=== PATIENT | female | born 1955 | race Caucasian/White ===

== ENCOUNTER 2016-09-24 23:32 | Emergency (ER) | payer OTHER ==
[~2016-09-24 23:32] MED LIST: /ALEN70TA; /ALEN70TA OR; /ALEN7SOL PO; /HCTZ25TA PO; /HYDR1TAB PO; /LAMO10TA; /LAMO20TA OR; /ONDA4TA PO; /THIA10TA OR; ABIL10TA PO; ABIL15TA PO; ACET65TA OR; ASCO25TA PO; ASPI325T PO; ASPI325T5 PO; ATARAX; ATARAX PO; BISAC5TA PO; CALCTAB68 PO; CALCWAF4 PO; CARA1TAB2 PO; CILO0.3S OU; CLAR5CHW; COLA50CA3 PO; COLACE PO; DARVOCET-N PO; DULC5TAB PO; EFFEXOR; FERR325T PO; FERR325T3 PO; FLEX5TAB3 PO; FOLI1TAB OR; FOLI1TAB2 PO; FOSAMAX70 PO; HYDR1TAB97 PO; HYDR25TA6 OR; HYDR50CA2 PO; IBUP800T23 PO; KLON2TAB; KLON2TAB OR; KLON2TAB PO; KLOR1TAB77 PO; LAMICTAL; LEVO25TABR OR; LIDO1DIS2 TD; LIDO5DIS36 TD; LIDO5TD TD; LIDODERM; LIDODERM PATCH; LIDODERM TOPICAL; LOPR50TA PO; MAG400TA PO; MAGN250T9 PO; MAGN400T5 PO; MAGN64TASA PO; METO25TAB PO; MICR10CA PO; MILKSUS PO; MOBIC15 PO; MULTCAP PO; MULTIVIT OR; MULTTAB4 PO; MYLASS PO; NAPROS500 PO; NEXIUM PO; NICO21DI4 TD; OMEP40CA2 PO; OSCAL PO; OSCAL600 PO; OXYCO5TA PO; OYSTER SHELL CALCIUM; PERC5TAB6 PO; PERCOCET OR; PERCOCET PO; PHENERGA25 PO; POTA1TAB14 PO; POTA75TA2 PO; PRIL20CA; PRIL40CA PO; PRILOSEC; PRIN10TA OR; PRIN10TA PO; REGL10TA6 PO; SENO8.6T10 PO; SENO8.6T9 PO; SIMV10TA2 PO; TOPR25TA PO; TYLE325T5 PO; VENL75TA2; VICODIN PO; VIST50CA; VITA100L PO; VITMTA PO; ZITHTAB; ZOCO5TAB OR; ZYPR20TA OR; [UNRECOGNIZED DRUG - CODE] PO; [UNRECOGNIZED DRUG - OTHER] PO; potassium
[2016-09-24] MEDS ORDERED: MORPHINE 4 MG/ML 1ML SYRINGE As Ordered ONE (23:54)
--- NOTE | 2016-09-25 01:14 | REP ---
Clinical: Trauma. Technique: AP and lateral views of the left forearm. Findings: Lateral view demonstrates irregularities involving the proximal ulna and specifically the coronoid process. These findings may reflect arthritic degenerative changes and however acute injury cannot be excluded. Remainder of the forearm appears intact and normal without acute fracture or dislocation. No subcutaneous emphysema or radiodense foreign body. Impression: 1. Degenerative changes versus injury involving the elbow/proximal ulna. 2. Remainder examination appears normal and without further acute fracture dislocation. Signed by Stephan Kline MD 09/25/2016 01:05 A
--- NOTE | 2016-09-25 01:17 | REP ---
Clinical: Trauma. Technique: AP and lateral views of the left humerus. Comparison: 09/07/2016. Findings: Orthopedic hardware is again identified spanning the proximal humeral shaft fracture. A comminuted oblique fracture of the mid humeral shaft is unchanged in position but demonstrates surrounding callus formation and periosteal reaction. No obvious further acute fracture or dislocation noted. Impression: 1. Callus formation and periosteal reaction at the site of previous mid humeral shaft fracture. 2. No new acute fracture. Signed by Stephan Kline MD 09/25/2016 01:08 A
--- NOTE | 2016-09-25 10:41 | EDDOCDS ---
Nurse's Notes [facility] Name: Corinne Garg Age: 60 yrs Sex: Female : 1955 Arrival Date: 09/24/2016 Time: 23:32 Bed 18 Private MD: Sania Bales Diagnosis: Alcohol abuse with intoxication, uncomplicated;Fall on same level from slipping, tripping and stumbling;Contusion of left upper arm Presentation: 09/24 23:36 Presenting complaint: EMS states: pt has been drinking and fell on left arm that she ko2 currently had surgery on a month ago. Pt was here two weeks ago for the same reason. Per EMS roommate no longer wanted to care for pt. She was given an ultimatum by the police that she either come to the hospital and be evaluated for psych. Mental Health Triage Level: Not applicable. Adult Sepsis Screening: The patient does not have new or worsening altered mentation. Patient's respiratory rate is less than 22. Systolic blood pressure is greater than 100. Patient has a qSOFA score of 0- Negative Sepsis Screen. Mental Health Triage Level: Not applicable. Suicide/Homicide risk assessment- the patient denies having any suicidal and/or homicidal ideations and does not present with any other emotional, behavioral or mental health complaints. 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 Transition of care: patient was not received from another setting of care. Care prior to arrival: See EMS report. 23:36 Acuity: LEXI Level 4 ko2 23:36 Method Of Arrival: Ambulance ko2 Triage Assessment: 23:45 General: Appears uncomfortable, Behavior is cooperative. Pain: Location: left shoulder. ko2 HIV screening NA for this visit Offered previously. The patient is triaged at the bedside. See Assessment in Nurses Notes section of ED record. Neurological: Level of Consciousness is awake. Respiratory: Airway is patent Respiratory effort is even, unlabored. Derm: Skin is pink, warm & dry. Historical: - Allergies: No known drug Allergies; - Home Meds: 1. Percocet 5-325 mg Oral tab 1 tab every 4 hours (Last dose: 09/24/2016 08:00) - PMHx: Alcoholism; Anxiety; Depression; Hypercholesterolemia; Hypertension; - PSHx: ; Laparoscopy; Left arm surgery; - The history from nurses notes was reviewed: and I agree with what is documented. - Social history: Smoking status: Patient uses tobacco products, heavy tobacco smoker. No barriers to communication noted, The patient speaks fluent Syriac, Speaks appropriately for age, The patient lives. - : The pt / caregiver states he / she is not on anticoagulants. Home medication list is obtained from the patient. - Hospitalizations: : No recent hospitalization is reported. - Exposure Risk Screening:: None identified. - Immunization history:: unknown. - Family history: Not pertinent. - Social history:: the patient smokes cigarettes the patient drinks alcohol, including recently, regularly to excess. Screenin:46 Screening information is obtained from the patient. Fall risk: No risks identified. ko2 Fall risk: At risk due to prior history of falls. Assistance ADL's: requires no assistance with activities of daily living. Abuse/DV Screen: The patient / caregiver reports he/she is: not in a situation that causes fear, pain or injury. Nutritional screening: No deficits noted. Advance Directives: Currently, there is no health care proxy. There is no active DNR order. There is no living will. 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 home support is adequate. Assessment: 23:46 General: See triage assessment. ko2 09/25 01:23 Reassessment: Patient appears in no apparent distress at this time. General: sleeping gabino at present.. Cardiovascular: No deficits noted. Respiratory: No deficits noted. Derm: Skin is pink, warm & dry. 02:06 Reassessment: Patient appears in no apparent distress at this time. remains sleeping at gabino this time.. 02:37 General: Pt does not want to be discharged. Wishes to stay until AM does not have keys gabino to get into house. Charge Nurse Corinne Funk to notify Dr. Thomas.. 03:04 General: Pt will not ambulate. Stands only. Roommate unable to be contacted to let her gabino in house. No incoming calls per phone. Dr. Thomas aware. [place] Police to be contacted to see if they can get her in her house by waking roommate.. 04:00 General: Appears in no apparent distress, pt resting comfortably on stretcher at this ko2 time. Trying to contact Bora Corral to come and get pt. customer order clerk will continue to try and reach number. 05:00 General: Appears in no apparent distress, comfortable, pt resting comfortably on ko2 stretcher at this time. Trying to contact Eusebio corral to come and get pt with no success at this time. Will continue to try and reach him.. 06:10 General: Appears in no apparent distress, comfortable, Attempts to contact Eusebio Corral ko2 still unsuccessful. Will continue to try and reach via phone. Pt resting comfortably, respirations unlabored. No concerns at this time. . 07:08 General: Appears resting resting with eyes closed resp easy and regular. awaiting jmk intervention from PSA. 07:48 General: Appears conversing with PSA. jmk 08:38 General: Appears alert and aware of surroundings. speech is intelligible. moving about jmk on stretcher. Indicates left arm pain with movement. ( arm is in sling from prior injury). orange juice provided. awaiting dispo. 10:38 General: Appears ambulatory about department with supervision. pt receptive to jmk discharge. Social Work Consult: 08:13 Social Work Note: Msg left for roommate, Eusebio Corral. No reply yet to multiple phone ca calls. Police reportedly went to pt's home during the night but no answer. Pt says she is locked out and that the roommate is home. Will not give permission to call her other contacts who are family members. 08:24 Social Work Note: Another call made to Mr Corral, again no answer. ca Vital Signs: 09/24 23:39 BP 128 / 73; Pulse 95; Resp 18 S; Temp 97.6(O); Pulse Ox 99% on R/A; Weight 53.52 kg jp4 (R); Height 5 ft. 2 in. (157.48 cm) (R); Pain 10; 09/25 02:36 BP 103 / 55; Pulse 85; Resp 20 S; Temp 96.2(O); Pulse Ox 95% on R/A; gabino 10:39 BP 134 / 75; Pulse 96; Resp 16; Temp 97.3(T); jmk 09/24 23:39 Body Mass Index 21.58 (53.52 kg, 157.48 cm) jp4 ED Course: 09/24 23:33 Patient visited by Cruz Dobson, Speedboat Driver. 3 23:33 Patient moved to Waiting ml3 23:34 Anita Sin,RN is Primary Nurse. ml3 23:34 Patient moved to 18 ml3 23:36 Sania Bales is Private Physician. ml3 23:40 Patient visited by Jorge Albetro Vanegas. jp4 23:40 Patient has correct armband on for positive identification. Bed in low position. Call jp4 light in reach. Side rails up X2. 23:42 Triage Initiated ko2 23:45 Kartik Thomas MD is Attending Physician. pc 23:49 Patient visited by Kartik Thomas MD. pc 04 00:02 Patient visited by Anita Sin RN. ko2 00:02 Alcohol Sent. gabino 01:18 Patient visited by Radha Fontanez RN. gabino 01:24 Forearm (radius/ulna) Returned. EDMS 01:24 Humerus Returned. EDMS 02:06 Patient visited by Radha Fontanez RN. gabino [facility] pc 06:11 Patient visited by Anita Sin RN. ko2 06:25 [facility] Payment Agreement was scanned into [employer] and attached to record. jp5 07:15 Primary Nurse role handed off by Anita Sin RN jlf Administered Medications: 00:02 Drug: morphine 4 mg [morphine 4 mg/mL intravenous cartridge (1 mL)] Route: Sub-Q; Site: ko2 abdomen; 00:10 Follow up: Response: Pain is decreased gabino Order Results: Lab Order: Alcohol; SPEC'M 09/25/16 00:04 Test: ETHYL ALCOHOL (ETHANOL); Value: 0.303; Range: 0.000-0.010; Abnormal: Above high normal; Units: %; Status: F Radiology Order: Forearm (radius/ulna) Test: Forearm (radius/ulna) REASON FOR EXAMINATION: Trauma; Clinical: Trauma.; ; Technique: AP and lateral views of the left forearm.; ; Findings:; Lateral view demonstrates irregularities involving the proximal ulna and; specifically the coronoid process. These findings may reflect arthritic; degenerative changes and however acute injury cannot be excluded. Remainder of; the forearm appears intact and normal without acute fracture or dislocation. No; subcutaneous emphysema or radiodense foreign body.; ; Impression:; 1. Degenerative changes versus injury involving the elbow/proximal ulna.; 2. Remainder examination appears normal and without further acute fracture; dislocation.; ; ; Signed by; Stephan Kline MD 09/25/2016 01:05 A; Radiology Order: Humerus Test: Humerus REASON FOR EXAMINATION: Trauma; Clinical: Trauma.; ; Technique: AP and lateral views of the left humerus.; ; Comparison: 09/07/2016.; ; Findings:; Orthopedic hardware is again identified spanning the proximal humeral shaft; fracture. A comminuted oblique fracture of the mid humeral shaft is unchanged in; position but demonstrates surrounding callus formation and periosteal reaction.; No obvious further acute fracture or dislocation noted.; ; Impression:; 1. Callus formation and periosteal reaction at the site of previous mid humeral; shaft fracture.; 2. No new acute fracture.; ; ; Signed by; Stephan Kline MD 09/25/2016 01:08 A; Outcome: 02:21 Discharge ordered by Provider. pc 10:40 Patient left the ED. desirae Signatures: Dispatcher [employer] EDMS Kartik Thomas MD MD pc Knapp, Jean,RN RN Radha AcostaRN RN Lanny Good, PSA PSA ca Bronson, Cruz, Speedboat Driver Unit ml3 Alma Aleman, CARL E[employer]ER[employer] MANAGER Jorge Alberto Liu jp4 Anita Sin,RN RN Juan Diego Wolfe jp5 Corrections: (The following items were deleted from the chart) 02:41 02:37 General: Pt does not want to be discharged. Wishes to stay until AM. . gabino lloyd GAGANDEEP
--- NOTE | 2016-09-25 10:41 | EDDOCDS ---
Physician Documentation [facility] [place] Name: Corinne Garg Age: 60 yrs Sex: Female : 1955 Arrival Date: 09/24/2016 Time: 23:32 Bed 18 Private MD: Sania Bales Disposition: 09/25 02:20 Critical Care: Critical care not applicable. pc Disposition: 09/25/16 02:21 Discharged to Home/Self Care. Impression: Alcohol abuse with intoxication, uncomplicated, Fall on same level from slipping, tripping and stumbling, Contusion of left upper arm. - Condition is Stable. - Discharge Instructions: Alcohol Intoxication. - Medication Reconciliation, Local Pharmacy Hours form. - Follow up: Orthopaedics, [facility]; When: As previously arranged; Reason: Continuance of care. - Problem is an acute exacerbation. - Symptoms have improved. HPI: 09/24 23:50 This 60 yrs old Female presents to ER via Ambulance with complaints of ETOH pc Abuse, Fall Injury. 23:50 The history is obtained from the patient, EMS providers. A reliable history and/or pc examination was not able to be obtained, due to the patient's level of intoxication. She is an alcoholic with a history of multiple falls. She broke her left upper humerus requiring ORIF, followed by another fall that fractured the mid shaft humerus just below the hardware. She is now in a full arm splint. She is highly intoxicated, and fell walking ot the bathroom. She has left arm pain and refused EMS. Her roommate refused to help her and police were called and "convinced" her to come to the ED. At their worst, the symptoms were moderate. In the emergency department, the symptoms are moderate. The patient has experienced similar episodes in the past, multiple times. The patient has been recently seen by an orthopedic surgeon. Historical: - Allergies: No known drug Allergies; - Home Meds: 1. Percocet 5-325 mg Oral tab 1 tab every 4 hours (Last dose: 09/24/2016 08:00) - PMHx: Alcoholism; Anxiety; Depression; Hypercholesterolemia; Hypertension; - PSHx: ; Laparoscopy; Left arm surgery; - The history from nurses notes was reviewed: and I agree with what is documented. - Social history: Smoking status: Patient uses tobacco products, heavy tobacco smoker. No barriers to communication noted, The patient speaks fluent Salvadorean, Speaks appropriately for age, The patient lives. - : The pt / caregiver states he / she is not on anticoagulants. Home medication list is obtained from the patient. - Hospitalizations: : No recent hospitalization is reported. - Exposure Risk Screening:: None identified. - Immunization history:: unknown. - Family history: Not pertinent. - Social history:: the patient smokes cigarettes the patient drinks alcohol, including recently, regularly to excess. ROS: 23:50 All systems are negative except as listed. pc Exam: 23:50 General Appearance: alert, the patient is in moderate distress, strong odor of alcohol. pc 23:50 EENT: no apparent trauma. 23:50 Extremities: grossly normal except: noted in the left arm: in an orthopedic splint, with normal sensation in her hand and with movement of all fingers. 23:50 Neuro: no motor deficits, no sensory deficits. Vital Signs: 23:39 BP 128 / 73; Pulse 95; Resp 18 S; Temp 97.6(O); Pulse Ox 99% on R/A; Weight 53.52 kg / jp4 117.99 lbs (R); Height 5 ft. 2 in. (157.48 cm) (R); Pain 10/10; 09/25 02:36 BP 103 / 55; Pulse 85; Resp 20 S; Temp 96.2(O); Pulse Ox 95% on R/A; gabino 10:39 BP 134 / 75; Pulse 96; Resp 16; Temp 97.3(T); jmk 09/24 23:39 Body Mass Index 21.58 (53.52 kg, 157.48 cm) jp4 MDM: 09/24 23:50 morphine 4 mg Sub-Q once ordered. pc 23:51 Forearm (radius/ulna) Ordered. EDMS 23:51 Humerus Ordered. EDMS 23:52 Alcohol Ordered. EDMS 23:56 Differential Diagnosis: alcohol abuse with intoxication; left arm pain with multiple pc recent fractures. Plan: labs, meds, imaging. 09/25 02:20 Alcohol Reviewed. pc 02:20 Forearm (radius/ulna) Reviewed. pc 02:20 Humerus Reviewed. pc 02:20 Data reviewed: old medical records, vital signs, nurses notes, lab test results, all pc radiology studies and available results. Test interpretation: LAB - all labs as ordered have been reviewed, interpreted and considered in the overall management of the clinical presentation; X-RAY - interpreted by Radiologist and personally reviewed, Forearm Left No acute disease Humerus Left prior fracture with callous formation and no new fractures. The patient has been re-examined and re-evaluated. The patient's symptoms have mildly improved after treatment. Disposition: The historical points, examination findings, and any diagnostic results supporting the provided diagnosis, were discussed with the patient or legal guardian. The need for outpatient follow up with the provider listed on their discharge instructions was discussed. They were encouraged to return to [facility], or the nearest ED, if symptoms worsen/persist, or for any other questions/concerns. 06:25 [facility] Payment Agreement was scanned into [employer] and attached to record. jp5 06:25 Financial registration complete. jp5 Administered Medications: 00:02 Drug: morphine 4 mg [morphine 4 mg/mL intravenous cartridge (1 mL)] Route: Sub-Q; Site: ko2 abdomen; 00:10 Follow up: Response: Pain is decreased gabino Signatures: Dispatcher [employer] EDMS Kartik Thomas MD MD pc Knapp, Jean,RN RN Anita Berry RN RN gerry2 Juan Diego Xiao jp5 Radha Fontanez RN, cas The chart was reviewed and I authenticate all verbal orders and agree with the evaluation and treatment provided.Attachments: 06:25 [facility] Payment Agreement jp5 MTDD
--- NOTE | 2016-09-27 11:40 | EDDOCDS ---
Physician Documentation [facility] Name: Corinne Garg Age: 60 yrs Sex: Female : 1955 Arrival Date: 09/24/2016 Time: 23:32 Bed 18 Private MD: Sania Bales Disposition: 09/25 02:20 Critical Care: Critical care not applicable. pc Disposition: 09/25/16 02:21 Discharged to Home/Self Care. Impression: Alcohol abuse with intoxication, uncomplicated, Fall on same level from slipping, tripping and stumbling, Contusion of left upper arm. - Condition is Stable. - Discharge Instructions: Alcohol Intoxication. - Medication Reconciliation, Local Pharmacy Hours form. - Follow up: Orthopaedics, [facility]; When: As previously arranged; Reason: Continuance of care. - Problem is an acute exacerbation. - Symptoms have improved. HPI: 09/24 23:50 This 60 yrs old Female presents to ER via Ambulance with complaints of ETOH pc Abuse, Fall Injury. 23:50 The history is obtained from the patient, EMS providers. A reliable history and/or pc examination was not able to be obtained, due to the patient's level of intoxication. She is an alcoholic with a history of multiple falls. She broke her left upper humerus requiring ORIF, followed by another fall that fractured the mid shaft humerus just below the hardware. She is now in a full arm splint. She is highly intoxicated, and fell walking ot the bathroom. She has left arm pain and refused EMS. Her roommate refused to help her and police were called and "convinced" her to come to the ED. At their worst, the symptoms were moderate. In the emergency department, the symptoms are moderate. The patient has experienced similar episodes in the past, multiple times. The patient has been recently seen by an orthopedic surgeon. Historical: - Allergies: No known drug Allergies; - Home Meds: 1. Percocet 5-325 mg Oral tab 1 tab every 4 hours (Last dose: 09/24/2016 08:00) - PMHx: Alcoholism; Anxiety; Depression; Hypercholesterolemia; Hypertension; - PSHx: ; Laparoscopy; Left arm surgery; - The history from nurses notes was reviewed: and I agree with what is documented. - Social history: Smoking status: Patient uses tobacco products, heavy tobacco smoker. No barriers to communication noted, The patient speaks fluent [place]er, Speaks appropriately for age, The patient lives. - : The pt / caregiver states he / she is not on anticoagulants. Home medication list is obtained from the patient. - Hospitalizations: : No recent hospitalization is reported. - Exposure Risk Screening:: None identified. - Immunization history:: unknown. - Family history: Not pertinent. - Social history:: the patient smokes cigarettes the patient drinks alcohol, including recently, regularly to excess. ROS: 23:50 All systems are negative except as listed. pc Exam: 23:50 General Appearance: alert, the patient is in moderate distress, strong odor of alcohol. pc 23:50 EENT: no apparent trauma. 23:50 Extremities: grossly normal except: noted in the left arm: in an orthopedic splint, with normal sensation in her hand and with movement of all fingers. 23:50 Neuro: no motor deficits, no sensory deficits. Vital Signs: 23:39 BP 128 / 73; Pulse 95; Resp 18 S; Temp 97.6(O); Pulse Ox 99% on R/A; Weight 53.52 kg / jp4 117.99 lbs (R); Height 5 ft. 2 in. (157.48 cm) (R); Pain 10/10; 09/25 02:36 BP 103 / 55; Pulse 85; Resp 20 S; Temp 96.2(O); Pulse Ox 95% on R/A; gabino 10:39 BP 134 / 75; Pulse 96; Resp 16; Temp 97.3(T); jmk 09/24 23:39 Body Mass Index 21.58 (53.52 kg, 157.48 cm) jp4 MDM: 09/24 23:50 morphine 4 mg Sub-Q once ordered. pc 23:51 Forearm (radius/ulna) Ordered. EDMS 23:51 Humerus Ordered. EDMS 23:52 Alcohol Ordered. EDMS 23:56 Differential Diagnosis: alcohol abuse with intoxication; left arm pain with multiple pc recent fractures. Plan: labs, meds, imaging. 09/25 02:20 Alcohol Reviewed. pc 02:20 Forearm (radius/ulna) Reviewed. pc 02:20 Humerus Reviewed. pc 02:20 Data reviewed: old medical records, vital signs, nurses notes, lab test results, all pc radiology studies and available results. Test interpretation: LAB - all labs as ordered have been reviewed, interpreted and considered in the overall management of the clinical presentation; X-RAY - interpreted by Radiologist and personally reviewed, Forearm Left No acute disease Humerus Left prior fracture with callous formation and no new fractures. The patient has been re-examined and re-evaluated. The patient's symptoms have mildly improved after treatment. Disposition: The historical points, examination findings, and any diagnostic results supporting the provided diagnosis, were discussed with the patient or legal guardian. The need for outpatient follow up with the provider listed on their discharge instructions was discussed. They were encouraged to return to [facility], or the nearest ED, if symptoms worsen/persist, or for any other questions/concerns. 06:25 [facility] Payment Agreement was scanned into [employer] and attached to record. jp5 06:25 Financial registration complete. jp5 Administered Medications: 00:02 Drug: morphine 4 mg [morphine 4 mg/mL intravenous cartridge (1 mL)] Route: Sub-Q; Site: ko2 abdomen; 00:10 Follow up: Response: Pain is decreased gabino Signatures: Dispatcher [employer] EDMS Kartik Thomas MD MD pc Knapp, Jean,RN RN Anita Berry RN RN gerry2 Juan Diego Xiao jp5 Radha Fontanez RN, cas The chart was reviewed and I authenticate all verbal orders and agree with the evaluation and treatment provided.Attachments: 06:25 [facility] Payment Agreement jp5 Chart Complete MTDD
--- NOTE | 2016-09-27 11:40 | EDDOCDS ---
Nurse's Notes [facility] Name: Corinne Garg Age: 60 yrs Sex: Female : 1955 Arrival Date: 09/24/2016 Time: 23:32 Bed 18 Private MD: Sania Bales Diagnosis: Alcohol abuse with intoxication, uncomplicated;Fall on same level from slipping, tripping and stumbling;Contusion of left upper arm Presentation: 09/24 23:36 Presenting complaint: EMS states: pt has been drinking and fell on left arm that she ko2 currently had surgery on a month ago. Pt was here two weeks ago for the same reason. Per EMS roommate no longer wanted to care for pt. She was given an ultimatum by the police that she either come to the hospital and be evaluated for psych. Mental Health Triage Level: Not applicable. Adult Sepsis Screening: The patient does not have new or worsening altered mentation. Patient's respiratory rate is less than 22. Systolic blood pressure is greater than 100. Patient has a qSOFA score of 0- Negative Sepsis Screen. Mental Health Triage Level: Not applicable. Suicide/Homicide risk assessment- the patient denies having any suicidal and/or homicidal ideations and does not present with any other emotional, behavioral or mental health complaints. Status: Patient is not a electromedical service engineer or dependent. Transition of care: patient was not received from another setting of care. Care prior to arrival: See EMS report. 23:36 Acuity: LEXI Level 4 ko2 23:36 Method Of Arrival: Ambulance ko2 Triage Assessment: 23:45 General: Appears uncomfortable, Behavior is cooperative. Pain: Location: left shoulder. ko2 HIV screening NA for this visit Offered previously. The patient is triaged at the bedside. See Assessment in Nurses Notes section of ED record. Neurological: Level of Consciousness is awake. Respiratory: Airway is patent Respiratory effort is even, unlabored. Derm: Skin is pink, warm & dry. Historical: - Allergies: No known drug Allergies; - Home Meds: 1. Percocet 5-325 mg Oral tab 1 tab every 4 hours (Last dose: 09/24/2016 08:00) - PMHx: Alcoholism; Anxiety; Depression; Hypercholesterolemia; Hypertension; - PSHx: ; Laparoscopy; Left arm surgery; - The history from nurses notes was reviewed: and I agree with what is documented. - Social history: Smoking status: Patient uses tobacco products, heavy tobacco smoker. No barriers to communication noted, The patient speaks fluent Luxembourgish, Speaks appropriately for age, The patient lives. - : The pt / caregiver states he / she is not on anticoagulants. Home medication list is obtained from the patient. - Hospitalizations: : No recent hospitalization is reported. - Exposure Risk Screening:: None identified. - Immunization history:: unknown. - Family history: Not pertinent. - Social history:: the patient smokes cigarettes the patient drinks alcohol, including recently, regularly to excess. Screenin:46 Screening information is obtained from the patient. Fall risk: No risks identified. ko2 Fall risk: At risk due to prior history of falls. Assistance ADL's: requires no assistance with activities of daily living. Abuse/DV Screen: The patient / caregiver reports he/she is: not in a situation that causes fear, pain or injury. Nutritional screening: No deficits noted. Advance Directives: Currently, there is no health care proxy. There is no active DNR order. There is no living will. There is no Power of Commissions Analyst. home support is adequate. Assessment: 23:46 General: See triage assessment. ko2 09/25 01:23 Reassessment: Patient appears in no apparent distress at this time. General: sleeping gabino at present.. Cardiovascular: No deficits noted. Respiratory: No deficits noted. Derm: Skin is pink, warm & dry. 02:06 Reassessment: Patient appears in no apparent distress at this time. remains sleeping at gabino this time.. 02:37 General: Pt does not want to be discharged. Wishes to stay until AM does not have keys gabino to get into house. Charge Nurse Corinne Funk to notify Dr. Thomas.. 03:04 General: Pt will not ambulate. Stands only. Roommate unable to be contacted to let her gabino in house. No incoming calls per phone. Dr. Thomas aware. [place] Police to be contacted to see if they can get her in her house by waking roommate.. 04:00 General: Appears in no apparent distress, pt resting comfortably on stretcher at this ko2 time. Trying to contact Bora Corral to come and get pt. insurance clerk will continue to try and reach number. 05:00 General: Appears in no apparent distress, comfortable, pt resting comfortably on ko2 stretcher at this time. Trying to contact Eusebio corral to come and get pt with no success at this time. Will continue to try and reach him.. 06:10 General: Appears in no apparent distress, comfortable, Attempts to contact Eusbeio Corral ko2 still unsuccessful. Will continue to try and reach via phone. Pt resting comfortably, respirations unlabored. No concerns at this time. . 07:08 General: Appears resting resting with eyes closed resp easy and regular. awaiting jmk intervention from PSA. 07:48 General: Appears conversing with PSA. jmk 08:38 General: Appears alert and aware of surroundings. speech is intelligible. moving about jmk on stretcher. Indicates left arm pain with movement. ( arm is in sling from prior injury). orange juice provided. awaiting dispo. 10:38 General: Appears ambulatory about department with supervision. pt receptive to jmk discharge. Social Work Consult: 08:13 Social Work Note: Msg left for roommate, Eusebio Corral. No reply yet to multiple phone ca calls. Police reportedly went to pt's home during the night but no answer. Pt says she is locked out and that the roommate is home. Will not give permission to call her other contacts who are family members. 08:24 Social Work Note: Another call made to Mr Corral, again no answer. ca 11:04 Social Work Note: Spoke to pt's friend, and pt's home is now accessible. Pt discharged ca via taxi. Vital Signs: 09/24 23:39 BP 128 / 73; Pulse 95; Resp 18 S; Temp 97.6(O); Pulse Ox 99% on R/A; Weight 53.52 kg jp4 (R); Height 5 ft. 2 in. (157.48 cm) (R); Pain 07/01; 09/25 02:36 BP 103 / 55; Pulse 85; Resp 20 S; Temp 96.2(O); Pulse Ox 95% on R/A; gabino 10:39 BP 134 / 75; Pulse 96; Resp 16; Temp 97.3(T); jmk 09/24 23:39 Body Mass Index 21.58 (53.52 kg, 157.48 cm) 4 ED Course: 09/24 23:33 Patient visited by Cruz Dobson, 5Th Grade Teacher. ml3 23:33 Patient moved to Waiting ml3 23:34 Anita Sin RN is Primary Nurse. ml3 23:34 Patient moved to 18 ml3 23:36 Sania Bales is Private Physician. ml3 23:40 Patient visited by Jorge Alberto Vanegas. jp4 23:40 Patient has correct armband on for positive identification. Bed in low position. Call jp4 light in reach. Side rails up X2. 23:42 Triage Initiated ko2 23:45 Kartik Thomas MD is Attending Physician. pc 23:49 Patient visited by Kartik Thomas MD. pc 09/25 00:02 Patient visited by Anita Sin RN. ko2 00:02 Alcohol Sent. gabino 01:18 Patient visited by Radha Fontanez RN. gabino 01:24 Forearm (radius/ulna) Returned. EDMS 01:24 Humerus Returned. EDMS 02:06 Patient visited by Radha Fontanez RN. gabino 02:[facility] pc 06:11 Patient visited by Anita Sin RN. ko2 06:25 [facility] Payment Agreement was scanned into [employer] and attached to record. jp5 07:15 Primary Nurse role handed off by Anita Sin RN [facility] Administered Medications: 00:02 Drug: morphine 4 mg [morphine 4 mg/mL intravenous cartridge (1 mL)] Route: Sub-Q; Site: ko2 abdomen; 00:10 Follow up: Response: Pain is decreased gabino Order Results: Lab Order: Alcohol; SPEC'M 09/25/16 00:04 Test: ETHYL ALCOHOL (ETHANOL); Value: 0.303; Range: 0.000-0.010; Abnormal: Above high normal; Units: %; Status: F Radiology Order: Forearm (radius/ulna) Test: Forearm (radius/ulna) REASON FOR EXAMINATION: Trauma; Clinical: Trauma.; ; Technique: AP and lateral views of the left forearm.; ; Findings:; Lateral view demonstrates irregularities involving the proximal ulna and; specifically the coronoid process. These findings may reflect arthritic; degenerative changes and however acute injury cannot be excluded. Remainder of; the forearm appears intact and normal without acute fracture or dislocation. No; subcutaneous emphysema or radiodense foreign body.; ; Impression:; 1. Degenerative changes versus injury involving the elbow/proximal ulna.; 2. Remainder examination appears normal and without further acute fracture; dislocation.; ; ; Signed by; Stephan Kline MD 09/25/2016 01:05 A; Radiology Order: Humerus Test: Humerus REASON FOR EXAMINATION: Trauma; Clinical: Trauma.; ; Technique: AP and lateral views of the left humerus.; ; Comparison: 09/07/2016.; ; Findings:; Orthopedic hardware is again identified spanning the proximal humeral shaft; fracture. A comminuted oblique fracture of the mid humeral shaft is unchanged in; position but demonstrates surrounding callus formation and periosteal reaction.; No obvious further acute fracture or dislocation noted.; ; Impression:; 1. Callus formation and periosteal reaction at the site of previous mid humeral; shaft fracture.; 2. No new acute fracture.; ; ; Signed by; Stephan Kline MD 09/25/2016 01:08 A; Outcome: 02:21 Discharge ordered by Provider. pc 10:40 Patient left the ED. desirae Signatures: Dispatcher [employer] EDMS Kartik Thomas MD MD pc Knapp, Jean,RN RN Radha Acosta,RN RN gabino Lanny Medina, RENETTA PSA ca Cruz Dobson, 5Th Grade Teacher Unit ml3 Alma Aleman, MEDICATION COORDINATOR MEDICATION COORDINATOR Jorge Alberto Liu jp4 Anita Sin RN RN Juan Diego Wolfe jp5 Corrections: (The following items were deleted from the chart) 02:41 02:37 General: Pt does not want to be discharged. Wishes to stay until AM. . gabino gabino Chart Complete MTDD
--- NOTE | 2016-09-27 11:40 | EDDOCDS ---
Physician Documentation [facility] Name: Corinne Garg Age: 60 yrs Sex: Female : 1955 Arrival Date: 09/24/2016 Time: 23:32 Bed 18 Private MD: Sania Bales Disposition: 09/25 02:20 Critical Care: Critical care not applicable. pc Disposition: 09/25/16 02:21 Discharged to Home/Self Care. Impression: Alcohol abuse with intoxication, uncomplicated, Fall on same level from slipping, tripping and stumbling, Contusion of left upper arm. - Condition is Stable. - Discharge Instructions: Alcohol Intoxication. - Medication Reconciliation, Local Pharmacy Hours form. - Follow up: Orthopaedics, [facility]; When: As previously arranged; Reason: Continuance of care. - Problem is an acute exacerbation. - Symptoms have improved. HPI: 09/24 23:50 This 60 yrs old Female presents to ER via Ambulance with complaints of ETOH pc Abuse, Fall Injury. 23:50 The history is obtained from the patient, EMS providers. A reliable history and/or pc examination was not able to be obtained, due to the patient's level of intoxication. She is an alcoholic with a history of multiple falls. She broke her left upper humerus requiring ORIF, followed by another fall that fractured the mid shaft humerus just below the hardware. She is now in a full arm splint. She is highly intoxicated, and fell walking ot the bathroom. She has left arm pain and refused EMS. Her roommate refused to help her and police were called and "convinced" her to come to the ED. At their worst, the symptoms were moderate. In the emergency department, the symptoms are moderate. The patient has experienced similar episodes in the past, multiple times. The patient has been recently seen by an orthopedic surgeon. Historical: - Allergies: No known drug Allergies; - Home Meds: 1. Percocet 5-325 mg Oral tab 1 tab every 4 hours (Last dose: 09/24/2016 08:00) - PMHx: Alcoholism; Anxiety; Depression; Hypercholesterolemia; Hypertension; - PSHx: ; Laparoscopy; Left arm surgery; - The history from nurses notes was reviewed: and I agree with what is documented. - Social history: Smoking status: Patient uses tobacco products, heavy tobacco smoker. No barriers to communication noted, The patient speaks fluent Hong Konger, Speaks appropriately for age, The patient lives. - : The pt / caregiver states he / she is not on anticoagulants. Home medication list is obtained from the patient. - Hospitalizations: : No recent hospitalization is reported. - Exposure Risk Screening:: None identified. - Immunization history:: unknown. - Family history: Not pertinent. - Social history:: the patient smokes cigarettes the patient drinks alcohol, including recently, regularly to excess. ROS: 23:50 All systems are negative except as listed. pc Exam: 23:50 General Appearance: alert, the patient is in moderate distress, strong odor of alcohol. pc 23:50 EENT: no apparent trauma. 23:50 Extremities: grossly normal except: noted in the left arm: in an orthopedic splint, with normal sensation in her hand and with movement of all fingers. 23:50 Neuro: no motor deficits, no sensory deficits. Vital Signs: 23:39 BP 128 / 73; Pulse 95; Resp 18 S; Temp 97.6(O); Pulse Ox 99% on R/A; Weight 53.52 kg / jp4 117.99 lbs (R); Height 5 ft. 2 in. (157.48 cm) (R); Pain 10/10; 09/25 02:36 BP 103 / 55; Pulse 85; Resp 20 S; Temp 96.2(O); Pulse Ox 95% on R/A; gabino 10:39 BP 134 / 75; Pulse 96; Resp 16; Temp 97.3(T); jmk 09/24 23:39 Body Mass Index 21.58 (53.52 kg, 157.48 cm) jp4 MDM: 09/24 23:50 morphine 4 mg Sub-Q once ordered. pc 23:51 Forearm (radius/ulna) Ordered. EDMS 23:51 Humerus Ordered. EDMS 23:52 Alcohol Ordered. EDMS 23:56 Differential Diagnosis: alcohol abuse with intoxication; left arm pain with multiple pc recent fractures. Plan: labs, meds, imaging. 09/25 02:20 Alcohol Reviewed. pc 02:20 Forearm (radius/ulna) Reviewed. pc 02:20 Humerus Reviewed. pc 02:20 Data reviewed: old medical records, vital signs, nurses notes, lab test results, all pc radiology studies and available results. Test interpretation: LAB - all labs as ordered have been reviewed, interpreted and considered in the overall management of the clinical presentation; X-RAY - interpreted by Radiologist and personally reviewed, Forearm Left No acute disease Humerus Left prior fracture with callous formation and no new fractures. The patient has been re-examined and re-evaluated. The patient's symptoms have mildly improved after treatment. Disposition: The historical points, examination findings, and any diagnostic results supporting the provided diagnosis, were discussed with the patient or legal guardian. The need for outpatient follow up with the provider listed on their discharge instructions was discussed. They were encouraged to return to [facility], or the nearest ED, if symptoms worsen/persist, or for any other questions/concerns. 06:25 [facility] Payment Agreement was scanned into [employer] and attached to record. jp5 06:25 Financial registration complete. jp5 Administered Medications: 00:02 Drug: morphine 4 mg [morphine 4 mg/mL intravenous cartridge (1 mL)] Route: Sub-Q; Site: ko2 abdomen; 00:10 Follow up: Response: Pain is decreased gabino Signatures: Dispatcher [employer] EDMS Kartik Thomas MD MD pc Knapp, Jean,RN RN Anita Berry RN RN gerry2 Juan Diego Xiao jp5 Radha Fontanez RN, cas The chart was reviewed and I authenticate all verbal orders and agree with the evaluation and treatment provided.Attachments: 06:25 [facility] Payment Agreement jp5 Chart Complete MTDD
== END 2016-09-25 10:40 | disposition home or self-care (01) ==
LOC: M ED 23:32
DX: F10.229 Alcohol dependence with intoxication, unspecified (principal); S40.022A Contusion of left upper arm, initial encounter; W01.0XXA Fall on same level from slipping, tripping and stumbling without subsequent striking against object, initial encounter; Y92.89 Other specified places as the place of occurrence of the external cause; Y93.89 Activity, other specified; Y99.8 Other external cause status; I10 Essential (primary) hypertension; E78.00 Pure hypercholesterolemia, unspecified; F41.9 Anxiety disorder, unspecified; F33.9 Major depressive disorder, recurrent, unspecified; F17.200 Nicotine dependence, unspecified, uncomplicated; Z79.891 Long term (current) use of opiate analgesic
CPT/HCPCS: 73060; 73090; 96372; 99283; G0480

== ENCOUNTER 2018-03-05 22:24 | Emergency (ER) | payer OTHER ==
[2018-03-05] MEDS: KETOROLAC 30 MG/ML VIAL (J1885) IV (23:14)
== END 2018-03-06 00:20 | disposition home or self-care (01) ==
LOC: M ED 03-06 00:20
DX: S80.01XA Contusion of right knee, initial encounter (principal); W19.XXXA Unspecified fall, initial encounter; Y92.009 Unspecified place in unspecified non-institutional (private) residence as the place of occurrence of the external cause; R94.31 Abnormal electrocardiogram [ECG] [EKG]; I10 Essential (primary) hypertension; K21.9 Gastro-esophageal reflux disease without esophagitis; M81.0 Age-related osteoporosis without current pathological fracture; M19.90 Unspecified osteoarthritis, unspecified site; F17.200 Nicotine dependence, unspecified, uncomplicated; Z86.2 Personal history of diseases of the blood and blood-forming organs and certain disorders involving the immune mechanism
CPT/HCPCS: J1885

== ENCOUNTER 2018-03-06 08:00 | Emergency (ER) | payer OTHER ==
[2018-03-06 09:42] LABS: HEMATOCRIT 38.4 % (36.0-47.0); HEMOGLOBIN 13.3 g/dl (12.0-15.5); MEAN CORPUSCULAR HEMOGLOBIN 34.8 pg (27.0-33.0); MEAN CORPUSCULAR HGB CONC 34.6 g/dl (32.0-36.5); MEAN CORPUSCULAR VOLUME 100.5 fl (80.0-96.0); RED BLOOD COUNT 3.82 10^6/uL (4.00-5.40); RED CELL DISTRIBUTION WIDTH 15.2 % (11.5-14.5); WHITE BLOOD COUNT 5.2 10^3/uL (4.0-10.0)
[2018-03-06 10:01] LABS: PLATELET COUNT, AUTOMATED 84 10^3/uL (150-450)
[2018-03-06 10:02] LABS: PLATELET F 14.6
[2018-03-06 10:06] LABS: ALBUMIN 3.9 GM/DL (3.2-5.2); ALBUMIN/GLOBULIN RATIO 1.15 (1.00-1.93); ALKALINE PHOSPHATASE 58 U/L (45-117); ALT/SGPT 26 U/L (12-78); ANION GAP 6 MEQ/L (8-16); AST/SGOT 49 U/L (7-37); BILIRUBIN,DIRECT 0.1 MG/DL (0.0-0.2); BILIRUBIN,TOTAL 0.5 MG/DL (0.2-1.0); BLOOD UREA NITROGEN 22 MG/DL (7-18); CALCIUM LEVEL 8.9 MG/DL (8.8-10.2); CARBON DIOXIDE LEVEL 29 MEQ/L (21-32); CHLORIDE LEVEL 104 MEQ/L (98-107); CREATININE FOR GFR 1.32 MG/DL (0.55-1.30); ETHYL ALCOHOL (ETHANOL) 0.003 % (0.000-0.010); GLOMERULAR FILTRATION RATE 43.1 (>45); GLUCOSE, FASTING 99 MG/DL (70-100); POTASSIUM SERUM 3.7 MEQ/L (3.5-5.1); SODIUM LEVEL 139 MEQ/L (136-145); TOTAL PROTEIN 7.3 GM/DL (6.4-8.2)
[2018-03-06] MEDS: ACETAMINOPHEN TAB 650MG DOSE (2X325MG) PO (14:48)
== END 2018-03-06 16:32 | disposition home or self-care (01) ==
LOC: M ED 08:00
DX: R26.9 Unspecified abnormalities of gait and mobility (principal); F10.20 Alcohol dependence, uncomplicated; N18.2 Chronic kidney disease, stage 2 (mild); M51.9 Unspecified thoracic, thoracolumbar and lumbosacral intervertebral disc disorder; D50.9 Iron deficiency anemia, unspecified; M62.50 Muscle wasting and atrophy, not elsewhere classified, unspecified site; Z79.899 Other long term (current) drug therapy
CPT/HCPCS: 72148

== ENCOUNTER 2018-03-06 18:24 | Inpatient (IN) | payer OTHER ==
[2018-03-06] MEDS: ACETAMINOPHEN 325 MG TAB PO (20:24)
[2018-03-07] MEDS: NS 1,000 ML IV (01:37)
[2018-03-07] MEDS: ACETAMINOPHEN TAB 650MG DOSE (2X325MG) PO ×3 (01:55→21:19)
[2018-03-07 06:17] LABS: BASO % 0.7 % (0.0-1.0); EOS # 0.1 10^3/uL (0.0-0.50); EOS % 1.4 % (0.0-3.0); HEMATOCRIT 37.7 % (36.0-47.0); HEMOGLOBIN 12.7 g/dl (12.0-15.5); IMMATURE GRANULOCYTE % 0.5 % (0-3.0); LYMPH # 2.3 10^3/uL (1.5-4.5); LYMPH % 40.3 % (24.0-44.0); MEAN CORPUSCULAR HEMOGLOBIN 34.4 pg (27.0-33.0); MEAN CORPUSCULAR HGB CONC 33.7 g/dl (32.0-36.5); MEAN CORPUSCULAR VOLUME 102.2 fl (80.0-96.0); MONO # 1.1 10^3/uL (0.0-0.8); MONO % 18.1 % (0.0-5.0); NEUTROPHILS # 2.3 10^3/uL (1.8-7.7); RED BLOOD COUNT 3.69 10^6/uL (4.00-5.40); RED CELL DISTRIBUTION WIDTH 15.2 % (11.5-14.5); WHITE BLOOD COUNT 5.8 10^3/uL (4.0-10.0)
[2018-03-07 06:29] LABS: PLATELET COUNT, AUTOMATED 84 10^3/uL (150-450)
[2018-03-07 06:32] LABS: ANION GAP 6 MEQ/L (8-16); BLOOD UREA NITROGEN 18 MG/DL (7-18); CALCIUM LEVEL 8.2 MG/DL (8.8-10.2); CARBON DIOXIDE LEVEL 31 MEQ/L (21-32); CHLORIDE LEVEL 105 MEQ/L (98-107); CPK CREATINE PHOSPHOKINASE 116 U/L (26-192); CREATININE FOR GFR 1.11 MG/DL (0.55-1.30); GLOMERULAR FILTRATION RATE 52.7 (>45); GLUCOSE, FASTING 107 MG/DL (70-100); POTASSIUM SERUM 3.9 MEQ/L (3.5-5.1); SODIUM LEVEL 142 MEQ/L (136-145)
[2018-03-07 07:29] LABS: ALBUMIN 3.6 GM/DL (3.2-5.2); ALBUMIN/GLOBULIN RATIO 1.13 (1.00-1.93); ALKALINE PHOSPHATASE 52 U/L (45-117); ALT/SGPT 26 U/L (12-78); AST/SGOT 56 U/L (7-37); BILIRUBIN,TOTAL 0.4 MG/DL (0.2-1.0); MAGNESIUM LEVEL 1.2 MG/DL (1.8-2.4); TOTAL PROTEIN 6.8 GM/DL (6.4-8.2)
[2018-03-07 08:01] LABS: INR 0.82; PROTHROMBIN TIME 11.3 SECONDS (12.4-14.5)
[2018-03-07 08:02] LABS: PARTIAL THROMBOPLASTIN TIME 23.4 SECONDS (26.8-37.9)
[2018-03-07] MEDS: MAG SULF 1GM/100ML (MAG RUN) 1 GM in APPROPRIATE DILUENT 1 EA IV ×2 (10:49→12:00)
[2018-03-07] MEDS: IBUPROFEN 600 MG TAB PO (23:18)
[2018-03-08 05:54] LABS: HEMATOCRIT 36.7 % (36.0-47.0); HEMOGLOBIN 12.6 g/dl (12.0-15.5); MEAN CORPUSCULAR HEMOGLOBIN 34.4 pg (27.0-33.0); MEAN CORPUSCULAR HGB CONC 34.3 g/dl (32.0-36.5); MEAN CORPUSCULAR VOLUME 100.3 fl (80.0-96.0); RED BLOOD COUNT 3.66 10^6/uL (4.00-5.40); RED CELL DISTRIBUTION WIDTH 15.1 % (11.5-14.5); WHITE BLOOD COUNT 5.7 10^3/uL (4.0-10.0)
[2018-03-08 05:57] LABS: PLATELET COUNT, AUTOMATED 91 10^3/uL (150-450)
[2018-03-08 06:04] LABS: ANION GAP 9 MEQ/L (8-16); BLOOD UREA NITROGEN 15 MG/DL (7-18); CALCIUM LEVEL 8.6 MG/DL (8.8-10.2); CARBON DIOXIDE LEVEL 27 MEQ/L (21-32); CHLORIDE LEVEL 107 MEQ/L (98-107); CREATININE FOR GFR 0.81 MG/DL (0.55-1.30); GLOMERULAR FILTRATION RATE > 60.0 (>45); GLUCOSE, FASTING 103 MG/DL (70-100); POTASSIUM SERUM 3.5 MEQ/L (3.5-5.1); SODIUM LEVEL 143 MEQ/L (136-145)
[2018-03-08 06:23] LABS: MAGNESIUM LEVEL 1.7 MG/DL (1.8-2.4)
[2018-03-08] MEDS: hydroCHLOROthiazide 25 MG TAB PO (07:16)
[2018-03-08] MEDS: LISINOPRIL *2.5 MG* TAB PO (07:16)
[2018-03-08] MEDS: LISINOPRIL 5 MG TAB PO (09:45)
[2018-03-08] MEDS: ACETAMINOPHEN TAB 650MG DOSE (2X325MG) PO (11:19)
[2018-03-08] MEDS: LISINOPRIL 10 MG TAB PO (20:51)
[2018-03-08] MEDS ORDERED: LISINOPRIL *2.5 MG* TAB PO (21:00)
[2018-03-08] MEDS: IBUPROFEN 600 MG TAB PO (23:50)
[2018-03-08] MEDS: traZODone 25MG PER 1/2 TABLET PO (23:50)
[2018-03-09 06:30] LABS: HEMATOCRIT 38.4 % (36.0-47.0); HEMOGLOBIN 12.9 g/dl (12.0-15.5); MEAN CORPUSCULAR HEMOGLOBIN 34.1 pg (27.0-33.0); MEAN CORPUSCULAR HGB CONC 33.6 g/dl (32.0-36.5); MEAN CORPUSCULAR VOLUME 101.6 fl (80.0-96.0); PLATELET COUNT, AUTOMATED 102 10^3/uL (150-450); RED BLOOD COUNT 3.78 10^6/uL (4.00-5.40); RED CELL DISTRIBUTION WIDTH 15.1 % (11.5-14.5); WHITE BLOOD COUNT 6.8 10^3/uL (4.0-10.0)
[2018-03-09 06:47] LABS: ANION GAP 7 MEQ/L (8-16); BLOOD UREA NITROGEN 13 MG/DL (7-18); CALCIUM LEVEL 9.3 MG/DL (8.8-10.2); CARBON DIOXIDE LEVEL 26 MEQ/L (21-32); CHLORIDE LEVEL 107 MEQ/L (98-107); CREATININE FOR GFR 0.86 MG/DL (0.55-1.30); GLOMERULAR FILTRATION RATE > 60.0 (>45); GLUCOSE, FASTING 104 MG/DL (70-100); POTASSIUM SERUM 3.7 MEQ/L (3.5-5.1); SODIUM LEVEL 140 MEQ/L (136-145)
[2018-03-09] MEDS: hydroCHLOROthiazide 25 MG TAB PO (08:43)
[2018-03-09] MEDS: LISINOPRIL 10 MG TAB PO ×2 (08:43→21:12)
[2018-03-09] MEDS: IBUPROFEN 600 MG TAB PO (08:44)
[2018-03-09 09:58] LABS: TOTAL 25(OH) VITAMIN D 13.5 NG/ML (30.0-100.0); VITAMIN B12 LEVEL 571 PG/ML
[2018-03-09 09:59] LABS: FOLATE 20.4 NG/ML
[2018-03-09 10:47] LABS: MAGNESIUM LEVEL 1.4 MG/DL (1.8-2.4)
[2018-03-09] MEDS: CETIRIZINE (ZyrTEC) 10 MG TAB PO (11:18)
[2018-03-09] MEDS: ACETAMINOPHEN TAB 650MG DOSE (2X325MG) PO (11:19)
[2018-03-09] MEDS: guaiFENesin DM LIQ 10ML UD PO ×2 (12:49→21:14)
[2018-03-09] MEDS ORDERED: PROHANCE 279.3MG/ML 15ML VIAL (A9576) As Ordered (14:06)
[2018-03-09] MEDS: MAGNESIUM OXIDE 400 MG TAB (MAG-OX) PO (16:03)
[2018-03-09] MEDS: MAG SULF 1GM/100ML (MAG RUN) 1 GM in APPROPRIATE DILUENT 1 EA IV (16:04)
[2018-03-09] MEDS: traZODone 50 MG TAB PO (21:14)
[2018-03-09 23:12] LABS: MAGNESIUM LEVEL 1.8 MG/DL (1.8-2.4)
[2018-03-10] MEDS: IBUPROFEN 600 MG TAB PO ×3 (01:04→18:00)
[2018-03-10 06:31] LABS: HEMATOCRIT 37.8 % (36.0-47.0); HEMOGLOBIN 12.7 g/dl (12.0-15.5); MEAN CORPUSCULAR HEMOGLOBIN 34.1 pg (27.0-33.0); MEAN CORPUSCULAR HGB CONC 33.6 g/dl (32.0-36.5); MEAN CORPUSCULAR VOLUME 101.6 fl (80.0-96.0); PLATELET COUNT, AUTOMATED 129 10^3/uL (150-450); RED BLOOD COUNT 3.72 10^6/uL (4.00-5.40); RED CELL DISTRIBUTION WIDTH 15.3 % (11.5-14.5); WHITE BLOOD COUNT 7.1 10^3/uL (4.0-10.0)
[2018-03-10 06:49] LABS: ANION GAP 11 MEQ/L (8-16); BLOOD UREA NITROGEN 17 MG/DL (7-18); CALCIUM LEVEL 8.9 MG/DL (8.8-10.2); CARBON DIOXIDE LEVEL 27 MEQ/L (21-32); CHLORIDE LEVEL 103 MEQ/L (98-107); CREATININE FOR GFR 0.86 MG/DL (0.55-1.30); GLOMERULAR FILTRATION RATE > 60.0 (>45); GLUCOSE, FASTING 106 MG/DL (70-100); POTASSIUM SERUM 3.8 MEQ/L (3.5-5.1); SODIUM LEVEL 141 MEQ/L (136-145)
[2018-03-10 07:43] LABS: ALPHA FETOPROTEIN TUMOR QUANT 3.5 NG/ML (<8.1)
[2018-03-10 08:13] LABS: CA19-9 TUMOR MARKER,CARBOHYDRA 18.1 U/ML (<35.0)
[2018-03-10] MEDS: LISINOPRIL 10 MG TAB PO ×2 (09:00→20:26)
[2018-03-10] MEDS: hydroCHLOROthiazide 25 MG TAB PO (09:45)
[2018-03-10] MEDS: MAGNESIUM OXIDE 400 MG TAB (MAG-OX) PO (09:46)
[2018-03-10] MEDS: CETIRIZINE (ZyrTEC) 10 MG TAB PO (09:46)
[2018-03-10] MEDS: guaiFENesin DM LIQ 10ML UD PO ×2 (09:47→18:00)
[2018-03-10] MEDS: CALCIUM CARBONATE 500 MG CHEW U/D PO (15:21)
[2018-03-10] MEDS: traZODone 50 MG TAB PO (22:06)
[2018-03-11 06:59] LABS: HEMOGLOBIN 13.5 g/dl (12.0-15.5); MEAN CORPUSCULAR HGB CONC 33.8 g/dl (32.0-36.5); MEAN CORPUSCULAR VOLUME 103.6 fl (80.0-96.0); PLATELET COUNT, AUTOMATED 167 10^3/uL (150-450); RED BLOOD COUNT 3.86 10^6/uL (4.00-5.40); RED CELL DISTRIBUTION WIDTH 15.3 % (11.5-14.5); WHITE BLOOD COUNT 6.1 10^3/uL (4.0-10.0)
[2018-03-11 07:15] LABS: ANION GAP 3 MEQ/L (8-16); BLOOD UREA NITROGEN 17 MG/DL (7-18); CALCIUM LEVEL 8.9 MG/DL (8.8-10.2); CARBON DIOXIDE LEVEL 31 MEQ/L (21-32); CHLORIDE LEVEL 106 MEQ/L (98-107); GLOMERULAR FILTRATION RATE > 60.0 (>45); GLUCOSE, FASTING 100 MG/DL (70-100); MAGNESIUM LEVEL 1.8 MG/DL (1.8-2.4); SODIUM LEVEL 140 MEQ/L (136-145)
[2018-03-11 07:18] LABS: POTASSIUM SERUM 5.5 MEQ/L (3.5-5.1)
[2018-03-11] MEDS: LISINOPRIL 10 MG TAB PO ×2 (08:15→20:16)
[2018-03-11] MEDS: CETIRIZINE (ZyrTEC) 10 MG TAB PO (08:15)
[2018-03-11] MEDS: hydroCHLOROthiazide 25 MG TAB PO (08:16)
[2018-03-11] MEDS: IBUPROFEN 600 MG TAB PO ×2 (08:16→20:31)
[2018-03-11] MEDS: MAGNESIUM OXIDE 400 MG TAB (MAG-OX) PO (08:16)
[2018-03-11] MEDS: ACETAMINOPHEN TAB 650MG DOSE (2X325MG) PO (14:39)
[2018-03-11] MEDS: CALCIUM CARBONATE 500 MG CHEW U/D PO (14:39)
[2018-03-11] MEDS: guaiFENesin DM LIQ 10ML UD PO ×2 (14:39→20:33)
[2018-03-11] MEDS: NS 0.45% 1,000 ML IV (18:52)
[2018-03-11] MEDS: traZODone 50 MG TAB PO (20:33)
[2018-03-12 06:10] LABS: HEMATOCRIT 39.7 % (36.0-47.0); HEMOGLOBIN 13.2 g/dl (12.0-15.5); MEAN CORPUSCULAR HGB CONC 33.2 g/dl (32.0-36.5); MEAN CORPUSCULAR VOLUME 102.3 fl (80.0-96.0); PLATELET COUNT, AUTOMATED 205 10^3/uL (150-450); RED BLOOD COUNT 3.88 10^6/uL (4.00-5.40); RED CELL DISTRIBUTION WIDTH 14.7 % (11.5-14.5); WHITE BLOOD COUNT 6.3 10^3/uL (4.0-10.0)
[2018-03-12 06:26] LABS: MAGNESIUM LEVEL 1.6 MG/DL (1.8-2.4)
[2018-03-12 06:27] LABS: ANION GAP 6 MEQ/L (8-16); BLOOD UREA NITROGEN 21 MG/DL (7-18); CALCIUM LEVEL 8.5 MG/DL (8.8-10.2); CARBON DIOXIDE LEVEL 29 MEQ/L (21-32); CHLORIDE LEVEL 106 MEQ/L (98-107); CREATININE FOR GFR 1.03 MG/DL (0.55-1.30); GLOMERULAR FILTRATION RATE 57.4 (>45); GLUCOSE, FASTING 100 MG/DL (70-100); POTASSIUM SERUM 4.7 MEQ/L (3.5-5.1); SODIUM LEVEL 141 MEQ/L (136-145)
[2018-03-12] MEDS: MAGNESIUM OXIDE 400 MG TAB (MAG-OX) PO ×2 (09:27→20:27)
[2018-03-12] MEDS: LISINOPRIL 10 MG TAB PO ×2 (09:28→20:28)
[2018-03-12] MEDS: CETIRIZINE (ZyrTEC) 10 MG TAB PO (09:28)
[2018-03-12] MEDS: IBUPROFEN 600 MG TAB PO ×2 (09:28→20:28)
[2018-03-12] MEDS: guaiFENesin DM LIQ 10ML UD PO ×2 (09:28→20:28)
[2018-03-12] MEDS: ACETAMINOPHEN TAB 650MG DOSE (2X325MG) PO (13:24)
[2018-03-12] MEDS: NS 1,000 ML IV (18:05)
[2018-03-12] MEDS: CALCIUM CARBONATE 500 MG CHEW U/D PO (18:11)
[2018-03-12] MEDS: traZODone 50 MG TAB PO (22:19)
[2018-03-13 06:18] LABS: HEMATOCRIT 36.4 % (36.0-47.0); HEMOGLOBIN 12.3 g/dl (12.0-15.5); MEAN CORPUSCULAR HEMOGLOBIN 34.3 pg (27.0-33.0); MEAN CORPUSCULAR HGB CONC 33.8 g/dl (32.0-36.5); MEAN CORPUSCULAR VOLUME 101.4 fl (80.0-96.0); PLATELET COUNT, AUTOMATED 224 10^3/uL (150-450); RED BLOOD COUNT 3.59 10^6/uL (4.00-5.40); RED CELL DISTRIBUTION WIDTH 14.6 % (11.5-14.5); WHITE BLOOD COUNT 5.5 10^3/uL (4.0-10.0)
[2018-03-13 06:31] LABS: ANION GAP 8 MEQ/L (8-16); BLOOD UREA NITROGEN 20 MG/DL (7-18); CALCIUM LEVEL 8.2 MG/DL (8.8-10.2); CARBON DIOXIDE LEVEL 26 MEQ/L (21-32); CHLORIDE LEVEL 111 MEQ/L (98-107); CREATININE FOR GFR 0.87 MG/DL (0.55-1.30); GLOMERULAR FILTRATION RATE > 60.0 (>45); GLUCOSE, FASTING 99 MG/DL (70-100); MAGNESIUM LEVEL 1.8 MG/DL (1.8-2.4); POTASSIUM SERUM 4.6 MEQ/L (3.5-5.1); SODIUM LEVEL 145 MEQ/L (136-145)
[2018-03-13] MEDS: guaiFENesin DM LIQ 10ML UD PO (08:37)
[2018-03-13] MEDS: CETIRIZINE (ZyrTEC) 10 MG TAB PO (08:37)
[2018-03-13] MEDS: MAGNESIUM OXIDE 400 MG TAB (MAG-OX) PO ×2 (08:37→21:30)
[2018-03-13] MEDS: ACETAMINOPHEN TAB 650MG DOSE (2X325MG) PO (08:39)
[2018-03-13] MEDS: LISINOPRIL 10 MG TAB PO ×2 (08:39→21:30)
[2018-03-13] MEDS: CALCIUM CARBONATE 500 MG CHEW U/D PO (15:10)
[2018-03-13] MEDS: IBUPROFEN 600 MG TAB PO (15:11)
[2018-03-13] MEDS: traZODone 50 MG TAB PO (21:30)
[2018-03-13] MEDS: METOPROLOL TART 25 MG TABLET PO (21:31)
[2018-03-14] MEDS: CALCIUM CARBONATE 500 MG CHEW U/D PO ×2 (00:11→19:08)
[2018-03-14] MEDS: guaiFENesin DM LIQ 10ML UD PO (05:36)
[2018-03-14 06:24] LABS: HEMATOCRIT 37.7 % (36.0-47.0); HEMOGLOBIN 12.6 g/dl (12.0-15.5); MEAN CORPUSCULAR HEMOGLOBIN 33.7 pg (27.0-33.0); MEAN CORPUSCULAR HGB CONC 33.4 g/dl (32.0-36.5); MEAN CORPUSCULAR VOLUME 100.8 fl (80.0-96.0); PLATELET COUNT, AUTOMATED 263 10^3/uL (150-450); RED BLOOD COUNT 3.74 10^6/uL (4.00-5.40); RED CELL DISTRIBUTION WIDTH 14.5 % (11.5-14.5); WHITE BLOOD COUNT 5.4 10^3/uL (4.0-10.0)
[2018-03-14 06:42] LABS: ANION GAP 6 MEQ/L (8-16); BLOOD UREA NITROGEN 16 MG/DL (7-18); CALCIUM LEVEL 8.9 MG/DL (8.8-10.2); CARBON DIOXIDE LEVEL 27 MEQ/L (21-32); CHLORIDE LEVEL 109 MEQ/L (98-107); CREATININE FOR GFR 0.89 MG/DL (0.55-1.30); GLOMERULAR FILTRATION RATE > 60.0 (>45); GLUCOSE, FASTING 103 MG/DL (70-100); MAGNESIUM LEVEL 1.6 MG/DL (1.8-2.4); POTASSIUM SERUM 4.6 MEQ/L (3.5-5.1); SODIUM LEVEL 142 MEQ/L (136-145)
[2018-03-14] MEDS: MAGNESIUM OXIDE 400 MG TAB (MAG-OX) PO ×3 (09:42→21:12)
[2018-03-14] MEDS: BENZONATATE 100 MG CAP PO (09:42)
[2018-03-14] MEDS: METOPROLOL TART 25 MG TABLET PO ×2 (09:43→21:12)
[2018-03-14] MEDS: CETIRIZINE (ZyrTEC) 10 MG TAB PO (09:43)
[2018-03-14] MEDS: LISINOPRIL 10 MG TAB PO ×2 (09:43→21:13)
[2018-03-14] MEDS: IBUPROFEN 600 MG TAB PO ×2 (13:18→21:13)
[2018-03-15] MEDS: traZODone 50 MG TAB PO ×2 (01:06→21:22)
[2018-03-15 06:11] LABS: HEMATOCRIT 38.3 % (36.0-47.0); HEMOGLOBIN 12.8 g/dl (12.0-15.5); MEAN CORPUSCULAR HEMOGLOBIN 33.7 pg (27.0-33.0); MEAN CORPUSCULAR HGB CONC 33.4 g/dl (32.0-36.5); MEAN CORPUSCULAR VOLUME 100.8 fl (80.0-96.0); PLATELET COUNT, AUTOMATED 307 10^3/uL (150-450); RED CELL DISTRIBUTION WIDTH 14.6 % (11.5-14.5); WHITE BLOOD COUNT 6.9 10^3/uL (4.0-10.0)
[2018-03-15 06:27] LABS: ANION GAP 8 MEQ/L (8-16); BLOOD UREA NITROGEN 17 MG/DL (7-18); CALCIUM LEVEL 8.3 MG/DL (8.8-10.2); CARBON DIOXIDE LEVEL 26 MEQ/L (21-32); CHLORIDE LEVEL 109 MEQ/L (98-107); CREATININE FOR GFR 0.88 MG/DL (0.55-1.30); GLOMERULAR FILTRATION RATE > 60.0 (>45); GLUCOSE, FASTING 105 MG/DL (70-100); MAGNESIUM LEVEL 2.1 MG/DL (1.8-2.4); POTASSIUM SERUM 4.2 MEQ/L (3.5-5.1); SODIUM LEVEL 143 MEQ/L (136-145)
[2018-03-15] MEDS: BENZONATATE 100 MG CAP PO (07:49)
[2018-03-15] MEDS: MAGNESIUM OXIDE 400 MG TAB (MAG-OX) PO ×3 (07:50→21:22)
[2018-03-15] MEDS: CETIRIZINE (ZyrTEC) 10 MG TAB PO (07:50)
[2018-03-15] MEDS: IBUPROFEN 600 MG TAB PO ×2 (09:27→21:21)
[2018-03-15] MEDS: LISINOPRIL 10 MG TAB PO ×2 (09:27→21:20)
[2018-03-15] MEDS: METOPROLOL TART 25 MG TABLET PO ×2 (09:28→21:22)
[2018-03-15] MEDS: CALCIUM CARBONATE 500 MG CHEW U/D PO ×2 (17:49→21:20)
[2018-03-16 06:36] LABS: HEMATOCRIT 37.8 % (36.0-47.0); HEMOGLOBIN 12.9 g/dl (12.0-15.5); MEAN CORPUSCULAR HEMOGLOBIN 34.2 pg (27.0-33.0); MEAN CORPUSCULAR HGB CONC 34.1 g/dl (32.0-36.5); MEAN CORPUSCULAR VOLUME 100.3 fl (80.0-96.0); PLATELET COUNT, AUTOMATED 320 10^3/uL (150-450); RED BLOOD COUNT 3.77 10^6/uL (4.00-5.40); RED CELL DISTRIBUTION WIDTH 14.3 % (11.5-14.5); WHITE BLOOD COUNT 7.1 10^3/uL (4.0-10.0)
[2018-03-16 06:50] LABS: ALBUMIN 3.1 GM/DL (3.2-5.2); ALBUMIN/GLOBULIN RATIO 0.89 (1.00-1.93); ALKALINE PHOSPHATASE 46 U/L (45-117); ALT/SGPT 38 U/L (12-78); ANION GAP 9 MEQ/L (8-16); AST/SGOT 25 U/L (7-37); BILIRUBIN,DIRECT < 0.1 MG/DL (0.0-0.2); BILIRUBIN,TOTAL 0.2 MG/DL (0.2-1.0); BLOOD UREA NITROGEN 17 MG/DL (7-18); CALCIUM LEVEL 8.4 MG/DL (8.8-10.2); CARBON DIOXIDE LEVEL 25 MEQ/L (21-32); CHLORIDE LEVEL 109 MEQ/L (98-107); CREATININE FOR GFR 0.89 MG/DL (0.55-1.30); GLOMERULAR FILTRATION RATE > 60.0 (>45); GLUCOSE, FASTING 96 MG/DL (70-100); POTASSIUM SERUM 4.2 MEQ/L (3.5-5.1); SODIUM LEVEL 143 MEQ/L (136-145); TOTAL PROTEIN 6.6 GM/DL (6.4-8.2)
[2018-03-16 08:23] LABS: FREE T4 0.85 NG/DL (0.76-1.46)
[2018-03-16] MEDS: METOPROLOL TART 25 MG TABLET PO ×2 (09:06→20:20)
[2018-03-16] MEDS: LISINOPRIL 10 MG TAB PO ×2 (09:07→20:21)
[2018-03-16] MEDS: MAGNESIUM OXIDE 400 MG TAB (MAG-OX) PO ×3 (09:07→20:20)
[2018-03-16] MEDS: IBUPROFEN 600 MG TAB PO (10:26)
[2018-03-16] MEDS: BENZONATATE 100 MG CAP PO ×2 (10:26→21:34)
[2018-03-16] MEDS: CALCIUM CARBONATE 500 MG CHEW U/D PO ×2 (14:47→20:19)
[2018-03-16] MEDS: ACETAMINOPHEN TAB 650MG DOSE (2X325MG) PO (17:21)
[2018-03-16] MEDS: traZODone 50 MG TAB PO (21:34)
[2018-03-17] MEDS: guaiFENesin DM LIQ 10ML UD PO (10:05)
[2018-03-17] MEDS: METOPROLOL TART 25 MG TABLET PO ×2 (10:06→20:41)
[2018-03-17] MEDS: MAGNESIUM OXIDE 400 MG TAB (MAG-OX) PO ×3 (10:06→20:40)
[2018-03-17] MEDS: LISINOPRIL 10 MG TAB PO ×2 (10:07→20:40)
[2018-03-17] MEDS: IBUPROFEN 600 MG TAB PO ×2 (10:08→15:30)
[2018-03-17] MEDS: CALCIUM CARBONATE 500 MG CHEW U/D PO ×2 (15:30→20:39)
[2018-03-17] MEDS: BENZONATATE 100 MG CAP PO (20:40)
[2018-03-17] MEDS: traZODone 50 MG TAB PO (20:41)
[2018-03-18 06:14] LABS: HEMATOCRIT 38.1 % (36.0-47.0); HEMOGLOBIN 12.8 g/dl (12.0-15.5); MEAN CORPUSCULAR HEMOGLOBIN 34.1 pg (27.0-33.0); MEAN CORPUSCULAR HGB CONC 33.6 g/dl (32.0-36.5); MEAN CORPUSCULAR VOLUME 101.6 fl (80.0-96.0); PLATELET COUNT, AUTOMATED 332 10^3/uL (150-450); RED BLOOD COUNT 3.75 10^6/uL (4.00-5.40); RED CELL DISTRIBUTION WIDTH 14.4 % (11.5-14.5); WHITE BLOOD COUNT 8.5 10^3/uL (4.0-10.0)
[2018-03-18 06:30] LABS: ANION GAP 6 MEQ/L (8-16); BLOOD UREA NITROGEN 17 MG/DL (7-18); CALCIUM LEVEL 8.3 MG/DL (8.8-10.2); CARBON DIOXIDE LEVEL 28 MEQ/L (21-32); CHLORIDE LEVEL 109 MEQ/L (98-107); CREATININE FOR GFR 0.88 MG/DL (0.55-1.30); GLOMERULAR FILTRATION RATE > 60.0 (>45); GLUCOSE, FASTING 97 MG/DL (70-100); MAGNESIUM LEVEL 2.2 MG/DL (1.8-2.4); POTASSIUM SERUM 4.5 MEQ/L (3.5-5.1); SODIUM LEVEL 143 MEQ/L (136-145)
[2018-03-18] MEDS: METOPROLOL TART 25 MG TABLET PO ×2 (08:29→21:17)
[2018-03-18] MEDS: MAGNESIUM OXIDE 400 MG TAB (MAG-OX) PO (08:29)
[2018-03-18] MEDS: LISINOPRIL 10 MG TAB PO ×2 (08:30→21:16)
[2018-03-18] MEDS: guaiFENesin DM LIQ 10ML UD PO ×2 (08:31→22:54)
[2018-03-18] MEDS: BENZONATATE 100 MG CAP PO (12:32)
[2018-03-18] MEDS: CALCIUM CARBONATE 500 MG CHEW U/D PO ×2 (12:53→21:26)
[2018-03-18] MEDS: IBUPROFEN 600 MG TAB PO (12:54)
[2018-03-18] MEDS: ACETAMINOPHEN TAB 650MG DOSE (2X325MG) PO (18:51)
[2018-03-18] MEDS: traZODone 50 MG TAB PO (21:16)
[2018-03-19 06:03] LABS: HEMATOCRIT 38.2 % (36.0-47.0); HEMOGLOBIN 12.9 g/dl (12.0-15.5); MEAN CORPUSCULAR HEMOGLOBIN 34.1 pg (27.0-33.0); MEAN CORPUSCULAR HGB CONC 33.8 g/dl (32.0-36.5); MEAN CORPUSCULAR VOLUME 101.1 fl (80.0-96.0); PLATELET COUNT, AUTOMATED 313 10^3/uL (150-450); RED BLOOD COUNT 3.78 10^6/uL (4.00-5.40); RED CELL DISTRIBUTION WIDTH 14.3 % (11.5-14.5); WHITE BLOOD COUNT 8.2 10^3/uL (4.0-10.0)
[2018-03-19 06:27] LABS: ANION GAP 9 MEQ/L (8-16); BLOOD UREA NITROGEN 17 MG/DL (7-18); CALCIUM LEVEL 8.4 MG/DL (8.8-10.2); CARBON DIOXIDE LEVEL 25 MEQ/L (21-32); CHLORIDE LEVEL 110 MEQ/L (98-107); CREATININE FOR GFR 0.84 MG/DL (0.55-1.30); GLOMERULAR FILTRATION RATE > 60.0 (>45); GLUCOSE, FASTING 97 MG/DL (70-100); MAGNESIUM LEVEL 1.9 MG/DL (1.8-2.4); POTASSIUM SERUM 4.4 MEQ/L (3.5-5.1); SODIUM LEVEL 144 MEQ/L (136-145)
[2018-03-19] MEDS: METOPROLOL TART 25 MG TABLET PO ×2 (09:00→20:40)
[2018-03-19] MEDS: LISINOPRIL 10 MG TAB PO ×2 (09:45→20:40)
[2018-03-19] MEDS: IBUPROFEN 600 MG TAB PO ×2 (09:46→20:40)
[2018-03-19] MEDS: LOPERAMIDE 2 MG CAP PO (10:42)
[2018-03-19] MEDS: guaiFENesin DM LIQ 10ML UD PO ×2 (11:29→20:39)
[2018-03-19] MEDS: CALCIUM CARBONATE 500 MG CHEW U/D PO (14:25)
[2018-03-19] MEDS: ACETAMINOPHEN TAB 650MG DOSE (2X325MG) PO (17:44)
[2018-03-19] MEDS: traZODone 50 MG TAB PO (20:40)
[2018-03-20 06:45] LABS: HEMATOCRIT 36.7 % (36.0-47.0); HEMOGLOBIN 12.4 g/dl (12.0-15.5); MEAN CORPUSCULAR HEMOGLOBIN 33.7 pg (27.0-33.0); MEAN CORPUSCULAR HGB CONC 33.8 g/dl (32.0-36.5); MEAN CORPUSCULAR VOLUME 99.7 fl (80.0-96.0); PLATELET COUNT, AUTOMATED 308 10^3/uL (150-450); RED BLOOD COUNT 3.68 10^6/uL (4.00-5.40); RED CELL DISTRIBUTION WIDTH 14.2 % (11.5-14.5); WHITE BLOOD COUNT 7.4 10^3/uL (4.0-10.0)
[2018-03-20 07:02] LABS: ANION GAP 6 MEQ/L (8-16); BLOOD UREA NITROGEN 14 MG/DL (7-18); CALCIUM LEVEL 8.6 MG/DL (8.8-10.2); CARBON DIOXIDE LEVEL 26 MEQ/L (21-32); CHLORIDE LEVEL 110 MEQ/L (98-107); CREATININE FOR GFR 0.88 MG/DL (0.55-1.30); GLOMERULAR FILTRATION RATE > 60.0 (>45); GLUCOSE, FASTING 97 MG/DL (70-100); MAGNESIUM LEVEL 1.7 MG/DL (1.8-2.4); POTASSIUM SERUM 4.2 MEQ/L (3.5-5.1); SODIUM LEVEL 142 MEQ/L (136-145)
[2018-03-20] MEDS: METOPROLOL TART 25 MG TABLET PO (09:47)
[2018-03-20] MEDS: BENZONATATE 100 MG CAP PO (09:47)
[2018-03-20] MEDS: IBUPROFEN 600 MG TAB PO (09:47)
[2018-03-20] MEDS: LISINOPRIL 10 MG TAB PO (09:48)
[2018-03-20] MEDS: guaiFENesin DM LIQ 10ML UD PO (11:33)
== END 2018-03-20 12:11 | disposition home or self-care (01) | DRG 422 ==
LOC: M MSPAV 03-07 15:34 → M ED 18:24 → M ED INP 23:08
DX: E86.0 Dehydration (principal); D69.6 Thrombocytopenia, unspecified; K76.0 Fatty (change of) liver, not elsewhere classified; I95.1 Orthostatic hypotension; B97.89 Other viral agents as the cause of diseases classified elsewhere; F41.9 Anxiety disorder, unspecified; F32.9 Major depressive disorder, single episode, unspecified; F10.10 Alcohol abuse, uncomplicated; F17.200 Nicotine dependence, unspecified, uncomplicated; M81.0 Age-related osteoporosis without current pathological fracture; R19.7 Diarrhea, unspecified; R26.89 Other abnormalities of gait and mobility; Z79.899 Other long term (current) drug therapy; I10 Essential (primary) hypertension; R29.6 Repeated falls; G47.00 Insomnia, unspecified; D18.09 Hemangioma of other sites; E83.42 Hypomagnesemia; E87.6 Hypokalemia

== ENCOUNTER 2018-03-29 15:44 | Inpatient (IN) | payer OTHER ==
[2018-03-29 18:13] LABS: BASO % 0.4 % (0.0-1.0); EOS % 0.3 % (0.0-3.0); HEMATOCRIT 41.4 % (36.0-47.0); HEMOGLOBIN 14.5 g/dl (12.0-15.5); IMMATURE GRANULOCYTE % 0.4 % (0-3.0); LYMPH # 3.3 10^3/uL (1.5-4.5); LYMPH % 31.7 % (24.0-44.0); MEAN CORPUSCULAR HEMOGLOBIN 34.1 pg (27.0-33.0); MEAN CORPUSCULAR VOLUME 97.4 fl (80.0-96.0); MONO # 0.9 10^3/uL (0.0-0.8); MONO % 8.9 % (0.0-5.0); NEUTROPHILS # 6.1 10^3/uL (1.8-7.7); NEUTROPHILS % 58.3 % (36.0-66.0); PLATELET COUNT, AUTOMATED 215 10^3/uL (150-450); RED BLOOD COUNT 4.25 10^6/uL (4.00-5.40); RED CELL DISTRIBUTION WIDTH 14.5 % (11.5-14.5); WHITE BLOOD COUNT 10.5 10^3/uL (4.0-10.0)
[2018-03-29 18:32] LABS: ANION GAP 14 MEQ/L (8-16); BLOOD UREA NITROGEN 22 MG/DL (7-18); CARBON DIOXIDE LEVEL 26 MEQ/L (21-32); CHLORIDE LEVEL 98 MEQ/L (98-107); CREATININE FOR GFR 3.53 MG/DL (0.55-1.30); GLOMERULAR FILTRATION RATE 13.9 (>45); GLUCOSE, FASTING 91 MG/DL (70-100); POTASSIUM SERUM 3.6 MEQ/L (3.5-5.1); SODIUM LEVEL 138 MEQ/L (136-145)
[2018-03-29] MEDS: NS 1,000 ML IV (18:45)
[2018-03-29 19:13] LABS: ALBUMIN 4.3 GM/DL (3.2-5.2); ALBUMIN/GLOBULIN RATIO 1.05 (1.00-1.93); ALKALINE PHOSPHATASE 60 U/L (45-117); ALT/SGPT 22 U/L (12-78); AST/SGOT 27 U/L (7-37); BILIRUBIN,DIRECT 0.2 MG/DL (0.0-0.2); BILIRUBIN,TOTAL 0.9 MG/DL (0.2-1.0); CK-MB VALUE MASS 1.6 NG/ML (<3.6); CPK CREATINE PHOSPHOKINASE 166 U/L (26-192); MB/CK RELATIVE INDEX 0.96 (< OR =4); TOTAL PROTEIN 8.4 GM/DL (6.4-8.2); TROPONIN I < 0.02 NG/ML (< 0.10)
[2018-03-29] MEDS: METOPROLOL TART 25 MG TABLET PO (21:00)
[2018-03-29] MEDS ORDERED: BISACODYL 5 MG TAB PO (22:30)
[2018-03-29] MEDS ORDERED: ACETAMINOPHEN 325 MG TAB PO (22:30)
[2018-03-29] MEDS: traZODone 50 MG TAB PO (23:15)
[2018-03-29] MEDS: FERROUS SULFATE 325MG TAB PO (23:15)
[2018-03-29] MEDS: CALCIUM CARBONATE 500 MG CHEW U/D PO (23:16)
[2018-03-29] MEDS: ACETAMINOPHEN TAB 650MG DOSE (2X325MG) PO (23:17)
[2018-03-30] MEDS: NS 1,000 ML IV ×4 (00:13→23:12)
[2018-03-30] MEDS: ACETAMINOPHEN TAB 650MG DOSE (2X325MG) PO (03:24)
[2018-03-30] MEDS: HEPARIN SOD (PORCINE) 5000 UNITS/ML VIAL SC ×3 (05:56→21:49)
[2018-03-30 07:14] LABS: HEMATOCRIT 35.4 % (36.0-47.0); MEAN CORPUSCULAR HEMOGLOBIN 33.5 pg (27.0-33.0); MEAN CORPUSCULAR HGB CONC 34.2 g/dl (32.0-36.5); MEAN CORPUSCULAR VOLUME 98.1 fl (80.0-96.0); PLATELET COUNT, AUTOMATED 154 10^3/uL (150-450); RED BLOOD COUNT 3.61 10^6/uL (4.00-5.40); RED CELL DISTRIBUTION WIDTH 14.5 % (11.5-14.5); WHITE BLOOD COUNT 8.3 10^3/uL (4.0-10.0)
[2018-03-30 07:16] LABS: HEMOGLOBIN 12.1 g/dl (12.0-15.5)
[2018-03-30 07:43] LABS: ANION GAP 9 MEQ/L (8-16); BLOOD UREA NITROGEN 22 MG/DL (7-18); CALCIUM LEVEL 7.9 MG/DL (8.8-10.2); CARBON DIOXIDE LEVEL 27 MEQ/L (21-32); CHLORIDE LEVEL 101 MEQ/L (98-107); CREATININE FOR GFR 2.84 MG/DL (0.55-1.30); GLOMERULAR FILTRATION RATE 17.8 (>45); GLUCOSE, FASTING 80 MG/DL (70-100); SODIUM LEVEL 137 MEQ/L (136-145)
[2018-03-30 07:48] LABS: ESTIMATED AVERAGE GLUCOSE 97 MG/DL (60-110)
[2018-03-30] MEDS: LISINOPRIL 10 MG TAB PO (08:41)
[2018-03-30] MEDS: METOPROLOL TART 25 MG TABLET PO ×2 (08:41→21:48)
[2018-03-30] MEDS: OXAZEPAM 10 MG CAP PO ×3 (11:25→23:23)
[2018-03-30] MEDS: POTASSIUM CHLORIDE 10 MEQ SR TABLET PO (11:25)
[2018-03-30] MEDS: TUBERCULIN PPD 5 UNITS/0.1 ML ID (12:14)
[2018-03-30] MEDS: FOLIC ACID 1 MG TAB PO (17:27)
[2018-03-30] MEDS: THIAMINE 100 MG TAB PO (17:27)
[2018-03-30] MEDS: MULTIVITAMINS/MINERALS THERAP 1 TAB PO (17:27)
[2018-03-30] MEDS: FERROUS SULFATE 325MG TAB PO (17:27)
[2018-03-30] MEDS: traZODone 50 MG TAB PO (21:49)
[2018-03-31] MEDS: OXAZEPAM 10 MG CAP PO ×4 (00:54→12:27)
[2018-03-31] MEDS: diphenhydrAMINE 25 MG CAP PO (02:37)
[2018-03-31 05:20] LABS: KETONE, URINE AUTO RFX TRACE mg/dL (NEGATIVE); NITRITE, URINE AUTO RFX NEGATIVE (NEGATIVE); RBC, URINE AUTO RFX 1 /HPF (0-3); SPECIFIC GRAVITY UR AUTO RFX 1.005 (1.002-1.035); SQUAM EPITHELIAL CELL UR AURFX 0 /HPF (0-6); WBC, URINE AUTO RFX 1 /HPF (0-3)
[2018-03-31 05:33] LABS: LEUKOCYTE ESTERASE UR AUTO RFX TRACE (NEGATIVE)
[2018-03-31] MEDS: HEPARIN SOD (PORCINE) 5000 UNITS/ML VIAL SC ×3 (05:34→21:18)
[2018-03-31 06:19] LABS: HEMATOCRIT 37.6 % (36.0-47.0); HEMOGLOBIN 12.8 g/dl (12.0-15.5); MEAN CORPUSCULAR HEMOGLOBIN 34.1 pg (27.0-33.0); MEAN CORPUSCULAR VOLUME 100.3 fl (80.0-96.0); PLATELET COUNT, AUTOMATED 122 10^3/uL (150-450); RED BLOOD COUNT 3.75 10^6/uL (4.00-5.40); RED CELL DISTRIBUTION WIDTH 14.6 % (11.5-14.5); WHITE BLOOD COUNT 11.9 10^3/uL (4.0-10.0)
[2018-03-31 06:42] LABS: ANION GAP 12 MEQ/L (8-16); BLOOD UREA NITROGEN 15 MG/DL (7-18); CALCIUM LEVEL 7.8 MG/DL (8.8-10.2); CARBON DIOXIDE LEVEL 23 MEQ/L (21-32); CHLORIDE LEVEL 107 MEQ/L (98-107); GLOMERULAR FILTRATION RATE 48.1 (>45); GLUCOSE, FASTING 76 MG/DL (70-100); POTASSIUM SERUM 3.8 MEQ/L (3.5-5.1); SODIUM LEVEL 142 MEQ/L (136-145)
[2018-03-31] MEDS: NS 1,000 ML IV (07:00)
[2018-03-31] MEDS: METOPROLOL TART 25 MG TABLET PO ×2 (09:42→21:17)
[2018-03-31] MEDS: THIAMINE 100 MG TAB PO (09:42)
[2018-03-31] MEDS: MULTIVITAMINS/MINERALS THERAP 1 TAB PO (09:42)
[2018-03-31] MEDS: FOLIC ACID 1 MG TAB PO (09:42)
[2018-03-31] MEDS: ONDANSETRON 4 MG TAB (S0181) PO (14:26)
[2018-03-31 17:49] LABS: AMMONIA < 10 uMOL/L (<32)
[2018-03-31 17:57] LABS: VITAMIN B12 LEVEL 758 PG/ML (247-911)
[2018-03-31] MEDS: FERROUS SULFATE 325MG TAB PO (18:00)
[2018-03-31] MEDS: traZODone 50 MG TAB PO (21:17)
[2018-04-01] MEDS: HEPARIN SOD (PORCINE) 5000 UNITS/ML VIAL SC ×3 (05:19→21:35)
[2018-04-01 06:50] LABS: HEMATOCRIT 37.2 % (36.0-47.0); HEMOGLOBIN 12.6 g/dl (12.0-15.5); MEAN CORPUSCULAR HEMOGLOBIN 33.9 pg (27.0-33.0); MEAN CORPUSCULAR HGB CONC 33.9 g/dl (32.0-36.5); PLATELET COUNT, AUTOMATED 129 10^3/uL (150-450); RED BLOOD COUNT 3.72 10^6/uL (4.00-5.40); RED CELL DISTRIBUTION WIDTH 14.9 % (11.5-14.5); WHITE BLOOD COUNT 10.1 10^3/uL (4.0-10.0)
[2018-04-01 07:05] LABS: ANION GAP 8 MEQ/L (8-16); BLOOD UREA NITROGEN 13 MG/DL (7-18); CARBON DIOXIDE LEVEL 28 MEQ/L (21-32); CHLORIDE LEVEL 103 MEQ/L (98-107); CREATININE FOR GFR 1.25 MG/DL (0.55-1.30); GLOMERULAR FILTRATION RATE 45.9 (>45); GLUCOSE, FASTING 81 MG/DL (70-100); POTASSIUM SERUM 3.6 MEQ/L (3.5-5.1); SODIUM LEVEL 139 MEQ/L (136-145)
[2018-04-01] MEDS: FOLIC ACID 1 MG TAB PO (10:49)
[2018-04-01] MEDS: THIAMINE 100 MG TAB PO (10:49)
[2018-04-01] MEDS: MULTIVITAMINS/MINERALS THERAP 1 TAB PO (10:49)
[2018-04-01] MEDS: METOPROLOL TART 25 MG TABLET PO ×2 (10:50→21:36)
[2018-04-01] MEDS: PPD DOCUMENTATION ENTRY MISC XX (12:50)
[2018-04-01] MEDS: FERROUS SULFATE 325MG TAB PO (16:45)
[2018-04-01] MEDS: traZODone 50 MG TAB PO (21:35)
[2018-04-02] MEDS: HEPARIN SOD (PORCINE) 5000 UNITS/ML VIAL SC ×3 (05:32→20:48)
[2018-04-02 06:32] LABS: HEMATOCRIT 34.4 % (36.0-47.0); MEAN CORPUSCULAR HEMOGLOBIN 34.1 pg (27.0-33.0); MEAN CORPUSCULAR HGB CONC 34.9 g/dl (32.0-36.5); MEAN CORPUSCULAR VOLUME 97.7 fl (80.0-96.0); PLATELET COUNT, AUTOMATED 111 10^3/uL (150-450); RED BLOOD COUNT 3.52 10^6/uL (4.00-5.40); RED CELL DISTRIBUTION WIDTH 14.6 % (11.5-14.5); WHITE BLOOD COUNT 6.1 10^3/uL (4.0-10.0)
[2018-04-02 06:48] LABS: ANION GAP 11 MEQ/L (8-16); BLOOD UREA NITROGEN 14 MG/DL (7-18); CALCIUM LEVEL 8.4 MG/DL (8.8-10.2); CARBON DIOXIDE LEVEL 27 MEQ/L (21-32); CHLORIDE LEVEL 105 MEQ/L (98-107); GLOMERULAR FILTRATION RATE > 60.0 (>45); GLUCOSE, FASTING 98 MG/DL (70-100); POTASSIUM SERUM 3.4 MEQ/L (3.5-5.1); SODIUM LEVEL 143 MEQ/L (136-145)
[2018-04-02] MEDS: FOLIC ACID 1 MG TAB PO (08:49)
[2018-04-02] MEDS: MULTIVITAMINS/MINERALS THERAP 1 TAB PO (08:49)
[2018-04-02] MEDS: THIAMINE 100 MG TAB PO (08:49)
[2018-04-02] MEDS: POTASSIUM CHLORIDE 10 MEQ SR TABLET PO (08:49)
[2018-04-02] MEDS: METOPROLOL TART 25 MG TABLET PO ×2 (08:50→20:46)
[2018-04-02] MEDS: ACETAMINOPHEN TAB 650MG DOSE (2X325MG) PO ×2 (14:49→20:47)
[2018-04-02] MEDS: FERROUS SULFATE 325MG TAB PO (17:14)
[2018-04-02] MEDS: traZODone 50 MG TAB PO (20:48)
[2018-04-03] MEDS: ANALGESIC BALM CRM 120 GM TOP (01:25)
[2018-04-03] MEDS: CALCIUM CARBONATE 500 MG CHEW U/D PO ×2 (01:26→21:00)
[2018-04-03] MEDS: HEPARIN SOD (PORCINE) 5000 UNITS/ML VIAL SC ×3 (05:30→21:01)
[2018-04-03 07:11] LABS: HEMATOCRIT 35.4 % (36.0-47.0); HEMOGLOBIN 11.9 g/dl (12.0-15.5); MEAN CORPUSCULAR HEMOGLOBIN 33.8 pg (27.0-33.0); MEAN CORPUSCULAR HGB CONC 33.6 g/dl (32.0-36.5); MEAN CORPUSCULAR VOLUME 100.6 fl (80.0-96.0); PLATELET COUNT, AUTOMATED 120 10^3/uL (150-450); RED BLOOD COUNT 3.52 10^6/uL (4.00-5.40); RED CELL DISTRIBUTION WIDTH 14.8 % (11.5-14.5); WHITE BLOOD COUNT 5.3 10^3/uL (4.0-10.0)
[2018-04-03 07:28] LABS: ANION GAP 8 MEQ/L (8-16); BLOOD UREA NITROGEN 12 MG/DL (7-18); CALCIUM LEVEL 8.7 MG/DL (8.8-10.2); CARBON DIOXIDE LEVEL 29 MEQ/L (21-32); CHLORIDE LEVEL 107 MEQ/L (98-107); CREATININE FOR GFR 0.96 MG/DL (0.55-1.30); GLOMERULAR FILTRATION RATE > 60.0 (>45); GLUCOSE, FASTING 113 MG/DL (70-100); POTASSIUM SERUM 4.3 MEQ/L (3.5-5.1); SODIUM LEVEL 144 MEQ/L (136-145)
[2018-04-03] MEDS: MULTIVITAMINS/MINERALS THERAP 1 TAB PO (08:59)
[2018-04-03] MEDS: THIAMINE 100 MG TAB PO (08:59)
[2018-04-03] MEDS: FOLIC ACID 1 MG TAB PO (08:59)
[2018-04-03] MEDS: METOPROLOL TART 25 MG TABLET PO ×2 (09:01→21:01)
[2018-04-03] MEDS: ACETAMINOPHEN TAB 650MG DOSE (2X325MG) PO (13:39)
[2018-04-03] MEDS: LISINOPRIL 10 MG TAB PO (15:53)
[2018-04-03] MEDS ORDERED: PILL CRUSHER/CUTTER 1 EACH XX (16:15)
[2018-04-03] MEDS: tiZANidine 4 MG TAB PO (16:18)
[2018-04-03] MEDS: FERROUS SULFATE 325MG TAB PO (18:24)
[2018-04-03] MEDS: traZODone 50 MG TAB PO (21:01)
[2018-04-04] MEDS: HEPARIN SOD (PORCINE) 5000 UNITS/ML VIAL SC ×3 (05:37→21:28)
[2018-04-04 06:31] LABS: HEMOGLOBIN 11.6 g/dl (12.0-15.5); MEAN CORPUSCULAR HEMOGLOBIN 33.9 pg (27.0-33.0); MEAN CORPUSCULAR HGB CONC 33.1 g/dl (32.0-36.5); MEAN CORPUSCULAR VOLUME 102.3 fl (80.0-96.0); PLATELET COUNT, AUTOMATED 130 10^3/uL (150-450); RED BLOOD COUNT 3.42 10^6/uL (4.00-5.40); RED CELL DISTRIBUTION WIDTH 14.9 % (11.5-14.5); WHITE BLOOD COUNT 5.1 10^3/uL (4.0-10.0)
[2018-04-04 06:49] LABS: ANION GAP 7 MEQ/L (8-16); BLOOD UREA NITROGEN 11 MG/DL (7-18); CARBON DIOXIDE LEVEL 31 MEQ/L (21-32); CHLORIDE LEVEL 105 MEQ/L (98-107); CREATININE FOR GFR 0.86 MG/DL (0.55-1.30); GLOMERULAR FILTRATION RATE > 60.0 (>45); GLUCOSE, FASTING 102 MG/DL (70-100); POTASSIUM SERUM 4.5 MEQ/L (3.5-5.1); SODIUM LEVEL 143 MEQ/L (136-145)
[2018-04-04] MEDS: LISINOPRIL 10 MG TAB PO (09:29)
[2018-04-04] MEDS: METOPROLOL TART 25 MG TABLET PO ×2 (09:30→21:29)
[2018-04-04] MEDS: THIAMINE 100 MG TAB PO (09:30)
[2018-04-04] MEDS: FOLIC ACID 1 MG TAB PO (09:30)
[2018-04-04] MEDS: OXAZEPAM 10 MG CAP PO (09:30)
[2018-04-04] MEDS: tiZANidine 4 MG TAB PO ×2 (09:30→19:34)
[2018-04-04] MEDS: MULTIVITAMINS/MINERALS THERAP 1 TAB PO (09:30)
[2018-04-04] MEDS: CALCIUM CARBONATE 500 MG CHEW U/D PO (13:44)
[2018-04-04] MEDS: LIDOCAINE 5% (LIDODERM) PATCH TD (14:08)
[2018-04-04] MEDS: FERROUS SULFATE 325MG TAB PO (17:07)
[2018-04-04] MEDS: traZODone 50 MG TAB PO (21:28)
[2018-04-04] MEDS: BENZONATATE 100 MG CAP PO (21:28)
[2018-04-04] MEDS: **NOTE PATIENT COMMENT** MISC XX (21:29)
[2018-04-05] MEDS: HEPARIN SOD (PORCINE) 5000 UNITS/ML VIAL SC ×3 (06:18→20:58)
[2018-04-05 06:38] LABS: HEMATOCRIT 35.6 % (36.0-47.0); HEMOGLOBIN 11.7 g/dl (12.0-15.5); MEAN CORPUSCULAR HEMOGLOBIN 33.6 pg (27.0-33.0); MEAN CORPUSCULAR HGB CONC 32.9 g/dl (32.0-36.5); MEAN CORPUSCULAR VOLUME 102.3 fl (80.0-96.0); PLATELET COUNT, AUTOMATED 153 10^3/uL (150-450); RED BLOOD COUNT 3.48 10^6/uL (4.00-5.40); WHITE BLOOD COUNT 5.8 10^3/uL (4.0-10.0)
[2018-04-05 06:53] LABS: ANION GAP 6 MEQ/L (8-16); BLOOD UREA NITROGEN 11 MG/DL (7-18); CALCIUM LEVEL 8.8 MG/DL (8.8-10.2); CARBON DIOXIDE LEVEL 32 MEQ/L (21-32); CHLORIDE LEVEL 106 MEQ/L (98-107); CREATININE FOR GFR 0.95 MG/DL (0.55-1.30); GLOMERULAR FILTRATION RATE > 60.0 (>45); GLUCOSE, FASTING 97 MG/DL (70-100); POTASSIUM SERUM 4.5 MEQ/L (3.5-5.1); SODIUM LEVEL 144 MEQ/L (136-145)
[2018-04-05] MEDS: THIAMINE 100 MG TAB PO (08:29)
[2018-04-05] MEDS: MULTIVITAMINS/MINERALS THERAP 1 TAB PO (08:29)
[2018-04-05] MEDS: FOLIC ACID 1 MG TAB PO (08:30)
[2018-04-05] MEDS: METOPROLOL TART 25 MG TABLET PO ×3 (08:30→20:57)
[2018-04-05] MEDS: LISINOPRIL 10 MG TAB PO (08:30)
[2018-04-05] MEDS: tiZANidine 4 MG TAB PO ×2 (08:38→17:14)
[2018-04-05] MEDS: OXAZEPAM 10 MG CAP PO (08:38)
[2018-04-05] MEDS: LIDOCAINE 5% (LIDODERM) PATCH TD (13:36)
[2018-04-05] MEDS: SODIUM CHLORIDE NASAL 0.65% SPRAY BTL (OCEAN) ×3 (13:36→20:58)
[2018-04-05] MEDS: ACETAMINOPHEN TAB 650MG DOSE (2X325MG) PO ×2 (14:17→20:55)
[2018-04-05] MEDS: guaiFENesin DM LIQ 10ML UD PO ×2 (15:15→20:54)
[2018-04-05] MEDS: FERROUS SULFATE 325MG TAB PO (17:14)
[2018-04-05] MEDS: CALCIUM CARBONATE 500 MG CHEW U/D PO (20:54)
[2018-04-05] MEDS: traZODone 50 MG TAB PO (20:54)
[2018-04-05] MEDS: **NOTE PATIENT COMMENT** MISC XX (20:58)
[2018-04-06] MEDS: HEPARIN SOD (PORCINE) 5000 UNITS/ML VIAL SC ×3 (05:32→21:23)
[2018-04-06 07:04] LABS: HEMATOCRIT 35.7 % (36.0-47.0); HEMOGLOBIN 11.7 g/dl (12.0-15.5); MEAN CORPUSCULAR HEMOGLOBIN 33.7 pg (27.0-33.0); MEAN CORPUSCULAR HGB CONC 32.8 g/dl (32.0-36.5); MEAN CORPUSCULAR VOLUME 102.9 fl (80.0-96.0); PLATELET COUNT, AUTOMATED 172 10^3/uL (150-450); RED BLOOD COUNT 3.47 10^6/uL (4.00-5.40); RED CELL DISTRIBUTION WIDTH 15.2 % (11.5-14.5); WHITE BLOOD COUNT 5.2 10^3/uL (4.0-10.0)
[2018-04-06 07:20] LABS: ANION GAP 6 MEQ/L (8-16); BLOOD UREA NITROGEN 14 MG/DL (7-18); CALCIUM LEVEL 8.9 MG/DL (8.8-10.2); CARBON DIOXIDE LEVEL 31 MEQ/L (21-32); CHLORIDE LEVEL 107 MEQ/L (98-107); GLOMERULAR FILTRATION RATE > 60.0 (>45); GLUCOSE, FASTING 96 MG/DL (70-100); POTASSIUM SERUM 4.5 MEQ/L (3.5-5.1); SODIUM LEVEL 144 MEQ/L (136-145)
[2018-04-06] MEDS: SODIUM CHLORIDE NASAL 0.65% SPRAY BTL (OCEAN) ×4 (09:59→21:22)
[2018-04-06] MEDS: FOLIC ACID 1 MG TAB PO (09:59)
[2018-04-06] MEDS: METOPROLOL TART 25 MG TABLET PO ×2 (10:00→21:22)
[2018-04-06] MEDS: LISINOPRIL 10 MG TAB PO (10:01)
[2018-04-06] MEDS: THIAMINE 100 MG TAB PO (10:01)
[2018-04-06] MEDS: LIDOCAINE 5% (LIDODERM) PATCH TD (10:01)
[2018-04-06] MEDS: MULTIVITAMINS/MINERALS THERAP 1 TAB PO (10:01)
[2018-04-06] MEDS: ONDANSETRON 4 MG TAB (S0181) PO (10:52)
[2018-04-06] MEDS: FERROUS SULFATE 325MG TAB PO (18:14)
[2018-04-06] MEDS: traZODone 50 MG TAB PO (21:21)
[2018-04-06] MEDS: **NOTE PATIENT COMMENT** MISC XX (21:23)
[2018-04-06] MEDS: tiZANidine 4 MG TAB PO (21:27)
[2018-04-07] MEDS: HEPARIN SOD (PORCINE) 5000 UNITS/ML VIAL SC ×3 (05:18→21:09)
[2018-04-07] MEDS: MULTIVITAMINS/MINERALS THERAP 1 TAB PO (08:57)
[2018-04-07] MEDS: METOPROLOL TART 25 MG TABLET PO ×2 (08:58→21:09)
[2018-04-07] MEDS: THIAMINE 100 MG TAB PO (08:58)
[2018-04-07] MEDS: FOLIC ACID 1 MG TAB PO (08:58)
[2018-04-07] MEDS: LISINOPRIL 10 MG TAB PO (08:58)
[2018-04-07] MEDS: LIDOCAINE 5% (LIDODERM) PATCH TD (08:59)
[2018-04-07] MEDS: SODIUM CHLORIDE NASAL 0.65% SPRAY BTL (OCEAN) ×4 (08:59→21:10)
[2018-04-07 09:07] LABS: HEMATOCRIT 38.8 % (36.0-47.0); HEMOGLOBIN 12.7 g/dl (12.0-15.5); MEAN CORPUSCULAR HEMOGLOBIN 33.8 pg (27.0-33.0); MEAN CORPUSCULAR HGB CONC 32.7 g/dl (32.0-36.5); MEAN CORPUSCULAR VOLUME 103.2 fl (80.0-96.0); PLATELET COUNT, AUTOMATED 227 10^3/uL (150-450); RED BLOOD COUNT 3.76 10^6/uL (4.00-5.40); RED CELL DISTRIBUTION WIDTH 15.4 % (11.5-14.5); WHITE BLOOD COUNT 6.9 10^3/uL (4.0-10.0)
[2018-04-07 09:28] LABS: ANION GAP 6 MEQ/L (8-16); BLOOD UREA NITROGEN 10 MG/DL (7-18); CALCIUM LEVEL 9.1 MG/DL (8.8-10.2); CARBON DIOXIDE LEVEL 32 MEQ/L (21-32); CHLORIDE LEVEL 106 MEQ/L (98-107); CREATININE FOR GFR 1.03 MG/DL (0.55-1.30); GLOMERULAR FILTRATION RATE 57.4 (>45); GLUCOSE, FASTING 104 MG/DL (70-100); POTASSIUM SERUM 4.4 MEQ/L (3.5-5.1); SODIUM LEVEL 144 MEQ/L (136-145)
[2018-04-07] MEDS: ACETAMINOPHEN TAB 650MG DOSE (2X325MG) PO (10:52)
[2018-04-07] MEDS: tiZANidine 4 MG TAB PO ×2 (12:42→21:08)
[2018-04-07] MEDS: CALCIUM CARBONATE 500 MG CHEW U/D PO (14:23)
[2018-04-07] MEDS: FERROUS SULFATE 325MG TAB PO (18:02)
[2018-04-07] MEDS: traZODone 50 MG TAB PO (21:08)
[2018-04-07] MEDS: **NOTE PATIENT COMMENT** MISC XX (21:10)
[2018-04-08] MEDS: HEPARIN SOD (PORCINE) 5000 UNITS/ML VIAL SC ×3 (05:07→21:10)
[2018-04-08] MEDS: THIAMINE 100 MG TAB PO (08:55)
[2018-04-08] MEDS: LIDOCAINE 5% (LIDODERM) PATCH TD (08:55)
[2018-04-08] MEDS: MULTIVITAMINS/MINERALS THERAP 1 TAB PO (08:55)
[2018-04-08] MEDS: FOLIC ACID 1 MG TAB PO (08:55)
[2018-04-08] MEDS: METOPROLOL TART 25 MG TABLET PO ×2 (08:56→21:11)
[2018-04-08] MEDS: LISINOPRIL 10 MG TAB PO (08:56)
[2018-04-08] MEDS: SODIUM CHLORIDE NASAL 0.65% SPRAY BTL (OCEAN) ×4 (08:56→21:12)
[2018-04-08] MEDS: tiZANidine 4 MG TAB PO ×2 (09:07→16:22)
[2018-04-08] MEDS: ACETAMINOPHEN TAB 650MG DOSE (2X325MG) PO ×3 (09:08→21:10)
[2018-04-08] MEDS: FERROUS SULFATE 325MG TAB PO (17:33)
[2018-04-08] MEDS: traZODone 50 MG TAB PO (21:09)
[2018-04-08] MEDS: CALCIUM CARBONATE 500 MG CHEW U/D PO (21:09)
[2018-04-08] MEDS: **NOTE PATIENT COMMENT** MISC XX (21:12)
[2018-04-09] MEDS: HEPARIN SOD (PORCINE) 5000 UNITS/ML VIAL SC ×3 (05:40→21:22)
[2018-04-09] MEDS: LIDOCAINE 5% (LIDODERM) PATCH TD (09:05)
[2018-04-09] MEDS: FOLIC ACID 1 MG TAB PO (09:05)
[2018-04-09] MEDS: ACETAMINOPHEN TAB 650MG DOSE (2X325MG) PO ×2 (09:05→15:22)
[2018-04-09] MEDS: MULTIVITAMINS/MINERALS THERAP 1 TAB PO (09:05)
[2018-04-09] MEDS: THIAMINE 100 MG TAB PO (09:05)
[2018-04-09] MEDS: tiZANidine 4 MG TAB PO ×2 (09:06→21:48)
[2018-04-09] MEDS: METOPROLOL TART 25 MG TABLET PO ×2 (09:06→21:21)
[2018-04-09] MEDS: LISINOPRIL 10 MG TAB PO (09:06)
[2018-04-09] MEDS: SODIUM CHLORIDE NASAL 0.65% SPRAY BTL (OCEAN) ×4 (09:07→21:21)
[2018-04-09] MEDS: CALCIUM CARBONATE 500 MG CHEW U/D PO ×2 (15:22→21:21)
[2018-04-09] MEDS: FERROUS SULFATE 325MG TAB PO (17:37)
[2018-04-09] MEDS: traZODone 50 MG TAB PO (21:20)
[2018-04-09] MEDS: **NOTE PATIENT COMMENT** MISC XX (21:21)
[2018-04-10] MEDS: HEPARIN SOD (PORCINE) 5000 UNITS/ML VIAL SC ×3 (06:00→20:21)
[2018-04-10] MEDS: LIDOCAINE 5% (LIDODERM) PATCH TD (09:23)
[2018-04-10] MEDS: THIAMINE 100 MG TAB PO (09:23)
[2018-04-10] MEDS: LISINOPRIL 10 MG TAB PO (09:23)
[2018-04-10] MEDS: METOPROLOL TART 25 MG TABLET PO ×2 (09:23→20:20)
[2018-04-10] MEDS: SODIUM CHLORIDE NASAL 0.65% SPRAY BTL (OCEAN) ×4 (09:23→20:21)
[2018-04-10] MEDS: FOLIC ACID 1 MG TAB PO (09:23)
[2018-04-10] MEDS: MULTIVITAMINS/MINERALS THERAP 1 TAB PO (09:23)
[2018-04-10] MEDS: tiZANidine 4 MG TAB PO ×2 (09:34→20:20)
[2018-04-10] MEDS: CALCIUM CARBONATE 500 MG CHEW U/D PO (17:00)
[2018-04-10] MEDS: ACETAMINOPHEN TAB 650MG DOSE (2X325MG) PO (17:00)
[2018-04-10] MEDS: FERROUS SULFATE 325MG TAB PO (18:00)
[2018-04-10] MEDS: traZODone 50 MG TAB PO (20:19)
[2018-04-10] MEDS: **NOTE PATIENT COMMENT** MISC XX (20:22)
[2018-04-11] MEDS: HEPARIN SOD (PORCINE) 5000 UNITS/ML VIAL SC ×3 (05:52→21:31)
[2018-04-11] MEDS: SODIUM CHLORIDE NASAL 0.65% SPRAY BTL (OCEAN) ×4 (09:00→21:00)
[2018-04-11] MEDS: FOLIC ACID 1 MG TAB PO (09:39)
[2018-04-11] MEDS: LISINOPRIL 10 MG TAB PO (09:39)
[2018-04-11] MEDS: METOPROLOL TART 25 MG TABLET PO ×2 (09:41→21:27)
[2018-04-11] MEDS: THIAMINE 100 MG TAB PO (09:41)
[2018-04-11] MEDS: MULTIVITAMINS/MINERALS THERAP 1 TAB PO (09:42)
[2018-04-11] MEDS: LIDOCAINE 5% (LIDODERM) PATCH TD (09:43)
[2018-04-11] MEDS: tiZANidine 4 MG TAB PO ×2 (10:10→21:29)
[2018-04-11] MEDS: CALCIUM CARBONATE 500 MG CHEW U/D PO (17:14)
[2018-04-11] MEDS: FERROUS SULFATE 325MG TAB PO (17:15)
[2018-04-11] MEDS: ACETAMINOPHEN TAB 650MG DOSE (2X325MG) PO (17:20)
[2018-04-11] MEDS: **NOTE PATIENT COMMENT** MISC XX (21:00)
[2018-04-11] MEDS: traZODone 50 MG TAB PO (21:23)
[2018-04-12] MEDS: HEPARIN SOD (PORCINE) 5000 UNITS/ML VIAL SC ×3 (06:00→22:00)
[2018-04-12] MEDS: FOLIC ACID 1 MG TAB PO (09:39)
[2018-04-12] MEDS: tiZANidine 4 MG TAB PO ×2 (09:40→17:54)
[2018-04-12] MEDS: METOPROLOL TART 25 MG TABLET PO ×2 (09:40→20:28)
[2018-04-12] MEDS: MULTIVITAMINS/MINERALS THERAP 1 TAB PO (09:41)
[2018-04-12] MEDS: LIDOCAINE 5% (LIDODERM) PATCH TD (09:41)
[2018-04-12] MEDS: SODIUM CHLORIDE NASAL 0.65% SPRAY BTL (OCEAN) ×4 (09:41→20:29)
[2018-04-12] MEDS: THIAMINE 100 MG TAB PO (09:41)
[2018-04-12] MEDS: LISINOPRIL 10 MG TAB PO (09:41)
[2018-04-12] MEDS: CALCIUM CARBONATE 500 MG CHEW U/D PO (14:45)
[2018-04-12] MEDS: ACETAMINOPHEN TAB 650MG DOSE (2X325MG) PO ×2 (14:46→20:29)
[2018-04-12] MEDS: FERROUS SULFATE 325MG TAB PO (17:54)
[2018-04-12] MEDS: traZODone 50 MG TAB PO (20:28)
[2018-04-12] MEDS: ANALGESIC BALM CRM 120 GM TOP (20:29)
[2018-04-12] MEDS: **NOTE PATIENT COMMENT** MISC XX (20:30)
[2018-04-13] MEDS: HEPARIN SOD (PORCINE) 5000 UNITS/ML VIAL SC ×3 (06:00→21:24)
[2018-04-13] MEDS: SODIUM CHLORIDE NASAL 0.65% SPRAY BTL (OCEAN) ×4 (09:00→21:24)
[2018-04-13] MEDS: FOLIC ACID 1 MG TAB PO (09:07)
[2018-04-13] MEDS: THIAMINE 100 MG TAB PO (09:07)
[2018-04-13] MEDS: MULTIVITAMINS/MINERALS THERAP 1 TAB PO (09:07)
[2018-04-13] MEDS: LIDOCAINE 5% (LIDODERM) PATCH TD (09:07)
[2018-04-13] MEDS: LISINOPRIL 10 MG TAB PO (09:08)
[2018-04-13] MEDS: METOPROLOL TART 25 MG TABLET PO ×2 (09:08→21:23)
[2018-04-13] MEDS: ACETAMINOPHEN TAB 650MG DOSE (2X325MG) PO ×3 (09:15→21:24)
[2018-04-13] MEDS: tiZANidine 4 MG TAB PO ×2 (09:15→21:23)
[2018-04-13] MEDS: CALCIUM CARBONATE 500 MG CHEW U/D PO ×2 (13:14→21:22)
[2018-04-13] MEDS: FERROUS SULFATE 325MG TAB PO (17:22)
[2018-04-13] MEDS: traZODone 50 MG TAB PO (21:23)
[2018-04-13] MEDS: **NOTE PATIENT COMMENT** MISC XX (21:24)
[2018-04-14] MEDS: HEPARIN SOD (PORCINE) 5000 UNITS/ML VIAL SC ×3 (05:23→22:00)
[2018-04-14] MEDS: FOLIC ACID 1 MG TAB PO (08:59)
[2018-04-14] MEDS: METOPROLOL TART 25 MG TABLET PO ×2 (08:59→20:51)
[2018-04-14] MEDS: LISINOPRIL 10 MG TAB PO (09:00)
[2018-04-14] MEDS: THIAMINE 100 MG TAB PO (09:00)
[2018-04-14] MEDS: SODIUM CHLORIDE NASAL 0.65% SPRAY BTL (OCEAN) ×4 (09:00→22:06)
[2018-04-14] MEDS: MULTIVITAMINS/MINERALS THERAP 1 TAB PO (09:00)
[2018-04-14] MEDS: LIDOCAINE 5% (LIDODERM) PATCH TD (09:00)
[2018-04-14] MEDS: tiZANidine 4 MG TAB PO ×2 (09:16→17:47)
[2018-04-14 11:42] LABS: HEMATOCRIT 38.7 % (36.0-47.0); HEMOGLOBIN 12.9 g/dl (12.0-15.5); MEAN CORPUSCULAR HEMOGLOBIN 33.9 pg (27.0-33.0); MEAN CORPUSCULAR HGB CONC 33.3 g/dl (32.0-36.5); MEAN CORPUSCULAR VOLUME 101.6 fl (80.0-96.0); PLATELET COUNT, AUTOMATED 314 10^3/uL (150-450); RED BLOOD COUNT 3.81 10^6/uL (4.00-5.40); RED CELL DISTRIBUTION WIDTH 15.3 % (11.5-14.5); WHITE BLOOD COUNT 8.7 10^3/uL (4.0-10.0)
[2018-04-14 12:26] LABS: ANION GAP 7 MEQ/L (8-16); BLOOD UREA NITROGEN 18 MG/DL (7-18); CALCIUM LEVEL 9.5 MG/DL (8.8-10.2); CARBON DIOXIDE LEVEL 30 MEQ/L (21-32); CHLORIDE LEVEL 104 MEQ/L (98-107); CREATININE FOR GFR 0.98 MG/DL (0.55-1.30); GLOMERULAR FILTRATION RATE > 60.0 (>45); GLUCOSE, FASTING 101 MG/DL (70-100); SODIUM LEVEL 141 MEQ/L (136-145)
[2018-04-14] MEDS: CALCIUM CARBONATE 500 MG CHEW U/D PO (12:37)
[2018-04-14] MEDS: ACETAMINOPHEN TAB 650MG DOSE (2X325MG) PO ×2 (12:38→17:47)
[2018-04-14] MEDS: FERROUS SULFATE 325MG TAB PO (17:45)
[2018-04-14] MEDS: FAMOTIDINE 20 MG TAB PO (17:45)
[2018-04-14] MEDS: **NOTE PATIENT COMMENT** MISC XX (21:00)
[2018-04-14] MEDS: traZODone 50 MG TAB PO (22:06)
[2018-04-15] MEDS: HEPARIN SOD (PORCINE) 5000 UNITS/ML VIAL SC ×3 (05:33→21:17)
[2018-04-15] MEDS: FAMOTIDINE 20 MG TAB PO ×2 (07:58→16:43)
[2018-04-15] MEDS: FOLIC ACID 1 MG TAB PO (07:59)
[2018-04-15] MEDS: THIAMINE 100 MG TAB PO (07:59)
[2018-04-15] MEDS: MULTIVITAMINS/MINERALS THERAP 1 TAB PO (07:59)
[2018-04-15] MEDS: LIDOCAINE 5% (LIDODERM) PATCH TD (08:00)
[2018-04-15] MEDS: SODIUM CHLORIDE NASAL 0.65% SPRAY BTL (OCEAN) ×4 (08:00→20:36)
[2018-04-15] MEDS: METOPROLOL TART 25 MG TABLET PO ×2 (08:01→20:35)
[2018-04-15] MEDS: LISINOPRIL 10 MG TAB PO (08:01)
[2018-04-15] MEDS: tiZANidine 4 MG TAB PO ×2 (11:46→20:35)
[2018-04-15] MEDS: ACETAMINOPHEN TAB 650MG DOSE (2X325MG) PO ×3 (11:46→20:36)
[2018-04-15] MEDS: CALCIUM CARBONATE 500 MG CHEW U/D PO (16:43)
[2018-04-15] MEDS: FERROUS SULFATE 325MG TAB PO (17:57)
[2018-04-15] MEDS: traZODone 50 MG TAB PO (20:34)
[2018-04-15] MEDS: **NOTE PATIENT COMMENT** MISC XX (20:36)
[2018-04-16] MEDS: HEPARIN SOD (PORCINE) 5000 UNITS/ML VIAL SC ×3 (05:15→21:31)
[2018-04-16] MEDS: LISINOPRIL 10 MG TAB PO (08:18)
[2018-04-16] MEDS: THIAMINE 100 MG TAB PO (08:19)
[2018-04-16] MEDS: LIDOCAINE 5% (LIDODERM) PATCH TD (08:19)
[2018-04-16] MEDS: MULTIVITAMINS/MINERALS THERAP 1 TAB PO (08:19)
[2018-04-16] MEDS: METOPROLOL TART 25 MG TABLET PO ×2 (08:19→21:27)
[2018-04-16] MEDS: FAMOTIDINE 20 MG TAB PO ×2 (08:19→17:04)
[2018-04-16] MEDS: FOLIC ACID 1 MG TAB PO (08:19)
[2018-04-16] MEDS: SODIUM CHLORIDE NASAL 0.65% SPRAY BTL (OCEAN) ×4 (08:20→21:00)
[2018-04-16] MEDS: tiZANidine 4 MG TAB PO ×2 (13:17→21:27)
[2018-04-16] MEDS: CALCIUM CARBONATE 500 MG CHEW U/D PO (14:44)
[2018-04-16] MEDS: ACETAMINOPHEN TAB 650MG DOSE (2X325MG) PO (14:47)
[2018-04-16] MEDS: FERROUS SULFATE 325MG TAB PO (17:04)
[2018-04-16] MEDS: **NOTE PATIENT COMMENT** MISC XX (21:00)
[2018-04-16] MEDS: traZODone 50 MG TAB PO (21:31)
[2018-04-17] MEDS: HEPARIN SOD (PORCINE) 5000 UNITS/ML VIAL SC (05:02)
[2018-04-17] MEDS: MULTIVITAMINS/MINERALS THERAP 1 TAB PO (08:49)
[2018-04-17] MEDS: FAMOTIDINE 20 MG TAB PO (08:49)
[2018-04-17] MEDS: FOLIC ACID 1 MG TAB PO (08:49)
[2018-04-17] MEDS: THIAMINE 100 MG TAB PO (08:49)
[2018-04-17] MEDS: METOPROLOL TART 25 MG TABLET PO (08:49)
[2018-04-17] MEDS: LIDOCAINE 5% (LIDODERM) PATCH TD (08:50)
[2018-04-17] MEDS: LISINOPRIL 10 MG TAB PO (08:50)
[2018-04-17] MEDS: SODIUM CHLORIDE NASAL 0.65% SPRAY BTL (OCEAN) (08:51)
[2018-04-17] MEDS: tiZANidine 4 MG TAB PO (08:54)
[2018-04-18 00:09] LABS: 7-Aminoclonazepam Negative (.); Alprazolam Negative (.); Chlordiazepoxide Negative (.); Clonazepam Negative (.); Desalkylflurazepam Negative (.); Diazepam Negative (.); Flurazepam Negative (.); Lorazepam Negative (.); Midazolam Negative (.); OXYCODONE SCREEN Negative ng/mL (Cutoff:5); Temazepam Negative (.); Triazolam Negative (.)
== END 2018-04-17 11:17 | disposition home or self-care (01) | DRG 460 ==
LOC: M MSPAV 03-30 03:17 → M ED 15:44 → M ED INP 22:19
DX: N17.9 Acute kidney failure, unspecified (principal); G93.41 Metabolic encephalopathy; I11.0 Hypertensive heart disease with heart failure; F10.10 Alcohol abuse, uncomplicated; F32.9 Major depressive disorder, single episode, unspecified; D50.9 Iron deficiency anemia, unspecified; I50.32 Chronic diastolic (congestive) heart failure; F17.200 Nicotine dependence, unspecified, uncomplicated; F41.9 Anxiety disorder, unspecified; M81.0 Age-related osteoporosis without current pathological fracture; M19.90 Unspecified osteoarthritis, unspecified site; R19.7 Diarrhea, unspecified; Z79.899 Other long term (current) drug therapy; M51.36 Other intervertebral disc degeneration, lumbar region; E87.6 Hypokalemia; K21.9 Gastro-esophageal reflux disease without esophagitis

== ENCOUNTER 2018-07-01 12:28 | Inpatient (IN) | payer OTHER ==
[2018-07-01] MEDS: GI COCKTAIL 50ML BTL(HYOSCYAMINE/MAALOX/LIDOCAINE VISCOUS)(1:3:1) PO (13:31)
[2018-07-01] MEDS: NS 1,000 ML IV ×3 (13:32→22:56)
[2018-07-01] MEDS: ONDANSETRON 4MG/2ML VIAL (J2405) IV ×2 (13:32→15:32)
[2018-07-01 13:37] LABS: BASO % 0.1 % (0.0-1.0); HEMATOCRIT 43.4 % (36.0-47.0); HEMOGLOBIN 15.2 g/dl (12.0-15.5); IMMATURE GRANULOCYTE % 0.8 % (0-3.0); LYMPH # 1.9 10^3/uL (1.5-4.5); LYMPH % 8.8 % (24.0-44.0); MEAN CORPUSCULAR HEMOGLOBIN 33.9 pg (27.0-33.0); MEAN CORPUSCULAR VOLUME 96.9 fl (80.0-96.0); MONO # 1.9 10^3/uL (0.0-0.8); MONO % 8.9 % (0.0-5.0); NEUTROPHILS # 17.8 10^3/uL (1.8-7.7); NEUTROPHILS % 81.4 % (36.0-66.0); PLATELET COUNT, AUTOMATED 252 10^3/uL (150-450); RED BLOOD COUNT 4.48 10^6/uL (4.00-5.40); RED CELL DISTRIBUTION WIDTH 13.5 % (11.5-14.5); WHITE BLOOD COUNT 21.8 10^3/uL (4.0-10.0)
[2018-07-01 14:01] LABS: ALBUMIN 4.1 GM/DL (3.2-5.2); ALBUMIN/GLOBULIN RATIO 1.11 (1.00-1.93); ALKALINE PHOSPHATASE 62 U/L (45-117); ALT/SGPT 17 U/L (12-78); ANION GAP 21 MEQ/L (8-16); AST/SGOT 22 U/L (7-37); BILIRUBIN,DIRECT 0.2 MG/DL (0.0-0.2); BLOOD UREA NITROGEN 54 MG/DL (7-18); CALCIUM LEVEL 9.3 MG/DL (8.8-10.2); CARBON DIOXIDE LEVEL 19 MEQ/L (21-32); CHLORIDE LEVEL 96 MEQ/L (98-107); CPK CREATINE PHOSPHOKINASE 91 U/L (26-192); CREATININE FOR GFR 2.34 MG/DL (0.55-1.30); GLOMERULAR FILTRATION RATE 22.3 (>45); GLUCOSE, FASTING 123 MG/DL (70-100); LIPASE 88 U/L (73-393); MB/CK RELATIVE INDEX 3.41 (< OR =4); POTASSIUM SERUM 3.8 MEQ/L (3.5-5.1); SODIUM LEVEL 136 MEQ/L (136-145); THYROID STIMULATING HORMONE 0.891 uIU/ML (0.358-3.740); TOTAL PROTEIN 7.8 GM/DL (6.4-8.2); TROPONIN I 0.02 NG/ML (< 0.10)
[2018-07-01 14:11] LABS: INR 0.91; PROTHROMBIN TIME 12.3 SECONDS (12.1-14.4)
[2018-07-01 14:12] LABS: PARTIAL THROMBOPLASTIN TIME 25.2 SECONDS (25.4-37.6)
[2018-07-01] MEDS: NS 500 ML IV (15:32)
[2018-07-01] MEDS: MORPHINE 2 MG/ML 1ML SYRINGE (J2270) IV (15:32)
[2018-07-01 17:53] LABS: KETONE, URINE AUTO RFX 2+ mg/dL (NEGATIVE); NITRITE, URINE AUTO RFX NEGATIVE (NEGATIVE); RBC, URINE AUTO RFX 3 /HPF (0-3); SPECIFIC GRAVITY UR AUTO RFX 1.018 (1.002-1.035); SQUAM EPITHELIAL CELL UR AURFX 1 /HPF (0-6)
[2018-07-01 18:10] LABS: LEUKOCYTE ESTERASE UR AUTO RFX 2+ (NEGATIVE); WBC, URINE AUTO RFX 12 /HPF (0-3)
[2018-07-01] MEDS: FOLIC ACID 1 MG TAB PO (18:37)
[2018-07-01] MEDS: THIAMINE 100 MG TAB PO (18:37)
[2018-07-01] MEDS: PANTOPRAZOLE 40MG INJ (PROTONIX) (C9113) IV (22:56)
[2018-07-01] MEDS: SUCRALFATE SUSP 1GM/10ML UD PO (22:56)
[2018-07-01] MEDS: METOPROLOL TART 25 MG TABLET PO (22:56)
[2018-07-01] MEDS: NICOTINE 7 MG/24 HR TRANSDERMAL TD (23:01)
[2018-07-01 23:22] LABS: HEMATOCRIT 41.9 % (36.0-47.0); HEMOGLOBIN 14.4 g/dl (12.0-15.5); MEAN CORPUSCULAR HGB CONC 34.4 g/dl (32.0-36.5); MEAN CORPUSCULAR VOLUME 99.1 fl (80.0-96.0); PLATELET COUNT, AUTOMATED 177 10^3/uL (150-450); RED BLOOD COUNT 4.23 10^6/uL (4.00-5.40); RED CELL DISTRIBUTION WIDTH 13.8 % (11.5-14.5); WHITE BLOOD COUNT 18.3 10^3/uL (4.0-10.0)
[2018-07-02] MEDS: tiZANidine 4 MG TAB PO ×2 (01:07→22:06)
[2018-07-02 07:05] LABS: HEMATOCRIT 34.6 % (36.0-47.0); MEAN CORPUSCULAR HEMOGLOBIN 33.1 pg (27.0-33.0); MEAN CORPUSCULAR HGB CONC 34.1 g/dl (32.0-36.5); MEAN CORPUSCULAR VOLUME 96.9 fl (80.0-96.0); PLATELET COUNT, AUTOMATED 169 10^3/uL (150-450); RED BLOOD COUNT 3.57 10^6/uL (4.00-5.40); RED CELL DISTRIBUTION WIDTH 13.6 % (11.5-14.5); WHITE BLOOD COUNT 14.6 10^3/uL (4.0-10.0)
[2018-07-02 07:17] LABS: HEMOGLOBIN 11.8 g/dl (12.0-15.5)
[2018-07-02] MEDS: SUCRALFATE SUSP 1GM/10ML UD PO ×4 (07:30→21:56)
[2018-07-02 07:33] LABS: ANION GAP 11 MEQ/L (8-16); BLOOD UREA NITROGEN 27 MG/DL (7-18); CALCIUM LEVEL 7.2 MG/DL (8.8-10.2); CARBON DIOXIDE LEVEL 22 MEQ/L (21-32); CHLORIDE LEVEL 108 MEQ/L (98-107); CREATININE FOR GFR 1.18 MG/DL (0.55-1.30); GLOMERULAR FILTRATION RATE 49.1 (>45); GLUCOSE, FASTING 87 MG/DL (70-100); POTASSIUM SERUM 3.2 MEQ/L (3.5-5.1); SODIUM LEVEL 141 MEQ/L (136-145)
[2018-07-02] MEDS: MULTIVITAMINS/MINERALS THERAP 1 TAB PO (10:00)
[2018-07-02] MEDS: PANTOPRAZOLE 40MG INJ (PROTONIX) (C9113) IV ×2 (10:00→21:57)
[2018-07-02] MEDS: METOPROLOL TART 25 MG TABLET PO ×2 (10:02→21:57)
[2018-07-02] MEDS: NS 1,000 ML IV ×2 (10:03→22:55)
[2018-07-02] MEDS: FOLIC ACID 1 MG TAB PO (10:03)
[2018-07-02] MEDS: THIAMINE 100 MG TAB PO (10:03)
[2018-07-02] MEDS: POTASSIUM CHLORIDE 10 MEQ SR TABLET PO (12:00)
[2018-07-02 14:46] LABS: HEMATOCRIT 35.7 % (36.0-47.0); HEMOGLOBIN 12.1 g/dl (12.0-15.5); MEAN CORPUSCULAR HEMOGLOBIN 34.4 pg (27.0-33.0); MEAN CORPUSCULAR HGB CONC 33.9 g/dl (32.0-36.5); MEAN CORPUSCULAR VOLUME 101.4 fl (80.0-96.0); RED BLOOD COUNT 3.52 10^6/uL (4.00-5.40); RED CELL DISTRIBUTION WIDTH 14.1 % (11.5-14.5); WHITE BLOOD COUNT 12.8 10^3/uL (4.0-10.0)
[2018-07-02] MEDS: GI COCKTAIL 50ML BTL(HYOSCYAMINE/MAALOX/LIDOCAINE VISCOUS)(1:3:1) PO (15:39)
[2018-07-02 21:10] LABS: HEMATOCRIT 36.9 % (36.0-47.0); HEMOGLOBIN 12.3 g/dl (12.0-15.5); MEAN CORPUSCULAR HEMOGLOBIN 33.4 pg (27.0-33.0); MEAN CORPUSCULAR HGB CONC 33.3 g/dl (32.0-36.5); MEAN CORPUSCULAR VOLUME 100.3 fl (80.0-96.0); PLATELET COUNT, AUTOMATED 131 10^3/uL (150-450); RED BLOOD COUNT 3.68 10^6/uL (4.00-5.40); RED CELL DISTRIBUTION WIDTH 13.6 % (11.5-14.5); WHITE BLOOD COUNT 9.2 10^3/uL (4.0-10.0)
[2018-07-02] MEDS: NICOTINE 7 MG/24 HR TRANSDERMAL TD (22:06)
[2018-07-03 06:45] LABS: HEMATOCRIT 38.9 % (36.0-47.0); MEAN CORPUSCULAR HEMOGLOBIN 33.6 pg (27.0-33.0); MEAN CORPUSCULAR HGB CONC 33.4 g/dl (32.0-36.5); MEAN CORPUSCULAR VOLUME 100.5 fl (80.0-96.0); PLATELET COUNT, AUTOMATED 131 10^3/uL (150-450); RED BLOOD COUNT 3.87 10^6/uL (4.00-5.40); RED CELL DISTRIBUTION WIDTH 13.8 % (11.5-14.5); WHITE BLOOD COUNT 7.9 10^3/uL (4.0-10.0)
[2018-07-03 07:13] LABS: ANION GAP 9 MEQ/L (8-16); BLOOD UREA NITROGEN 9 MG/DL (7-18); CALCIUM LEVEL 8.3 MG/DL (8.8-10.2); CARBON DIOXIDE LEVEL 23 MEQ/L (21-32); CHLORIDE LEVEL 110 MEQ/L (98-107); CREATININE FOR GFR 0.74 MG/DL (0.55-1.30); GLOMERULAR FILTRATION RATE > 60.0 (>45); GLUCOSE, FASTING 94 MG/DL (70-100); SODIUM LEVEL 142 MEQ/L (136-145)
[2018-07-03] MEDS: POTASSIUM CHLORIDE 10 MEQ SR TABLET PO ×2 (08:36→14:00)
[2018-07-03] MEDS: KCL 10MEQ/100ML SWI (KRUN) 10 MEQ in APPROPRIATE DILUENT 1 EA IV (08:36)
[2018-07-03] MEDS: FOLIC ACID 1 MG TAB PO (08:37)
[2018-07-03] MEDS: PANTOPRAZOLE 40MG INJ (PROTONIX) (C9113) IV (08:37)
[2018-07-03] MEDS: MULTIVITAMINS/MINERALS THERAP 1 TAB PO (08:37)
[2018-07-03] MEDS: SUCRALFATE SUSP 1GM/10ML UD PO ×4 (08:37→20:01)
[2018-07-03] MEDS: THIAMINE 100 MG TAB PO (08:37)
[2018-07-03] MEDS: METOPROLOL TART 25 MG TABLET PO ×2 (08:38→20:01)
[2018-07-03] MEDS: tiZANidine 4 MG TAB PO ×2 (10:19→17:33)
[2018-07-03] MEDS: ACETAMINOPHEN TAB 650MG DOSE (2X325MG) PO ×2 (10:19→17:33)
[2018-07-03] MEDS: GI COCKTAIL 50ML BTL(HYOSCYAMINE/MAALOX/LIDOCAINE VISCOUS)(1:3:1) PO (10:19)
[2018-07-03 11:52] LABS: POTASSIUM SERUM 3.2 MEQ/L (3.5-5.1)
[2018-07-03] MEDS: NS 1,000 ML IV (12:15)
[2018-07-03] MEDS: PANTOPRAZOLE 40MG TAB (PROTONIX) PO (19:59)
[2018-07-03] MEDS: NICOTINE 7 MG/24 HR TRANSDERMAL TD (19:59)
[2018-07-04 07:29] LABS: HEMATOCRIT 36.4 % (36.0-47.0); HEMOGLOBIN 12.6 g/dl (12.0-15.5); MEAN CORPUSCULAR HEMOGLOBIN 34.1 pg (27.0-33.0); MEAN CORPUSCULAR HGB CONC 34.6 g/dl (32.0-36.5); MEAN CORPUSCULAR VOLUME 98.6 fl (80.0-96.0); PLATELET COUNT, AUTOMATED 125 10^3/uL (150-450); RED BLOOD COUNT 3.69 10^6/uL (4.00-5.40); RED CELL DISTRIBUTION WIDTH 13.6 % (11.5-14.5); WHITE BLOOD COUNT 7.1 10^3/uL (4.0-10.0)
[2018-07-04] MEDS: SUCRALFATE SUSP 1GM/10ML UD PO ×4 (07:30→20:03)
[2018-07-04 07:54] LABS: ANION GAP 9 MEQ/L (8-16); BLOOD UREA NITROGEN 7 MG/DL (7-18); CALCIUM LEVEL 8.4 MG/DL (8.8-10.2); CARBON DIOXIDE LEVEL 23 MEQ/L (21-32); CHLORIDE LEVEL 112 MEQ/L (98-107); CREATININE FOR GFR 0.71 MG/DL (0.55-1.30); GLOMERULAR FILTRATION RATE > 60.0 (>45); GLUCOSE, FASTING 101 MG/DL (70-100); POTASSIUM SERUM 3.3 MEQ/L (3.5-5.1); SODIUM LEVEL 144 MEQ/L (136-145)
[2018-07-04] MEDS: MULTIVITAMINS/MINERALS THERAP 1 TAB PO (09:19)
[2018-07-04] MEDS: THIAMINE 100 MG TAB PO (09:19)
[2018-07-04] MEDS: POTASSIUM CHLORIDE 10 MEQ SR TABLET PO (09:19)
[2018-07-04] MEDS: FOLIC ACID 1 MG TAB PO (09:19)
[2018-07-04] MEDS: PANTOPRAZOLE 40MG TAB (PROTONIX) PO ×2 (09:19→20:03)
[2018-07-04] MEDS: METOPROLOL TART 25 MG TABLET PO ×2 (09:21→20:05)
[2018-07-04] MEDS: tiZANidine 4 MG TAB PO (13:45)
[2018-07-04] MEDS: ACETAMINOPHEN TAB 650MG DOSE (2X325MG) PO (13:45)
[2018-07-04] MEDS: NICOTINE 7 MG/24 HR TRANSDERMAL TD (20:03)
[2018-07-04] MEDS: LISINOPRIL 10 MG TAB PO (20:05)
[2018-07-05 07:05] LABS: HEMOGLOBIN 12.3 g/dl (12.0-15.5); MEAN CORPUSCULAR HEMOGLOBIN 33.2 pg (27.0-33.0); MEAN CORPUSCULAR HGB CONC 33.2 g/dl (32.0-36.5); MEAN CORPUSCULAR VOLUME 99.7 fl (80.0-96.0); PLATELET COUNT, AUTOMATED 150 10^3/uL (150-450); RED BLOOD COUNT 3.71 10^6/uL (4.00-5.40); RED CELL DISTRIBUTION WIDTH 13.5 % (11.5-14.5); WHITE BLOOD COUNT 8.4 10^3/uL (4.0-10.0)
[2018-07-05 07:33] LABS: ANION GAP 8 MEQ/L (8-16); BLOOD UREA NITROGEN 7 MG/DL (7-18); CALCIUM LEVEL 8.2 MG/DL (8.8-10.2); CARBON DIOXIDE LEVEL 28 MEQ/L (21-32); CHLORIDE LEVEL 106 MEQ/L (98-107); CREATININE FOR GFR 0.75 MG/DL (0.55-1.30); GLOMERULAR FILTRATION RATE > 60.0 (>45); GLUCOSE, FASTING 109 MG/DL (70-100); MAGNESIUM LEVEL 1.3 MG/DL (1.8-2.4); POTASSIUM SERUM 3.5 MEQ/L (3.5-5.1); SODIUM LEVEL 142 MEQ/L (136-145)
[2018-07-05] MEDS: METOPROLOL TART 25 MG TABLET PO ×2 (08:52→20:31)
[2018-07-05] MEDS: ACETAMINOPHEN TAB 650MG DOSE (2X325MG) PO ×3 (08:52→20:33)
[2018-07-05] MEDS: SUCRALFATE SUSP 1GM/10ML UD PO ×4 (08:52→20:30)
[2018-07-05] MEDS: tiZANidine 4 MG TAB PO (08:52)
[2018-07-05] MEDS: MULTIVITAMINS/MINERALS THERAP 1 TAB PO (08:52)
[2018-07-05] MEDS: LISINOPRIL 10 MG TAB PO ×2 (08:53→20:31)
[2018-07-05] MEDS: PANTOPRAZOLE 40MG TAB (PROTONIX) PO ×2 (08:53→20:32)
[2018-07-05] MEDS: FOLIC ACID 1 MG TAB PO (08:53)
[2018-07-05] MEDS: THIAMINE 100 MG TAB PO (08:53)
[2018-07-05] MEDS: MAGNESIUM OXIDE 400 MG TAB (MAG-OX) PO ×2 (13:08→20:32)
[2018-07-05] MEDS: NICOTINE 7 MG/24 HR TRANSDERMAL TD (20:32)
[2018-07-06 06:15] LABS: HEMATOCRIT 36.6 % (36.0-47.0); HEMOGLOBIN 12.2 g/dl (12.0-15.5); MEAN CORPUSCULAR HEMOGLOBIN 33.2 pg (27.0-33.0); MEAN CORPUSCULAR HGB CONC 33.3 g/dl (32.0-36.5); MEAN CORPUSCULAR VOLUME 99.7 fl (80.0-96.0); PLATELET COUNT, AUTOMATED 175 10^3/uL (150-450); RED BLOOD COUNT 3.67 10^6/uL (4.00-5.40); RED CELL DISTRIBUTION WIDTH 13.7 % (11.5-14.5); WHITE BLOOD COUNT 7.2 10^3/uL (4.0-10.0)
[2018-07-06 06:37] LABS: ANION GAP 5 MEQ/L (8-16); BLOOD UREA NITROGEN 6 MG/DL (7-18); CALCIUM LEVEL 8.9 MG/DL (8.8-10.2); CARBON DIOXIDE LEVEL 33 MEQ/L (21-32); CHLORIDE LEVEL 106 MEQ/L (98-107); CREATININE FOR GFR 0.88 MG/DL (0.55-1.30); GLOMERULAR FILTRATION RATE > 60.0 (>45); GLUCOSE, FASTING 103 MG/DL (70-100); POTASSIUM SERUM 3.6 MEQ/L (3.5-5.1); SODIUM LEVEL 144 MEQ/L (136-145)
[2018-07-06] MEDS: MULTIVITAMINS/MINERALS THERAP 1 TAB PO (09:27)
[2018-07-06] MEDS: PANTOPRAZOLE 40MG TAB (PROTONIX) PO (09:27)
[2018-07-06] MEDS: THIAMINE 100 MG TAB PO (09:27)
[2018-07-06] MEDS: FOLIC ACID 1 MG TAB PO (09:27)
[2018-07-06] MEDS: MAGNESIUM OXIDE 400 MG TAB (MAG-OX) PO (09:31)
[2018-07-06] MEDS: METOPROLOL TART 25 MG TABLET PO (09:31)
[2018-07-06] MEDS: LISINOPRIL 10 MG TAB PO (09:31)
[2018-07-06] MEDS: SUCRALFATE SUSP 1GM/10ML UD PO ×2 (09:32→12:08)
[2018-07-06] MEDS: ACETAMINOPHEN TAB 650MG DOSE (2X325MG) PO (09:41)
[2018-07-06] MEDS: tiZANidine 4 MG TAB PO (13:26)
[2018-07-06] MEDS: ONDANSETRON 4MG/2ML VIAL (J2405) IV (13:26)
== END 2018-07-06 15:20 | disposition home or self-care (01) | DRG 241 ==
LOC: M ED 12:28 → M ED INP 16:10 → M MS5PR 22:23
DX: K29.70 Gastritis, unspecified, without bleeding (principal); N17.9 Acute kidney failure, unspecified; K92.0 Hematemesis; R11.2 Nausea with vomiting, unspecified; F10.10 Alcohol abuse, uncomplicated; F17.200 Nicotine dependence, unspecified, uncomplicated; F32.9 Major depressive disorder, single episode, unspecified; Z91.19 Patient's noncompliance with other medical treatment and regimen; I10 Essential (primary) hypertension; F41.9 Anxiety disorder, unspecified; R26.89 Other abnormalities of gait and mobility; Z79.899 Other long term (current) drug therapy; M19.90 Unspecified osteoarthritis, unspecified site

== ENCOUNTER → 2018-07-13 | Outpatient (REF) | payer OTHER ==
[2018-07-13 18:09] LABS: CHOLESTEROL LEVEL 168 MG/DL (<200); CHOLESTEROL RISK RATIO 2.896 (<5); HDL CHOLESTEROL 58 MG/DL (>40); LDL CHOLESTEROL 87 MG/DL (<100); NON-HDL-C 110 MG/DL; TRIGLYCERIDES LEVEL 115 MG/DL (<150)
[2018-07-13 19:42] LABS: ESTIMATED AVERAGE GLUCOSE 105 MG/DL (60-110); HEMOGLOBIN A1c 5.3 %
== END ==
LOC: M SFHCPLAZ 15:45
DX: Z13.1 Encounter for screening for diabetes mellitus (principal); Z13.220 Encounter for screening for lipoid disorders
CPT/HCPCS: 83036

== ENCOUNTER 2018-11-10 16:11 | Emergency (ER) | payer MEDICARE, MEDICAID ==
[~2018-11-10] VITALS: Ht 157.5 cm; Wt 56.9 kg
[~2018-11-10 16:11] MED LIST changes: +BENZ-18 PO; +CALC500C16 PO; +DIPH50CA29 PO; +FERR1TAB8 PO; -FERR325T PO; +FOLI1TAB11 PO; -FOLI1TAB2 PO; +HYDR-3713 PO; -HYDR1TAB97 PO; +IBUP1TAB7 PO; -IBUP800T23 PO; -LIDO5DIS36 TD; +LIDO5DIS41 TD; +LISI10TA4 PO; +MAGN400C3 PO; +METO1TAB87 PO; +METO25TA4 PO; +MILK120011 PO; -MILKSUS PO; +OXYC-517 PO; -OXYCO5TA PO; +PERC5TAB12 PO; -PERC5TAB6 PO; +PROT1TAB2 PO; +SALI0.6528; +SUCR10SS PO; +TESS100C PO; +THIA100T7 PO; +THIA100TA PO; +TIZA2CAP PO; +TIZA2TA PO; -TOPR25TA PO; +TOPR25TA13 PO; +TRAZ-160 PO; +TRAZO50TA PO; +[UNRECOGNIZED DRUG - OTHER] OU
[2018-11-10] MEDS ORDERED: CITA20TA4 PO (16:44)
[2018-11-10 20:19] VITALS: BP 125/65
== END 2018-11-10 20:21 | disposition home or self-care (01) ==
LOC: M ED 16:11 → EDSEX 16:11 → EDBD 16:11 → M ED 20:21
DX: F41.1 Generalized anxiety disorder (principal); I10 Essential (primary) hypertension; F17.200 Nicotine dependence, unspecified, uncomplicated; Z79.899 Other long term (current) drug therapy

== ENCOUNTER 2018-11-30 12:01 | Inpatient (IN) | payer MEDICARE, MEDICAID ==
[~2018-11-30] VITALS: Ht 157.5 cm; Wt 55.5 kg
[~2018-11-30 12:01] MED LIST changes: +CITA20TA4 PO
[2018-11-30 13:22] LABS: BASO % 0.1 % (0.0-1.0); HEMATOCRIT 41.6 % (36.0-47.0); HEMOGLOBIN 14.6 g/dl (12.0-15.5); LYMPH # 1.7 10^3/uL (1.5-4.5); LYMPH % 10.9 % (24.0-44.0); MEAN CORPUSCULAR HEMOGLOBIN 33.4 pg (27.0-33.0); MEAN CORPUSCULAR HGB CONC 35.1 g/dl (32.0-36.5); MEAN CORPUSCULAR VOLUME 95.2 fl (80.0-96.0); MONO # 1.3 10^3/uL (0.0-0.8); NEUTROPHILS # 12.7 10^3/uL (1.8-7.7); NEUTROPHILS % 80.4 % (36.0-66.0); PLATELET COUNT, AUTOMATED 215 10^3/uL (150-450); RED BLOOD COUNT 4.37 10^6/uL (4.00-5.40); WHITE BLOOD COUNT 15.8 10^3/uL (4.0-10.0)
[2018-11-30] MEDS ORDERED: PANTOPRAZOLE 40MG INJ (PROTONIX) (C9113) IV ONE (13:30)
[2018-11-30] MEDS ORDERED: NS 1,000 ML IV ONE ×2 (13:30→15:45)
[2018-11-30] MEDS ORDERED: ONDANSETRON 4MG/2ML VIAL (J2405) IV ONE (13:30)
[2018-11-30 13:40] LABS: ALBUMIN 4.5 GM/DL (3.2-5.2); ALT/SGPT 34 U/L (12-78); BILIRUBIN,DIRECT 0.4 MG/DL (0.0-0.2); BILIRUBIN,TOTAL 1.6 MG/DL (0.2-1.0); BLOOD UREA NITROGEN 48 MG/DL (7-18); CALCIUM LEVEL 8.9 MG/DL (8.8-10.2); CARBON DIOXIDE LEVEL 23 MEQ/L (21-32); CHLORIDE LEVEL 88 MEQ/L (98-107); CPK CREATINE PHOSPHOKINASE 174 U/L (26-192); GLOMERULAR FILTRATION RATE 25.2 (>45); GLUCOSE, FASTING 128 MG/DL (70-100); LIPASE 127 U/L (73-393); MB/CK RELATIVE INDEX 1.72 (< OR =4); POTASSIUM SERUM 3.2 MEQ/L (3.5-5.1); SODIUM LEVEL 130 MEQ/L (136-145); TOTAL PROTEIN 8.5 GM/DL (6.4-8.2); TROPONIN I < 0.02 NG/ML (< 0.10)
[2018-11-30] MEDS ORDERED: POTASSIUM CHLORIDE 10 MEQ SR TABLET PO ONE (14:30)
[2018-11-30] MEDS ORDERED: ACETAMINOPHEN TAB 650MG DOSE (2X325MG) PO ONE (14:30)
[2018-11-30] MEDS ORDERED: ALEV220T26 PO (17:02)
[2018-11-30] MEDS ORDERED: LISI-538 PO (17:02)
[2018-11-30] MEDS ORDERED: ONDANSETRON 4 MG TAB (S0181) PO PRN (20:45)
[2018-11-30] MEDS: SUCRALFATE SUSP 1GM/10ML UD PO SCH (21:11)
[2018-11-30] MEDS: NS 1,000 ML IV SCH (21:15)
[2018-11-30] MEDS: PANTOPRAZOLE 40MG INJ (PROTONIX) (C9113) IV SCH (21:15)
--- NOTE | 2018-11-30 23:28 | HPEPDOC ---
[facility] Medical History & Physical Date of Admission Nov 30, 2018 Primary Care Physician: LUANNE KING DO Attending Physician: STEFANI MCKEON MD History and Physical CHIEF COMPLAINT: Nausea, Vomiting, diarrhea, weakness HISTORY OF PRESENT ILLNESS: Patient is a 62 year old female with a past medical history significant for anxiety, depression, history of alcohol abuse, tobacco abuse, hypertension, osteoporosis, degenerative disc disease, osteoarthritis, and right shoulder bursitis who presented to the [facility] Emergency Department with complaint of nausea and vomiting since last Friday11/27/2018. Patient states that she started to feel ill on Friday and developed nausea with vomiting. She states that since that time she has had difficulty keeping anything down including small sips of water. In addition, the patient states that she had fallen on Friday as well. She stated that she got up and felt dizzy and lost her balance. She had denied any loss of consciousness. She did not seek medical attention after her fall. She states that she has fallen in the past and ambulates with a walker. She feels that since Friday she has developed significant weakness. She denies any fevers or chills although admits to hot flashes. In addition, the patient admits to occasional coffee ground emesis. She states that sometimes when she has vomiting she notices this. However, she admits that this is more of a chronic issue and has been going on for several months. She stated that she was previously hospitalized for a similar issue. She had denied upper and lower EGD and continues to deny them at this time. She denies any dark or tarry stools. She has never had a colonoscopy and is noncompliant with medications. The patient states that she came to the ER because she has continued to get weak and has not been able to eat or drink. In the ER the patient was found to be tacycardic and orthostatic positive. She was afebrile. She presented with DANUTA and elevated lactic acid. Her lactic acid normalized with fluids. She received IV protonix for suspected upper GI bleed. Hospitalist service was consulted and the patient was admitted for further evaluation and management. PAST MEDICAL HISTORY: 1. Hypertension 2. Osteoporosis 3. Degenerative Disc Disease 4. History of Alcoholism 5. Anxiety/Depression 6. Osteoarthritis 7. Right shoulder Bursitis PAST SURGICAL HISTORY: 1. Emergency Section with Vertical Incision SOCIAL HISTORY: Patient currently lives at home alone. She ambulates with a walker. She admits to smoking 5-10 cigarettes a day. She denies alcohol use but admits to heavy drinking history in past. She states she quit in February/March of 2018. She denies any illicit drug use. ALLERGIES: Please see below. REVIEW OF SYSTEMS: CONSTITUTIONAL: Denies fevers, chills, or nightsweats. Admits to unintentional weightloss over the past several months. HEENT: Complains of cough. Denies sore throat or dysphagia. Complains of headache CARDIOVASCULAR: Denies chest pain. Denies palpitations or feelings of the heart racing RESPIRATORY: Denies shortness of breath. Admits to cough. Denies hemoptysis. GASTROINTESTINAL: Complains of abdominal pain, nausea, and vomiting. Admits to chronic coffee ground emesis. Denies dark or tarry stools. Denies diarrhea or constipation. GENITOURINARY: Denies dysuria or increased frequency SKIN: Denies easy bruising or bleeding MUSCULOSKELETAL: Admits to whole body weakness. NEUROLOGICAL: Admits to resting tremors. Denies changes in gait from baseline PSYCHIATRIC: Admits to depression and anxiety ENDOCRINE: Denies heat or cold intolerance HEMATOLOGIC/LYMPHATIC: Denies easy bruising or bleeding HOME MEDICATIONS: Please see below. PHYSICAL EXAMINATION: VITAL SIGNS: Temperature 97.6, pulse 132, respiratory rate 20, blood pressure 116/70, pulse oximetry 98% on room air. GENERAL APPEARANCE: Patient is awake, alert, and oriented. She does not appear in acute distress. She does appear weak. She is lying in exam bed comfortably HEENT: Bruising discoloration of left eye frontal bone and zyogomatic bone without crepitus. Eyes are non-icteric. No conjuntival injection or hemorrhage. Trachea is midline. Nares are patent. Mucous membranes are dry. Patient has no teeth. Does not currently have dentures CARDIOVASCULAR: Normal S1, S2. Tachycardiac on exam. Regular rhythm. No clicks, rubs, or murmurs LUNGS: Clear vesicular lung sounds bilaterally with good respiratory effort. No wheezes, rhonci, or rales ABDOMEN: Soft, nondistended, nontender to palpation of all 4 quadrants. C- section scar present. No hernias MUSCULOSKELETAL: 5/5 muscle strength testing bilaterally. EXTREMITIES: No edema. Upper and lower extremity pulses are full and equal bilaterally NEUROLOGICAL: Resting tremor. No focal neurological deficit noted PSYCHIATRIC: Mood and affect appear appropriate LABORATORY DATA: See below. IMAGING: Head CT demonstrating age related atrophy and chronic changes. No acute intercranial pathology MICROBIOLOGY: Please see below. ASSESSMENT and PLAN 1. DANUTA 2/2 Nausea and vomiting, poor PO intake -Patient complains of nausea and vomiting since last Friday. She has been unable to keep anything down. In the ER she received IV fluids. -Patient will be placed on IV fluids for hydration. -Will trend Creatinine. -Patient did have an elevated lactic acid at presentation. On repeat her lactic acid normalized -Will hold all nephrotoxic medications 2. Acute on chronic GI bleed -Patient does admit to a history of GERD. She Currently complains of coffee ground emesis which she states has been going on for sometime. She has denied Upper and lower endoscopy in the past and currently states that she would not like to have those done. -Patients hemoglobin is currently stable. She may be hemoconcentrated due to dehydration. She was orthostatic in the ED. We will trend H&H. -Consider GI consultation for AM team in regards to further medical management of her symptoms. She has refused EGDs in the past and is currently stating that she would not get one. -Patient started on IV protonix and Carafate suspension 3. Recent Fall -Patient recently fell. She does have a history of falls and ambulates with a walker. She is orthostatic. She has denied loss of conciousness. -Head CT w/o contrast. No acute intercranial pathology. -Supportive care for headache. -Patient would benefit from a home safety eval. She has multiple documented falls in the past. 4. Hypokalemia -Likely secondary to GI loss. Patient received 40meq in ER. Will monitor and replace PRN 5. Hypertension -Holding home lisinopril due to DANUTA. BP is currently stable. 6. Depression/Anxiety -Continue home medications 7. History of alcoholism -Patient has a history of alcoholism. She denies any recent drinks and states she quit drinking in February/March of 2018. -[facility] protocol. Vital Signs Vital Signs Date Time Temp Pulse Resp B/P (MAP) Pulse Ox O2 Delivery O2 Flow Rate FiO2 11/30/18 18:31 93 96 11/30/18 18:08 18 94/62 (73) 11/30/18 12:12 97.6 Laboratory Data Labs 24H Laboratory Tests 2 11/30/18 12:36: Immature Granulocyte % (Auto) 0.6, White Blood Count 15.8H, Red Blood Count 4.37, Hemoglobin 14.6, Hematocrit 41.6, Mean Corpuscular Volume 95.2, Mean Corpuscular Hemoglobin 33.4H, Mean Corpuscular Hemoglobin Concent 35.1, Red Cell Distribution Width 14.9H, Platelet Count 215, Neutrophils (%) (Auto) 80.4H, Lymphocytes (%) (Auto) 10.9L, Monocytes (%) (Auto) 8.0H, Eosinophils (%) (Auto) 0.0, Basophils (%) (Auto) 0.1, Neutrophils # (Auto) 12.7H, Lymphocytes # (Auto) 1.7, Monocytes # (Auto) 1.3H, Eosinophils # (Auto) 0.0, Basophils # (Auto) 0.0, Nucleated Red Blood Cells % (auto) 0.0, Anion Gap 19H, Glomerular Filtration Rate 25.2L, Calcium Level 8.9, Aspartate Amino Transf (AST/SGOT) 49H, Alanine Aminotransferase (ALT/SGPT) 34, Alkaline Phosphatase 59, Total Bilirubin 1.6H, Direct Bilirubin 0.4H, Total Creatine Kinase 174, Creatine Kinase MB 3.0, Crea rachel Kinase MB Relative Index 1.72, Troponin I < 0.02, Total Protein 8.5H, Albumin 4.5, Albumin/Globulin Ratio 1.13, Lipase 127 11/30/18 15:03: Lactic Acid Level 2.1*H, Ammonia 36H 11/30/18 19:23: Lactic Acid Followup at 4 Hours 1.1 CBC/BMP Laboratory Tests 11/30/18 12:36 Red Blood Count 4.37, Mean Corpuscular Volume 95.2, Mean Corpuscular Hemoglobin 33.4 H, Mean Corpuscular Hemoglobin Concent 35.1, Red Cell Distribution Width 14.9 H, Neutrophils (%) (Auto) 80.4 H, Lymphocytes (%) (Auto) 10.9 L, Monocytes (%) (Auto) 8.0 H, Eosinophils (%) (Auto) 0.0, Basophils (%) (Auto) 0.1, Neutrophils # (Auto) 12.7 H, Lymphocytes # (Auto) 1.7, Monocytes # (Auto) 1.3 H, Eosinophils # (Auto) 0.0, Basophils # (Auto) 0.0 Home Medications Scheduled Citalopram Hydrobromide (Citalopram Hydrobromide) 20 Mg Tab, 20 MG PO DAILY Pantoprazole Sodium Sesquihydr (Protonix) 40 Mg Tab, 40 MG PO BID Potassium Chloride (K-Tab) 10 Meq Tab, 4 TAB PO DAILY Trazodone HCl (Trazodone HCl) 50 Mg Tab, 75 MG PO QHS Vancomycin HCl (Vancocin HCl) 125 Mg Cap, 125 MG PO QID Scheduled PRN Acetaminophen (Acetaminophen ER) 650 Mg Tab, 650 MG PO TID PRN for HEADACHE Allergies Coded Allergies: No Known Allergies (Verified , 08/25/08) Attending Note I have both independently examined this patient as well as reviewed the H&P. I have discussed in detail with the resident the findings and plan of treatment as documented in the resident's note GME ATTESTATION GME ATTESTATION My faculty preceptor for this patient encounter was physically present during the encounter and was fully available. All aspects of the patient interview, examination, medical decision making process, and medical care plan development were reviewed and approved by the faculty preceptor. The faculty preceptor is aware and concurs with the plan as stated in the body of this note and will attest to such by his/her cosignature. LYN MCINTYRE DO Nov 30, 2018 23:26 LUCHO ODOM MD Dec 08, 2018 16:15
[2018-11-30] MEDS: ACETAMINOPHEN TAB 650MG DOSE (2X325MG) PO PRN (23:31)
[2018-12-01] VITALS: BP 134/68
[2018-12-01] MEDS: ACETAMINOPHEN TAB 650MG DOSE (2X325MG) PO PRN ×3 (04:03→16:01)
[2018-12-01 05:29] LABS: BASO % 0.2 % (0.0-1.0); EOS % 0.4 % (0.0-3.0); HEMATOCRIT 29.5 % (36.0-47.0); HEMOGLOBIN 9.9 g/dl (12.0-15.5); LYMPH # 2.7 10^3/uL (1.5-4.5); LYMPH % 31.5 % (24.0-44.0); MEAN CORPUSCULAR HEMOGLOBIN 32.6 pg (27.0-33.0); MEAN CORPUSCULAR HGB CONC 33.6 g/dl (32.0-36.5); MONO # 0.7 10^3/uL (0.0-0.8); MONO % 8.2 % (0.0-5.0); NEUTROPHILS # 5.1 10^3/uL (1.8-7.7); NEUTROPHILS % 59.1 % (36.0-66.0); RED BLOOD COUNT 3.04 10^6/uL (4.00-5.40); WHITE BLOOD COUNT 8.6 10^3/uL (4.0-10.0)
[2018-12-01 05:33] LABS: PLATELET COUNT, AUTOMATED 112 10^3/uL (150-450)
[2018-12-01 06:00] VITALS: BP 129/60
[2018-12-01 06:05] VITALS: BP 129/60
[2018-12-01 06:13] LABS: CALCIUM LEVEL 7.4 MG/DL (8.8-10.2); CREATININE FOR GFR 1.01 MG/DL (0.55-1.30); GLOMERULAR FILTRATION RATE 58.6 (>45); POTASSIUM SERUM 2.8 MEQ/L (3.5-5.1)
[2018-12-01] MEDS ORDERED: POTASSIUM CHLORIDE 10 MEQ SR TABLET PO ONE ×2 (06:30→22:00)
[2018-12-01 08:48] LABS: HEMATOCRIT 30.4 % (36.0-47.0); HEMOGLOBIN 10.3 g/dl (12.0-15.5)
[2018-12-01] MEDS: SUCRALFATE SUSP 1GM/10ML UD PO SCH ×4 (09:00→20:34)
[2018-12-01] MEDS: CitaloPRAM (CeleXA) 20 MG TAB PO SCH (09:22)
[2018-12-01] MEDS: NS 1,000 ML IV SCH ×2 (09:22→19:03)
[2018-12-01] MEDS: KCL 10MEQ/100ML SWI (KRUN) 10 MEQ in APPROPRIATE DILUENT 1 EA IV SCH ×3 (09:22→11:43)
[2018-12-01] MEDS: PANTOPRAZOLE 40MG INJ (PROTONIX) (C9113) IV SCH ×2 (09:23→20:34)
[2018-12-01 14:00] VITALS: BP 127/63
[2018-12-01 14:20] LABS: HEMATOCRIT 31.3 % (36.0-47.0); HEMOGLOBIN 10.6 g/dl (12.0-15.5)
[2018-12-01 18:00] VITALS: BP 128/73
[2018-12-01] MEDS ORDERED: traZODone 25MG PER 1/2 TABLET PO ONE (19:00)
[2018-12-01 19:22] LABS: BLOOD UREA NITROGEN 14 MG/DL (7-18); CALCIUM LEVEL 7.8 MG/DL (8.8-10.2); CARBON DIOXIDE LEVEL 22 MEQ/L (21-32); CHLORIDE LEVEL 108 MEQ/L (98-107); CREATININE FOR GFR 0.98 MG/DL (0.55-1.30); GLOMERULAR FILTRATION RATE > 60.0 (>45); GLUCOSE, FASTING 152 MG/DL (70-100); POTASSIUM SERUM 3.3 MEQ/L (3.5-5.1); SODIUM LEVEL 138 MEQ/L (136-145)
--- NOTE | 2018-12-01 19:29 | IPN ---
DATE: 12/01/2018 SUBJECTIVE: Patient is seen and examined in the room today. Patient stated her most recent bowel movements were green in color. Nausea and vomiting is improving. Patient continues to have loose stool. Denies any fever or chills. I have discussed possible diagnostic workup including upper endoscopy and colonoscopy, however, patient continue to refuse the recommendations. Patient never had a colonoscopy in the past. OBJECTIVE: VITAL SIGNS: Temperature is 97.9, pulse is 77, respirations 18, blood pressure is 129/60, pulse ox 98% on room air. GENERAL: Patient is alert and awake. HEENT: Normocephalic, atraumatic. Extraocular movements grossly intact. CARDIOVASCULAR: Positive S1, S2, regular rate. LUNGS: Clear to auscultation bilaterally. ABDOMEN: Soft, nontender, nondistended. Bowel sounds present. EXTREMITIES: No edema. LABORATORY DATA: WBC 8.6, hemoglobin 9.9, hematocrit 29.5. Platelet count is 112, sodium is 137, potassium 2.8, chloride is 102, carbon dioxide 123, BUN 28, creatinine 1.01. GFR is 58.6. Fasting glucose 82, calcium 7.4. ASSESSMENT AND PLAN: 1. Nausea, vomiting and diarrhea. Followup with GI panel. Continue supportive care with IV fluid. 2. Acute kidney injury on admission. The patient had a BUN and creatinine of 2.1 with a GFR 25.2. Patient has been on fluid resuscitation. The patient has a GFR of 58.6. Continue to monitor the patient. Continue on supportive care. 3. Severe hypokalemia. Patient on oral supplement of potassium accordingly. 4. Possible GI cut off . Patient presented with coffee ground emesis. On prior admission record review, the patient had a similar episode previously. However, patient has been refusing EGD and colonoscopy. Patient does have a history of gastroesophageal reflux disease. Patient has Protonix and Carafate. Patient is on liquid diet. 5. Hypertension. Blood pressure in satisfactory range. Previously due to DANUTA, the patient's lisinopril is on hold. Continue to monitor blood pressure. 6. Anxiety/depression. On Celexa. 7. History of alcohol abuse. 8. History of tobacco abuse. 9. Deep venous thrombosis (DVT) prophylaxis. Patient is on sequentials and compressions.
[2018-12-01 20:00] VITALS: BP 112/58
[2018-12-01 20:41] LABS: HEMATOCRIT 28.4 % (36.0-47.0); HEMOGLOBIN 9.6 g/dl (12.0-15.5)
[2018-12-01] MEDS: RAMELTEON 8 MG TAB (ROZEREM) PO PRN (23:31)
[2018-12-02 04:00] VITALS: BP 125/63
[2018-12-02] MEDS: NS 1,000 ML IV SCH ×3 (06:25→21:26)
[2018-12-02 07:28] LABS: BASO % 0.7 % (0.0-1.0); EOS # 0.1 10^3/uL (0.0-0.50); EOS % 2.4 % (0.0-3.0); HEMATOCRIT 30.3 % (36.0-47.0); HEMOGLOBIN 10.4 g/dl (12.0-15.5); LYMPH # 2.2 10^3/uL (1.5-4.5); LYMPH % 39.5 % (24.0-44.0); MEAN CORPUSCULAR HGB CONC 34.3 g/dl (32.0-36.5); MEAN CORPUSCULAR VOLUME 96.2 fl (80.0-96.0); MONO # 0.5 10^3/uL (0.0-0.8); MONO % 9.2 % (0.0-5.0); NEUTROPHILS # 2.6 10^3/uL (1.8-7.7); NEUTROPHILS % 47.8 % (36.0-66.0); PLATELET COUNT, AUTOMATED 114 10^3/uL (150-450); RED BLOOD COUNT 3.15 10^6/uL (4.00-5.40); WHITE BLOOD COUNT 5.4 10^3/uL (4.0-10.0)
[2018-12-02 07:54] LABS: BLOOD UREA NITROGEN 6 MG/DL (7-18); CALCIUM LEVEL 7.9 MG/DL (8.8-10.2); CARBON DIOXIDE LEVEL 26 MEQ/L (21-32); CHLORIDE LEVEL 109 MEQ/L (98-107); CREATININE FOR GFR 0.64 MG/DL (0.55-1.30); GLOMERULAR FILTRATION RATE > 60.0 (>45); GLUCOSE, FASTING 105 MG/DL (70-100); POTASSIUM SERUM 3.2 MEQ/L (3.5-5.1); SODIUM LEVEL 142 MEQ/L (136-145)
[2018-12-02] MEDS: ACETAMINOPHEN TAB 650MG DOSE (2X325MG) PO PRN ×3 (08:02→20:56)
[2018-12-02] MEDS: CitaloPRAM (CeleXA) 20 MG TAB PO SCH (08:03)
[2018-12-02] MEDS: PANTOPRAZOLE 40MG INJ (PROTONIX) (C9113) IV SCH ×2 (08:03→20:55)
[2018-12-02] MEDS: SUCRALFATE SUSP 1GM/10ML UD PO SCH ×4 (08:03→20:55)
[2018-12-02] MEDS ORDERED: KCL 10MEQ/100ML SWI (KRUN) 10 MEQ in APPROPRIATE DILUENT 1 EA IV SCH (09:00)
[2018-12-02] MEDS ORDERED: KCL 10MEQ/100ML SWI (KRUN) 10 MEQ in APPROPRIATE DILUENT 1 EA IV ONE (10:30)
[2018-12-02 14:00] VITALS: BP 126/64
--- NOTE | 2018-12-02 17:14 | IPNPDOC ---
Text Note Date of Service The patient was seen on 12/02/18. NOTE SUBJECTIVE: Patient is seen and examined in the room today. Patient continues having loose stool. Patient finally agrees for EGD and colonoscopy. OBJECTIVE: VITAL SIGNS: Listed below. GENERAL: Patient is alert and awake. HEENT: Normocephalic, atraumatic. Extraocular movements grossly intact. CARDIOVASCULAR: Positive S1, S2, regular rate. LUNGS: Clear to auscultation bilaterally. ABDOMEN: Soft, nontender, nondistended. Bowel sounds present. EXTREMITIES: No edema. LABORATORY DATA: Listed below. ASSESSMENT AND PLAN: #. C Difficile infection. On PO Vancomycin. #. Possible GI bleed. - Patient presented with coffee ground emesis. Similar episode occurred in the past. Patient finally agrees for EGD and/or colonoscopy. On liquid diet. - Surgery consulted. #. Acute kidney injury. - Resolved. Patient has been on fluid resuscitation. Continue to monitor the patient. #. Severe hypokalemia. - Supplement potassium accordingly. #. Hypertension. - Blood pressure in satisfactory range. Previously due to DANUAT, the patient's lisinopril is on hold. Continue to monitor blood pressure. #. Anxiety/depression. On Celexa. #. History of alcohol abuse. #. History of tobacco abuse. #. Deep venous thrombosis (DVT) prophylaxis. - Patient is on sequentials and compressions. VS,Fishbone, I+O VS, Fishbone, I+O Laboratory Tests 12/01/18 18:34 Calcium Level 7.8 L 12/01/18 20:32 12/02/18 06:50 Calcium Level 7.9 L, Red Blood Count 3.15 L, Mean Corpuscular Volume 96.2 H, Mean Corpuscular Hemoglobin 33.0, Mean Corpuscular Hemoglobin Concent 34.3, Red Cell Distribution Width 15.2 H, Neutrophils (%) (Auto) 47.8, Lymphocytes (%) (Auto) 39.5, Monocytes (%) (Auto) 9.2 H, Eosinophils (%) (Auto) 2.4, Basophils (%) (Auto) 0.7, Neutrophils # (Auto) 2.6, Lymphocytes # (Auto) 2.2, Monocytes # (Auto) 0.5, Eosinophils # (Auto) 0.1, Basophils # (Auto) 0.0 Vital Signs Date Time Temp Pulse Resp B/P (MAP) Pulse Ox O2 Delivery O2 Flow Rate FiO2 12/02/18 04:00 97.5 79 18 125/63 (83) 99 11/30/18 23:00 Room Air I&O- Last 24 Hours up to 6 AM 12/02/18 05:59 Intake Total 3040 ml Output Total 2925 ml Balance 115 ml DAVID HANEY DO Dec 02, 2018 17:14
[2018-12-02] MEDS: VANCOMYCIN ORAL SOL 250MG/5ML ORAL SYRINGE PO SCH ×2 (18:14→23:48)
[2018-12-02 20:05] VITALS: BP 139/66
[2018-12-02] MEDS: RAMELTEON 8 MG TAB (ROZEREM) PO PRN (20:59)
[2018-12-03 04:23] VITALS: BP 148/70
[2018-12-03] MEDS: VANCOMYCIN ORAL SOL 250MG/5ML ORAL SYRINGE PO SCH ×4 (06:09→23:17)
[2018-12-03] MEDS: NS 1,000 ML IV SCH (06:10)
[2018-12-03 07:11] LABS: BASO % 0.5 % (0.0-1.0); EOS # 0.1 10^3/uL (0.0-0.50); EOS % 2.1 % (0.0-3.0); HEMATOCRIT 29.9 % (36.0-47.0); HEMOGLOBIN 9.9 g/dl (12.0-15.5); LYMPH # 2.1 10^3/uL (1.5-4.5); LYMPH % 48.4 % (24.0-44.0); MEAN CORPUSCULAR HEMOGLOBIN 33.1 pg (27.0-33.0); MEAN CORPUSCULAR HGB CONC 33.1 g/dl (32.0-36.5); MONO # 0.5 10^3/uL (0.0-0.8); MONO % 12.4 % (0.0-5.0); NEUTROPHILS # 1.6 10^3/uL (1.8-7.7); NEUTROPHILS % 36.1 % (36.0-66.0); PLATELET COUNT, AUTOMATED 103 10^3/uL (150-450); RED BLOOD COUNT 2.99 10^6/uL (4.00-5.40); WHITE BLOOD COUNT 4.3 10^3/uL (4.0-10.0)
[2018-12-03 07:29] LABS: BLOOD UREA NITROGEN 3 MG/DL (7-18); CALCIUM LEVEL 7.8 MG/DL (8.8-10.2); CARBON DIOXIDE LEVEL 33 MEQ/L (21-32); CHLORIDE LEVEL 104 MEQ/L (98-107); GLOMERULAR FILTRATION RATE > 60.0 (>45); GLUCOSE, FASTING 106 MG/DL (70-100); SODIUM LEVEL 143 MEQ/L (136-145)
[2018-12-03 08:15] VITALS: BP 141/77
[2018-12-03] MEDS: CitaloPRAM (CeleXA) 20 MG TAB PO SCH (08:50)
[2018-12-03] MEDS: SUCRALFATE SUSP 1GM/10ML UD PO SCH ×4 (08:50→20:05)
[2018-12-03] MEDS: PANTOPRAZOLE 40MG INJ (PROTONIX) (C9113) IV SCH ×2 (08:50→20:05)
[2018-12-03] MEDS: ACETAMINOPHEN TAB 650MG DOSE (2X325MG) PO PRN ×2 (08:51→18:00)
[2018-12-03] MEDS: KCL 10MEQ/100ML SWI (KRUN) 10 MEQ in APPROPRIATE DILUENT 1 EA IV SCH ×3 (14:48→17:56)
[2018-12-03] MEDS ORDERED: POTASSIUM CHLORIDE 10 MEQ SR TABLET PO ONE (15:00)
[2018-12-03 16:30] VITALS: BP 148/70
--- NOTE | 2018-12-03 19:01 | IPNPDOC ---
Text Note Date of Service The patient was seen on 12/03/18. NOTE SUBJECTIVE: Patient is seen and examined in the room today. Bowel movement frequency is improving. Denies acute complaint. OBJECTIVE: VITAL SIGNS: Listed below. GENERAL: Patient is alert and awake. HEENT: Normocephalic, atraumatic. Extraocular movements grossly intact. CARDIOVASCULAR: Positive S1, S2, regular rate. LUNGS: Clear to auscultation bilaterally. ABDOMEN: Soft, nontender, nondistended. Bowel sounds present. EXTREMITIES: No edema. LABORATORY DATA: Listed below. ASSESSMENT AND PLAN: #. C Difficile infection. On PO Vancomycin. #. Possible GI bleed. - Patient presented with coffee ground emesis. Similar episode occurred in the past. Patient finally agrees for EGD and/or colonoscopy. On liquid diet. - Surgery consulted. #. Severe hypokalemia. - Patient has had GI symptoms. - Supplement potassium accordingly. #. Acute kidney injury. - Resolved. Patient has been on fluid resuscitation. Continue to monitor the patient. #. Hypertension. - Blood pressure in satisfactory range. Previously due to DANUTA, the patient's lisinopril is on hold. Continue to monitor blood pressure. #. Anxiety/depression. On Celexa. #. History of alcohol abuse. #. History of tobacco abuse. #. Deep venous thrombosis (DVT) prophylaxis. - Patient is on sequentials and compressions. VS,Fishbone, I+O VS, Fishbone, I+O Laboratory Tests 12/03/18 06:48 Red Blood Count 2.99 L, Mean Corpuscular Volume 100.0 H, Mean Corpuscular Hemoglobin 33.1 H, Mean Corpuscular Hemoglobin Concent 33.1, Red Cell Distribution Width 15.4 H, Neutrophils (%) (Auto) 36.1, Lymphocytes (%) (Auto) 48.4 H, Monocytes (%) (Auto) 12.4 H, Eosinophils (%) (Auto) 2.1, Basophils (%) (Auto) 0.5, Neutrophils # (Auto) 1.6 L, Lymphocytes # (Auto) 2.1, Monocytes # (Auto) 0.5, Eosinophils # (Auto) 0.1, Basophils # (Auto) 0.0, Calcium Level 7.8 L Vital Signs Date Time Temp Pulse Resp B/P (MAP) Pulse Ox O2 Delivery O2 Flow Rate FiO2 3/14/19 16:30 99.0 90 17 148/70 (96) 99 11/30/18 23:00 Room Air I&O- Last 24 Hours up to 6 AM 12/03/18 06:00 Intake Total 2200 ml Output Total 4100 ml Balance -1900 ml DAVID HANEY DO Dec 03, 2018 19:01
[2018-12-03 20:00] VITALS: BP 138/67
[2018-12-03] MEDS: traZODone 50 MG TAB PO PRN (20:06)
[2018-12-04 04:00] VITALS: BP 143/71
[2018-12-04] MEDS: VANCOMYCIN ORAL SOL 250MG/5ML ORAL SYRINGE PO SCH ×4 (05:15→22:47)
[2018-12-04 07:04] LABS: BASO % 0.8 % (0.0-1.0); EOS # 0.1 10^3/uL (0.0-0.50); EOS % 2.6 % (0.0-3.0); HEMATOCRIT 29.4 % (36.0-47.0); HEMOGLOBIN 9.9 g/dl (12.0-15.5); LYMPH # 1.6 10^3/uL (1.5-4.5); LYMPH % 42.9 % (24.0-44.0); MEAN CORPUSCULAR HEMOGLOBIN 33.2 pg (27.0-33.0); MEAN CORPUSCULAR HGB CONC 33.7 g/dl (32.0-36.5); MEAN CORPUSCULAR VOLUME 98.7 fl (80.0-96.0); MONO # 0.6 10^3/uL (0.0-0.8); MONO % 15.3 % (0.0-5.0); NEUTROPHILS # 1.4 10^3/uL (1.8-7.7); NEUTROPHILS % 38.1 % (36.0-66.0); PLATELET COUNT, AUTOMATED 120 10^3/uL (150-450); RED BLOOD COUNT 2.98 10^6/uL (4.00-5.40); WHITE BLOOD COUNT 3.8 10^3/uL (4.0-10.0)
[2018-12-04 07:31] LABS: BLOOD UREA NITROGEN 5 MG/DL (7-18); CALCIUM LEVEL 8.7 MG/DL (8.8-10.2); CARBON DIOXIDE LEVEL 33 MEQ/L (21-32); CHLORIDE LEVEL 108 MEQ/L (98-107); CREATININE FOR GFR 0.73 MG/DL (0.55-1.30); GLOMERULAR FILTRATION RATE > 60.0 (>45); GLUCOSE, FASTING 109 MG/DL (70-100); POTASSIUM SERUM 3.1 MEQ/L (3.5-5.1); SODIUM LEVEL 144 MEQ/L (136-145)
[2018-12-04] MEDS: SUCRALFATE SUSP 1GM/10ML UD PO SCH ×4 (09:49→20:49)
[2018-12-04] MEDS: KCL 10MEQ/100ML SWI (KRUN) 10 MEQ in APPROPRIATE DILUENT 1 EA IV SCH ×3 (09:49→13:03)
[2018-12-04] MEDS: PANTOPRAZOLE 40MG INJ (PROTONIX) (C9113) IV SCH ×2 (09:49→20:49)
[2018-12-04] MEDS: POTASSIUM CHLORIDE 10 MEQ SR TABLET PO SCH ×2 (09:49→20:49)
[2018-12-04] MEDS: CitaloPRAM (CeleXA) 20 MG TAB PO SCH (09:49)
--- NOTE | 2018-12-04 10:03 | IPN ---
DATE: 12/04/2018 The patient's diarrhea has improved substantially, but still having ongoing diarrhea. She has not had any nausea or vomiting since admission. She had some hematocrits taken a few days ago, but really has not had any melanotic stool or problems from an upper GI standpoint. Her abdomen is soft, nontender, nondistended. IMPRESSION AND PLAN 1. Nausea, vomiting, most likely secondary to her infectious process, although I would not be surprised if she has some mild gastritis as a baseline given her previous history of hematemesis. I do feel that she at some point needs either an upper GI, especially if she is going to be here for several more days, it may be reasonable to proceed with an upper GI with small-bowel follow-through 2. If she is discharged to home in the next few days she can follow up with Dr. Brewer who had previously attempted to schedule her for a colonoscopy in the next week or two.
--- NOTE | 2018-12-04 10:07 | CR ---
DATE OF CONSULTATION: 12/02/2018 REASON FOR CONSULTATION: Elevated white count, nausea, vomiting with questionable hematemesis. BRIEF HISTORY OF PRESENT ILLNESS: The patient is a 62-year-old female, who was admitted for multiple medical issues but developed nausea, vomiting and diarrhea, and essentially had occasional coffee-ground emesis over the last several days prior to admission. She did not complain of any specific anemia issues. No melanotic stools. She essentially had planned for an outpatient endoscopy, but never followed up with this. She does not complain of any abdominal pain, mostly nausea and vomiting. During her admission, she underwent an evaluation with laboratories and stool testing etc. and initially had been asked to proceed with upper and lower endoscopy. I put her on the schedule but at that time her Clostridium (C) difficile came back positive, and has been continuing to have some loose stools. Past medical history is significant for hypertension, osteoporosis, degenerative disc disease, history of alcoholism, anxiety, depression, osteoarthritis, bursitis, (C) section, history of smoking, previous admissions with nausea, vomiting and question coffee-ground emesis. Medications include the following: - citalopram - lisinopril Physical exam reveals a 62-year-old female, who looks stated age. HEENT is unremarkable. Neck is supple without adenopathy. Lungs are clear. Heart is regular. Abdomen is soft, nontender, nondistended. No guarding. No rebound. No peritoneal signs are appreciated. IMPRESSION/PLAN: The patient had an elevated white count on admission seemed to have improved. She does have a slightly decreased hematocrit, although it has been stable, and she has not had any nausea, no vomiting and no melanotic stools while she has been here. Her diarrhea continues at this point and she continues with treatment. IMPRESSION AND PLAN: 1. The patient has evidence of Clostridium difficile infection and unfortunately, at this point proceeding with a screening/diagnostic colonoscopy is really not indicated unless treatment for the C diff is warranted with fecal transplant but without adequate treatment with medication at this time I would hold off on that next step. 2. Nausea, vomiting. It sounds as though the coffee-ground that she has had in the past has been very minimal and associated with repeated episodes of vomiting and probably from some ongoing gastritis maybe even related to the C diff infection and the nausea associated with the C diff infection. Since she has been doing well while she has been admitted, I anticipate this is less likely of an issue. She might have some ongoing mild gastritis, especially with her histories and her medicationsm, and it is reasonable to keep her on a proton pump inhibitor. If for some reason she is here for a prolonged period of time or if upper gastrointestinal (GI) evaluation is warranted, an upper GI with small-bowel follow-through is probably a reasonable option for her in this instance. If she continues and her stool/diarrhea resolves and she no longer has an infectious issues, it ]may also be reasonable to proceed with an upper endoscopy but I feel this is less of an acute issue and is reasonable to followup as an outpatient.
[2018-12-04 14:00] VITALS: BP 158/98
[2018-12-04] MEDS: ACETAMINOPHEN TAB 650MG DOSE (2X325MG) PO PRN ×2 (14:08→20:49)
--- NOTE | 2018-12-04 19:00 | IPNPDOC ---
Text Note Date of Service The patient was seen on 12/04/18. NOTE SUBJECTIVE: Patient is seen and examined in the room today. Patient continues having loose brown stool. Denies nausea or vomiting. Denies fever or chill. Denies acute complaint. OBJECTIVE: VITAL SIGNS: Listed below. GENERAL: Patient is alert and awake. HEENT: Normocephalic, atraumatic. Extraocular movements grossly intact. CARDIOVASCULAR: Positive S1, S2, regular rate. LUNGS: Clear to auscultation bilaterally. ABDOMEN: Soft, nontender, nondistended. Bowel sounds present. EXTREMITIES: No edema. LABORATORY DATA: Listed below. ASSESSMENT AND PLAN: #. C Difficile infection. - On PO Vancomycin. - Continue physical therapy #. Possible GI bleed. - Patient presented with coffee ground emesis. Similar episode occurred in the past. Patient finally agrees for EGD and/or colonoscopy. On low residual diet. - Surgery consulted. #. Severe hypokalemia. - Patient has had GI symptoms. - Supplement potassium accordingly. # Insomnia - Trial of trazodone. #. Acute kidney injury. - Resolved. Patient has been on fluid resuscitation. Continue to monitor the patient. #. Hypertension. - Blood pressure in satisfactory range. Previously due to DANUTA, the patient's lisinopril is on hold. Continue to monitor blood pressure. #. Anxiety/depression. On Celexa. #. History of alcohol abuse. #. History of tobacco abuse. #. Deep venous thrombosis (DVT) prophylaxis. - Patient is on sequentials and compressions. VS,Fishbone, I+O VS, Fishbone, I+O Laboratory Tests 12/04/18 06:52 Red Blood Count 2.98 L, Mean Corpuscular Volume 98.7 H, Mean Corpuscular Hemoglobin 33.2 H, Mean Corpuscular Hemoglobin Concent 33.7, Red Cell Dis tribution Width 16.1 H, Neutrophils (%) (Auto) 38.1, Lymphocytes (%) (Auto) 42.9, Monocytes (%) (Auto) 15.3 H, Eosinophils (%) (Auto) 2.6, Basophils (%) (Auto) 0.8, Neutrophils # (Auto) 1.4 L, Lymphocytes # (Auto) 1.6, Monocytes # (Auto) 0.6, Eosinophils # (Auto) 0.1, Basophils # (Auto) 0.0, Calcium Level 8.7 L Vital Signs Date Time Temp Pulse Resp B/P (MAP) Pulse Ox O2 Delivery O2 Flow Rate FiO2 12/04/18 14:00 97.4 97 18 158/98 (118) 100 11/30/18 23:00 Room Air I&O- Last 24 Hours up to 6 AM 12/04/18 06:00 Intake Total 1380 ml Output Total 2750 ml Balance -1370 ml DAVID HANEY DO Dec 04, 2018 19:00
[2018-12-04 20:00] VITALS: BP 146/80
[2018-12-04] MEDS: traZODone 50 MG TAB PO PRN (22:47)
[2018-12-05 06:00] VITALS: BP 142/94
[2018-12-05] MEDS: VANCOMYCIN ORAL SOL 250MG/5ML ORAL SYRINGE PO SCH ×4 (06:09→23:20)
[2018-12-05 07:43] LABS: BASO % 0.8 % (0.0-1.0); EOS # 0.1 10^3/uL (0.0-0.50); EOS % 2.5 % (0.0-3.0); HEMATOCRIT 31.1 % (36.0-47.0); HEMOGLOBIN 10.2 g/dl (12.0-15.5); LYMPH # 2.3 10^3/uL (1.5-4.5); LYMPH % 43.2 % (24.0-44.0); MEAN CORPUSCULAR HEMOGLOBIN 33.6 pg (27.0-33.0); MEAN CORPUSCULAR HGB CONC 32.8 g/dl (32.0-36.5); MEAN CORPUSCULAR VOLUME 102.3 fl (80.0-96.0); MONO % 18.4 % (0.0-5.0); NEUTROPHILS # 1.8 10^3/uL (1.8-7.7); NEUTROPHILS % 34.7 % (36.0-66.0); PLATELET COUNT, AUTOMATED 154 10^3/uL (150-450); RED BLOOD COUNT 3.04 10^6/uL (4.00-5.40); WHITE BLOOD COUNT 5.2 10^3/uL (4.0-10.0)
[2018-12-05 08:08] LABS: BLOOD UREA NITROGEN 8 MG/DL (7-18); CALCIUM LEVEL 8.9 MG/DL (8.8-10.2); CARBON DIOXIDE LEVEL 32 MEQ/L (21-32); CHLORIDE LEVEL 107 MEQ/L (98-107); GLOMERULAR FILTRATION RATE > 60.0 (>45); GLUCOSE, FASTING 104 MG/DL (70-100); SODIUM LEVEL 143 MEQ/L (136-145)
[2018-12-05] MEDS: SUCRALFATE SUSP 1GM/10ML UD PO SCH ×4 (09:29→20:06)
[2018-12-05] MEDS: PANTOPRAZOLE 40MG INJ (PROTONIX) (C9113) IV SCH ×2 (09:29→20:06)
[2018-12-05] MEDS: POTASSIUM CHLORIDE 10 MEQ SR TABLET PO SCH ×2 (09:30→20:06)
[2018-12-05] MEDS: CitaloPRAM (CeleXA) 20 MG TAB PO SCH (09:30)
[2018-12-05 12:00] VITALS: BP 132/78
[2018-12-05 12:41] VITALS: BP 132/78
[2018-12-05 14:00] VITALS: BP 130/80
[2018-12-05] MEDS: ACETAMINOPHEN TAB 650MG DOSE (2X325MG) PO PRN ×2 (14:35→20:08)
--- NOTE | 2018-12-05 16:52 | IPNPDOC ---
Text Note Date of Service The patient was seen on 12/05/18. NOTE SUBJECTIVE: Patient is seen and examined in the room today. Patient states her stool frequency and severity are improving. Patient feels trazodone is helping her sleep. Denies nausea or vomiting. Denies fever or chill. Denies acute complaint. OBJECTIVE: VITAL SIGNS: Listed below. GENERAL: Patient is alert and awake. HEENT: Normocephalic, atraumatic. Extraocular movements grossly intact. CARDIOVASCULAR: Positive S1, S2, regular rate. LUNGS: Clear to auscultation bilaterally. ABDOMEN: Soft, nontender, nondistended. Bowel sounds present. EXTREMITIES: No edema. LABORATORY DATA: Listed below. ASSESSMENT AND PLAN: #. C Difficile infection. - On PO Vancomycin. - Continue physical therapy #. Possible GI bleed. - Patient presented with coffee ground emesis. Similar episode occurred in the past. Patient finally agrees for EGD and/or colonoscopy. On low residual diet. - Surgery consulted. #. Severe hypokalemia. - Patient has had GI symptoms. - Supplement potassium accordingly. # Insomnia - Trial of trazodone. #. Acute kidney injury. - Resolved. Patient has been on fluid resuscitation. Continue to monitor the patient. #. Hypertension. - Blood pressure in satisfactory range. Previously due to DANUTA, the patient's lisinopril is on hold. Continue to monitor blood pressure. #. Anxiety/depression. On Celexa. #. History of alcohol abuse. #. History of tobacco abuse. #. Deep venous thrombosis (DVT) prophylaxis. - Patient is on sequentials and compressions. VS,Fishbone, I+O VS, Fishbone, I+O Laboratory Tests 12/05/18 07:18 Red Blood Count 3.04 L, Mean Corpuscular Volume 102.3 H, Mean Corpuscular Hemoglobin 33.6 H, Mean Corpuscular Hemoglobin Concent 32.8, Red Cell Distribution Width 17.3 H, Neutrophils (%) (Auto) 34.7 L, Lymphocytes (%) (Auto) 43.2, Monocytes (%) (Auto) 18.4 H, Eosinophils (%) (Auto) 2.5, Basophils (%) (Auto) 0.8, Neutrophils # (Auto) 1.8, Lymphocytes # (Auto) 2.3, Monocytes # (Au to) 1.0 H, Eosinophils # (Auto) 0.1, Basophils # (Auto) 0.0, Calcium Level 8.9 Vital Signs Date Time Temp Pulse Resp B/P (MAP) Pulse Ox O2 Delivery O2 Flow Rate FiO2 12/05/18 14:00 98.8 82 18 130/80 (97) 97 11/30/18 23:00 Room Air I&O- Last 24 Hours up to 6 AM 12/05/18 06:00 Intake Total 2700 ml Output Total 3300 ml Balance -600 ml DAVID HANEY DO Dec 05, 2018 16:52
[2018-12-05] MEDS: traZODone 50 MG TAB PO PRN (20:08)
[2018-12-05 21:00] VITALS: BP 137/61
[2018-12-06] MEDS: VANCOMYCIN ORAL SOL 250MG/5ML ORAL SYRINGE PO SCH ×3 (05:51→17:48)
[2018-12-06 06:00] VITALS: BP 131/81
[2018-12-06 06:55] LABS: BASO % 0.7 % (0.0-1.0); EOS # 0.1 10^3/uL (0.0-0.50); EOS % 2.2 % (0.0-3.0); HEMATOCRIT 31.6 % (36.0-47.0); HEMOGLOBIN 10.4 g/dl (12.0-15.5); LYMPH # 2.5 10^3/uL (1.5-4.5); LYMPH % 45.5 % (24.0-44.0); MEAN CORPUSCULAR HEMOGLOBIN 34.1 pg (27.0-33.0); MEAN CORPUSCULAR HGB CONC 32.9 g/dl (32.0-36.5); MEAN CORPUSCULAR VOLUME 103.6 fl (80.0-96.0); MONO % 18.5 % (0.0-5.0); NEUTROPHILS # 1.8 10^3/uL (1.8-7.7); NEUTROPHILS % 32.4 % (36.0-66.0); PLATELET COUNT, AUTOMATED 171 10^3/uL (150-450); RED BLOOD COUNT 3.05 10^6/uL (4.00-5.40); WHITE BLOOD COUNT 5.6 10^3/uL (4.0-10.0)
[2018-12-06 07:16] LABS: BLOOD UREA NITROGEN 10 MG/DL (7-18); CALCIUM LEVEL 8.8 MG/DL (8.8-10.2); CARBON DIOXIDE LEVEL 31 MEQ/L (21-32); CHLORIDE LEVEL 106 MEQ/L (98-107); CREATININE FOR GFR 0.79 MG/DL (0.55-1.30); GLOMERULAR FILTRATION RATE > 60.0 (>45); GLUCOSE, FASTING 102 MG/DL (70-100); SODIUM LEVEL 141 MEQ/L (136-145)
[2018-12-06 09:00] VITALS: BP 131/81
[2018-12-06] MEDS: POTASSIUM CHLORIDE 10 MEQ SR TABLET PO SCH ×2 (09:27→20:19)
[2018-12-06] MEDS: SUCRALFATE SUSP 1GM/10ML UD PO SCH ×4 (09:27→20:19)
[2018-12-06] MEDS: CitaloPRAM (CeleXA) 20 MG TAB PO SCH (09:29)
[2018-12-06] MEDS: PANTOPRAZOLE 40MG INJ (PROTONIX) (C9113) IV SCH ×2 (09:29→20:19)
[2018-12-06] MEDS: ACETAMINOPHEN TAB 650MG DOSE (2X325MG) PO PRN (13:00)
[2018-12-06 14:00] VITALS: BP 159/80
--- NOTE | 2018-12-06 16:39 | IPNPDOC ---
Text Note Date of Service The patient was seen on 12/06/18. NOTE SUBJECTIVE: Patient is seen and examined in the room today. Patient had form stool today. Patient does not feel her sleep medication is strong enough. Denies fever or chill. Denies acute complaint. OBJECTIVE: VITAL SIGNS: Listed below. GENERAL: Patient is alert and awake. HEENT: Normocephalic, atraumatic. Extraocular movements grossly intact. CARDIOVASCULAR: Positive S1, S2, regular rate. LUNGS: Clear to auscultation bilaterally. ABDOMEN: Soft, nontender, nondistended. Bowel sounds present. EXTREMITIES: No edema. LABORATORY DATA: Listed below. ASSESSMENT AND PLAN: #. C Difficile infection. - On PO Vancomycin. - Continue physical therapy #. Possible GI bleed. - Patient presented with coffee ground emesis. Similar episode occurred in the past. Patient finally agrees for EGD and/or colonoscopy. On low residual diet. - Surgery consulted. #. Severe hypokalemia. - Patient has had GI symptoms. - Supplement potassium accordingly. # Insomnia - Trial of trazodone. Adjust dosage if needed. #. Acute kidney injury. - Resolved. Patient has been on fluid resuscitation. Continue to monitor the patient. #. Hypertension. - Blood pressure in satisfactory range. Previously due to DANUTA, the patient's lisinopril is on hold. Continue to monitor blood pressure. #. Anxiety/depression. On Celexa. #. History of alcohol abuse. #. History of tobacco abuse. #. Deep venous thrombosis (DVT) prophylaxis. - Patient is on sequentials and compressions. VS,Fishbone, I+O VS, Fishbone, I+O Laboratory Tests 12/06/18 06:35 Red Blood Count 3.05 L, Mean Corpuscular Volume 103.6 H, Mean Corpuscular Hemoglobin 34.1 H, Mean Corpuscular Hemoglobin Concent 32.9, Red Cell Distribution Width 18.0 H, Neutrophils (%) (Auto) 32.4 L, Lymphocytes (%) (Auto) 45.5 H, Monocytes (%) (Auto) 18.5 H, Eosinophils (%) (Auto) 2.2, Basophils (%) (Auto) 0.7, Neutrophils # (Auto) 1.8, Lymphocytes # (Auto) 2.5, Monocytes # (Auto) 1.0 H, Eosinophils # (Auto) 0.1, Basophils # (Auto) 0.0, Calcium Level 8.8 Vital Signs Date Time Temp Pulse Resp B/P (MAP) Pulse Ox O2 Delivery O2 Flow Rate FiO2 12/06/18 14:00 99.1 90 17 159/80 (106) 99 11/30/18 23:00 Room Air I&O- Last 24 Hours up to 6 AM 12/06/18 06:00 Intake Total 2040 ml Output Total 2675 ml Balance -635 ml DAVID HANEY DO Dec 06, 2018 16:39
[2018-12-06] MEDS: IBUPROFEN 600 MG TAB PO PRN (17:48)
[2018-12-06 20:00] VITALS: BP 126/76
[2018-12-06] MEDS ORDERED: traZODone 50 MG TAB PO SCH (21:00)
[2018-12-06 22:00] VITALS: BP 126/76
[2018-12-07 06:00] VITALS: BP 128/86
[2018-12-07] MEDS: VANCOMYCIN ORAL SOL 250MG/5ML ORAL SYRINGE PO SCH ×3 (06:30→12:00)
[2018-12-07 06:48] LABS: BASO % 0.4 % (0.0-1.0); EOS # 0.2 10^3/uL (0.0-0.50); EOS % 2.5 % (0.0-3.0); HEMATOCRIT 33.4 % (36.0-47.0); HEMOGLOBIN 10.6 g/dl (12.0-15.5); LYMPH # 2.6 10^3/uL (1.5-4.5); MEAN CORPUSCULAR HEMOGLOBIN 32.7 pg (27.0-33.0); MEAN CORPUSCULAR HGB CONC 31.7 g/dl (32.0-36.5); MEAN CORPUSCULAR VOLUME 103.1 fl (80.0-96.0); MONO # 1.6 10^3/uL (0.0-0.8); MONO % 24.3 % (0.0-5.0); NEUTROPHILS # 2.2 10^3/uL (1.8-7.7); NEUTROPHILS % 32.3 % (36.0-66.0); PLATELET COUNT, AUTOMATED 245 10^3/uL (150-450); RED BLOOD COUNT 3.24 10^6/uL (4.00-5.40); WHITE BLOOD COUNT 6.7 10^3/uL (4.0-10.0)
[2018-12-07 07:05] LABS: BLOOD UREA NITROGEN 13 MG/DL (7-18); CARBON DIOXIDE LEVEL 28 MEQ/L (21-32); CHLORIDE LEVEL 109 MEQ/L (98-107); CREATININE FOR GFR 0.83 MG/DL (0.55-1.30); GLOMERULAR FILTRATION RATE > 60.0 (>45); GLUCOSE, FASTING 107 MG/DL (70-100); POTASSIUM SERUM 4.3 MEQ/L (3.5-5.1); SODIUM LEVEL 142 MEQ/L (136-145)
[2018-12-07] MEDS: POTASSIUM CHLORIDE 10 MEQ SR TABLET PO SCH (09:17)
[2018-12-07] MEDS: SUCRALFATE SUSP 1GM/10ML UD PO SCH ×2 (09:17→13:00)
[2018-12-07] MEDS: PANTOPRAZOLE 40MG INJ (PROTONIX) (C9113) IV SCH (09:17)
[2018-12-07] MEDS: CitaloPRAM (CeleXA) 20 MG TAB PO SCH (09:17)
[2018-12-07] MEDS: IBUPROFEN 600 MG TAB PO PRN (09:54)
[2018-12-07] MEDS ORDERED: PROT1TAB2 PO (11:49)
[2018-12-07] MEDS ORDERED: TRAZO50TA PO (11:49)
[2018-12-07] MEDS ORDERED: K-TA10TA2 PO (11:49)
[2018-12-07] MEDS ORDERED: ACE65ERTAB PO (11:49)
[2018-12-07] MEDS ORDERED: VANC1CAP6 PO (11:49)
--- NOTE | 2018-12-08 18:43 | DSES ---
DATE OF ADMISSION: 11/30/2018 DATE OF DISCHARGE: 12/07/2018 PRIMARY CARE PROVIDER: [facility] CONSULTANTS: General Surgery PROCEDURES: None. DISCHARGE DIAGNOSES: 1. Clostridium difficile (C diff) infection. 2. Possible gastrointestinal (GI) bleed. 3. Severe hypokalemia. 4. Insomnia. 5. Acute kidney injury. 6. Hypertension. 7. Anxiety/depression. 8. History of alcohol abuse. 9. History of tobacco abuse. HOSPITALIZATION COURSE: The patient is a 63-year-old female, presented to [facility] on 11/30/2018 with a complaint of nausea and vomiting, diarrhea and coffee-ground emesis. Patient was admitted on the hospitalist service. Patient was found to have acute kidney injury and lactic acidosis; patient started on intravenous (IV) support. The patient had coffee-ground emesis prior to admission. The patient also had a similar episode. Concern for acute on chronic GI bleed. Recommendation for upper endoscopy and colonoscopy offered to the patient; however, patient has refused recommendations. Patient's hemoglobin and hematocrit were monitored closely. Later, the patient tested positive for Clostridium difficile, started on antibiotics. several discussions, patient finally agreed to proceed with upper endoscopy and colonoscopy; general surgery consulted. There was no recurrence of the coffee-ground emesis since admission. Medical management and observation were recommended. Patient continued to follow with physical therapy. Later, the patient's liquid stool showed significant improvement and later the patient was able to have formed stool. Patient passed physical therapy and patient was discharged on 12/07/2018 with the recommendation to finish a course of oral antibiotic for her Clostridium difficile. She was also recommended to followup with general surgery in the outpatient setting to arrange outpatient colonoscopy and upper endoscopy. VITAL SIGNS ON THE DAY OF DISCHARGE: Showed temperature 97.3, pulse of 95, respirations 16, blood pressure 128/86, pulse oximetry 99% in room air. LABORATORY DATA: WBC 6.7, hemoglobin 10.6, hematocrit 33.4, platelet count is 245. Sodium 142, potassium 4.3, chloride 109, carbon dioxide 28, BUN 13, creatinine 0.83, GFR greater than 60, fasting glucose 107, calcium is 9. Microbiology: GI panel on 12/01/2018 was positive for Clostridium difficile. DISCHARGE MEDICATIONS: - Tylenol 600 mg by mouth three times a day as needed for headaches - Protonix 40 mg by mouth twice a day - potassium chloride 40 by mouth daily for 7 days - trazodone 75 mg by mouth nightly - vancomycin 125 mg by mouth four times a day for 5 days - citalopram 20 mg by mouth daily DISCHARGE INSTRUCTIONS: Discontinue line. Discharge home. Activity as tolerated. Diet as tolerated. Patient should followup with primary care provider in 1 week. Patient should also followup with her general surgeon, Dr. Brewer or Dr. Zavala, in the outpatient setting in 1-2 weeks to set up outpatient colonoscopy and EGD. DISCHARGE CONDITION: Fair. DISCHARGE TIME: Greater than 30 minutes.
== END 2018-12-07 13:50 | disposition home or self-care (01) | DRG 372 ==
LOC: M ED 12:01 → M ED INP 20:35 → M MS4PR 23:12
PROVIDERS: ADMIT Internal Medicine; ATTEND Internal Medicine
DX: A04.72 Enterocolitis due to Clostridium difficile, not specified as recurrent (principal); K92.2 Gastrointestinal hemorrhage, unspecified; N17.9 Acute kidney failure, unspecified; E87.2 Acidosis; E87.6 Hypokalemia; G47.00 Insomnia, unspecified; I10 Essential (primary) hypertension; F32.9 Major depressive disorder, single episode, unspecified; F41.9 Anxiety disorder, unspecified; F10.10 Alcohol abuse, uncomplicated; F17.210 Nicotine dependence, cigarettes, uncomplicated; Z79.899 Other long term (current) drug therapy; M81.0 Age-related osteoporosis without current pathological fracture; M19.90 Unspecified osteoarthritis, unspecified site

== ENCOUNTER 2018-12-29 15:29 | Emergency (ER) | payer MEDICARE, MEDICAID ==
[~2018-12-29] VITALS: Ht 157.5 cm; Wt 60.5 kg
[~2018-12-29 15:29] MED LIST changes: -/HCTZ25TA PO; -/LAMO10TA; -/LAMO20TA OR; -/ONDA4TA PO; +ACE65ERTAB PO; +ALEV220T26 PO; -ASCO25TA PO; -CITA20TA4 PO; +CITA20TA6 PO; +HYDR-3644 PO; +K-TA10TA2 PO; +LAMI1TAB7; +LAMI1TAB9 OR; +LIDO1PAD TD; -LIDO5TD TD; +LISI-538 PO; +METO-346 PO; +METO1TAB63 PO; -METO25TAB PO; +ONDA-1 PO; +OXYC1TAB23 OR; +OXYC1TAB23 PO; -PERCOCET OR; -PERCOCET PO; +TOPR25TA PO; -TOPR25TA13 PO; +VANC1CAP6 PO; +VITA1TAB23 PO
--- NOTE | 2018-12-29 16:28 | REP ---
Right ankle four views: There is a nondisplaced spiral fracture of the distal fibula. There is an accessory ossicle at the tip of the medial malleolus. No other fractures are identified. The mortise is symmetric. Mineralization is normal. Impression: Distal fibular fracture. The mortise is symmetric. Accessory ossicle at the tip of the medial malleolus. Electronically Signed by Jonathan Ruiz MD 12/29/2018 04:19 P
[2018-12-29] MEDS ORDERED: NORCO, ANEXSIA 5/325MG TABLET (HYDROcodone/ACETAMINOPHEN) PO ONE (17:00)
[2018-12-29] MEDS ORDERED: NORC1TAB7 PO (17:34)
[2018-12-29 18:11] VITALS: BP 160/69
[2019-01-04] MEDS ORDERED: LISI-538 PO (15:55)
== END 2018-12-29 18:12 | disposition home or self-care (01) ==
LOC: M ED 15:29
DX: S82.831A Other fracture of upper and lower end of right fibula, initial encounter for closed fracture (principal); X50.1XXA Overexertion from prolonged static or awkward postures, initial encounter; Y92.9 Unspecified place or not applicable; Y93.9 Activity, unspecified; Y99.9 Unspecified external cause status; I50.9 Heart failure, unspecified; K21.9 Gastro-esophageal reflux disease without esophagitis; Z72.0 Tobacco use
CPT/HCPCS: 29515; 73610; 99283; G0463

== ENCOUNTER → 2019-01-01 | Outpatient (REF) | payer MEDICARE, MEDICAID ==
[~2019-01-01] MED LIST changes: +ASPI-1 PO; +ASPI81CH33 PO; +EXCETAB22 PO; +NORC1TAB7 PO
[2019-01-01 16:10] LABS: BLOOD UREA NITROGEN 12 MG/DL (7-18); CALCIUM LEVEL 9.3 MG/DL (8.8-10.2); CARBON DIOXIDE LEVEL 29 MEQ/L (21-32); CHLORIDE LEVEL 106 MEQ/L (98-107); CREATININE FOR GFR 0.86 MG/DL (0.55-1.30); GLOMERULAR FILTRATION RATE > 60.0 (>45); GLUCOSE, FASTING 96 MG/DL (70-100); POTASSIUM SERUM 4.9 MEQ/L (3.5-5.1); SODIUM LEVEL 141 MEQ/L (136-145)
== END ==
LOC: M SFHCPLAZ 12:14
PROVIDERS: ATTEND Family Medicine
DX: E87.6 Hypokalemia (principal)
CPT/HCPCS: 80048; 93005; G0404; G0463

== ENCOUNTER 2019-01-07 12:25 | Inpatient (IN) | payer MEDICARE, MEDICAID ==
[~2019-01-07] VITALS: Ht 157.5 cm; Wt 59.6 kg
[~2019-01-07 12:25] MED LIST changes: -ASPI-1 PO; -ASPI81CH33 PO; -EXCETAB22 PO
[2019-01-07] MEDS ORDERED: LIDOCAINE 1% MDV 20ML VIAL ONE (12:26)
[2019-01-07] MEDS ORDERED: BUPIVACAINE HCL 0.25% 10 ML VIAL ONE (12:26)
[2019-01-07 13:04] LABS: HEMATOCRIT 42.3 % (36.0-47.0); HEMOGLOBIN 13.7 g/dl (12.0-15.5); MEAN CORPUSCULAR HEMOGLOBIN 32.6 pg (27.0-33.0); MEAN CORPUSCULAR HGB CONC 32.4 g/dl (32.0-36.5); MEAN CORPUSCULAR VOLUME 100.7 fl (80.0-96.0); PLATELET COUNT, AUTOMATED 288 10^3/uL (150-450); WHITE BLOOD COUNT 5.2 10^3/uL (4.0-10.0)
[2019-01-07 13:25] LABS: POTASSIUM SERUM 3.8 MEQ/L (3.5-5.1)
[2019-01-07] MEDS ORDERED: EXCETAB22 PO (13:43)
[2019-01-07 14:14] LABS: INR 1.02; PROTHROMBIN TIME 13.5 SECONDS (12.1-14.4)
[2019-01-07 14:15] LABS: PARTIAL THROMBOPLASTIN TIME 26.6 SECONDS (25.4-37.6)
[2019-01-07] MEDS ORDERED: ceFAZolin 1GM INJ (J0690 PER 500MG) As Ordered ONE (14:45)
[2019-01-07] MEDS ORDERED: PROPOFOL 200 MG/20 ML VIAL As Ordered ONE (14:59)
[2019-01-07] MEDS ORDERED: ONDANSETRON 4MG/2ML VIAL (J2405) As Ordered ONE (14:59)
[2019-01-07] MEDS ORDERED: dexameTHASONE 4 MG/ML 1ML VIAL (J1100) As Ordered ONE (14:59)
[2019-01-07] MEDS ORDERED: LIDOCAINE 2% INJ 100 MG/5 ML SDV (FOR ANES.) As Ordered ONE (14:59)
[2019-01-07] MEDS ORDERED: ROCURONIUM BROMIDE 50 MG/5 ML VIAL As Ordered ONE (14:59)
[2019-01-07] MEDS ORDERED: fentaNYL 100 MCG/2 ML INJECTION (J3010) As Ordered ONE ×3 (15:06→16:43)
[2019-01-07] MEDS ORDERED: MIDAZOLAM INJ 2 MG/2 ML VIAL (J2250) As Ordered ONE ×2 (15:06→15:46)
[2019-01-07] MEDS ORDERED: BUPIVACAINE HCL 0.25% 30 ML VIAL As Ordered ONE (15:34)
[2019-01-07] MEDS ORDERED: fentaNYL 100 MCG/2 ML INJECTION (J3010) IV ONE (16:15)
[2019-01-07] MEDS ORDERED: MIDAZOLAM INJ 2 MG/2 ML VIAL (J2250) IV ONE (16:15)
[2019-01-07] MEDS ORDERED: HYDROMORPHONE HCL 0.5 MG/ 0.5 ML SYRINGE (J1170 PER 1) As Ordered ONE (17:42)
[2019-01-07] MEDS ORDERED: PERCOCET 5MG/325MG TAB As Ordered ONE (17:50)
[2019-01-07] MEDS: PERCOCET 5MG/325MG TAB PO PRN (17:55)
[2019-01-07] MEDS ORDERED: METOCLOPRAMIDE INJ 10MG/2ML VIAL (J2765) IV PRN (18:00)
[2019-01-07] MEDS ORDERED: LR 1,000 ML IV SCH (18:00)
[2019-01-07] MEDS ORDERED: HYDROMORPHONE HCL 0.5 MG/ 0.5 ML SYRINGE (J1170 PER 1) IV PRN (18:00)
[2019-01-07] MEDS ORDERED: ONDANSETRON 4MG/2ML VIAL (J2405) IV PRN (18:00)
[2019-01-07] MEDS ORDERED: fentaNYL 100 MCG/2 ML INJECTION (J3010) IV PRN (18:00)
[2019-01-07] MEDS ORDERED: MORPHINE 4 MG/ML 1ML VIAL/SYRINGE (J2270) IV PRN (18:00)
[2019-01-07] MEDS ORDERED: diphenhydrAMINE INJ 50MG/ML VIAL (J1200) As Ordered ONE (18:14)
[2019-01-07] MEDS ORDERED: diphenhydrAMINE INJ 50MG/ML VIAL (J1200) IV PRN (18:15)
[2019-01-07] MEDS ORDERED: PERCOCET 5MG/325MG TAB PO PRN (18:15)
--- NOTE | 2019-01-07 19:07 | RO ---
DATE OF PROCEDURE: 01/07/2019 PREOPERATIVE DIAGNOSIS: Right lateral malleolus fracture. POSTOPERATIVE DIAGNOSIS: Right lateral malleolus fracture. PLANNED PROCEDURE: Right ankle open reduction internal fixation. PROCEDURE PERFORMED: Right ankle open reduction internal fixation. SURGEON: Dr. Crowder IMPLANTS USED: Synthes 1/3 tubular plate and 8 hole. TYPE OF ANESTHESIA: General anesthetic plus block. OPERATIVE PREAMBLE: This 63-year-old female sustained a twisting injury to her ankle and had the lateral malleolus fracture. I saw her sister in clinic. We talked about the pros and cons, risks, benefits going ahead with surgery. Again I saw her in holding. We confirmed that she want to go ahead and we marked the site. Operative for the patient is brought to operating theater and placed supine on the operating table. A bump was applied under the right hip. Two grams IV Ancef was administered. The patient was administered general anesthetic. Just prior to that we confirmed the site and the patient to the time out to. General anesthesia was then induced. Leg was prepped and draped in the usual sterile fashion. Tourniquet was applied the right thigh 24 inches tourniquet. Once this was prepped and thoroughly dried for 3 minutes I exsanguinated the limb using a sterile 4 inch Esmarch bandage followed by inflation of the tourniquet to 250 mmHg. Preoperative time out was again performed. I covered the toes with sterile OpSite dressing. I made a 6-inch incision centered over the lateral aspect the distal fibula. I carried this dissection down through skin, subcutaneous tissue to meticulous hemostasis. I identified the superficial peroneal nerve and protected throughout the case. I Identified the oblique fracture site. I achieved reduction with fine reduction forceps. Which I took radiographs to confirm the fractures of the length and I had direct visualization both laterally and posteriorly as there was a spike that I could gomez in. I then used 3.5 mm drill to drill the proximal cortex and then 2.5 mm drill to the distal cortex. I used a fully-threaded cortical 3.5 mm screw that was 24 mm in length to lag the fracture together. I removed the clamp and the fracture was stable. I selected a 8 hole 1/3 tubular plate. I placed this along the lateral aspect of the fibula and took radiographs to ensure it was not too distal on the fibula. I used a 2.5 mm fully-threaded cortical screws in the proximal five holes with plate and then 4.0 mm fully-threaded cancellous screws in the two most distal screw holes in the plate. This to measured 16-18 mm. Proximally there are 12 mm. There were four 12-mm screws and 1 16 mm screw. I then performed the external rotation stress test. There is no evidence of instability of the syndesmosis. No evidence of a medial sided fracture. The fracture appears stable. The mortise is anatomic. I took a final AP, lateral and mortise views. This showed the fracture site to be anatomically reduced on the ankle joint itself to be stable. The wound was thoroughly irrigated with normal saline. Subcutaneous tissues closed with interrupted 2-0 Vicryl suture. Skin was closed sebastián. Skin was cleaned with wet and dry dressing followed by application of Adaptic, sterile 4 x 8 gauze and sterile cast padding. We placed it below on the three sided plaster of Kinjal splint and put it in neutral. I overwrapped this with a 6-inch sterile JUSTIN bandages. Again tourniquet was taken down prior to the case. Once the patient was woken up from general anesthetic. She was transferred off the operating table and taken postanesthetic care sensation. All sponge, needle and instrument counts were correct. There were no complications. ESTIMATED BLOOD LOSS: Very minimal at 20 mL. The plan for the patient is to be nonweightbearing for the next 6 weeks in the splint. We will check the wound in 2 weeks and discontinue the sebastián. The patient unfortunately can not get a ride home so she will have to be admitted overnight and discharged home in the morning when they are comfortable. The patient is also a smoker so I definitely heavily advised them before surgery to stop smoking.
[2019-01-07 20:00] VITALS: BP 175/84
[2019-01-07 20:30] VITALS: BP 126/68
[2019-01-07 21:30] VITALS: BP 144/75
[2019-01-07 22:30] VITALS: BP 134/69
[2019-01-07 23:30] VITALS: BP 128/64
[2019-01-08] MEDS: PERCOCET 5MG/325MG TAB PO PRN ×3 (00:03→20:43)
[2019-01-08 03:30] VITALS: BP 128/70
[2019-01-08 06:00] VITALS: BP 138/83
[2019-01-08] MEDS ORDERED: PERC5TAB12 PO (06:35)
[2019-01-08] MEDS ORDERED: ASPI-1 PO (06:35)
--- NOTE | 2019-01-08 07:21 | REP ---
Ankle series: Three views. History: Displaced fracture. 34 seconds of fluoroscopy time is reported. Findings: Three views of the left ankle demonstrate screw plate fixation device in the distal fibula. Ankle mortise is intact. Electronically Signed by Keith Villanueva MD 01/07/2019 05:32 P
--- NOTE | 2019-01-08 08:07 | IPN ---
DATE: 01/08/2019 CHIEF COMPLAINT: Postop day #1 right ankle open reduction internal fixation. HISTORY OF PRESENT ILLNESS: This is a 63-year-old female seen today in the [facility] at [facility] postoperative one from right ankle fracture. I performed open reduction internal fixation of lateral malleolus yesterday evening. She was having some difficulties getting a ride back home as she does have a care worker and minimal availability for transportation so we did admit her overnight. She has a cab voucher now. We are still waiting on the physiotherapist to see and assess her for safety for discharged home and mobilization. Otherwise, she is not complaining about any other chest pain, shortness of breath or any other symptoms. She has a little bit of pain in the ankle. No voiced concerns from her nurses. PHYSICAL EXAMINATION: Well-appearing 63-year-old female in no acute distress. She is alert, oriented times three. She responds appropriately. Mood and affect pleasant positive. She is sitting up in a chair eating breakfast comfortably. The splint is in situ. She is able to wiggle her toes. The toes are warm and well-perfused. Cap refill under 3 seconds. She has normal sensation throughout the toes. No blood work was were drawn this morning. ASSESSMENT/PLAN: 63-year-old female can be discharged home when she is safe for mobilization. She should remain non-weightbearing on the right side the next 6 weeks. This may be difficult for her given her limited mobility at baseline but she does have a walker and she will get some help from physiotherapy today. I would like to see her back in clinic in 2 weeks time or earlier if there is any concerns. I did give her my card as well with the number of the office in case she has any questions or problems. A prescription has been called in already by the office as well for her to her home pharmacy.
[2019-01-08 14:00] VITALS: BP 133/73
[2019-01-08] MEDS ORDERED: EXCEDRIN MIGRAINE TABLET PO PRN (16:45)
[2019-01-08] MEDS ORDERED: PILL CRUSHER/CUTTER 1 EACH XX PRN (17:00)
[2019-01-08] MEDS: traZODone 50 MG TAB PO SCH (20:42)
[2019-01-08 22:00] VITALS: BP 140/62
[2019-01-09] MEDS: PERCOCET 5MG/325MG TAB PO PRN ×3 (05:34→18:23)
[2019-01-09 06:00] VITALS: BP 126/72
[2019-01-09 09:00] VITALS: BP 144/70
[2019-01-09] MEDS: ASPIRIN 325 MG TAB PO SCH (10:37)
[2019-01-09] MEDS: CitaloPRAM (CeleXA) 20 MG TAB PO SCH (10:38)
[2019-01-09] MEDS: POTASSIUM CHLORIDE 10 MEQ SR TABLET PO SCH (10:39)
[2019-01-09 13:00] VITALS: BP 148/88
[2019-01-09] MEDS: traZODone 50 MG TAB PO SCH (20:27)
[2019-01-09 22:00] VITALS: BP 120/66
[2019-01-10] MEDS: PERCOCET 5MG/325MG TAB PO PRN ×4 (00:30→21:12)
[2019-01-10 06:00] VITALS: BP 132/80
[2019-01-10] MEDS: POTASSIUM CHLORIDE 10 MEQ SR TABLET PO SCH (07:51)
[2019-01-10] MEDS: ASPIRIN 325 MG TAB PO SCH (07:51)
[2019-01-10] MEDS: CitaloPRAM (CeleXA) 20 MG TAB PO SCH (07:51)
[2019-01-10 14:00] VITALS: BP 136/79
[2019-01-10] MEDS: MAALOX 30 ML SUSP *UDC PO PRN (16:35)
[2019-01-10] MEDS: MIRALAX *UNIT DOSE* 17GM PACKET PO SCH (16:36)
[2019-01-10] MEDS: SENNA 8.6 MG TAB (SENOKOT) PO SCH (16:36)
[2019-01-10] MEDS: MOM 30ML SUSPENSION UDC PO SCH (16:36)
[2019-01-10] MEDS: traZODone 50 MG TAB PO SCH (21:12)
[2019-01-10 22:00] VITALS: BP 166/86
[2019-01-11] MEDS: PERCOCET 5MG/325MG TAB PO PRN ×3 (05:22→20:00)
[2019-01-11 06:00] VITALS: BP 142/75
[2019-01-11] MEDS: CitaloPRAM (CeleXA) 20 MG TAB PO SCH (09:12)
[2019-01-11] MEDS: ASPIRIN 325 MG TAB PO SCH (09:12)
[2019-01-11] MEDS: POTASSIUM CHLORIDE 10 MEQ SR TABLET PO SCH (09:12)
[2019-01-11] MEDS: SENNA 8.6 MG TAB (SENOKOT) PO SCH (09:12)
[2019-01-11] MEDS: MOM 30ML SUSPENSION UDC PO SCH (09:13)
[2019-01-11] MEDS: MIRALAX *UNIT DOSE* 17GM PACKET PO SCH (09:13)
[2019-01-11] MEDS: MAALOX 30 ML SUSP *UDC PO PRN ×2 (12:21→22:12)
[2019-01-11 14:00] VITALS: BP 127/68
[2019-01-11] MEDS: traZODone 50 MG TAB PO SCH (20:00)
[2019-01-11 22:00] VITALS: BP 131/77
[2019-01-11] MEDS: ACETAMINOPHEN TAB 650MG DOSE (2X325MG) PO PRN (22:12)
[2019-01-12] MEDS: PERCOCET 5MG/325MG TAB PO PRN ×4 (02:49→21:32)
[2019-01-12 06:00] VITALS: BP 133/70
[2019-01-12] MEDS: SENNA 8.6 MG TAB (SENOKOT) PO SCH (08:49)
[2019-01-12] MEDS: MOM 30ML SUSPENSION UDC PO SCH (08:49)
[2019-01-12] MEDS: MIRALAX *UNIT DOSE* 17GM PACKET PO SCH (08:49)
[2019-01-12] MEDS: POTASSIUM CHLORIDE 10 MEQ SR TABLET PO SCH (08:49)
[2019-01-12] MEDS: ASPIRIN 325 MG TAB PO SCH (08:49)
[2019-01-12] MEDS: CitaloPRAM (CeleXA) 20 MG TAB PO SCH (08:50)
[2019-01-12] MEDS ORDERED: ASPI81CH33 PO (09:01)
[2019-01-12 14:00] VITALS: BP 113/62
[2019-01-12] MEDS: traZODone 50 MG TAB PO SCH (21:32)
[2019-01-12 22:00] VITALS: BP 134/73
[2019-01-13 06:00] VITALS: BP 124/71
--- NOTE | 2019-01-13 07:15 | IPN ---
DATE: 01/13/2019 CHIEF COMPLAINT: Postoperative day #4 right ankle open reduction internal fixation. HISTORY OF PRESENT ILLNESS: 63-year-old female who had open reduction internal fixation of her ankle now approximately 6 days ago. She is seen in the [facility] at [address] [place] [address]. She has been having difficulty mobilizing safely with a walker and protecting that side as ideally she should be non-weightbearing and so she has remained in hospital awaiting placement either at the rehab unit or at the nursing facility. She is doing well otherwise. No concerns from the nurses or from her. PHYSICAL EXAMINATION: Well-appearing 63-year-old female in no acute stress. She is sitting up in a chair eating breakfast. She is comfortable. She is alert and oriented times three. Mood and affect pleasant and positive. Vital Signs not performed this morning or entered into the computer. Splint is in place. There is no splint breakdown or skin irritation. She is able to wiggle her toes. She has normal sensation throughout the toes. Toes are warm and well-perfused. ASSESSMENT/PLAN: 63-year-old female postoperative day #6 from an ankle fracture open reduction internal fixation who is awaiting placement. She should be non-weightbearing on that side. We will discontinue sebastián on postoperative day 14 if she remains either in the hospital or in a longterm. She should see me 14 days after surgery. I would like to remove the splint and check the wound at that point.
[2019-01-13] MEDS: POTASSIUM CHLORIDE 10 MEQ SR TABLET PO SCH (08:46)
[2019-01-13] MEDS: ASPIRIN 325 MG TAB PO SCH (08:46)
[2019-01-13] MEDS: PERCOCET 5MG/325MG TAB PO PRN ×3 (08:47→21:34)
[2019-01-13] MEDS: CitaloPRAM (CeleXA) 20 MG TAB PO SCH (08:47)
[2019-01-13] MEDS: MIRALAX *UNIT DOSE* 17GM PACKET PO SCH (08:48)
[2019-01-13] MEDS: SENNA 8.6 MG TAB (SENOKOT) PO SCH (08:48)
[2019-01-13] MEDS: MOM 30ML SUSPENSION UDC PO SCH (08:48)
[2019-01-13 14:00] VITALS: BP 122/70
[2019-01-13] MEDS: traZODone 50 MG TAB PO SCH (20:02)
[2019-01-13 22:00] VITALS: BP 133/75
[2019-01-14 06:00] VITALS: BP 134/63
[2019-01-14] MEDS: SENNA 8.6 MG TAB (SENOKOT) PO SCH (09:00)
[2019-01-14] MEDS: MOM 30ML SUSPENSION UDC PO SCH (09:00)
[2019-01-14] MEDS: MIRALAX *UNIT DOSE* 17GM PACKET PO SCH (09:00)
[2019-01-14] MEDS: PERCOCET 5MG/325MG TAB PO PRN ×3 (09:41→21:34)
[2019-01-14] MEDS: CitaloPRAM (CeleXA) 20 MG TAB PO SCH (09:42)
[2019-01-14] MEDS: ASPIRIN 325 MG TAB PO SCH (09:43)
[2019-01-14] MEDS: POTASSIUM CHLORIDE 10 MEQ SR TABLET PO SCH (09:43)
[2019-01-14 14:00] VITALS: BP 113/71
[2019-01-14] MEDS: MAALOX 30 ML SUSP *UDC PO PRN (17:02)
[2019-01-14] MEDS: traZODone 50 MG TAB PO SCH (20:21)
[2019-01-14 22:00] VITALS: BP 126/66
[2019-01-15 06:00] VITALS: BP 140/74
[2019-01-15] MEDS: POTASSIUM CHLORIDE 10 MEQ SR TABLET PO SCH (08:08)
[2019-01-15] MEDS: MOM 30ML SUSPENSION UDC PO SCH (08:08)
[2019-01-15] MEDS: MIRALAX *UNIT DOSE* 17GM PACKET PO SCH (08:08)
[2019-01-15] MEDS: ASPIRIN 325 MG TAB PO SCH (08:08)
[2019-01-15] MEDS: CitaloPRAM (CeleXA) 20 MG TAB PO SCH (08:08)
[2019-01-15] MEDS: PERCOCET 5MG/325MG TAB PO PRN ×3 (08:09→20:38)
[2019-01-15] MEDS: SENNA 8.6 MG TAB (SENOKOT) PO SCH (08:09)
[2019-01-15 14:00] VITALS: BP 130/77
[2019-01-15] MEDS: traZODone 50 MG TAB PO SCH (20:38)
[2019-01-15 22:00] VITALS: BP 185/88
[2019-01-16 06:00] VITALS: BP 120/72
[2019-01-16] MEDS: ASPIRIN 325 MG TAB PO SCH (08:11)
[2019-01-16] MEDS: POTASSIUM CHLORIDE 10 MEQ SR TABLET PO SCH (08:11)
[2019-01-16] MEDS: MOM 30ML SUSPENSION UDC PO SCH (08:11)
[2019-01-16] MEDS: CitaloPRAM (CeleXA) 20 MG TAB PO SCH (08:11)
[2019-01-16] MEDS: MIRALAX *UNIT DOSE* 17GM PACKET PO SCH (08:11)
[2019-01-16] MEDS: SENNA 8.6 MG TAB (SENOKOT) PO SCH (08:12)
[2019-01-16] MEDS: PERCOCET 5MG/325MG TAB PO PRN ×3 (08:18→21:25)
[2019-01-16 14:00] VITALS: BP 128/74
[2019-01-16] MEDS: ACETAMINOPHEN TAB 650MG DOSE (2X325MG) PO PRN (18:14)
[2019-01-16] MEDS: traZODone 50 MG TAB PO SCH (21:25)
[2019-01-16 22:00] VITALS: BP 124/62
[2019-01-17 06:00] VITALS: BP 111/64
[2019-01-17] MEDS: POTASSIUM CHLORIDE 10 MEQ SR TABLET PO SCH (08:22)
[2019-01-17] MEDS: ASPIRIN 325 MG TAB PO SCH (08:22)
[2019-01-17] MEDS: PERCOCET 5MG/325MG TAB PO PRN ×3 (08:23→21:08)
[2019-01-17] MEDS: MOM 30ML SUSPENSION UDC PO SCH (08:23)
[2019-01-17] MEDS: SENNA 8.6 MG TAB (SENOKOT) PO SCH (08:23)
[2019-01-17] MEDS: MIRALAX *UNIT DOSE* 17GM PACKET PO SCH (08:23)
[2019-01-17] MEDS: CitaloPRAM (CeleXA) 20 MG TAB PO SCH (08:23)
[2019-01-17 14:00] VITALS: BP 139/67
[2019-01-17] MEDS: traZODone 50 MG TAB PO SCH (21:08)
[2019-01-17 22:00] VITALS: BP 128/75
[2019-01-18] MEDS: MAALOX 30 ML SUSP *UDC PO PRN (05:22)
[2019-01-18 06:00] VITALS: BP 125/68
[2019-01-18] MEDS: MOM 30ML SUSPENSION UDC PO SCH (09:00)
[2019-01-18] MEDS: MIRALAX *UNIT DOSE* 17GM PACKET PO SCH (09:00)
[2019-01-18] MEDS: SENNA 8.6 MG TAB (SENOKOT) PO SCH (09:00)
[2019-01-18] MEDS: CitaloPRAM (CeleXA) 20 MG TAB PO SCH (09:19)
[2019-01-18] MEDS: ASPIRIN 325 MG TAB PO SCH (09:19)
[2019-01-18] MEDS: POTASSIUM CHLORIDE 10 MEQ SR TABLET PO SCH (09:20)
[2019-01-18] MEDS: PERCOCET 5MG/325MG TAB PO PRN (09:21)
== END 2019-01-18 10:50 | DRG 494 ==
LOC: M SDC 12:25 → M MS5PR 18:56 → M SDC 01-09 07:59 → M MS5PR 01-09 08:00
PROVIDERS: ADMIT Orthopaedic Surgery Sports Medicine; ATTEND Orthopaedic Surgery Sports Medicine
PROC: 0SSF04Z Reposition Right Ankle Joint with Internal Fixation Device, Open Approach (ICD-10-PCS; principal; 2019-01-07 15:00)
DX: S82.64XA Nondisplaced fracture of lateral malleolus of right fibula, initial encounter for closed fracture (principal); W18.30XA Fall on same level, unspecified, initial encounter; Y92.009 Unspecified place in unspecified non-institutional (private) residence as the place of occurrence of the external cause

== ENCOUNTER → 2019-01-22 | Outpatient (REF) ==
[~2019-01-22] MED LIST changes: +ASPI-1 PO; +ASPI81CH33 PO; +EXCETAB22 PO
[2019-01-22 08:12] LABS: BLOOD UREA NITROGEN 18 MG/DL (7-18); CALCIUM LEVEL 9.4 MG/DL (8.8-10.2); CARBON DIOXIDE LEVEL 30 MEQ/L (21-32); CHLORIDE LEVEL 106 MEQ/L (98-107); CREATININE FOR GFR 0.83 MG/DL (0.55-1.30); GLOMERULAR FILTRATION RATE > 60.0 (>45); GLUCOSE, FASTING 92 MG/DL (70-100); POTASSIUM SERUM 4.6 MEQ/L (3.5-5.1); SODIUM LEVEL 140 MEQ/L (136-145)
== END ==
LOC: SKLAB4 10:09
DX: E87.6 Hypokalemia (principal)

== ENCOUNTER → 2019-02-08 | Outpatient (REF) | payer MEDICARE, MEDICAID ==
[2019-02-08 08:16] LABS: HEMATOCRIT 40.8 % (36.0-47.0); HEMOGLOBIN 13.2 g/dl (12.0-15.5); MEAN CORPUSCULAR HEMOGLOBIN 32.6 pg (27.0-33.0); MEAN CORPUSCULAR HGB CONC 32.4 g/dl (32.0-36.5); MEAN CORPUSCULAR VOLUME 100.7 fl (80.0-96.0); PLATELET COUNT, AUTOMATED 204 10^3/uL (150-450); RED BLOOD COUNT 4.05 10^6/uL (4.00-5.40); WHITE BLOOD COUNT 13.2 10^3/uL (4.0-10.0)
[2019-02-08 08:44] LABS: ALBUMIN 3.3 GM/DL (3.2-5.2); ALT/SGPT 9 U/L (12-78); BILIRUBIN,TOTAL 0.3 MG/DL (0.2-1.0); BLOOD UREA NITROGEN 14 MG/DL (7-18); CALCIUM LEVEL 9.2 MG/DL (8.8-10.2); CARBON DIOXIDE LEVEL 31 MEQ/L (21-32); CHLORIDE LEVEL 106 MEQ/L (98-107); CREATININE FOR GFR 0.86 MG/DL (0.55-1.30); GLOMERULAR FILTRATION RATE > 60.0 (>45); GLUCOSE, FASTING 99 MG/DL (70-100); POTASSIUM SERUM 4.5 MEQ/L (3.5-5.1); SODIUM LEVEL 142 MEQ/L (136-145); TOTAL PROTEIN 6.8 GM/DL (6.4-8.2)
[2019-02-08 14:59] LABS: APPEARANCE, URINE CLEAR (CLEAR); BACTERIA, URINE AUTO NEGATIVE (NEGATIVE); BILIRUBIN, URINE AUTO NEGATIVE (NEGATIVE); BLOOD, URINE BLOOD NEGATIVE (NEGATIVE); COLOR, URINE YELLOW (YELLOW); GLUCOSE, URINE (UA) AUTO NEGATIVE (NEGATIVE); KETONE, URINE AUTO NEGATIVE (NEGATIVE); LEUKOCYTE ESTERASE, URINE AUTO 1+ (NEGATIVE); NITRITE, URINE AUTO NEGATIVE (NEGATIVE); PROTEIN, URINE AUTO NEGATIVE (NEGATIVE); RBC, URINE AUTO 1 /HPF (0-3); SQUAMOUS EPITHELIAL CELL UR AU 0 /HPF (0-6); UROBILINOGEN, URINE AUTO 0.2 mg/dL (0.0-2.0); WBC, URINE AUTO 2 /HPF (0-3)
--- NOTE | 2019-02-08 15:25 | REP ---
Chest two views HISTORY: Cough Comparison: 07/01/2018 The lungs are clear. The heart is normal in size. The pulmonary vasculature is normal in appearance. There are old right rib fractures and an old fracture of the proximal left humerus. IMPRESSION: No acute disease. Electronically Signed by Yaniv Polo MD 02/08/2019 03:16 P
== END ==
LOC: SKLAB4 11:37
DX: E87.6 Hypokalemia (principal); F32.9 Major depressive disorder, single episode, unspecified; Z79.82 Long term (current) use of aspirin

== ENCOUNTER → 2019-02-09 | Outpatient (REF) | payer MEDICARE, MEDICAID ==
[2019-02-08 11:05] LABS: HEMATOCRIT 41.2 % (36.0-47.0); HEMOGLOBIN 13.5 g/dl (12.0-15.5); MEAN CORPUSCULAR HEMOGLOBIN 33.3 pg (27.0-33.0); MEAN CORPUSCULAR HGB CONC 32.8 g/dl (32.0-36.5); MEAN CORPUSCULAR VOLUME 101.7 fl (80.0-96.0); PLATELET COUNT, AUTOMATED 216 10^3/uL (150-450); RED BLOOD COUNT 4.05 10^6/uL (4.00-5.40); WHITE BLOOD COUNT 14.8 10^3/uL (4.0-10.0)
[2019-02-09 07:43] LABS: HEMATOCRIT 38.8 % (36.0-47.0); HEMOGLOBIN 12.5 g/dl (12.0-15.5); MEAN CORPUSCULAR HEMOGLOBIN 31.7 pg (27.0-33.0); MEAN CORPUSCULAR HGB CONC 32.2 g/dl (32.0-36.5); MEAN CORPUSCULAR VOLUME 98.5 fl (80.0-96.0); PLATELET COUNT, AUTOMATED 208 10^3/uL (150-450); RED BLOOD COUNT 3.94 10^6/uL (4.00-5.40); WHITE BLOOD COUNT 13.3 10^3/uL (4.0-10.0)
== END ==
LOC: SKLAB4 10:13
DX: R05 Cough (principal); J02.9 Acute pharyngitis, unspecified

== ENCOUNTER → 2019-02-10 | Outpatient (REF) | payer MEDICARE, MEDICAID ==
[2019-02-10 07:23] LABS: BASO # 0.1 10^3/uL (0.0-0.2); BASO % 0.4 % (0.0-1.0); EOS # 0.2 10^3/uL (0.0-0.50); EOS % 1.8 % (0.0-3.0); HEMATOCRIT 39.2 % (36.0-47.0); HEMOGLOBIN 12.9 g/dl (12.0-15.5); LYMPH # 2.2 10^3/uL (1.5-4.5); LYMPH % 18.8 % (24.0-44.0); MEAN CORPUSCULAR HEMOGLOBIN 33.2 pg (27.0-33.0); MEAN CORPUSCULAR HGB CONC 32.9 g/dl (32.0-36.5); MEAN CORPUSCULAR VOLUME 100.8 fl (80.0-96.0); MONO # 1.6 10^3/uL (0.0-0.8); MONO % 13.9 % (0.0-5.0); NEUTROPHILS # 7.7 10^3/uL (1.8-7.7); NEUTROPHILS % 64.8 % (36.0-66.0); PLATELET COUNT, AUTOMATED 218 10^3/uL (150-450); RED BLOOD COUNT 3.89 10^6/uL (4.00-5.40); WHITE BLOOD COUNT 11.8 10^3/uL (4.0-10.0)
== END ==
LOC: SKLAB4 08:38
DX: D64.9 Anemia, unspecified (principal)

== ENCOUNTER 2019-04-18 17:03 | Emergency (ER) | payer MEDICARE, MEDICAID ==
[~2019-04-18] VITALS: Ht 157.5 cm; Wt 81.8 kg
[~2019-04-18 17:03] MED LIST changes: -TRAZ-160 PO; +TRAZ-252 PO; +TRAZ1TAB10 PO; -TRAZO50TA PO
[2019-04-18 17:15] VITALS: BP 125/69
== END 2019-04-18 19:35 | disposition home or self-care (01) ==
LOC: EDBD 17:03 → M ED 17:03
DX: F10.220 Alcohol dependence with intoxication, uncomplicated (principal); I10 Essential (primary) hypertension; Z79.82 Long term (current) use of aspirin; Z79.891 Long term (current) use of opiate analgesic; Z79.899 Other long term (current) drug therapy

== ENCOUNTER 2019-05-15 16:35 | Emergency (ER) | payer MEDICARE, MEDICAID ==
[~2019-05-15] VITALS: Ht 157.5 cm; Wt 54.5 kg
--- NOTE | 2019-05-15 17:59 | REPVR ---
EXAM: CT Left Lower Extremity Without Contrast, Knee EXAM DATE/TIME: 05/15/2019 5:43 PM CLINICAL HISTORY: 63 years old, female; Injury or trauma; Fall; Initial encounter; Blunt trauma; Knee; Left; Additional info: Trauma, R/O fracture TECHNIQUE: Imaging protocol: CT of the Left lower extremity without contrast was performed. Exam focused on the knee. Radiation optimization: All CT scans at this facility use at least one of these dose optimization techniques: automated exposure control; mA and/or kV adjustment per patient size (includes targeted exams where dose is matched to clinical indication); or iterative reconstruction. COMPARISON: CR Knee, complete LEFT 05/15/2019 5:16 PM FINDINGS: Mild subcutaneous edema anterior to the patella and infrapatellar proximal leg. No soft tissue defect, soft tissue air, foreign body or organized hematoma. Moderate sized knee joint effusion is present. No evidence of lipohemarthrosis. Acute avulsion fracture measuring 13 mm AP, 2 mm transverse and 30 mm craniocaudal is present at the femoral attachment site of the MCL, minimally displaced medially. No craniocaudal retraction. There is a contrecoup subchondral impaction fracture involving the anterior lateral tibial plateau over an area measuring roughly 1.5 cm cross-sectional, sagittal image [id number]. No other acute fracture. Joint spaces are maintained. Benign meniscal ossicle in the posterior horn medial meniscus IMPRESSION: Evidence of valgus stress of the knee with small in situ avulsion fracture of the femoral attachment of the MCL, and subchondral contrecoup impaction fracture of the anterolateral tibial plateau, with roughly 2 mm of impaction. Electronically signed by: Rip Pino On 05/15/2019 17:58:16 PM
[2019-05-15] MEDS ORDERED: PERCOCET 5MG/325MG TAB PO ONE (18:30)
[2019-05-15 18:34] LABS: BLOOD UREA NITROGEN 10 MG/DL (7-18); CALCIUM LEVEL 7.9 MG/DL (8.8-10.2); CARBON DIOXIDE LEVEL 14 MEQ/L (21-32); CHLORIDE LEVEL 106 MEQ/L (98-107); CREATININE FOR GFR 0.68 MG/DL (0.55-1.30); GLOMERULAR FILTRATION RATE > 60.0 (>45); GLUCOSE, FASTING 71 MG/DL (70-100); SODIUM LEVEL 143 MEQ/L (136-145)
[2019-05-15 18:50] LABS: HEMATOCRIT 44.4 % (36.0-47.0); HEMOGLOBIN 14.9 g/dl (12.0-15.5); MEAN CORPUSCULAR HEMOGLOBIN 31.4 pg (27.0-33.0); MEAN CORPUSCULAR HGB CONC 33.6 g/dl (32.0-36.5); MEAN CORPUSCULAR VOLUME 93.7 fl (80.0-96.0); PLATELET COUNT, AUTOMATED 296 10^3/uL (150-450); RED BLOOD COUNT 4.74 10^6/uL (4.00-5.40); WHITE BLOOD COUNT 7.3 10^3/uL (4.0-10.0)
[2019-05-16 06:19] VITALS: BP 173/81
--- NOTE | 2019-05-16 10:51 | REP ---
Knee four views: There is a nondisplaced fracture of the medial femoral condyle at its medial margin. Mineralization and joint spaces are normal. There are no calcifications or foreign bodies. Impression: Fracture of the medial femoral condyle. Electronically Signed by Jonathna Ruiz MD 05/16/2019 08:48 A
== END 2019-05-16 06:21 | disposition home or self-care (01) ==
LOC: EDBD 16:35 → M ED 16:35
DX: S72.435A Nondisplaced fracture of medial condyle of left femur, initial encounter for closed fracture (principal); F10.120 Alcohol abuse with intoxication, uncomplicated; W01.198A Fall on same level from slipping, tripping and stumbling with subsequent striking against other object, initial encounter; Y92.091 Bathroom in other non-institutional residence as the place of occurrence of the external cause; E78.5 Hyperlipidemia, unspecified; K21.9 Gastro-esophageal reflux disease without esophagitis; F17.200 Nicotine dependence, unspecified, uncomplicated; Z79.899 Other long term (current) drug therapy; Z79.82 Long term (current) use of aspirin
CPT/HCPCS: 36415; 73564; 73700; 80048; 85027; 99284; G0480

== ENCOUNTER → 2019-09-28 | Outpatient (CLI) | payer MEDICARE, MEDICAID ==
[~2019-09-28] MED LIST changes: -OMEP40CA2 PO; +OMEP40CA97 PO
--- NOTE | 2019-10-06 09:31 | DEXA ---
AP SPINE L1 - L4 1.197 0.0 1.6 LT FEMUR TOTAL 0.691 -2.5 -1.3 LT NECK 0.604 -3.1 -1.6 RT FEMUR TOTAL 0.731 -2.2 -1.0 RT NECK 0.644 -2.8 -1.3 TOTAL BODY TOTAL OTHER COMMENTS: Normal bone densitometry of the spine. There is osteoporosis of the hips. The density of the spine has increased 18.0% since the initial exam on 11/06/2005. The spine density has increased 8.3% since the most recent exam on 02/13/2011. The density of the left hip has decreased 8.4% since the initial exam on 11/06/2005. The density of the left hip has decreased 16.6% since the most recent exam on 02/13/2011. The density of the right hip has decreased 0.3% since the initial exam on 11/06/2005. The density of the right hip has decreased 9.6% since the most recent exam on 02/13/2011. FOLLOW-UP: Recommendation for the next bone density exam: 2 years. GAGANDEEP
== END ==
LOC: M WHC 13:15
PROVIDERS: ATTEND Student in an Organized Health Care Education/Training Program
DX: Z91.89 Other specified personal risk factors, not elsewhere classified (principal); M81.0 Age-related osteoporosis without current pathological fracture

== ENCOUNTER → 2019-10-20 | Outpatient (REF) | payer MEDICARE, MEDICAID ==
[2019-10-20 13:34] LABS: CALCIUM LEVEL 9.8 MG/DL (8.8-10.2)
[2019-10-20 13:47] LABS: TOTAL 25(OH) VITAMIN D 19.4 NG/ML (30.0-100.0)
== END ==
LOC: M SFHCPLAZ 11:09
PROVIDERS: ATTEND Family Medicine
DX: M80.00XD Age-related osteoporosis with current pathological fracture, unspecified site, subsequent encounter for fracture with routine healing (principal)

== ENCOUNTER 2019-12-08 13:26 | Outpatient (RCR) | payer MEDICARE, MEDICAID ==
[~2019-12-08 13:26] MED LIST changes: -SUCR10SS PO; +SUCR1ORA2 PO
== END 2019-12-21 ==
LOC: M PT 13:26
PROVIDERS: ATTEND Student in an Organized Health Care Education/Training Program
DX: R29.6 Repeated falls (principal)

== ENCOUNTER → 2020-01-19 | Outpatient (REF) | payer MEDICARE, MEDICAID ==
[2020-01-19 14:45] LABS: ALBUMIN 3.8 GM/DL (3.2-5.2); ALT/SGPT 17 U/L (12-78); BILIRUBIN,TOTAL 0.3 MG/DL (0.2-1.0); BLOOD UREA NITROGEN 13 MG/DL (7-18); CALCIUM LEVEL 9.3 MG/DL (8.8-10.2); CARBON DIOXIDE LEVEL 25 MEQ/L (21-32); CHLORIDE LEVEL 108 MEQ/L (98-107); CHOLESTEROL LEVEL 173 MG/DL (<200); CHOLESTEROL RISK RATIO 3.264 (<5); CREATININE FOR GFR 0.76 MG/DL (0.55-1.30); GLOMERULAR FILTRATION RATE > 60.0 (>45); GLUCOSE, FASTING 104 MG/DL (70-100); HDL CHOLESTEROL 53 MG/DL (>40); LDL CHOLESTEROL 96 MG/DL (<100); NON-HDL-C 120 MG/DL; POTASSIUM SERUM 4.3 MEQ/L (3.5-5.1); SODIUM LEVEL 139 MEQ/L (136-145); TOTAL PROTEIN 7.3 GM/DL (6.4-8.2); TRIGLYCERIDES LEVEL 122 MG/DL (<150)
[2020-01-19 14:49] LABS: TOTAL 25(OH) VITAMIN D 47.2 NG/ML (30.0-100.0)
[2020-01-19 17:27] LABS: HEMOGLOBIN A1c 5.3 %
[2020-01-19 18:21] LABS: HEMATOCRIT 45.9 % (36.0-47.0); HEMOGLOBIN 15.2 g/dl (12.0-15.5); MEAN CORPUSCULAR HEMOGLOBIN 32.8 pg (27.0-33.0); MEAN CORPUSCULAR HGB CONC 33.1 g/dl (32.0-36.5); MEAN CORPUSCULAR VOLUME 99.1 fl (80.0-96.0); PLATELET COUNT, AUTOMATED 241 10^3/uL (150-450); RED BLOOD COUNT 4.63 10^6/uL (4.00-5.40); WHITE BLOOD COUNT 6.7 10^3/uL (4.0-10.0)
== END ==
LOC: M SFHCPLAZ 10:32
PROVIDERS: ATTEND Family Medicine
DX: M80.00XD Age-related osteoporosis with current pathological fracture, unspecified site, subsequent encounter for fracture with routine healing (principal); Z13.1 Encounter for screening for diabetes mellitus; Z13.220 Encounter for screening for lipoid disorders; Z79.899 Other long term (current) drug therapy
CPT/HCPCS: 80053; 80061; 82306; 83036; 84443; 85027; G0463

== ENCOUNTER 2020-02-23 14:24 | Outpatient (RCR) | payer MEDICARE, MEDICAID ==
[~2020-02-23 14:24] MED LIST changes: -VITA1TAB23 PO; +VITA250T20 PO
== END 2020-03-21 ==
LOC: M PT 14:24
PROVIDERS: ATTEND Student in an Organized Health Care Education/Training Program
DX: R29.6 Repeated falls (principal)

== ENCOUNTER 2020-03-25 10:14 | Inpatient (IN) | payer MEDICARE, MEDICAID ==
[~2020-03-25] VITALS: Ht 157.5 cm; Wt 61.6 kg
[2020-03-25] VITALS (7 sets, daily range): BP systolic 150–210; BP diastolic 80–113
[2020-03-25] MEDS: MULTIVITAMINS/MINERALS THERAP 1 TAB PO SCH (09:00)
[2020-03-25] MEDS: FOLIC ACID 1 MG TAB PO SCH (09:00)
[~2020-03-25 10:14] MED LIST changes: +VITA1TAB23 PO; -VITA250T20 PO
[2020-03-25] MEDS ORDERED: ONDANSETRON 4MG/2ML VIAL As Ordered ONE (10:23)
[2020-03-25] MEDS: MORPHINE 4 MG/ML 1ML VIAL/SYRINGE (J2270) IV PRN ×2 (10:26→12:27)
[2020-03-25] MEDS ORDERED: ONDANSETRON 4MG/2ML VIAL IV ONE (10:30)
[2020-03-25] MEDS ORDERED: NS 1,000 ML IV SCH ×2 (10:30→15:08)
[2020-03-25 10:53] LABS: BASO # 0.1 10^3/uL (0.0-0.2); BASO % 0.6 % (0.0-1.0); HEMATOCRIT 42.7 % (36.0-47.0); HEMOGLOBIN 14.5 g/dl (12.0-15.5); LYMPH # 1.5 10^3/uL (1.5-5.0); LYMPH % 16.8 % (24.0-44.0); MEAN CORPUSCULAR HEMOGLOBIN 33.6 pg (27.0-33.0); MEAN CORPUSCULAR VOLUME 98.8 fl (80.0-96.0); MONO # 1.9 10^3/uL (0.0-0.8); MONO % 21.2 % (0.0-5.0); NEUTROPHILS # 5.4 10^3/uL (1.5-8.5); NEUTROPHILS % 60.8 % (36.0-66.0); PLATELET COUNT, AUTOMATED 200 10^3/uL (150-450); RED BLOOD COUNT 4.32 10^6/uL (4.00-5.40); WHITE BLOOD COUNT 8.8 10^3/uL (4.0-10.0)
[2020-03-25 11:22] LABS: INR 0.99; PROTHROMBIN TIME 12.8 SECONDS (11.8-14.0)
[2020-03-25 11:27] LABS: ALBUMIN 3.5 GM/DL (3.2-5.2); ALT/SGPT 25 U/L (12-78); BILIRUBIN,TOTAL 1.2 MG/DL (0.2-1.0); BLOOD UREA NITROGEN 10 MG/DL (7-18); CALCIUM LEVEL 8.4 MG/DL (8.8-10.2); CARBON DIOXIDE LEVEL 16 MEQ/L (21-32); CHLORIDE LEVEL 104 MEQ/L (98-107); CREATININE FOR GFR 0.78 MG/DL (0.55-1.30); GLOMERULAR FILTRATION RATE > 60.0 (>45); GLUCOSE, FASTING 80 MG/DL (70-100); POTASSIUM SERUM 3.4 MEQ/L (3.5-5.1); SODIUM LEVEL 146 MEQ/L (136-145); TOTAL PROTEIN 7.1 GM/DL (6.4-8.2)
--- NOTE | 2020-03-25 11:28 | REP ---
Clinical: Trauma. Comparison: 02/08/2019. Findings: Mediastinum and cardiac silhouette are normal. Old healed right rib fractures are identified. Lung ruiz are clear and without acute consolidation, effusion, or pneumothorax. Impression: No acute cardiopulmonary process. Electronically Signed by Stephan Kline MD 03/25/2020 11:19 A
--- NOTE | 2020-03-25 11:29 | REP ---
Clinical: Trauma. Technique: AP and cross-table lateral views of the mid to distal femur. Findings: Visualized portions of the femur are intact and without further acute fracture or dislocation. Left hip fracture identified in concurrent hip series. Impression: No fracture of the visualized mid to distal left femur. Electronically Signed by Stephan Kline MD 03/25/2020 11:21 A
--- NOTE | 2020-03-25 11:29 | REP ---
Clinical: Trauma. Technique: Frontal view of the pelvis with neutral and cross-table lateral views of the left hip. Findings: Fracture of the left intertrochanteric proximal femur. Remainder examination appears normal. Impression: Left intertrochanteric hip fracture. Electronically Signed by Stephan Kline MD 03/25/2020 11:20 A
[2020-03-25] MEDS ORDERED: ceFAZolin 1GM VIAL (J0690 PER 500MG) As Ordered ONE (12:21)
[2020-03-25] MEDS ORDERED: EPINEPHrine INJ 1 MG/ML 1ML AMP As Ordered ONE (12:22)
[2020-03-25] MEDS ORDERED: VITA50005 PO (12:51)
[2020-03-25] MEDS ORDERED: TRAZ-252 PO (12:51)
--- NOTE | 2020-03-25 13:13 | HPE ---
DATE OF ADMISSION: 03/25/2020 REASON FOR CONSULTATION: Left femoral neck fracture. HISTORY OF PRESENT ILLNESS: This 64-year-old female sustained a left femoral neck fracture. She tripped and fell getting out of bed at 09:00 a.m. this morning. She was brought in by emergency medical services (EMS). No loss of consciousness, head injury, or pain or problems with any other limbs. She is previously known to me for a right ankle fracture, open reduction internal fixation (ORIF) as well as left proximal tibia fracture treated nonoperatively. PAST MEDICAL HISTORY: Includes degenerative disc disease in her neck as well as osteoporosis for which she takes vitamin B. She has had left knee injuries and right ankle surgery. MEDICATIONS: Include trazodone and vitamin D. ALLERGIES: No known drug allergies. PAST SURGICAL HISTORY: Right ankle open reduction internal fixation (ORIF) and left shoulder surgery. SOCIAL HISTORY: She smokes six cigarettes a day. No IV drug use. No other drug use. She drinks alcohol, quite a bit, two glasses a day which are moderate-sized glasses. She lives alone in an apartment in [facility]. She normally is using a walker inside her house and a walker inside her house. PHYSICAL EXAMINATION: A 64-year-old female. She is lying supine. She is alert and oriented times three. Pulse rate 94, regular, unlabored breathing, respiratory rate 18, 94% on room air. Left lower extremity is closed. Thigh compartments are soft. It was marked. There are no obvious abrasions or open injuries. Upper and right lower extremity appeared normal. She is moving around painlessly. No pain down at the knee. Normal sensation in the dorsum and plantar aspect of the foot. Foot is warm and well-perfused. Good tibialis posterior pulse. She is able to wiggle her toes, dorsiflex, and plantarflex her foot. LABORATORY DATA: Reveals a hemoglobin of 14.5. INR 0.99 and PT 12.8. COVID-19 testing is negative. Radiographs of the femur, hip and pelvis demonstrate a left hip 100% displaced femoral neck fracture. No obvious femur fracture. ASSESSMENT AND PLAN: A 64-year-old female with a left femoral neck fracture. We talked about the pros and cons, risks and benefits, nonsurgical management versus surgery. Surgery would include a left hip hemiarthroplasty whether cemented or uncemented. Risks of surgery discussed to include but not limited infection, pain, stiffness, bleeding, damage to surrounding structures, neurovascular injury, component dissociation, fracture, instability, loosening or wear osteoporosis, anesthetic complications, blood clots, , other risks, need for further surgery, limp and abductor weakness. She wished to go ahead. I marked the left lower extremity. I signed the consent form for surgery as well as the possible need for blood products. I explained the pros and cons, risks and benefits of that to her including but not limited to fever, allergic reaction, transmission bacteria or viruses. We will have the hospitalist on-call admit the patient and offer any additional workup as well. We will make the patient nothing by mouth now in preparation for surgery within the next 48 hours. She will be on bedrest.
[2020-03-25] MEDS ORDERED: NS 0.45% 1,000 ML IV SCH (13:30)
[2020-03-25] MEDS ORDERED: ACETAMINOPHEN TAB 650MG DOSE (2X325MG) PO PRN (13:30)
[2020-03-25] MEDS ORDERED: MOM 30ML SUSPENSION UDC PO PRN (13:30)
[2020-03-25] MEDS ORDERED: MAALOX 30 ML SUSP *UDC PO PRN (13:30)
--- NOTE | 2020-03-25 14:13 | HPEPDOC ---
[facility] Medical History & Physical Date of Admission Mar 25, 2020 Date of Service: Mar 25, 2020 Primary Care Physician: LUANNE KING DO Attending Physician: JESUS ANDERSON MD History and Physical CHIEF COMPLAINT: left hip pain HISTORY OF PRESENT ILLNESS: Corinen Garg is a 64-year-old female who presented to the emergency room today after a mechanical fall. She states that this morning she went to get out of bed and before reaching her walker. She lost her balance and fell directly on the lateral portion of her left hip. She denies any lightheadedness or dizziness prior to the fall. She denies any recent palpitations. She was brought in to the emergency department by EMS. Workup in the emergency department showed a left intratrochanteric hip fracture on hip x- ray. The patient currently reports sharp pain in the left lateral hip, which is worse with any movement. Patient also states she has not had anything to eat since yesterday morning. She states she typically eats 1 meal per day from [employer]. PAST MEDICAL HISTORY: 1. 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 Osteoporosis. 3. Depression/anxiety. 4. History of alcohol abuse. 5. Vitamin D deficiency PAST SURGICAL HISTORY: 1. section 2. Tubal ligation. 3. Right ankle open reduction internal fixation. 4. Left shoulder surgery SOCIAL HISTORY: Current smoker, 5-6 cigarettes a day. Drinks up to 3 glasses of vodka, at least a few days a week, history of heavy alcohol use. She lives alone in an apartment in [facility]. She uses a walker to walk around her house. FAMILY HISTORY: Bother at 61 years old with complications from surgery, had kidney disease and hypertension Mother 56 years old, had coronary aneurysm and pneumonia. No family history of bone cancers. ALLERGIES: Please see below. REVIEW OF SYSTEMS: CONSTITUTIONAL: Denies fevers, chills, night sweats, fatigue, unexpected change in weight. HEENT: Denies change in vision, change in hearing. CARDIOVASCULAR: Denies chest pain, palpitations, shortness of breath, lightheadedness. RESPIRATORY: Denies dyspnea, cough, wheezing. GASTROINTESTINAL: Denies nausea, vomiting, abdominal pain, diarrhea, constipation, blood in stool. GENITOURINARY: Denies dysuria, urinary frequency, urinary urgency. SKIN: Denies rash, lesions. MUSCULOSKELETAL: Left hip pain as noted in HPI. Chronic neck pain. NEUROLOGICAL: Denies headache, dizziness, weakness. PSYCHIATRIC: Denies change in mood. HOME MEDICATIONS: Please see below. PHYSICAL EXAMINATION: VITAL SIGNS: See below. GENERAL: Alert, uncomfortable, appears to be in pain especially when moving HEENT: Normocephalic, atraumatic, PERRLA, EOMI, sclera anicteric, somewhat dry mucous membranes NECK: Supple, trachea midline, no lymphadenopathy, no JVD CARDIOVASCULAR: Regular rate and rhythm, normal S1 and S2. No murmurs, rubs, or gallops RESPIRATORY: Clear to auscultation bilaterally with equal air entry bilaterally. No wheezing, rhonchi, or rales. ABDOMEN: Soft, nontender, nondistended, bowel sounds present. EXTREMITIES: No cyanosis or edema. Pulses 2+/4 in bilateral upper and lower extremities. No bruising or hematoma noted. SKIN: [place], warm, dry NEUROLOGIC: Alert and oriented x3 to person, place and time. No focal deficits appreciated PSYCHIATRIC: Mood and affect appropriate LABORATORY DATA: See below. IMAGING: - Hip XR: Left intertrochanteric hip fracture. - Femur XR: No fracture of the visualized mid to distal left femur. - CXR: No acute cardiopulmonary process. MICROBIOLOGY: Please see below. ASSESSMENT: 64 year old female, past history of multiple fractures and osteoporosis presents after a mechanical fall with a left intertrochanteric hip fracture PLAN: 1. Left intertrochanteric hip fracture secondary to mechanical fall Dr. Crowder consulted from orthopedic surgery, appreciate his input and recommendations. Plan for operative left hip hemiarthroplasty, risks were discussed with the patient who agrees to proceed with surgery. Postoperative plan will include pain control, PT/OT evaluation -Pt is not medically optimized for surgery today due to anion gap metabolic acidosis, as discussed below. 2. Elevated anion gap with elevated lactic acid and elevated betahydroxybutyrate levels lactic acidosis due to dehydration vs fasting ketosis vs alcoholic ketosis -check ethanol level. recheck lactic acid level in 4 hours, check magnesium level -IV fluids, replete potassium 3. Abnormal liver profile. Elevated total bilirubin and AST levels, we'll recheck liver profile including conjugated and unconjugated bilirubin Osteoporosis and vitamin D deficiency Patient recently diagnosed with osteoporosis, currently on vitamin D supplementation with a plan with PCP to start bisphosphonates once vitamin D levels normalize. Check vitamin D level Anxiety/depression PRN trazodone at night held DVT prophylaxis: Teds and sequentials perioperatively, consider medical prophylaxis postoperatively Disposition: Admitted inpatient to med/surg unit pending surgical intervention Vital Signs Vital Signs Date Time Temp Pulse Resp B/P (MAP) Pulse Ox O2 Delivery O2 Flow Rate FiO2 03/25/20 12:27 18 03/25/20 12:14 94 94 03/25/20 10:24 98.9 137/74 (95) Room Air Laboratory Data Labs 24H Laboratory Tests 2 03/25/20 10:40: Immature Granulocyte % (Auto) 0.6, Neutrophils (%) (Auto) 60.8, Lymphocytes (%) (Auto) 16.8L, Monocytes (%) (Auto) 21.2H, Eosinophils (%) (Auto) 0.0, Basophils (%) (Auto) 0.6, Neutrophils # (Auto) 5.4, Lymphocytes # (Auto) 1.5, Monocytes # (Auto) 1.9H, Eosinophils # (Auto) 0.0, Basophils # (Auto) 0.1, Nucleated Red Blood Cells % (auto) 0.0, Prothrombin Time 12.8, Prothromb Time International Ratio 0.99, Anion Gap 26H, Glomerular Filtration Rate > 60.0, Calcium Level 8.4L, Total Bilirubin 1.2H, Aspartate Amino Transf (AST/SGOT) 43H, Alanine Aminotransferase (ALT/SGPT) 25, Alkaline Phosphatase 63, Total Protein 7.1, Albumin 3.5, Albumin/Globulin Ratio 1.0L 03/25/20 11:42: Coronavirus (COVID-19)(PCR) NEGATIVE CBC/BMP Laboratory Tests 03/25/20 10:40 Home Medications Scheduled Ergocalciferol (Vitamin D2) (Vitamin D2) 50,000 Units Cap, 50,000 UNIT PO QWEEK WEDNESDAYS Scheduled PRN Trazodone HCl (Trazodone HCl) 50 Mg Tablet, 75 MG PO QHS PRN for SLEEP Allergies Coded Allergies: No Known Allergies (Verified , 03/25/20) KHADAR JIANG D.O. Mar 25, 2020 14:13
[2020-03-25] MEDS ORDERED: ceFAZolin 2 GM/D5W 50 ML IV BAG (J0690 PER 500MG) As Ordered ONE (14:42)
[2020-03-25 14:56] LABS: ALBUMIN 3.4 GM/DL (3.2-5.2); ALT/SGPT 25 U/L (12-78); BILIRUBIN,TOTAL 1.1 MG/DL (0.2-1.0); BLOOD UREA NITROGEN 10 MG/DL (7-18); CALCIUM LEVEL 8.2 MG/DL (8.8-10.2); CARBON DIOXIDE LEVEL 18 MEQ/L (21-32); CHLORIDE LEVEL 106 MEQ/L (98-107); CREATININE FOR GFR 0.77 MG/DL (0.55-1.30); GLOMERULAR FILTRATION RATE > 60.0 (>45); GLUCOSE, FASTING 76 MG/DL (70-100); POTASSIUM SERUM 3.2 MEQ/L (3.5-5.1); SODIUM LEVEL 141 MEQ/L (136-145); TOTAL PROTEIN 6.8 GM/DL (6.4-8.2)
[2020-03-25 14:57] LABS: ACETONE/KETONE > 46.00 MG/DL (<2.81)
--- NOTE | 2020-03-25 15:20 | IPN ---
DATE OF SERVICE: 03/24/2020 CHIEF COMPLAINT: Pending left hip fracture surgery. HISTORY OF PRESENT ILLNESS: This is a 64-year-old female. Asked by the hospitalist to clear her for surgery. They had found an anion gap. They ordered a lactic acid. This came back at 5.8. ASSESSMENT AND PLAN: The hospitalist has asked me to delay Corinne's surgery at least 4 hours to repeat a lactic acid, as this is quite elevated at 5.8 and not safe to go ahead with surgery. As such, we will delay the case and attempt tomorrow morning when hopefully her blood work will have normalized with the aid of the hospitalist physician. For now, make her diet as tolerated (JAVIER) and nothing by mouth at midnight in preparation for the case tomorrow morning. I have communicated this to Harini and asked her to let the patient know that she is being delayed due to her laboratory work.
[2020-03-25] MEDS ORDERED: MAGNESIUM OXIDE 400 MG TAB (MAG-OX) PO ONE (16:00)
[2020-03-25 16:06] LABS: ETHYL ALCOHOL (ETHANOL) 0.131 % (0.000-0.010); MAGNESIUM LEVEL 1.3 MG/DL (1.8-2.4); PHOSPHORUS LEVEL 2.2 MG/DL (2.5-4.9)
[2020-03-25] MEDS: POTASSIUM CHLORIDE 10 MEQ SR TABLET PO SCH ×2 (16:35→20:57)
[2020-03-25] MEDS: NS 1,000 ML IV SCH (16:40)
[2020-03-25] MEDS ORDERED: LORazepam 2 MG TAB PO PRN (16:45)
[2020-03-25] MEDS ORDERED: ONDANSETRON 4 MG ORAL DISINTEGRATING TAB PO PRN (16:45)
[2020-03-25] MEDS ORDERED: PERCOCET 5MG/325MG TAB PO PRN (16:45)
--- NOTE | 2020-03-25 16:47 | ECGEPIP ---
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
[2020-03-25] MEDS ORDERED: LORazepam 2 MG/ML VIAL As Ordered ONE (16:54)
[2020-03-25] MEDS ORDERED: LORazepam 2 MG/ML VIAL IV PRN (17:00)
[2020-03-25] MEDS ORDERED: NS 1,000 ML IV ONE (17:00)
[2020-03-25] MEDS ORDERED: LORazepam 2 MG/ML VIAL IV STA ×2 (17:17→17:19)
[2020-03-25] MEDS ORDERED: MORPHINE 2 MG/ML 1ML VIAL (J2270) IV STA (17:19)
[2020-03-25] MEDS ORDERED: MORPHINE 2 MG/ML 1ML VIAL (J2270) IV ONE (17:30)
[2020-03-25] MEDS: MAG SULF 1GM/100ML (MAG RUN) 1 GM in IV 1 EA IV SCH ×4 (17:45→21:40)
[2020-03-25] MEDS: THIAMINE 100 MG TAB PO SCH (17:52)
[2020-03-25 18:48] LABS: BLOOD UREA NITROGEN 9 MG/DL (7-18); CARBON DIOXIDE LEVEL 19 MEQ/L (21-32); CHLORIDE LEVEL 107 MEQ/L (98-107); CREATININE FOR GFR 0.65 MG/DL (0.55-1.30); GLOMERULAR FILTRATION RATE > 60.0 (>45); GLUCOSE, FASTING 120 MG/DL (70-100); MAGNESIUM LEVEL 1.3 MG/DL (1.8-2.4); PHOSPHORUS LEVEL 1.6 MG/DL (2.5-4.9); POTASSIUM SERUM 3.1 MEQ/L (3.5-5.1); SODIUM LEVEL 143 MEQ/L (136-145)
[2020-03-25] MEDS ORDERED: POTASSIUM PHOSPHATE INJ 20 MMOL in D5W 250 ML IV ONE (19:30)
[2020-03-25 19:31] LABS: TROPONIN I < 0.02 NG/ML (< 0.10)
[2020-03-25] MEDS: PERCOCET 5MG/325MG TAB PO PRN (19:38)
[2020-03-25] MEDS: DOCUSATE SODIUM 100 MG CAP PO SCH (20:56)
[2020-03-25] MEDS: K-PHOS NEUTRAL 250MG TABLET (SOD.PHOSPHATE/POT.PHOSPHATE) PO SCH (20:57)
--- NOTE | 2020-03-25 22:57 | ECGEPIP ---
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 Order Number: [id number] Reading MD: Stephen Andersen Measurements Intervals [employer] Rate: 156 P: [place]: 0 QRS: -56 QRSD: 74 T: 0 QT: 125 QTc: 201 Interpretive Statements ATRIAL FLUTTER/TACHYCARDIA WITH RAPID VENTRICULAR RESPONSE LEFT ANTERIOR FASCICULAR BLOCK VS PRIOR INFERIOR INFARCT MODERATE ST DEPRESSION Compared to prior tracings (6) in the system, Atrial Flutter is new. Normal s sinus rhythm was noted. Electronically Signed on 03-25-2020 22:57:28 EDT by Stephen Andersen
--- NOTE | 2020-03-25 22:59 | ECGEPIP ---
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 Order Number: [id number] Reading MD: Stephen Andersen Measurements Intervals [place] Rate: 113 P: 26 [place]: 160 QRS: -44 QRSD: 84 T: 30 QT: 322 QTc: 443 Interpretive Statements SINUS TACHYCARDIA MARKED LEFT AXIS DEVIATION VS PRIOR INFERIOR INFARCT Last tracing on 03/25/20 at 16:57. Atrial flutter was noted Electronically Signed on 03-25-2020 22:59:31 EDT by Stephen Andersen
[2020-03-26] VITALS (12 sets, daily range): BP systolic 136–160; BP diastolic 76–98
[2020-03-26 00:37] LABS: BLOOD UREA NITROGEN 7 MG/DL (7-18); CALCIUM LEVEL 7.2 MG/DL (8.8-10.2); CARBON DIOXIDE LEVEL 26 MEQ/L (21-32); CHLORIDE LEVEL 102 MEQ/L (98-107); CREATININE FOR GFR 0.71 MG/DL (0.55-1.30); GLOMERULAR FILTRATION RATE > 60.0 (>45); GLUCOSE, FASTING 106 MG/DL (70-100); MAGNESIUM LEVEL 2.7 MG/DL (1.8-2.4); PHOSPHORUS LEVEL 2.2 MG/DL (2.5-4.9); POTASSIUM SERUM 3.7 MEQ/L (3.5-5.1); SODIUM LEVEL 134 MEQ/L (136-145)
[2020-03-26] MEDS: NS 1,000 ML IV SCH ×3 (01:30→06:30)
[2020-03-26] MEDS: PERCOCET 5MG/325MG TAB PO PRN ×2 (02:08→17:56)
[2020-03-26] MEDS ORDERED: K-PHOS ORIGINAL (POT.ACID PHOSPHATE) 500MG TAB PO ONE (03:00)
[2020-03-26 05:14] LABS: HEMATOCRIT 35.3 % (36.0-47.0); HEMOGLOBIN 11.9 g/dl (12.0-15.5); MEAN CORPUSCULAR HEMOGLOBIN 33.7 pg (27.0-33.0); MEAN CORPUSCULAR HGB CONC 33.7 g/dl (32.0-36.5); PLATELET COUNT, AUTOMATED 139 10^3/uL (150-450); RED BLOOD COUNT 3.53 10^6/uL (4.00-5.40); WHITE BLOOD COUNT 5.8 10^3/uL (4.0-10.0)
[2020-03-26 05:52] LABS: ALBUMIN 2.7 GM/DL (3.2-5.2); ALT/SGPT 17 U/L (12-78); BILIRUBIN,TOTAL 1.7 MG/DL (0.2-1.0); BLOOD UREA NITROGEN 7 MG/DL (7-18); CALCIUM LEVEL 6.5 MG/DL (8.8-10.2); CARBON DIOXIDE LEVEL 27 MEQ/L (21-32); CHLORIDE LEVEL 105 MEQ/L (98-107); CREATININE FOR GFR 0.49 MG/DL (0.55-1.30); GLOMERULAR FILTRATION RATE > 60.0 (>45); GLUCOSE, FASTING 103 MG/DL (70-100); PHOSPHORUS LEVEL 1.6 MG/DL (2.5-4.9); POTASSIUM SERUM 3.9 MEQ/L (3.5-5.1); SODIUM LEVEL 137 MEQ/L (136-145); TOTAL PROTEIN 5.4 GM/DL (6.4-8.2)
[2020-03-26] MEDS ORDERED: ceFAZolin SOD 2 GM in IV 1 EA IV SCH (06:00)
[2020-03-26] MEDS: DOCUSATE SODIUM 100 MG CAP PO SCH ×2 (08:25→20:37)
[2020-03-26] MEDS: K-PHOS NEUTRAL 250MG TABLET (SOD.PHOSPHATE/POT.PHOSPHATE) PO SCH ×3 (08:25→20:38)
[2020-03-26] MEDS: MULTIVITAMINS/MINERALS THERAP 1 TAB PO SCH (08:25)
[2020-03-26] MEDS: THIAMINE 100 MG TAB PO SCH ×2 (08:25→20:37)
[2020-03-26] MEDS: FOLIC ACID 1 MG TAB PO SCH (08:25)
--- NOTE | 2020-03-26 08:37 | IPNPDOC ---
Subjective Date Seen The patient was seen on 03/26/20. Subjective Chief Complaint/HPI L hip fracture, needs medical optimization Events since last encounter Ms. Garg is a patient of Dr. Viktor Low who I was asked to rereview for medical optimization today. She was admitted yesterday, but was not optimized for surgery related to multiple electrolyte abnormalities including an anion gap organic (probably lactic vs. keto) acid acidosis. Today the anion gap has closed, her potassium and magnesium have normalized. She is still hypocalcemic and hypophosphatemic. She had a significant tachycardia that has improved today. She is nervous about the possibility of surgery generally, but expresses to me that she doesn't want to be in chronic pain her whole life and would like to be able to walk as normally as possible and therefore the benefits of proceeding with surgery, for her, out weight the risks. Her only complaint today is the L hip pain. General: Denies: Normal Appetite Constitutional: Denies: Chills, Fever Pulmonary: Denies: Dyspnea, Cough Cardiovascular: Denies: Chest Pain, Palpitations Gastrointestinal: Denies: Nausea, Vomiting, Abdominal Pain Musculoskeletal: Reports: Joint Pain (severe L hip pain) Objective Physical Examination General Exam: Positive: Alert, Cooperative, No Acute Distress Eye Exam: Positive: Conjunctiva & lids normal; Negative: Sclera icteric ENT Exam: Positive: Mucous membr. moist/pink Neck Exam: Negative: Lymphadenopathy Chest Exam: Positive: Clear to auscultation, Normal air movement Heart Exam: Positive: Rate Normal, Regular Rhythm, Normal S1, Normal S2; Negative: Murmurs Abdomen Exam: Positive: Normal bowel sounds, Soft; Negative: Tenderness, Hepatospenomegaly Extremity Exam: Positive: Other (L leg is externally rotated and foreshortened); Negative: Edema Skin Exam: Negative: Rash, Breakdown Psych Exam: Positive: Anxiety (related to surgery ), Other (she is tearful at times during the interview, especially when we discussed her alcohol use) Other physical findings I compared her most recent EKG with the one from 01/01/19 done in the out-patient clinic and there is no significant change. Assessment /Plan Problems (1) Pre-op examination Discussed With: Nurse, Retail Branch Manager, Patient Problem Text: I discussed the risks vs. benefits of surgery with the patient in generic terms. I feel that she is at higher than average risk for perioperative complications based on multiple chronic medical problems that may impact her surgical risk or post-operative healing. She knows that there is always some risk with surgery and she has to be comfortable that, for her, the benefits of surgery outweigh the risks in order to proceed. If she has further questions regarding the specifics of the proposed surgical procedure and specific risks, she should discuss them with the surgeon. I feel that the patient's acute and chronic medical conditions are reasonably optimized at the present time. She still is hypocalcemic and hypophosphatemic, but these are likely chronic issues and we can continue to treat them through the elias-operative period with little to no impact on her risk during surgery, in my opinion. There are no readily alterable factors that could lower the patient's perioperative risk. I have recommended the patient stop all medications as recommended by their surgeon and anesthesia. In addition I recommend additional IV pain medications to help control her pain and relax her during surgery. I did allow her morning medications with a sip of water as some of these will help stabilize the electrolyte abnormalities. (2) Intertrochanteric fracture of left hip Status: Acute Discussed With: Nurse, Retail Branch Manager, Patient Problem Text: We anticipate that she will have surgery with Dr. Crowder today. (3) Lactic acid acidosis Status: Resolved Discussed With: Nurse, Retail Branch Manager, Patient Problem Specific Plan: Repeat Labs Problem Text: Her lactic acid is not normal. Her anion gap is closed. It should be noted that on at least two previous admissions in the last couple of years she also presented with an anion gap acidosis that resolved within a couple of days, usually with hydration and feeding. I strongly suspect that her nutrition and hydration are real challenges to her health when she cares for herself. (4) ETOH abuse Status: Chronic Problem Text: This likely underlies her osteoporosis, but may be a separate independent risk factor for complications during surgery. On admission her EtOH level was 0.13. She reported to me that she had not had a drink in the last three days. If this is true, then she was REALLY intoxicated when she did last drink. She is on the CIWA protocol. Her history of chronic alcohol use should be noted by anesthesia as they plan their treatment for her. Clearly this is an emotional issue for her. In planning for discharge we should try to set her up with treatment for this if she will accept it. (5) Osteoporosis Status: Chronic Problem Text: This is a known chronic issue. Her DEXA from 07/2019 showed a L femoral neck T-score of -3.1 and a R femoral neck T-score of -2.8. She has not yet been started on treatment as her PCP was trying to correct her calcium and Vit D first. I would suggest that she be started on some sort of treatment for this before she leaves. Teriparatide may be a good option as it is anabolic. (6) Hypocalcemia Status: Chronic Discussed With: Retail Branch Manager, Patient Problem Specific Plan: Monitor Clinically, Repeat Labs Problem Text: We need to continue to improve her whole body calcium stores, but this will take some time. (7) Hypophosphatemia Status: Chronic Discussed With: Retail Branch Manager, Patient Problem Specific Plan: Monitor Clinically, Repeat Labs Problem Text: We can probably correct her hypophosphatemia by having her drink 8-16 ounces of milk once she is not NPO. (8) Protein-calorie malnutrition, mild Status: Chronic Discussed With: Retail Branch Manager Problem Specific Plan: Monitor Clinically, Repeat Labs Problem Text: She has a lower albumin level. This may impact her healing. When she receives a diet again, it should be a higher protein one. (9) Low vitamin D level Status: Chronic Discussed With: Patient Problem Text: She is currently on 50k units of Vit D weekly. We should continue this while she is here. (10) Abnormal liver function test Status: Chronic Discussed With: Patient Problem Specific Plan: Repeat Labs Problem Text: Likely related to her chronic alcohol use. They are not high enough to pose a serious problem during surgery. Will continue to monitor. (11) Anxiety and depression Status: Chronic Problem Specific Plan: Monitor Clinically Problem Text: She has Ativan available through the [facility] protocol which would cover her anxiety. We need to address her depressive symptoms too, but this will have to be after surgery. No changes for now. Plan/VTE VTE Prophylaxis Ordered?: Yes (TEDs and SCDs) VS, I&O, 24H, Fishbone Vital Signs/I&O Vital Signs Date Time Temp Pulse Resp B/P (MAP) Pulse Ox O2 Delivery O2 Flow Rate FiO2 03/26/20 04:00 2.0 03/26/20 04:00 94 140/76 03/26/20 04:00 96.8 18 98 Nasal Cannula I&O- Last 24 Hours up to 6 AM 03/26/20 05:59 Intake Total 2000 ml Output Total 700 ml Balance 1300 ml Laboratory Data 24H LABS Laboratory Tests 2 03/25/20 10:40: Immature Granulocyte % (Auto) 0.6, Neutrophils (%) (Auto) 60.8, Lymphocytes (%) (Auto) 16.8L, Monocytes (%) (Auto) 21.2H, Eosinophils (%) (Auto) 0.0, Basophils (%) (Auto) 0.6, Neutrophils # (Auto) 5.4, Lymphocytes # (Auto) 1.5, Monocytes # (Auto) 1.9H, Eosinophils # (Auto) 0.0, Basophils # (Auto) 0.1, Nucleated Red Blood Cells % (auto) 0.0, Prothrombin Time 12.8, Prothromb Time International Ratio 0.99, Anion Gap 26H, Glomerular Filtration Rate > 60.0, Calcium Level 8. 4L, Total Bilirubin 1.2H, Aspartate Amino Transf (AST/SGOT) 43H, Alanine Aminotransferase (ALT/SGPT) 25, Alkaline Phosphatase 63, Total Protein 7.1, Albumin 3.5, Albumin/Globulin Ratio 1.0L 03/25/20 11:42: Coronavirus (COVID-19)(PCR) NEGATIVE 03/25/20 14:08: Anion Gap 17H, Glomerular Filtration Rate > 60.0, Calcium Level 8.2L, Total Bilirubin 1.1H, Aspartate Amino Transf (AST/SGOT) 39H, Alanine Aminotransferase (ALT/SGPT) 25, Alkaline Phosphatase 54, Total Protein 6.8, Albumin 3.4, Albumin/Globulin Ratio 1.0L, Lactic Acid Level 5.8*H, Phosphorus Level 2.2L, Magnesium Level 1.3L, Ethyl Alcohol Level 0.131H, B-Hydroxybutyrate > 46.00H 03/25/20 18:19: Anion Gap 17H, Glomerular Filtration Rate > 60.0, Calcium Level 7.0L, Lactic Acid Level 2.3*H, Phosphorus Level 1.6#L, Magnesium Level 1.3L, Troponin I < 0.02 03/25/20 20:52: Lactic Acid Followup at 4 Hours 1.4, Whole Blood Ionized Calcium 3.7L 03/25/20 23:58: Lactic Acid Followup at 4 Hours 2.6*H, Whole Blood Ionized Calcium 3.7L, Anion Gap 6L, Glomerular Filtration Rate > 60.0, Calcium Level 7.2L, Phosphorus Level 2.2#L, Magnesium Level 2.7H 03/26/20 04:45: Anion Gap 5L, Glomerular Filtration Rate > 60.0, Calcium Level 6.5L, Phosphorus Level 1.6#L, Magnesium Level 2.0, Nucleated Red Blood Cells % (auto) 0.0, Lactic Acid Level 1.3, Total Bilirubin 1.7#H, Aspartate Amino Transf (AST/SGOT) 35, Alanine Aminotransferase (ALT/SGPT) 17, Alkaline Phosphatase 46, Total Protein 5.4#L, Albumin 2.7#L, Albumin/Globulin Ratio 1.0L CBC/BMP Laboratory Tests 03/25/20 10:40 03/25/20 14:08 03/25/20 18:19 03/25/20 23:58 03/26/20 04:45 Galileo Keene MD Mar 26, 2020 08:37
[2020-03-26] MEDS ORDERED: MORPHINE 2 MG/ML 1ML VIAL (J2270) IV PRN (08:45)
[2020-03-26] MEDS ORDERED: ceFAZolin 2 GM/D5W 50 ML IV BAG (J0690 PER 500MG) As Ordered ONE (08:49)
[2020-03-26] MEDS ORDERED: propofoL 200 MG/20 ML VIAL As Ordered ONE ×2 (09:00→10:42)
[2020-03-26] MEDS ORDERED: LIDOCAINE 2% 100MG/5ML SDV (FOR ANES.) As Ordered ONE (09:00)
[2020-03-26] MEDS ORDERED: MIDAZOLAM INJ 2MG/2ML VIAL (J2250 PER 1MG) As Ordered ONE (09:00)
[2020-03-26] MEDS ORDERED: fentaNYL 100 MCG/2 ML INJECTION (J3010) As Ordered ONE (09:00)
[2020-03-26] MEDS ORDERED: TRANEXAMIC ACID 100 MG/ML 10ML VIAL As Ordered ONE (09:48)
[2020-03-26] MEDS ORDERED: BUPIVACAINE HCL 0.25% 30ML VIAL As Ordered ONE (09:50)
[2020-03-26] MEDS ORDERED: PHENYLephrine HCL 500 MCG/5 ML (100MCG/ML) SYRINGE (J2370) As Ordered ONE (10:38)
[2020-03-26] MEDS ORDERED: ePHEDrine SULFATE 25 MG/5 ML(5MG/ML) SYRINGE As Ordered ONE (10:44)
[2020-03-26] MEDS ORDERED: LR 1,000 ML IV SCH (12:15)
[2020-03-26] MEDS ORDERED: fentaNYL 100 MCG/2 ML INJECTION (J3010) IV PRN (12:15)
[2020-03-26] MEDS: LR 1,000 ML IV SCH ×2 (12:15→20:15)
[2020-03-26] MEDS ORDERED: oxyCODONE 5MG TAB PO PRN (12:15)
[2020-03-26] MEDS ORDERED: ONDANSETRON 4MG/2ML VIAL IV PRN ×2 (12:15)
[2020-03-26] MEDS ORDERED: oxyCODONE 5MG TAB As Ordered ONE (12:16)
--- NOTE | 2020-03-26 12:46 | REP ---
Clinical: Status post arthroplasty. Technique: Portable AP and lateral views left hip . Findings: The patient is status post left hip replacement with normal positioning and appearance to the femoral and acetabular components. Overlying postsurgical changes appreciated. Impression: Satisfactory left hip replacement radiographs. Electronically Signed by Stephan Kline MD 03/26/2020 12:38 P
--- NOTE | 2020-03-26 13:10 | RO ---
DATE OF PROCEDURE: 03/26/2020 PREOPERATIVE DIAGNOSIS: Left femoral neck fracture. POSTOPERATIVE DIAGNOSIS: Left femoral neck fracture. PLANNED PROCEDURE: Left hip hemiarthroplasty. PROCEDURE PERFORMED: Left hip hemiarthroplasty (cemented). SURGEON: Nii Crowder MD NUCLEAR MEDICAL TECHNOLOGIST: Chema Domingo MD TYPE OF ANESTHETIC: Spinal anesthetic. OPERATIVE PREAMBLE: This 64-year-old female had a ground-level fall. She has osteoporosis. She sustained a displaced femoral neck fracture. We talked about the pros, cons, risks, and benefits of going ahead with hip hemiarthroplasty. These risks were reiterated in preoperative holding. I marked the left lower extremity and proceeded to surgery. OPERATIVE REPORT: The patient was brought to the operating theater. They were administered spinal anesthetic. They were administered 2 grams of intravenous (IV) Ancef and 2 grams of IV tranexamic acid prior to the start of the case. Spinal anesthesia was induced by the supervisor hairspring fabrication. The patient was transferred to the operating room table, placed in left lateral decubitus with the aid of the [place] hip positioner. Limb was prepped and draped, allowing over 3 minutes prep solution drying time. Preoperative time-out was performed to confirm the site, the patient, and the surgery. I began by making a curvilinear incision centered over the proximal lateral aspect of the hip curving it slightly posteriorly proximally. I carried dissection down to skin and subcutaneous tissue to achieve meticulous hemostasis. I instilled 20 mL of 0.25% Marcaine in and around the incision site. I incised the tensor fascia isabella in line with skin incision. I sharply excised the abductors off the greater trochanter. I made a T-shaped capsulotomy and tagged each limb with a #1 Vicryl suture. I removed the head. This measured 42 mm. This appeared to be quite a high femoral neck fracture basicervical. I used the box osteotome to lateralize my start point, as well as the canal-finding reamers. I broached up to a size 6 broach. This was sitting a little bit too proud, so I undersized the broach to size 5 and used the calcar planer. I was about 5-6 mm above the level of lesser trochanter in terms of my neck cut, which I made using the neck shaft typical guide. I then placed a size 5 with -3 mm offset taper and 42 mm head. This appeared stable. Normal shuck test. No impingement. Stable on flexion internal rotation. No posterior dislocation. Stable in extension external rotation. No anterior instability. Trials were removed. Canal was prepared with pulse lavage. Sponge was placed in the acetabulum and taken out prior to final implant cement hardening. I sized for a #4 distal cement restrictor. I selected the final components. Cement was mixed.. I placed the #4 size distal cement restrictor down to appropriate level. I used third-generation cement mixing techniques with vacuum mixing, as well as pressurized, in the canal. I inserted the cement in the canal, pressurization technique. I then inserted the implant in appropriate version. Cement was allowed to fully cure. The neck was cleaned with pulse lavage. Size 42 with -3 mm offset was then impacted into place using the [place] taper, stable and solid. Hip joint was reduced and felt to be stable and solid in all directions. No impingement and normal shuck test. During broaching, it was also noticed that there was what was likely a small benign-appearing cyst or break in the posterolateral cortex of the proximal femur. Given this fact, I elected to send bone samples from the head and neck region for culture, pathology, and cytology to ensure no infection and no malignancy. The hip was thoroughly irrigated. Abductors were repaired using #2 FiberWire suture. The tensor fascia isabella was repaired with #1 Stratafix. Subcutaneous tissue was closed with interrupted 2-0 Vicryl suture and running 2-0 Vicryl. Skin was cleaned with wet and dry dressing. Prineo wound and dressing management system was then placed appropriately and allowed to dry. Adaptic, 4 x 8 gauze, and ABD dressing were then placed over top after the wound was allowed to dry and cloth tape used. The patient was taken out of the [place] hip positioner, transferred off the operating room table, and taken to postanesthetic care unit in stable condition. All sponge, needle, and instrument counts were correct. No complications. ESTIMATED BLOOD LOSS: 100 mL. The plan for the patient: Weightbearing as tolerated. Managed under the hospitalist. They will see physical therapy (PT) and occupational therapy (OT) for help with mobilization. Venous thromboembolism (VTE) prophylaxis with Xarelto 10 mg by mouth once daily for 35 days starting with postoperative day #1. I will followup on the intraoperative cultures, pathology, and cytology to rule out to any other process. My suspicion is that this is likely due to her preexisting osteoporosis or early AVN in the head due to chronic alcoholism, but I wish to rule out other differential diagnoses. Followup will be in 2 weeks' time in the office and leave the Prineo dressing in situ and take down the bulky dressing postoperative day #1 or #2. GAGANDEEP
[2020-03-26] MEDS: MORPHINE 2 MG/ML 1ML VIAL (J2270) IV PRN ×3 (13:55→20:37)
[2020-03-26] MEDS: ceFAZolin SOD 2 GM in IV 1 EA IV SCH (17:56)
[2020-03-27] MEDS: PERCOCET 5MG/325MG TAB PO PRN ×5 (00:07→20:53)
[2020-03-27] MEDS: ceFAZolin SOD 2 GM in IV 1 EA IV SCH (00:07)
[2020-03-27 02:00] VITALS: BP 144/93
[2020-03-27 06:00] VITALS: BP 136/75
--- NOTE | 2020-03-27 06:39 | IPN ---
DATE: 03/26/2020 This is a note to update postoperative radiographic interpretation. Postoperative AP x-ray of the left hip demonstrates the component to be a well sized femoral neck, the cut to be appropriate, and the hip to be well reduced and free of complications.
[2020-03-27 06:59] LABS: HEMATOCRIT 34.3 % (36.0-47.0); HEMOGLOBIN 11.8 g/dl (12.0-15.5); MEAN CORPUSCULAR HEMOGLOBIN 34.8 pg (27.0-33.0); MEAN CORPUSCULAR HGB CONC 34.4 g/dl (32.0-36.5); MEAN CORPUSCULAR VOLUME 101.2 fl (80.0-96.0); PLATELET COUNT, AUTOMATED 142 10^3/uL (150-450); RED BLOOD COUNT 3.39 10^6/uL (4.00-5.40); WHITE BLOOD COUNT 6.7 10^3/uL (4.0-10.0)
[2020-03-27 07:26] LABS: ALBUMIN 2.5 GM/DL (3.2-5.2); ALT/SGPT 14 U/L (12-78); BILIRUBIN,TOTAL 1.3 MG/DL (0.2-1.0); BLOOD UREA NITROGEN 4 MG/DL (7-18); CALCIUM LEVEL 6.8 MG/DL (8.8-10.2); CARBON DIOXIDE LEVEL 29 MEQ/L (21-32); CHLORIDE LEVEL 101 MEQ/L (98-107); CREATININE FOR GFR 0.49 MG/DL (0.55-1.30); GLOMERULAR FILTRATION RATE > 60.0 (>45); GLUCOSE, FASTING 96 MG/DL (70-100); MAGNESIUM LEVEL 1.3 MG/DL (1.8-2.4); PHOSPHORUS LEVEL 1.8 MG/DL (2.5-4.9); POTASSIUM SERUM 3.4 MEQ/L (3.5-5.1); SODIUM LEVEL 136 MEQ/L (136-145); TOTAL PROTEIN 5.3 GM/DL (6.4-8.2)
[2020-03-27] MEDS ORDERED: POTASSIUM CHLORIDE 10 MEQ SR TABLET PO ONE (09:00)
[2020-03-27] MEDS: FOLIC ACID 1 MG TAB PO SCH (09:12)
[2020-03-27] MEDS: MULTIVITAMINS/MINERALS THERAP 1 TAB PO SCH (09:12)
[2020-03-27] MEDS: DOCUSATE SODIUM 100 MG CAP PO SCH ×2 (09:12→20:53)
[2020-03-27] MEDS: MAG SULF 1GM/100ML (MAG RUN) 1 GM in IV 1 EA IV SCH ×2 (09:12→10:31)
[2020-03-27] MEDS: THIAMINE 100 MG TAB PO SCH ×2 (09:12→20:53)
[2020-03-27] MEDS: MIRALAX *UNIT DOSE* 17GM PACKET PO SCH (09:17)
[2020-03-27] MEDS: K-PHOS NEUTRAL 250MG TABLET (SOD.PHOSPHATE/POT.PHOSPHATE) PO SCH ×3 (09:41→20:53)
[2020-03-27 10:00] VITALS: BP 151/90
[2020-03-27] MEDS ORDERED: POTASSIUM PHOSPHATE INJ 30 MMOL in D5W 500 ML IV ONE (11:00)
--- NOTE | 2020-03-27 11:55 | IPN ---
DATE: 03/27/2020 CHIEF COMPLAINT: Post-op day #1 left hip hemiarthroplasty. HISTORY OF PRESENT ILLNESS: 64-year-old female underwent left hip hemiarthroplasty yesterday. She is doing well postoperative day #1. No concerns or complaints from her or the nursing staff. PHYSICAL EXAMINATION: She is a well-appearing 54-year-old female. She is alert and oriented times three. She is in a minor amount of pain in terms of the left hip. Dressings intact, dry. Wound appears well opposed. No drainage or discharge or redness. Normal sensation. Foot was warm, well perfused. Good pedal pulses. She is able wiggle her toes, dorsiflex and plantar flex the foot. ASSESSMENT/PLAN: This is a 64-year-old female who is postoperative day #1 from left hemiarthroplasty. Venous thromboembolism (VTE) prophylaxis is Xarelto. She can mobilize, weightbearing as tolerated. I did let her know that during the surgery there was a small cyst posterolateral on the proximal femur. This appeared to be a benign bony cyst, but I did send a bony specimen from the head/neck junction area for pathology, cytology, as well as culture to rule out any other malignant processes. This should not slow her mobilization or discharge process.
[2020-03-27 14:00] VITALS: BP 135/80
[2020-03-27] MEDS: RIVAROXABAN 10 MG TAB (XARELTO) PO SCH (17:49)
--- NOTE | 2020-03-27 18:35 | IPNPDOC ---
Text Note Date of Service The patient was seen on 03/27/20. NOTE SUBJECTIVE: Patient was seen and examined today, lying comfortably in bed. She states she continues to have some left hip pain, but is greatly improved. He denies any additional symptoms or concerns. She is postop day #1 from left hip hemiarthroplasty. OBJECTIVE: VITAL SIGNS: See below GENERAL: Alert, uncomfortable, appears to be in pain especially when moving HEENT: Normocephalic, atraumatic, PERRLA, EOMI, sclera anicteric, somewhat dry mucous membranes NECK: Supple, trachea midline, no lymphadenopathy, no JVD CARDIOVASCULAR: Regular rate and rhythm, normal S1 and S2. No murmurs, rubs, or gallops RESPIRATORY: Clear to auscultation bilaterally with equal air entry bilaterally. No wheezing, rhonchi, or rales. ABDOMEN: Soft, nontender, nondistended, bowel sounds present. EXTREMITIES: No cyanosis or edema. Pulses 2+/4 in bilateral upper and lower extremities. No bruising or hematoma noted. SKIN: [place], warm, dry NEUROLOGIC: Alert and oriented x3 to person, place and time. No focal deficits appreciated PSYCHIATRIC: Mood and affect appropriate ASSESSMENT/PLAN: # Left intertrochanteric hip fracture secondary to mechanical fall, status post left hip hemiarthroplasty postop day #1 Dr. Crowder consulted from orthopedic surgery, appreciate his input and recommendations. PT/OT consulted for evaluation, treatment, and recommendations for continued rehabilitation/PT after discharge #Electrolyte abnormalities. Continue to replete electrolytes as indicated including potassium, phosphorus, magnesium, and calcium. Added 8 ounce glass of milk to 1 meal daily to help with phosphorus repletion. # Osteoporosis and vitamin D deficiency Patient recently diagnosed with osteoporosis, currently on vitamin D supplementation with a plan with PCP to start bisphosphonates once vitamin D levels normalize. Vitamin D level pending, continue 50 K units of vitamin D weekly Consider starting treatment with teriparatide prior to discharge # Alcohol abuse Elevated alcohol level on admission, patient states her last drink was 2 days prior. On CIWA protocol with as needed oral Ativan. She did require IV Ativan on the night of her admission, but since then has scored low on CIWA Discussed with her today options for additional support including counseling and and medications to help with treatment of her alcohol abuse # Anxiety/depression PRN trazodone at night held May benefit from an SSRI and referral for outpatient counseling # Elevated anion gap metabolic acidosis with elevated lactic acid and elevated betahydroxybutyrate levels, resolved lactic acidosis due to dehydration vs fasting ketosis vs alcoholic ketosis -Anion gap has closed. Continue to monitor BMP daily. Replete electrolytes as indicated. Discussed the need for proper nutrition and cessation of alcohol use to help prevent recurrence. # Abnormal liver profile. Elevated total bilirubin and AST levels, we'll recheck liver profile including conjugated and unconjugated bilirubin. May be related to alcohol abuse DVT prophylaxis: Xaralto (per Ortho protocol) Disposition: Admitted inpatient to med/surg unit pending PT eval for rehab vs home with PT VS,Fishbone, I+O VS, Fishbone, I+O Laboratory Tests 03/27/20 06:36 Vital Signs Date Time Temp Pulse Resp B/P (MAP) Pulse Ox O2 Delivery O2 Flow Rate FiO2 03/27/20 15:38 18 03/27/20 15:08 Room Air 03/27/20 14:00 99.2 93 135/80 (98) 99 03/26/20 14:50 2.0 I&O- Last 24 Hours up to 6 AM 03/27/20 06:00 Intake Total 3390 ml Output Total 1875 ml Balance 1515 ml GME ATTESTATION ATTENDING NOTE Family Medicine Attending Note: I was present on site to supervise Lawanda Jiang D.O. (PGY-2). We discussed the history and exam. I confirmed the gomez elements during my [facility]-et-capw encounter with the patient. We conferred on the assessment and plan; I agree with the note as documented. I spent some time today having a manasa discussion regarding her alcoholism. I offered her support including referral to outpatient counseling or assistance with pharmacologic management prior to discharge. Specifically we discussed the pharmacotherapeutic possibilities of naltrexone, acamprosate, or disulfiram. I emphasized that we can't do this for her, but we can assist her. I asked her to think about what she might find useful and to discuss this further with us tomorrow. 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 Mar 27, 2020 18:35 Galileo Keene MD Mar 27, 2020 21:41
--- NOTE | 2020-03-27 18:37 | ECHO ---
DATE OF PROCEDURE: 03/27/2020 REFERRING PHYSICIAN: Dr. Jensen INDICATION: Abnormal EKG. Height 158 cm, weight 62 kg. DIMENSIONS: IVS: 0.9 LV: 4.6 LVPW: 0.8 LA: 2.5 Aorta: 2.8 IVC: 0.7 Mitral E wave velocity: 46 A wave: 70 E prime septal: 6.3 E prime lateral: 8.2 FINDINGS: The study is of fair technical quality with rather challenging visualization. The patient is in sinus rhythm. Normal left ventricular (LV) size with normal LV systolic function, estimated left ventricular ejection fraction (LVEF) 60-65%. Normal right ventricular (RV) size and systolic function. Both atria appear grossly normal. Aortic valve appears minimally sclerotic but mobility of cusps is preserved. Mitral and tricuspid valves appear normal. Pulmonic valve was not well seen. No pericardial effusion is noted. Inferior vena cava is of relatively small size, indicative of normal central venous pressure. Aortic root is normal. Aortic arch and abdominal aorta were not well seen. Doppler interrogation reveals competent aortic valve. There is mild mitral and mild tricuspid insufficiency. Calculated pulmonary artery pressure is in mid 20s corresponding to normal values. Mitral inflow pattern and tissue Doppler imaging of mitral annulus revealed grade 1 diastolic dysfunction. CONCLUSIONS: 1. Study is of acceptable technical quality, the patient is in sinus rhythm. 2. Normal left ventricular (LV) size with preserved LV systolic function and grade 1 diastolic dysfunction. 3. No hemodynamically significant valvular disease. 4. Likely normal central venous pressure and normal pulmonary artery pressure. COMMENT: Subacute bacterial endocarditis (SBE) prophylaxis is not recommended. Study does not provide obvious explanation for abnormal EKG. Relatively normal echocardiogram for patient's age.
[2020-03-27 20:54] VITALS: BP 144/81
[2020-03-27 22:00] VITALS: BP 144/81
[2020-03-28 06:00] VITALS: BP 155/75
[2020-03-28 06:10] LABS: HEMATOCRIT 35.1 % (36.0-47.0); HEMOGLOBIN 11.6 g/dl (12.0-15.5); MEAN CORPUSCULAR VOLUME 102.9 fl (80.0-96.0); PLATELET COUNT, AUTOMATED 153 10^3/uL (150-450); RED BLOOD COUNT 3.41 10^6/uL (4.00-5.40); WHITE BLOOD COUNT 8.2 10^3/uL (4.0-10.0)
[2020-03-28 06:39] LABS: ALBUMIN 2.4 GM/DL (3.2-5.2); ALT/SGPT 38 U/L (12-78); BILIRUBIN,TOTAL 1.2 MG/DL (0.2-1.0); BLOOD UREA NITROGEN 5 MG/DL (7-18); CALCIUM LEVEL 7.5 MG/DL (8.8-10.2); CARBON DIOXIDE LEVEL 28 MEQ/L (21-32); CHLORIDE LEVEL 104 MEQ/L (98-107); CREATININE FOR GFR 0.56 MG/DL (0.55-1.30); GLOMERULAR FILTRATION RATE > 60.0 (>45); GLUCOSE, FASTING 97 MG/DL (70-100); POTASSIUM SERUM 3.7 MEQ/L (3.5-5.1); SODIUM LEVEL 139 MEQ/L (136-145); TOTAL PROTEIN 5.4 GM/DL (6.4-8.2)
[2020-03-28] MEDS: MIRALAX *UNIT DOSE* 17GM PACKET PO SCH (08:13)
[2020-03-28] MEDS: K-PHOS NEUTRAL 250MG TABLET (SOD.PHOSPHATE/POT.PHOSPHATE) PO SCH ×2 (08:13→16:11)
[2020-03-28] MEDS: DOCUSATE SODIUM 100 MG CAP PO SCH ×2 (08:13→20:28)
[2020-03-28] MEDS: FOLIC ACID 1 MG TAB PO SCH (08:13)
[2020-03-28] MEDS: MULTIVITAMINS/MINERALS THERAP 1 TAB PO SCH (08:13)
[2020-03-28] MEDS: THIAMINE 100 MG TAB PO SCH (08:13)
[2020-03-28] MEDS: PERCOCET 5MG/325MG TAB PO PRN ×3 (08:14→20:28)
[2020-03-28 08:53] LABS: MAGNESIUM LEVEL 1.6 MG/DL (1.8-2.4)
[2020-03-28 09:00] VITALS: BP 132/78
[2020-03-28] MEDS ORDERED: MAG SULF 1GM/100ML (MAG RUN) 1 GM in IV 1 EA IV ONE (09:00)
--- NOTE | 2020-03-28 09:57 | IPNPDOC ---
Text Note Date of Service The patient was seen on 03/28/20. NOTE SUBJECTIVE: Patient was seen and examined today, lying comfortably in bed. She continues to complain of left hip pain and states the pain medication is working to relieve this. . She states she did not work with PT again yesterday due to pain. She understands that she needs to work with them in order to make progress and work on her mobility. She is postop day #2 from left hip hemiarthroplasty. OBJECTIVE: VITAL SIGNS: See below GENERAL: Alert, uncomfortable, appears to be in pain especially when moving HEENT: Normocephalic, atraumatic, PERRLA, EOMI, sclera anicteric, somewhat dry mucous membranes NECK: Supple, trachea midline, no lymphadenopathy, no JVD CARDIOVASCULAR: Regular rate and rhythm, normal S1 and S2. No murmurs, rubs, or gallops RESPIRATORY: Clear to auscultation bilaterally with equal air entry bilaterally. No wheezing, rhonchi, or rales. ABDOMEN: Soft, nontender, nondistended, bowel sounds present. EXTREMITIES: No cyanosis or edema. Pulses 2+/4 in bilateral upper and lower extremities. No bruising or hematoma noted. SKIN: [place], warm, dry NEUROLOGIC: Alert and oriented x3 to person, place and time. No focal deficits appreciated PSYCHIATRIC: Mood and affect appropriate ASSESSMENT/PLAN: # Left intertrochanteric hip fracture secondary to mechanical fall, status post left hip hemiarthroplasty postop day #2 Dr. Crowder consulted from orthopedic surgery, appreciate his input and recommendations. PT/OT consulted for evaluation, treatment, and recommendations for continued rehabilitation/PT after discharge -She has not been participating with PT, discussed the need to work with PT for mobility -Pain control #Electrolyte abnormalities. Continue to replete electrolytes as indicated including potassium, phosphorus, magnesium, and calcium. Added 8 ounce glass of milk to 1 meal daily to help with phosphorus repletion. # Osteoporosis and vitamin D deficiency Patient recently diagnosed with osteoporosis, currently on vitamin D supplem entation with a plan with PCP to start bisphosphonates once vitamin D levels normalize. Vitamin D level normal, continue 50 K units of vitamin D weekly Consider starting treatment with teriparatide prior to discharge # Alcohol abuse Elevated alcohol level on admission, patient states her last drink was 2 days prior. On CIWA protocol with as needed oral Ativan. She did require IV Ativan on the night of her admission, but since then has scored low on CIWA Discussed with her options for additional support including counseling and and medications to help with treatment of her alcohol abuse # Anxiety/depression PRN trazodone at night held May benefit from an SSRI and referral for outpatient counseling # Elevated anion gap metabolic acidosis with elevated lactic acid and elevated betahydroxybutyrate levels, resolved lactic acidosis due to dehydration vs fasting ketosis vs alcoholic ketosis -Anion gap has closed. Continue to monitor BMP daily. Replete electrolytes as indicated. Discussed the need for proper nutrition and cessation of alcohol use to help prevent recurrence. # Abnormal liver profile. Elevated total bilirubin and AST levels, monitor liver profile May be related to alcohol abuse DVT prophylaxis: Xaralto (per Ortho protocol) Disposition: Admitted inpatient to med/surg unit pending PT eval for likely rehab placement Attending attestation: Patient independently evaluated, agree with resident's plan. VS,Fishbone, I+O VS, Fishbone, I+O Laboratory Tests 03/28/20 05:51 Vital Signs Date Time Temp Pulse Resp B/P (MAP) Pulse Ox O2 Delivery O2 Flow Rate FiO2 03/28/20 08:44 18 03/28/20 06:00 98.2 99 155/75 (101) 92 Room Air 03/26/20 14:50 2.0 I&O- Last 24 Hours up to 6 AM 03/28/20 05:59 Intake Total 1230 ml Output Total 1525 ml Balance -295 ml KHADAR JIANG D.O. Mar 28, 2020 09:57 YUAN DUFF MD Apr 01, 2020 10:23
[2020-03-28 14:00] VITALS: BP 149/81
[2020-03-28] MEDS: RIVAROXABAN 10 MG TAB (XARELTO) PO SCH (16:11)
[2020-03-28 21:30] VITALS: BP 150/82
[2020-03-28 22:00] VITALS: BP 150/82
[2020-03-29] VITALS (7 sets, daily range): BP systolic 128–169; BP diastolic 75–95
[2020-03-29] MEDS: PERCOCET 5MG/325MG TAB PO PRN ×4 (01:39→20:28)
[2020-03-29 07:03] LABS: HEMATOCRIT 32.7 % (36.0-47.0); HEMOGLOBIN 10.8 g/dl (12.0-15.5); MEAN CORPUSCULAR HEMOGLOBIN 34.2 pg (27.0-33.0); MEAN CORPUSCULAR VOLUME 103.5 fl (80.0-96.0); PLATELET COUNT, AUTOMATED 178 10^3/uL (150-450); RED BLOOD COUNT 3.16 10^6/uL (4.00-5.40); WHITE BLOOD COUNT 9.2 10^3/uL (4.0-10.0)
[2020-03-29 07:35] LABS: ALBUMIN 2.2 GM/DL (3.2-5.2); ALT/SGPT 37 U/L (12-78); BILIRUBIN,TOTAL 1.1 MG/DL (0.2-1.0); BLOOD UREA NITROGEN 8 MG/DL (7-18); CALCIUM LEVEL 8.2 MG/DL (8.8-10.2); CARBON DIOXIDE LEVEL 30 MEQ/L (21-32); CHLORIDE LEVEL 108 MEQ/L (98-107); GLOMERULAR FILTRATION RATE > 60.0 (>45); GLUCOSE, FASTING 90 MG/DL (70-100); MAGNESIUM LEVEL 1.7 MG/DL (1.8-2.4); PHOSPHORUS LEVEL 2.5 MG/DL (2.5-4.9); POTASSIUM SERUM 4.7 MEQ/L (3.5-5.1); SODIUM LEVEL 141 MEQ/L (136-145); TOTAL PROTEIN 5.4 GM/DL (6.4-8.2)
[2020-03-29] MEDS ORDERED: MAG SULF 1GM/100ML (MAG RUN) 1 GM in IV 1 EA IV ONE (08:00)
[2020-03-29] MEDS: DOCUSATE SODIUM 100 MG CAP PO SCH ×2 (08:04→20:28)
[2020-03-29] MEDS: MIRALAX *UNIT DOSE* 17GM PACKET PO SCH (08:04)
[2020-03-29] MEDS: MULTIVITAMINS/MINERALS THERAP 1 TAB PO SCH (08:04)
[2020-03-29] MEDS: FOLIC ACID 1 MG TAB PO SCH (08:05)
[2020-03-29] MEDS ORDERED: VITAMIN D 50,000 UNITS CAPSULE (ERGOCALCIFEROL 1.25MG) PO SCH (09:00)
--- NOTE | 2020-03-29 16:31 | IPNPDOC ---
Text Note Date of Service The patient was seen on 03/29/20. NOTE SUBJECTIVE: Patient was seen and examined today, sitting up comfortably in a chair. She states her hip pain has improved somewhat since yesterday. She was evaluated by PT yesterday and was not able to do much with them. She continues to work on her functional ability with the nursing staff Today. She is postop day #3 from left hip hemiarthroplasty. OBJECTIVE: VITAL SIGNS: See below GENERAL: Alert, uncomfortable, appears to be in pain especially when moving HEENT: Normocephalic, atraumatic, PERRLA, EOMI, sclera anicteric, somewhat dry mucous membranes NECK: Supple, trachea midline, no lymphadenopathy, no JVD CARDIOVASCULAR: Regular rate and rhythm, normal S1 and S2. No murmurs, rubs, or gallops RESPIRATORY: Clear to auscultation bilaterally with equal air entry bilaterally. No wheezing, rhonchi, or rales. ABDOMEN: Soft, nontender, nondistended, bowel sounds present. EXTREMITIES: No cyanosis or edema. Pulses 2+/4 in bilateral upper and lower extremities. No bruising or hematoma noted. SKIN: [place], warm, dry NEUROLOGIC: Alert and oriented x3 to person, place and time. No focal deficits appreciated PSYCHIATRIC: Mood and affect appropriate ASSESSMENT/PLAN: # Left intertrochanteric hip fracture secondary to mechanical fall, status post left hip hemiarthroplasty postop day #3 Dr. Crowder consulted from orthopedic surgery, appreciate his input and recommendations. PT/OT consulted for evaluation, treatment, and recommendations for continued rehabilitation/PT after discharge -She has been evaluated by PT, who suggested rehabilitation after discharge for continued therapy -Pain control #Electrolyte abnormalities. Continue to replete electrolytes as indicated including potassium, phosphorus, magnesium, and calcium. Added 8 ounce glass of milk to 1 meal daily to help with phosphorus repletion. Continues to improve each day, she has also supplementing meals with shoulder: # Osteoporosis and vitamin D deficiency Patient recently diagnosed with osteoporosis, currently on vitamin D supplementation with a plan with PCP to start bisphosphonates once vitamin D levels normalize. Vitamin D level normal, continue 50 K units of vitamin D weekly Consider starting treatment with teriparatide prior to discharge # Alcohol abuse Elevated alcohol level on admission, patient states her last drink was 2 days prior. On CIWA protocol with as needed oral Ativan. She did require IV Ativan on the night of her admission, but since then has scored low on CIWA Discussed with her options for additional support including counseling and and medications to help with treatment of her alcohol abuse # Anxiety/depression PRN trazodone at night held May benefit from an SSRI and referral for outpatient counseling # Elevated anion gap metabolic acidosis with elevated lactic acid and elevated betahydroxybutyrate levels, resolved lactic acidosis due to dehydration vs fasting ketosis vs alcoholic ketosis -Anion gap has closed. Continue to monitor BMP daily. Replete electrolytes as indicated. Discussed the need for proper nutrition and cessation of alcohol use to help prevent recurrence. # Abnormal liver profile. Elevated total bilirubin and AST levels, monitor liver profile May be related to alcohol abuse DVT prophylaxis: Xarelto (per Ortho protocol) Disposition: Admitted inpatient to med/surg unit pending PT eval for likely rehab placement Attending attestation: Patient independently evaluated, agree with resident's plan. VS,Fishbone, I+O VS, Fishbone, I+O Laboratory Tests 03/29/20 06:42 Vital Signs Date Time Temp Pulse Resp B/P (MAP) Pulse Ox O2 Delivery O2 Flow Rate FiO2 03/29/20 14:10 16 03/29/20 14:00 97.6 102 169/86 (113) 100 Room Air 03/29/20 13:17 2.0 l I&O- Last 24 Hours up to 6 AM 03/29/20 06:00 Intake Total 610 ml Output Total 800 ml Balance -190 ml KHADAR JIANG D.O. Mar 29, 2020 16:31 YUAN DUFF MD Apr 01, 2020 10:34
[2020-03-29] MEDS: RIVAROXABAN 10 MG TAB (XARELTO) PO SCH (18:40)
[2020-03-30] MEDS: PERCOCET 5MG/325MG TAB PO PRN ×3 (03:49→12:53)
[2020-03-30 06:00] VITALS: BP 126/80
[2020-03-30 06:08] VITALS: BP 132/78
[2020-03-30 06:59] LABS: HEMATOCRIT 34.1 % (36.0-47.0); HEMOGLOBIN 11.1 g/dl (12.0-15.5); MEAN CORPUSCULAR HEMOGLOBIN 33.8 pg (27.0-33.0); MEAN CORPUSCULAR HGB CONC 32.6 g/dl (32.0-36.5); PLATELET COUNT, AUTOMATED 235 10^3/uL (150-450); RED BLOOD COUNT 3.28 10^6/uL (4.00-5.40); WHITE BLOOD COUNT 9.9 10^3/uL (4.0-10.0)
[2020-03-30 07:33] LABS: ALBUMIN 2.3 GM/DL (3.2-5.2); ALT/SGPT 25 U/L (12-78); BILIRUBIN,TOTAL 0.6 MG/DL (0.2-1.0); BLOOD UREA NITROGEN 13 MG/DL (7-18); CALCIUM LEVEL 9.3 MG/DL (8.8-10.2); CARBON DIOXIDE LEVEL 27 MEQ/L (21-32); CHLORIDE LEVEL 104 MEQ/L (98-107); CREATININE FOR GFR 0.71 MG/DL (0.55-1.30); GLOMERULAR FILTRATION RATE > 60.0 (>45); GLUCOSE, FASTING 100 MG/DL (70-100); MAGNESIUM LEVEL 1.5 MG/DL (1.8-2.4); PHOSPHORUS LEVEL 3.2 MG/DL (2.5-4.9); POTASSIUM SERUM 4.2 MEQ/L (3.5-5.1); SODIUM LEVEL 139 MEQ/L (136-145); TOTAL PROTEIN 6.5 GM/DL (6.4-8.2)
[2020-03-30] MEDS: MULTIVITAMINS/MINERALS THERAP 1 TAB PO SCH (08:50)
[2020-03-30] MEDS: MIRALAX *UNIT DOSE* 17GM PACKET PO SCH (08:50)
[2020-03-30] MEDS: DOCUSATE SODIUM 100 MG CAP PO SCH ×2 (08:50→08:52)
[2020-03-30] MEDS: FOLIC ACID 1 MG TAB PO SCH (08:50)
[2020-03-30] MEDS ORDERED: XARE10TA PO (10:29)
[2020-03-30] MEDS ORDERED: PERCOCET PO ×2 (10:29)
[2020-03-30] MEDS ORDERED: DOCU100C16 PO (10:29)
--- NOTE | 2020-03-30 14:52 | DS.PDOC ---
Discharge Summary General Date of Admission Mar 25, 2020 at 12:34 Date of Discharge 03/30/2020 Primary Care Physician: LUANNE KING DO Attending Physician: YUAN DUFF MD Discharge Summary PROCEDURES PERFORMED DURING STAY: None. ADMITTING DIAGNOSES: 1. Left intertrochanteric hip fracture secondary to mechanical fall 2. Elevated anion gap with elevated lactic acid and elevated betahydroxybutyrate levels 3. Abnormal liver profile. 4. Osteoporosis and vitamin D deficiency 5. Anxiety/depression DISCHARGE DIAGNOSES: 1. Left intertrochanteric hip fracture secondary to mechanical fall s/p left hip hemiarthroplasty 2. Elevated anion gap with elevated lactic acid and elevated betahydroxybutyrate levels, resolved 3. Abnormal liver profile. 4. Osteoporosis and vitamin D deficiency 5. Anxiety/depression 6. Alcohol abuse COMPLICATIONS/CHIEF COMPLAINT: Left Hip Fracture. HISTORY OF PRESENT ILLNESS: 64-year-old female who presented to the emergency room today after a mechanical fall. She states that this morning she went to get out of bed and before reaching her walker. She lost her balance and fell directly on the lateral portion of her left hip. She denies any lightheadedness or dizziness prior to the fall. She denies any recent palpitations. She was brought in to the emergency department by EMS. Workup in the emergency department showed a left intratrochanteric hip fracture on hip x-ray. The patient currently reports sharp pain in the left lateral hip, which is worse with any movement. Patient also states she has not had anything to eat since yesterday morning. She states she typically eats 1 meal per day from [employer]. During evaluation in the emergency department, the patient was found to have a left intertrochanteric hip fracture on x-ray. Dr. Crowder of orthopedic surgery was consulted and planned for surgical repair. HOSPITAL COURSE: The patient was admitted to the hospital. On admission, she was not medically optimized for surgery. She was found to have an elevated anion gap with elevated lactic acid and elevated beta hydroxybutyrate levels. She was started on IV fluids. She was also found to have multiple electrolyte abnormalities including low phosphorus, low magnesium, and low potassium levels. This anion gap metabolic acidosis was thought to be secondary to alcoholic ketosis and fasting ketosis. Electrolytes were repleted. That evening she developed what appeared to be sinus tachycardia with rates in the 160s to 190s. At that time, she was scoring high on CIWA and was treated with IV Ativan. She was also reporting severe hip pain and was treated with IV morphine. She responded well and her heart rate slowed down to the [id number] while she appears to be resting comfortably. Her lactic acid level normalized. The following morning, her anion gap had closed. At this point, she was medically optimized f or surgery and Dr. Crowder proceeded with left hip hemiarthroplasty. Postoperatively, she recovered slowly and was unable to work with PT for the first few days due to pain. When evaluated by PT who felt she would benefit from rehabilitation prior to returning home. She continued on the CIWA scale, but did not require any Ativan doses postoperatively. Over the course of her admission, her electrolyte abnormalities, mostly normalized. She did continue to have some hypomagnesemia which was repleted. On the day of her discharge. We will suggest following up on this after discharge. Her alcohol abuse was also discussed with her. The patient is somewhat resistant to assistance with alcohol cessation, feeling that she can stop drinking on her own. The importance of alcohol cessation was discussed with the patient multiple times during her admission. The patient's vitamin D level was also checked and was found to be within normal range. The patient can be started on a bisphosphonate for better treatment of her osteopenia and the outpatient setting. She should also consider SSRI therapy and cognitive behavioral therapy for her anxiety and depression. This might help with her alcohol abuse. However, I am unsure how open. She will be to these measures, as she was quite resistant. When discussed during her hospitalization. DISCHARGE MEDICATIONS: Please see below. ALLERGIES: Please see below. PHYSICAL EXAMINATION ON DISCHARGE: VITAL SIGNS: Please see below. GENERAL: Alert, uncomfortable, appears to be in pain especially when moving HEENT: Normocephalic, atraumatic, PERRLA, EOMI, sclera anicteric, somewhat dry mucous membranes NECK: Supple, trachea midline, no lymphadenopathy, no JVD CARDIOVASCULAR: Regular rate and rhythm, normal S1 and S2. No murmurs, rubs, or gallops RESPIRATORY: Clear to auscultation bilaterally with equal air entry bilaterally. No wheezing, rhonchi, or rales. ABDOMEN: Soft, nontender, nondistended, bowel sounds present. EXTREMITIES: No cyanosis or edema. Pulses 2+/4 in bilateral upper and lower extremities. No bruising or hematoma noted. SKIN: [place], warm, dry NEUROLOGIC: Alert and oriented x3 to person, place and time. No focal deficits appreciated PSYCHIATRIC: Mood and affect appropriate LABORATORY DATA: Please see below. IMAGING: - Hip XR: Left intertrochanteric hip fracture. - Femur XR: No fracture of the visualized mid to distal left femur. - CXR: No acute cardiopulmonary process. PROGNOSIS: Poor ACTIVITY: As tolerated. DIET: Regular diet, supplement with ensure DISCHARGE PLAN: [facility] for rehab DISPOSITION: [facility]. DISCHARGE INSTRUCTIONS: 1. You will be discharged to [facility] for continued rehab. 2. Please take your vitamin D and follow up with you PCP to discuss osteoporosis treatment. 3. We are holding your trazodone while you are on strong pain medication to avoid sedation. You can restart this medication when you are no longer taking the Percocet or as instructed by your PCP. 4. Please take all other medications as prescribed. 5. Follow up with you PCP and the orthopedic surgeon as scheduled. ITEMS TO FOLLOWUP ON ON OUTPATIENT: 1. Left hip hemiarthroplasty, follow-up with Dr. Nii Crowder. 2. Osteoporosis, vitamin D level normal, PCP consider bisphosphonate therapy. 3. Alcohol abuse, continued discussions about the importance of alcohol cessation for your overall health and resources to help with this DISCHARGE CONDITION: Stable. TIME SPENT ON DISCHARGE: 35 minutes. Attending attestation: Patient independently evaluated, agree with resident's plan. Vital Signs/I&Os Vital Signs Date Time Temp Pulse Resp B/P (MAP) Pulse Ox O2 Delivery O2 Flow Rate FiO2 03/30/20 13:23 20 03/30/20 06:08 84 132/78 03/30/20 06:00 98.1 97 Room Air 03/29/20 13:17 2.0 I&O- Last 24 Hours up to 6 AM 03/30/20 06:00 Intake Total 2380 ml Output Total 1100 ml Balance 1280 ml Laboratory Data Labs 24H Laboratory Tests 2 03/30/20 06:46: Nucleated Red Blood Cells % (auto) 0.0, Anion Gap 8, Glomerular Filtration Rate > 60.0, Calcium Level 9.3, Phosphorus Level 3.2#, Magnesium Level 1.5L, Total Bilirubin 0.6, Aspartate Amino Transf (AST/SGOT) 30, Alanine Aminotransferase (ALT/SGPT) 25, Alkaline Phosphatase 89, Total Protein 6.5#, Albumin 2.3L, Albumin/Globulin Ratio 0.5L CBC/BMP Laboratory Tests 03/30/20 06:46 Microbiology Microbiology 03/27/20 Gram Stain - Final, Complete 03/27/20 Wound Culture - Final, Complete 03/26/20 Gram Stain - Final, Complete 03/26/20 Abscess Culture - Final, Complete Discharge Medications Scheduled Docusate Sodium (Docusate Sodium) 100 Mg Capsule, 100 MG PO BID Ergocalciferol (Vitamin D2) (Vitamin D2) 50,000 Units Cap, 50,000 UNIT PO QWEEK, (Reported) WEDNESDAYS Rivaroxaban (Xarelto) 10 Mg Tablet, 10 MG PO DAILY@18 Scheduled PRN Oxycodone/Acetaminophen (Oxycodone-Acetaminophen 5-325) 1 Each Tablet, 2 TAB PO Q6HP PRN for SEVERE PAIN (PS 8-10) Oxycodone/Acetaminophen (Oxycodone-Acetaminophen 5-325) 1 Each Tablet, 1 TAB PO Q4H PRN for MODERATE PAIN (PS 5-7) Allergies Coded Allergies: No Known Allergies (Verified , 03/25/20) KHADAR JIANG D.O. Mar 30, 2020 14:52 YUAN DUFF MD Apr 01, 2020 10:37
== END 2020-03-30 13:51 | DRG 470 ==
LOC: M ED 10:14 → M ED INP 12:34 → ENRESERV 13:18 → M MS5PR 15:40 → M PCU 17:06 → M MS5PR 03-26 12:50
PROVIDERS: ADMIT Internal Medicine; ATTEND Internal Medicine
PROC: 0SRS0J9 Replacement of Left Hip Joint, Femoral Surface with Synthetic Substitute, Cemented, Open Approach (ICD-10-PCS; principal; 2020-03-26 11:35)
DX: S72.142A Displaced intertrochanteric fracture of left femur, initial encounter for closed fracture (principal); E87.2 Acidosis; E44.1 Mild protein-calorie malnutrition; R29.6 Repeated falls; E83.51 Hypocalcemia; E83.39 Other disorders of phosphorus metabolism; M81.0 Age-related osteoporosis without current pathological fracture; E55.9 Vitamin D deficiency, unspecified; F41.9 Anxiety disorder, unspecified; F32.9 Major depressive disorder, single episode, unspecified; W18.30XA Fall on same level, unspecified, initial encounter; Y92.009 Unspecified place in unspecified non-institutional (private) residence as the place of occurrence of the external cause; F17.210 Nicotine dependence, cigarettes, uncomplicated; F10.10 Alcohol abuse, uncomplicated

== ENCOUNTER → 2020-04-06 | Outpatient (REF) ==
[~2020-04-06] MED LIST changes: +DOCU100C16 PO; +PERCOCET PO; +VITA50005 PO; +XARE10TA PO
[2020-04-06 12:15] LABS: HEMATOCRIT 36.4 % (36.0-47.0); HEMOGLOBIN 11.6 g/dl (12.0-15.5); MEAN CORPUSCULAR HEMOGLOBIN 33.4 pg (27.0-33.0); MEAN CORPUSCULAR HGB CONC 31.9 g/dl (32.0-36.5); MEAN CORPUSCULAR VOLUME 104.9 fl (80.0-96.0); PLATELET COUNT, AUTOMATED 788 10^3/uL (150-450); RED BLOOD COUNT 3.47 10^6/uL (4.00-5.40)
[2020-04-06 12:28] LABS: ALBUMIN 3.2 GM/DL (3.2-5.2); ALT/SGPT 18 U/L (12-78); BILIRUBIN,TOTAL 0.3 MG/DL (0.2-1.0); BLOOD UREA NITROGEN 19 MG/DL (7-18); CALCIUM LEVEL 9.6 MG/DL (8.8-10.2); CARBON DIOXIDE LEVEL 29 MEQ/L (21-32); CHLORIDE LEVEL 104 MEQ/L (98-107); CREATININE FOR GFR 0.76 MG/DL (0.55-1.30); GLOMERULAR FILTRATION RATE > 60.0 (>45); GLUCOSE, FASTING 96 MG/DL (70-100); MAGNESIUM LEVEL 1.9 MG/DL (1.8-2.4); SODIUM LEVEL 140 MEQ/L (136-145); TOTAL PROTEIN 6.8 GM/DL (6.4-8.2)
== END ==
LOC: SKLAB4 14:43
PROVIDERS: ATTEND Internal Medicine
DX: M80.859 Other osteoporosis with current pathological fracture, unspecified femur (principal); E83.42 Hypomagnesemia

== ENCOUNTER → 2020-04-08 | Outpatient (REF) ==
[2020-04-08 08:23] LABS: HEMATOCRIT 38.1 % (36.0-47.0); HEMOGLOBIN 12.1 g/dl (12.0-15.5); MEAN CORPUSCULAR HEMOGLOBIN 33.5 pg (27.0-33.0); MEAN CORPUSCULAR HGB CONC 31.8 g/dl (32.0-36.5); MEAN CORPUSCULAR VOLUME 105.5 fl (80.0-96.0); PLATELET COUNT, AUTOMATED 714 10^3/uL (150-450); RED BLOOD COUNT 3.61 10^6/uL (4.00-5.40); WHITE BLOOD COUNT 10.8 10^3/uL (4.0-10.0)
== END ==
LOC: SKLAB4 12:01
DX: D64.9 Anemia, unspecified (principal)

== ENCOUNTER → 2020-04-13 | Outpatient (REF) ==
[~2020-04-13] MED LIST changes: +ACAM0.05 PO; +DURA25DI3 TOP; +FOSA70TA PO; +IBUP200T45 PO; +OYST500T12 PO; -VITA1TAB23 PO; +VITA250T20 PO; +VITAD400CA PO; +advil PO
[2020-04-13 11:05] LABS: ALBUMIN 3.3 GM/DL (3.2-5.2); ALT/SGPT 14 U/L (12-78); BILIRUBIN,TOTAL 0.2 MG/DL (0.2-1.0); BLOOD UREA NITROGEN 21 MG/DL (7-18); CALCIUM LEVEL 9.5 MG/DL (8.8-10.2); CARBON DIOXIDE LEVEL 30 MEQ/L (21-32); CHLORIDE LEVEL 105 MEQ/L (98-107); GLOMERULAR FILTRATION RATE > 60.0 (>45); GLUCOSE, FASTING 129 MG/DL (70-100); PHOSPHORUS LEVEL 3.3 MG/DL (2.5-4.9); POTASSIUM SERUM 4.7 MEQ/L (3.5-5.1); SODIUM LEVEL 141 MEQ/L (136-145); TOTAL PROTEIN 7.1 GM/DL (6.4-8.2)
== END ==
LOC: SKLAB4 09:23
DX: F10.10 Alcohol abuse, uncomplicated (principal)

== ENCOUNTER 2020-06-05 08:33 | Inpatient (IN) | payer MEDICARE, MEDICAID ==
[~2020-06-05] VITALS: Ht 157.5 cm; Wt 67.6 kg
[~2020-06-05 08:33] MED LIST changes: -ACAM0.05 PO; -DURA25DI3 TOP; -FOSA70TA PO; -IBUP200T45 PO; -OYST500T12 PO; -VITAD400CA PO; -advil PO
[2020-06-05] MEDS ORDERED: PERCOCET 5MG/325MG TAB PO ONE (08:45)
[2020-06-05] MEDS ORDERED: TRAZ-252 PO (09:00)
[2020-06-05] MEDS ORDERED: FOSA70TA PO (09:00)
[2020-06-05] MEDS ORDERED: FOLI1TAB11 PO (09:00)
[2020-06-05] MEDS ORDERED: MAGN64TASA PO (09:00)
[2020-06-05] MEDS ORDERED: ACAM0.05 PO (09:00)
[2020-06-05] MEDS ORDERED: advil PO (09:01)
--- NOTE | 2020-06-05 09:38 | REPVR ---
PROCEDURE INFORMATION: Exam: XR Chest, 2 Views Exam date and time: 06/05/2020 9:04 AM Age: 64 years old Clinical indication: Other: Trauma; Prior surgery TECHNIQUE: Imaging protocol: XR of the chest Views: 2 views. COMPARISON: 1. CR Chest, 1 view 03/25/2020 10:43 AM 2. MA - Chest, 2 view PA, Lat 02/08/2019 2:45:40 PM FINDINGS: Lungs: Lungs are well aerated. Mild left basilar atelectasis. No consolidation. Pleural space: Small left apical pneumothorax which extends laterally. No pleural effusions. Heart/Mediastinum: Cardiac size is normal and mediastinal contour stable. Bones/joints: Deformity of the lateral aspect of the left 7th rib suspicious for fracture. Osteopenia and mild degenerative changes. Old right-sided rib fracture deformities as well as old fracture deformity of the proximal left humerus status post ORIF. Old T12 compression deformity. IMPRESSION: 1. Small left apical pneumothorax. Suspect left lateral 7th rib fracture. 2. Mild left basilar atelectasis. No consolidation. THIS REPORT CONTAINS FINDINGS THAT MAY BE CRITICAL TO PATIENT CARE. The findings were verbally communicated via telephone conference with SUZY SAINI at 9:34 AM EDT on 06/05/2020. The findings were acknowledged and understood. Electronically signed by: Stephan Becerril On 06/05/2020 09:38:25 AM
--- NOTE | 2020-06-05 09:51 | REPVR ---
PROCEDURE INFORMATION: Exam: XR Left Hip with Pelvis when Performed Exam date and time: 06/05/2020 9:04 AM Age: 64 years old Clinical indication: Other: Trauma TECHNIQUE: Imaging protocol: XR Left hip with pelvis when performed. Views: 2 or 3 views. COMPARISON: CR Hip, Ap,Lat 03/26/2020 12:10 PM FINDINGS: Bones/joints: Bones are demineralized. Postoperative change from left hip arthroplasty. Hardware appears intact. No acute fracture or dislocation. Soft tissues: There are few soft tissue calcifications about the left hip. Soft tissues are otherwise unremarkable. IMPRESSION: Postoperative change from left hip arthroplasty. No acute fracture or dislocation. Electronically signed by: Stephan Becerril On 06/05/2020 09:51:40 AM
[2020-06-05] MEDS ORDERED: DOCU100C16 PO (10:42)
[2020-06-05] MEDS ORDERED: OYST500T12 PO (10:42)
[2020-06-05] MEDS ORDERED: IBUP200T45 PO (10:42)
[2020-06-05] MEDS ORDERED: THIA100T7 PO (10:42)
--- NOTE | 2020-06-05 10:49 | REPVR ---
PROCEDURE INFORMATION: Exam: CT Chest Without Contrast Exam date and time: 06/05/2020 9:55 AM Age: 64 years old Clinical indication: Injury or trauma; Fall; Initial encounter; Blunt trauma (contusions or hematomas) TECHNIQUE: Imaging protocol: Computed tomography of the chest without contrast. 3D rendering (Not supervised by radiologist): MIP and/or 3D reconstructed images were created by the technologist. Radiation optimization: All CT scans at this facility use at least one of these dose optimization techniques: automated exposure control; mA and/or kV adjustment per patient size (includes targeted exams where dose is matched to clinical indication); or iterative reconstruction. COMPARISON: CT Chest without contrast 07/01/2018 3:05 PM FINDINGS: Lungs: Central airways are patent. Mild dependent and left basilar atelectasis. No evidence of airspace consolidation or pulmonary contusion. Pleural space: Small to moderate left pneumothorax which is most pronounced anteriorly at the left base, estimated at 15%. No hemothorax. Heart: Cardiac size is normal. Coronary artery calcification. No significant pericardial effusion. Mediastinal space: No mediastinal hematoma. Aorta: Atherosclerosis. No thoracic aortic aneurysm. Lymph nodes: No significant adenopathy. Liver: Diffuse fatty infiltration of the liver. Bones/joints: Bones are demineralized. There is an acute displaced fracture involving the lateral left 7th rib and nondisplaced fracture involving the lateral left 8th rib. Multiple old bilateral rib fracture deformities. Old posttraumatic deformity of the left proximal humerus status post ORIF with fixation hardware in place. Old T12 compression deformity. Soft tissues: Mild left lateral chest wall soft tissue swelling/contusion. IMPRESSION: 1. Small to moderate left pneumothorax, estimated at 15%. 2. Acute displaced fracture involving the lateral left 7th rib and nondisplaced fracture involving the lateral left 8th rib. 3. Mild left lateral chest wall soft tissue swelling/contusion. 4. Additional non-emergent findings, as discussed above. THIS REPORT CONTAINS FINDINGS THAT MAY BE CRITICAL TO PATIENT CARE. The findings were verbally communicated via telephone conference with SUZY SAINI at 10:20 AM EDT on 06/05/2020. The findings were acknowledged and understood. Electronically signed by: Stephan Becerril On 06/05/2020 10:49:04 AM
[2020-06-05 10:59] LABS: BASO # 0.1 10^3/uL (0.0-0.2); BASO % 0.5 % (0.0-1.0); EOS # 0.1 10^3/uL (0.0-0.5); EOS % 0.5 % (0.0-3.0); HEMATOCRIT 41.9 % (36.0-47.0); LYMPH # 2.2 10^3/uL (1.5-5.0); LYMPH % 22.2 % (24.0-44.0); MEAN CORPUSCULAR HEMOGLOBIN 32.4 pg (27.0-33.0); MEAN CORPUSCULAR HGB CONC 33.4 g/dl (32.0-36.5); MONO # 0.8 10^3/uL (0.0-0.8); MONO % 7.6 % (0.0-5.0); NEUTROPHILS # 6.8 10^3/uL (1.5-8.5); NEUTROPHILS % 68.8 % (36.0-66.0); PLATELET COUNT, AUTOMATED 229 10^3/uL (150-450); RED BLOOD COUNT 4.32 10^6/uL (4.00-5.40); WHITE BLOOD COUNT 9.8 10^3/uL (4.0-10.0)
[2020-06-05 11:08] LABS: INR 0.96; PROTHROMBIN TIME 12.9 SECONDS (11.8-14.0)
[2020-06-05 11:22] LABS: BILIRUBIN,TOTAL 1.1 MG/DL (0.2-1.0); CALCIUM LEVEL 9.7 MG/DL (8.8-10.2); CREATININE FOR GFR 1.65 MG/DL (0.55-1.30); GLOMERULAR FILTRATION RATE 33.1 (>45); POTASSIUM SERUM 3.8 MEQ/L (3.5-5.1); TOTAL PROTEIN 7.6 GM/DL (6.4-8.2)
[2020-06-05] MEDS ORDERED: PILL CUTTER 1 EACH XX PRN (12:00)
[2020-06-05 12:40] VITALS: BP 120/75
[2020-06-05] MEDS: THIAMINE 100 MG TAB PO SCH (13:20)
[2020-06-05] MEDS: oxyCODONE 5MG TAB PO PRN ×2 (13:20→19:47)
[2020-06-05] MEDS: FOLIC ACID 1 MG TAB PO SCH (13:21)
[2020-06-05] MEDS: HEPARIN SOD (PORCINE) 5000UNITS/ML 1ML VIAL/SYRINGE SC SCH ×3 (13:21→21:05)
[2020-06-05] MEDS: DOCUSATE SODIUM 100 MG CAP PO PRN (13:21)
[2020-06-05] MEDS: NS 1,000 ML IV SCH ×2 (13:28→23:49)
--- NOTE | 2020-06-05 14:20 | HPEPDOC ---
General Date of Admission Jun 05, 2020 at 11:18 Date of Service: Jun 05, 2020 Attending Physician: KIRSTY ARAGON DO Chief Complaint The patient is a 64-year-old female admitted with a reason for visit of Acute Kidney Injury Pneumothorax Rib Fx. Source: Patient Exam Limitations: No limitations Severity: Moderate Associated Symptoms: Shortness of breath History of Present Illness Patient is a 64 year old female with history of left hip fracture and osteoporosis here for left rib fracture and pneumothorax. She was here in March 25, 2020 for left hip fracture and eventually sent to [facility] for continued rehabilitation. She was discharged from [facility] to home on May 04, 2020 . While at home, she maneuvered with the walker, but the walker does not fit through the door frame of the bathroom. She ziegler her walker outside and holds onto the larson to get across. Today, she was walking back towards the walker when she slipped and crashed into the side of the door frame on the left. Denies lightheadedness/dizziness or headache. Denies loss of consciousness. Denies head strike. She eventually got to the walker. She had pleuritic chest pain. When she took a deep breath, pain was a sharp 10/10 on the left side. In the ED, CXR and CT chest was obtained which demonstrated rib fractures of ribs 7 and 8 as well has a small to moderate pneumothorax, estimated to be 15%. ED contacted thoracic surgery, Dr. Deras, who recommended conservative management, pain control, and repeat imaging. When I went to see her, she was feeling better. She had 2 Percocet and the pain improved to 6/10 when she takes a deep breath. Denies headache, lightheadedness/dizziness, chest pain, abdominal pain, dysuria, or diarrhea. Home Medications Scheduled Acamprosate Calcium (Acamprosate Calcium) 333 Mg Tablet., 666 MG PO TID, (Reported) Alendronate Sodium (Fosamax) 70 Mg Tablet, 70 MG PO QWEEK, (Reported) WEDNESDAYS Calcium Carbonate/Vitamin D3 (Oyster Shell 500-Vit D3 200 Tb) 1 Each Tablet, 1 TAB PO TID, (Reported) Ergocalciferol (Vitamin D2) (Vitamin D2) 50,000 Units Cap, 50,000 UNIT PO QWEEK, (Reported) WEDNESDAYS Folic Acid (Folic Acid) 1 Mg Tablet, 1 TAB PO DAILY, (Reported) Magnesium Chloride (Mag64) 64 Mg Tablet.dr, 64 MG PO DAILY, (Reported) Thiamine HCl (Thiamine HCl) 100 Mg Tablet, 100 MG PO DAILY, (Reported) Trazodone HCl (Trazodone HCl) 50 Mg Tablet, 50 MG PO QHS, (Reported) Scheduled PRN Docusate Sodium (Docusate Sodium) 100 Mg Capsule, 100 MG PO BID PRN for CONSTIPATION, (Reported) Ibuprofen (Ibu-200) 200 Mg Tablet, 400 MG PO Q6H PRN for PAIN, (Reported) Allergies Coded Allergies: No Known Allergies (Verified , 03/25/20) Past Medical History Medical History 1. 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 Osteoporosis. 3. Depression/anxiety. 4. History of alcohol abuse. 5. Vitamin D deficiency 6. Left hip fracture Surgical History 1. section 2. Tubal ligation. 3. Right ankle open reduction internal fixation. 4. Left shoulder surgery 5. Left hip repair Family History Father had diabetes mellitus and at 63 years old. Mother had at the age of 56 from pneumonia and a ruptured aneurysm. Social History * Smoker: current smoker (smoked for 50 years 2 ppd) Alcohol: sober (Former history of alcohol abuse. Stopped drinking 1 month ago) Drugs: denies A-FIB/CHADSVASC A-FIB History Current/History of A-Fib/PAF?: No Review of Systems Constitutional: Denies: Chills, Fever Eyes: Denies: Vision change ENT: Denies: Head Aches Skin: Denies: Rash Pulmonary: Reports: Pleuritic Chest Pain Cardiovascular: Denies: Chest Pain Gastrointestinal: Denies: Nausea, Abdominal Pain, Diarrhea Genitourinary: Denies: Dysuria Neurological: Denies: Numbness Psych: Reports: Mood Normal Physical Examination General Exam: Positive: Alert, Cooperative, No Acute Distress Eye Exam: Positive: EOMI; Negative: Sclera icteric ENT Exam: Positive: Atraumatic, Mucous membr. moist/pink Neck Exam: Positive: Supple Chest Exam: Positive: Clear to auscultation Heart Exam: Positive: Tachycardic, Regular Rhythm Abdomen Exam: Positive: Normal bowel sounds, Soft; Negative: Tenderness Extremity Exam: Positive: Edema (bilateral pitting edema) Neuro Exam: Positive: Cranial Nerves 3-12 NL, Other (Strength at 5/5 with upper extremity and right leg. She had some pain moving left leg) Psych Exam: Positive: Mental status NL, Mood NL Vital Signs Vital Signs Date Time Temp Pulse Resp B/P (MAP) Pulse Ox O2 Delivery O2 Flow Rate FiO2 06/05/20 13:20 20 06/05/20 12:40 98.8 111 120/75 (90) 97 Room Air Laboratory Data Labs 24H Laboratory Tests 2 06/05/20 10:43: Immature Granulocyte % (Auto) 0.4, Neutrophils (%) (Auto) 68.8H, Lymphocytes (%) (Auto) 22.2L, Monocytes (%) (Auto) 7.6H, Eosinophils (%) (Auto) 0.5, Basophils (%) (Auto) 0.5, Neutrophils # (Auto) 6.8, Lymphocytes # (Auto) 2.2, Monocytes # (Auto) 0.8, Eosinophils # (Auto) 0.1, Basophils # (Auto) 0.1, Nucleated Red Blood Cells % (auto) 0.0, Prothrombin Time 12.9, Prothromb Time International Ratio 0.96, Anion Gap 7L, Glomerular Filtration Rate 33.1L, Calcium Level 9.7, Total Bilirubin 1.1H, Aspartate Amino Transf (AST/SGOT) 27, Alanine Aminotransferase (ALT/SGPT) 21, Alkaline Phosphatase 90, Total Protein 7.6, Albumin 4.0, Albumin/Globulin Ratio 1.1L CBC/BMP Laboratory Tests 06/05/20 10:43 Assessment/Plan Patient is a 64 year old female with history of left hip fracture s/p repair and osteoporosis here with left rib fractures and pneumothorax. Dr. Deras of [facility] surgery is following. Continue conservative management and monitor CXR daily. Otherwise, she has DANUTA (creatinine 0.8 at baseline, 1.65 on admission). Plan / VTE VTE Prophylaxis Ordered?: Yes Plan Plan 1. Pneumothorax - Patient is currently stable and doing well at room air. Imagine show a small to moderate pneumothorax. Thoracic surgery following, recommendations appreciated. - Continue serial CXR. 2. Left 7th and 8th rib fracture - Pain control with scheduled Tylenol and PRN oxyIR - Incentive spirometry 3. History of alcohol abuse - Quit on month ago. On acamprosate, folic acid, thiamine, and magnesium 4. DANUTA - Baseline creatine is 0.8. On admission, creatine 1.65. Will start on IV fluids 5. Osteoporosis - Continue calcium and vitamin D 6. DVT ppx - Heparin SubQ due to DANUTA KIRSTY ARAGON DO Jun 05, 2020 14:20
[2020-06-05] MEDS: ACETAMINOPHEN 500 MG TAB PO SCH ×2 (15:23→19:59)
[2020-06-05] MEDS: VITAMIN D (CHOLECALCIFEROL) 400 INTERNATIONAL UNITS TAB PO SCH (15:23)
[2020-06-05] MEDS: OYSTER SHELL CALCIUM 500 MG TAB PO SCH ×2 (15:24→19:58)
[2020-06-05] MEDS: ACAMPROSATE CALCIUM 333 MG TABLET (CAMPRAL) PO SCH ×2 (15:24→19:59)
[2020-06-05] MEDS: MAGNESIUM CHLORIDE 64 MG TABCR (SLO MAG) PO SCH (15:28)
[2020-06-05 16:00] VITALS: BP 127/72
[2020-06-05 20:00] VITALS: BP 108/62
[2020-06-05] MEDS: traZODone 50 MG TAB PO SCH (21:55)
[2020-06-06] VITALS: BP 110/55
[2020-06-06 04:00] VITALS: BP 123/65
[2020-06-06] MEDS: oxyCODONE 5MG TAB PO PRN ×4 (04:52→16:58)
[2020-06-06] MEDS: HEPARIN SOD (PORCINE) 5000UNITS/ML 1ML VIAL/SYRINGE SC SCH ×4 (05:23→21:33)
[2020-06-06 06:36] LABS: HEMATOCRIT 38.3 % (36.0-47.0); HEMOGLOBIN 12.5 g/dl (12.0-15.5); MEAN CORPUSCULAR HEMOGLOBIN 32.4 pg (27.0-33.0); MEAN CORPUSCULAR HGB CONC 32.6 g/dl (32.0-36.5); MEAN CORPUSCULAR VOLUME 99.2 fl (80.0-96.0); PLATELET COUNT, AUTOMATED 174 10^3/uL (150-450); RED BLOOD COUNT 3.86 10^6/uL (4.00-5.40)
[2020-06-06 07:09] LABS: CALCIUM LEVEL 8.4 MG/DL (8.8-10.2); CREATININE FOR GFR 1.38 MG/DL (0.55-1.30); GLOMERULAR FILTRATION RATE 40.7 (>45)
[2020-06-06 08:00] VITALS: BP 120/67
[2020-06-06] MEDS: ACETAMINOPHEN 500 MG TAB PO SCH ×3 (08:16→21:33)
[2020-06-06] MEDS: FOLIC ACID 1 MG TAB PO SCH (08:42)
[2020-06-06] MEDS: OYSTER SHELL CALCIUM 500 MG TAB PO SCH ×3 (08:42→22:09)
[2020-06-06] MEDS: MAGNESIUM CHLORIDE 64 MG TABCR (SLO MAG) PO SCH (08:42)
[2020-06-06] MEDS: ACAMPROSATE CALCIUM 333 MG TABLET (CAMPRAL) PO SCH ×3 (08:42→22:09)
[2020-06-06] MEDS: DOCUSATE SODIUM 100 MG CAP PO PRN (08:43)
[2020-06-06] MEDS: VITAMIN D (CHOLECALCIFEROL) 400 INTERNATIONAL UNITS TAB PO SCH (08:43)
[2020-06-06] MEDS: THIAMINE 100 MG TAB PO SCH (08:43)
[2020-06-06 08:52] LABS: MAGNESIUM LEVEL 1.3 MG/DL (1.8-2.4)
[2020-06-06] MEDS ORDERED: POTASSIUM CHLORIDE 10 MEQ SR TABLET PO ONE (09:00)
[2020-06-06] MEDS: MAG SULF 1GM/100ML (MAG RUN) 1 GM in IV 1 EA IV SCH ×2 (09:13→10:19)
[2020-06-06] MEDS ORDERED: SLF 3 ML SYR IV PRN (10:15)
[2020-06-06 12:00] VITALS: BP 115/66
[2020-06-06] MEDS ORDERED: IBUPROFEN 200MG TAB PO PRN (12:00)
--- NOTE | 2020-06-06 12:06 | IPNPDOC ---
Text Note Date of Service The patient was seen on 06/06/20. NOTE S: Patient seen and examined at bedside. No acute overnight events reported. No new medical complaints. Complains of left posterolateral chest pain at the site of her rib fractures. O: General: NAD, lying comfortably in bed HEENT: NC/AT, edentulous Lungs: CTA B/L Heart: +S1S2, RRR Abd: soft, NT, +BS Ext: no edema Patient is a 64 year old female with history of left hip fracture and osteoporosis here for left rib fracture and pneumothorax. She was here in March 25, 2020 for left hip fracture and eventually sent to [facility] for continued rehabilitation. She was discharged from [facility] to home on May 04, 2020. While at home, she maneuvered with the walker, but the walker does not fit through the door frame of the bathroom. She ziegler her walker outside and holds onto the larson to get across. Today, she was walking back towards the walker when she slipped and crashed into the side of the door frame on the left. Denies lightheadedness/dizziness or headache. Denies loss of consciousness. Denies head strike. She eventually got to the walker. She had pleuritic chest pain. When she took a deep breath, pain was a sharp 10/10 on the left side. In the ED, CXR and CT chest was obtained which demonstrated rib fractures of ribs 7 and 8 as well has a small to moderate pneumothorax, estimated to be 15%. ED contacted thoracic surgery, Dr. Deras, who recommended conservative management, pain control, and repeat imaging. When I went to see her, she was feeling better. She had 2 Percocet and the pain improved to 6/10 when she takes a deep breath. Denies headache, lightheadedness/dizziness, chest pain, abdominal pain, dysuria, or diarrhea. A/P: Patient is a 64 year old female with history of left hip fracture s/p repair and osteoporosis s/p fall, and alcohol abuse, admitted for left rib fractures and pneumothorax. #Pneumothorax - Patient is currently stable and doing well at room air. - Imaging show a small to moderate pneumothorax. Thoracic surgery following, recommendations appreciated. - Continue serial CXR. # Left 7th and 8th rib fracture - Pain control with scheduled Tylenol and PRN oxyIR - Incentive spirometry #History of alcohol abuse - states she quit one month ago. On acamprosate, folic acid, thiamine, and magnesium - continue telemetry , monitor for withdrawal #DANUTA - improving with IV fluids #Osteoporosis - Continue calcium and vitamin D #DVT ppx - Heparin SubQ VS,Fishbone, I+O VS, Fishbone, I+O Laboratory Tests 06/06/20 06:05 Vital Signs Date Time Temp Pulse Resp B/P (MAP) Pulse Ox O2 Delivery O2 Flow Rate FiO2 06/06/20 11:12 18 4 Nasal Cannula 06/06/20 08:00 4.0 06/06/20 08:00 97.2 73 120/67 (84) I&O- Last 24 Hours up to 6 AM 06/06/20 06:00 Intake Total 987 ml Output Total 400 ml Balance 587 ml YUAN DUFF MD Jun 06, 2020 12:05
[2020-06-06] MEDS: fentaNYL 25 MCG/HR PATCH TOP SCH (14:13)
[2020-06-06] MEDS: SLF 3 ML SYR IV SCH ×2 (14:14→21:33)
[2020-06-06] MEDS ORDERED: MORPHINE 2 MG/ML 1ML VIAL (J2270) IV ONE (14:45)
[2020-06-06 16:00] VITALS: BP 124/67
[2020-06-06 20:00] VITALS: BP 130/65
[2020-06-06] MEDS: traZODone 50 MG TAB PO SCH (21:33)
[2020-06-07] VITALS: BP 136/74
[2020-06-07] MEDS: oxyCODONE 5MG TAB PO PRN ×4 (00:56→21:06)
[2020-06-07 04:00] VITALS: BP 154/70
[2020-06-07] MEDS: HEPARIN SOD (PORCINE) 5000UNITS/ML 1ML VIAL/SYRINGE SC SCH ×3 (06:00→20:23)
[2020-06-07] MEDS: SLF 3 ML SYR IV SCH ×3 (06:06→21:00)
[2020-06-07] MEDS ORDERED: MAGNESIUM SULFATE 1GM/100ML D5W BAG (10MG/ML) As Ordered ONE (07:52)
[2020-06-07 08:00] VITALS: BP 148/82
[2020-06-07 08:13] LABS: BASO % 0.7 % (0.0-1.0); EOS # 0.2 10^3/uL (0.0-0.5); HEMOGLOBIN 12.2 g/dl (12.0-15.5); LYMPH # 1.8 10^3/uL (1.5-5.0); LYMPH % 44.9 % (24.0-44.0); MEAN CORPUSCULAR HEMOGLOBIN 32.8 pg (27.0-33.0); MEAN CORPUSCULAR HGB CONC 32.1 g/dl (32.0-36.5); MEAN CORPUSCULAR VOLUME 102.2 fl (80.0-96.0); MONO # 0.4 10^3/uL (0.0-0.8); MONO % 10.4 % (0.0-5.0); NEUTROPHILS # 1.6 10^3/uL (1.5-8.5); NEUTROPHILS % 39.8 % (36.0-66.0); PLATELET COUNT, AUTOMATED 150 10^3/uL (150-450); RED BLOOD COUNT 3.72 10^6/uL (4.00-5.40); WHITE BLOOD COUNT 4.1 10^3/uL (4.0-10.0)
[2020-06-07] MEDS: VITAMIN D (CHOLECALCIFEROL) 400 INTERNATIONAL UNITS TAB PO SCH (08:42)
[2020-06-07] MEDS: MAGNESIUM CHLORIDE 64 MG TABCR (SLO MAG) PO SCH (08:43)
[2020-06-07] MEDS: ACAMPROSATE CALCIUM 333 MG TABLET (CAMPRAL) PO SCH ×3 (08:43→20:57)
[2020-06-07] MEDS: THIAMINE 100 MG TAB PO SCH (08:43)
[2020-06-07] MEDS: FOLIC ACID 1 MG TAB PO SCH (08:43)
[2020-06-07] MEDS: DOCUSATE SODIUM 100 MG CAP PO PRN (08:44)
[2020-06-07] MEDS: ACETAMINOPHEN 500 MG TAB PO SCH ×3 (08:44→20:57)
[2020-06-07 08:54] LABS: BLOOD UREA NITROGEN 12 MG/DL (7-18); CALCIUM LEVEL 9.4 MG/DL (8.8-10.2); CARBON DIOXIDE LEVEL 31 MEQ/L (21-32); CHLORIDE LEVEL 107 MEQ/L (98-107); GLOMERULAR FILTRATION RATE > 60.0 (>45); GLUCOSE, FASTING 91 MG/DL (70-100); MAGNESIUM LEVEL 1.6 MG/DL (1.8-2.4); POTASSIUM SERUM 3.8 MEQ/L (3.5-5.1); SODIUM LEVEL 143 MEQ/L (136-145)
[2020-06-07] MEDS ORDERED: MAG SULF 1GM/100ML (MAG RUN) 1 GM in IV 1 EA IV ONE (10:00)
--- NOTE | 2020-06-07 10:08 | IPNPDOC ---
Text Note Date of Service The patient was seen on 06/07/20. NOTE S: Patient seen and examined at bedside. No acute overnight events reported. No new medical complaints. Complains of left posterolateral chest pain at the site of her rib fractures. O: General: NAD, lying comfortably in bed HEENT: NC/AT, edentulous Lungs: CTA B/L Heart: +S1S2, RRR Abd: soft, NT, +BS Ext: no edema A/P: Patient is a 64 year old female with history of left hip fracture and osteoporosis here for left rib fracture and pneumothorax. She was here in March 25, 2020 for left hip fracture and eventually sent to [facility] for continued rehabilitation. She was discharged from [facility] to home on May 04, 2020. While at home, she maneuvered with the walker, but the walker does not fit through the door frame of the bathroom. She ziegler her walker outside and holds onto the larson to get across. She was walking back towards the walker when she slipped and crashed into the side of the door frame on the left. Denied lightheadedness/dizziness or headache. Denied loss of consciousness. Denies head trauma. She eventually got to the walker. She had pleuritic chest pain. When she took a deep breath, pain was a sharp 10/10 on the left side. In the ED, CXR and CT chest was obtained which demonstrated rib fractures of ribs 7 and 8 as well has a small to moderate pneumothorax. ED contacted thoracic surgery, Dr. Deras, who recommended conservative management, pain control, and repeat imaging. Patient is a 64 year old female with history of left hip fracture s/p repair and osteoporosis s/p fall, and alcohol abuse, admitted for left rib fractures and pneumothorax. #Pneumothorax - Patient is currently stable and doing well at room air. - Imaging show a small to moderate pneumothorax. Thoracic surgery following, recommendations appreciated. - Continue serial CXR. # Left 7th and 8th rib fracture - Pain control with scheduled Tylenol and PRN oxyIR - Incentive spirometry, fentanyl patch started #History of alcohol abuse - states she quit one month ago. On acamprosate, folic acid, thiamine, and magn esium - continue telemetry , monitor for withdrawal #DANUTA - improving with IV fluids #Osteoporosis - Continue calcium and vitamin D #DVT ppx - Heparin SubQ Dispo: continue with PT/OT, pain control, supplemental oxygen (baseline is room air) VS,Fishbone, I+O VS, Fishbone, I+O Laboratory Tests 06/07/20 07:42 Vital Signs Date Time Temp Pulse Resp B/P (MAP) Pulse Ox O2 Delivery O2 Flow Rate FiO2 06/07/20 08:45 18 06/07/20 08:00 96.0 85 148/82 (104) 100 Nasal Cannula 4.0 I&O- Last 24 Hours up to 6 AM 06/07/20 06:00 Intake Total 1440 ml Output Total 1600 ml Balance -160 ml YUAN DUFF MD Jun 07, 2020 10:08
--- NOTE | 2020-06-07 10:24 | CR ---
DATE: 06/05/2020 CONSULTATION REQUESTED BY: DRU Bagley in the hospital service. REASON FOR CONSULTATION: Pneumothorax and fractured ribs after a fall two days ago. HISTORY OF PRESENT ILLNESS: The patient is a 64-year-old white female status post a hip fracture and repair approximately two months ago, who uses a walker to ambulate at home. The walker does not fit through the door and she went to get to the other side of the door and fell into the door hitting her lateral left chest and her left hip. She suffered acute pain and also had the same acute pain with taking a deep breath. Prior to this, there was no history of cough or sputum production nor was there history of hemoptysis. There have been no fevers, chills or sweats. She can ambulate well with her walker without getting short of breath at home. There has been no weight loss and no dysphagia. She finally sought medical attention today because the pain had persisted. PAST MEDICAL HISTORY: Osteoporosis, degenerative disease, history of alcohol abuse, Vitamin D deficiency, status post left hip fracture. PAST SURGICAL HISTORY: Tubal ligation, section in the remote past, right ankle open reduction and internal fixation along with left shoulder surgery and plating, and a left hip repair. MEDICATIONS AT HOME: 1. Alendronate 70 mg every week. 2. Vitamin D2 50,000 units every week. 3. Vitamin D3 with calcium one t.i.d. 4. Folic acid 1 mg every day. 5. Magnesium Chloride 64 mg every day. 6. Trazodone 50 mg q.h.s. 7. Thiamine 100 mg every day. 8. Acamprosate 333 mg t.i.d. for alcohol abuse. ALLERGIES: None. SOCIAL HISTORY: Smokes one-half pack per day for approximately 45 years. Had a drinking history, but has not had a drink in over a month, states that she just wanted to stop. Denies illicit drugs. EXPOSURES: No dogs, birds or cats. 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 TRAVEL HISTORY: She lived for 20 years in [place]. Denies ever having [place] Fever. REVIEW OF SYSTEMS: CONSTITUTIONAL: See HPI. Without fevers, chills, sweats, night sweats. She has had a 4 pound weight loss since her surgery in March. EYES: Without diplopia, without prior jaundice, without amaurosis fugax. Wears reading glasses. NOSE: Without epistaxis. MOUTH: Edentulous. RESPIRATORY: See HPI. Denies wheezing. CARDIAC: Without prior myocardial infarctions, without orthopnea or paroxysmal nocturnal dyspnea. Without peripheral edema. GI: Without nausea, vomiting, diarrhea, constipation, melena or hematochezia, hematemesis, abdominal pain. : Without dysuria, hematuria or history of renal stones. NEUROLOGICAL: Without paresthesias or paralyses or seizures. HEMATOLOGIC: Denies prolonged bleeding times. PSYCHIATRIC: Without pathological anxieties, depressions or psychoses, although she has been treated for depression and anxiety in the past. ENDOCRINE: Without diabetes or thyroid disease. PHYSICAL EXAMINATION: GENERAL: A well developed, well-nourished, white female, in moderate to mild distress with chest discomfort with taking a deep breath and with moving on the left side. VITAL SIGNS: Temperature 98.8, heart rate 100 and in sinus rhythm, respiratory rate 20 without the use of accessory muscles. She is 97% saturated on room air and her blood pressure is 120/75. HEENT: Eyes: Pupils are equal, round and reactive to light, extraocular movements are intact, sclerae nonicteric. Nose without deformity. Mouth shows her mucous membranes to be pink and moist. Lips without scabs or lesions. No thrush. She is edentulous. Head is normocephalic. NECK: Supple. There is no jugular venous distention, no subcutaneous emphysema. Trachea is midline. There is no thyromegaly or carotid bruits. She has 2+ carotid upstrokes. There is no lymphadenopathy. LUNGS: Show equal breath sounds on either side with some inspiratory rhonchi on the left side, particularly in the base and the mid hemithorax. These do not clear with coughing. Percussion is full to the diaphragm. I hear no wheezing. CARDIAC: Without murmurs, clicks, gallops or rubs. I cannot feel the PMI. S1, S2 are normal. ABDOMEN: Soft and nontender. Bowel sounds are positive. There is no hepatomegaly, no CVA tenderness. EXTREMITIES: Show no pretibial edema, no calf tenderness, no differential swelling of the upper extremities. SKIN: Warm, dry and perfused without cyanosis or mottling including that of the hips and knees. She does have a number of scabbing lesions that she got about a month ago when she again fell. NEUROLOGICAL: CN II-XII intact along with gross deficits intact. Gait was not tested. PSYCHIATRIC: Awake, alert and oriented x3 with appropriate mood and affect. INVESTIGATIONS: White count 9.8 with hemoglobin and hematocrit 14.0 and 41.9 respectively with platelet count 229,000. Differential shows 68% neutrophils, 22% lymphocytes, 7% monocytes. There are no immature forms or toxic granulations. Electrolytes show a marginally low sodium 135, but with a BUN and creatinine of 13 and 1.65. This is a change from her prior creatinine where she would average 0.71 to 0.80. Her last creatinine 0.80 was 04/13/2020. Calcium 9.7 with albumin 4.0. AST and ALT are normal. Total bilirubin slightly elevated at 1.1. Her last ethanol level on 03/25/2020 was 0.131. No blood gases were done. She was COVID negative on 03/25/2020. IMAGING STUDIES: Her chest x-ray shows three old fractures on the right side, slightly displaced, of ribs 8, 7 and 6. I do not see acute fractures on the AP film on the x-ray today. I do note that she has a plated left humerus. On the CT, she has significantly displaced rib fracture of 7 and a nondisplaced crack on 8. She has a 5% pneumothorax on the chest CT. I do not see a very small 5% pneumothorax on the chest x-ray superiorly and laterally. Surprisingly she has very few emphysematous changes considering her smoking history. There are some atelectatic changes in the left lung. The study is done without contrast. The great vessels look to be intact. There is no mediastinal hematoma. There is no pericardial effusion. Adrenals have a normal configuration and I do not see any overt liver lesions. She does have a bit of lumpy bumpy liver however. There is no mediastinal lymphadenopathy. IMPRESSION: 1. Rib fractures 7 and 8 with 7 slightly displaced. 2. 5% pneumothorax on the left. 3. Old rib fractures on the right. 4. History of two falls; one two days ago and one about a month ago. 5. Renal insufficiency new onset and acute. 6. Probable dehydration. 7. Osteoporosis. 8. Prior alcohol abuse. 9. Current tobacco abuse. PLAN/DISCUSSION: So far as her rib fractures and pneumothorax are concerned, we will treat this conservatively. I will put her on 4 liters nasal cannula to assist in absorption of the pneumothorax. The main stay of treating her rib fractures is pain control. She is currently on oral analgesics, which seem to be controlling her pain. There is no history of lightheadedness or fainting prior to her falls, I do not think this is syncopal. Her dehydration is manifested by a hemoglobin and hematocrit of 14 and 41 compared to 12 and 38 on 04/08/2020. We will follow her chest x-rays every day. She will need a period of rehab and physical therapy prior to being discharged home. GAGANDEEP
--- NOTE | 2020-06-07 10:26 | IPN ---
DATE: 06/06/2020 This is Ms. Garg's second hospital day. She is in an extraordinary amount of pain, much more than she was yesterday. The Percocets are not holding her. Because of her pain she is having difficulty breathing and, of course, moving around. Her vital signs show a maximum temperature of 97.2 with a heart rate that ranges between 73-88 in a sinus rhythm, respiratory rate of 16-20 without the use of accessory muscles, who is 99% saturated on 4 liters nasal cannula and whose blood pressure is ranging between 110/55-123/65. Her intake and output for past 24 hours is not well recorded. I see no urine output. She has had two voids. She has had 97 in. Her weight today is 66.1 kg compared to 63.6 kg yesterday. PHYSICAL EXAMINATION: She has equal breath sounds on either side. I hear no wheezes, rhonchi, or rales. I did not percuss her secondary to eliciting pain from rib fractures. Cardiac exam is without murmurs, clicks, gallops, or rubs. I cannot feel her point of maximal impulse (PMI). S1 and S2 are normal. Abdomen is soft and nontender. Bowel sounds are positive. There is no hepatomegaly. No costovertebral angle (CVA) tenderness. Extremities show no pretibial edema, no calf tenderness, no differential swelling of the upper extremities. Skin is warm, dry, and perfused without cyanosis or mottling, including that of the nailbeds and knee. Neck is supple. There is no jugular venous distention. No subcutaneous emphysema. Trachea is midline. Mouth shows the mucous membranes to be pink and moist. Lips and gums show no thrush. Eyes show her pupils to be equal and reactive. Extraocular muscles intact. Sclerae anicteric. Neurologic shows II-XII intact. Normal gross motor, gross sensation intact. Gait is not tested. Psychiatric shows her to awake, alert, and oriented times three with appropriate mood and affect and conversational. Her white count today is 5.0 with a hemoglobin and hematocrit of 12.5 and 38.3, respectively, and platelet count of 174. There is no differential. Her electrolytes show a potassium down to 3.0 from 3.8 yesterday with a BUN and creatinine of 19 and 1.38 with an improved creatinine from 1.65 yesterday. Calcium is 8.4 and magnesium is 1.3. Her chest x-ray today shows a small apical pneumothorax, which is less than it was yesterday. There is basilar atelectasis, no doubt secondary to her pain, and decreased chest excursion. It looks like plate atelectasis. Costophrenic angles are sharp. There are no pleural effusions. IMPRESSION: 1. Rib fractures, 7 and 8. 2. Small pneumothorax. 3. Osteoporosis. 4. History of alcohol abuse. 5. Tobacco abuse. PLAN AND DISCUSSION: I will place a Duragesic patch on her. Hopefully that will help her pain. It is a choice between a Duragesic patch or a patient-controlled analgesia ([facility]). GAGANDEEP
[2020-06-07] MEDS: OYSTER SHELL CALCIUM 500 MG TAB PO SCH ×3 (11:00→21:00)
--- NOTE | 2020-06-07 11:46 | REP ---
CHEST X-RAY CLINICAL: Pneumothorax. TECHNIQUE: PA and lateral. COMPARISON: 06/05/2020. FINDINGS: Focal linear atelectasis at the left lower lobe noted. Mediastinum and cardiac silhouette are normal. A small left apical pneumothorax cannot be excluded and appears similar to prior examination. Old healed right rib fractures identified. IMPRESSION: 1. New linear atelectasis at the left base. 2. Small left apical pneumothorax unchanged. MTDD
[2020-06-07 12:00] VITALS: BP 141/74
[2020-06-07 16:00] VITALS: BP 137/83
[2020-06-07 20:00] VITALS: BP 142/82
[2020-06-07] MEDS: traZODone 50 MG TAB PO SCH (20:57)
[2020-06-08] VITALS (8 sets, daily range): BP systolic 136–172; BP diastolic 70–90
[2020-06-08] MEDS: oxyCODONE 5MG TAB PO PRN ×3 (03:57→21:21)
[2020-06-08] MEDS ORDERED: amLODIPine 5 MG TAB PO ONE (04:30)
[2020-06-08] MEDS: SLF 3 ML SYR IV SCH ×3 (04:46→21:22)
[2020-06-08] MEDS: HEPARIN SOD (PORCINE) 5000UNITS/ML 1ML VIAL/SYRINGE SC SCH ×3 (04:46→20:11)
[2020-06-08 04:52] LABS: BASO % 0.8 % (0.0-1.0); EOS # 0.2 10^3/uL (0.0-0.5); EOS % 3.9 % (0.0-3.0); HEMOGLOBIN 12.5 g/dl (12.0-15.5); LYMPH # 2.2 10^3/uL (1.5-5.0); LYMPH % 43.9 % (24.0-44.0); MEAN CORPUSCULAR HEMOGLOBIN 32.6 pg (27.0-33.0); MEAN CORPUSCULAR HGB CONC 32.1 g/dl (32.0-36.5); MEAN CORPUSCULAR VOLUME 101.6 fl (80.0-96.0); MONO # 0.5 10^3/uL (0.0-0.8); MONO % 10.4 % (0.0-5.0); NEUTROPHILS % 40.8 % (36.0-66.0); PLATELET COUNT, AUTOMATED 146 10^3/uL (150-450); RED BLOOD COUNT 3.84 10^6/uL (4.00-5.40); WHITE BLOOD COUNT 4.9 10^3/uL (4.0-10.0)
[2020-06-08 05:14] LABS: BLOOD UREA NITROGEN 13 MG/DL (7-18); CALCIUM LEVEL 9.4 MG/DL (8.8-10.2); CARBON DIOXIDE LEVEL 30 MEQ/L (21-32); CHLORIDE LEVEL 105 MEQ/L (98-107); CREATININE FOR GFR 0.74 MG/DL (0.55-1.30); GLOMERULAR FILTRATION RATE > 60.0 (>45); GLUCOSE, FASTING 98 MG/DL (70-100); MAGNESIUM LEVEL 1.4 MG/DL (1.8-2.4); POTASSIUM SERUM 3.9 MEQ/L (3.5-5.1); SODIUM LEVEL 137 MEQ/L (136-145)
[2020-06-08] MEDS ORDERED: MAG SULF 1GM/100ML (MAG RUN) 1 GM in IV 1 EA IV SCH (07:00)
[2020-06-08] MEDS: THIAMINE 100 MG TAB PO SCH (08:27)
[2020-06-08] MEDS: MAGNESIUM CHLORIDE 64 MG TABCR (SLO MAG) PO SCH (08:27)
[2020-06-08] MEDS: FOLIC ACID 1 MG TAB PO SCH (08:28)
[2020-06-08] MEDS: ACAMPROSATE CALCIUM 333 MG TABLET (CAMPRAL) PO SCH ×3 (08:28→20:15)
[2020-06-08] MEDS: OYSTER SHELL CALCIUM 500 MG TAB PO SCH ×3 (08:29→20:15)
[2020-06-08] MEDS: VITAMIN D (CHOLECALCIFEROL) 400 INTERNATIONAL UNITS TAB PO SCH (08:30)
[2020-06-08] MEDS: ACETAMINOPHEN 500 MG TAB PO SCH ×3 (08:33→20:16)
[2020-06-08] MEDS: MAG SULF 1GM/100ML (MAG RUN) 1 GM in IV 1 EA IV SCH ×2 (08:33→10:26)
--- NOTE | 2020-06-08 09:28 | IPN ---
DATE: 06/07/2020 SUBJECTIVE: Ms. Mello pain is being much better controlled. She is on a Fentanyl patch and given breakthrough medications including [place] and Percocet. She is able to move in bed much better. PHYSICAL EXAMINATION: Her vital signs show a maximum temperature (T-max) of 97.2 with a heart rate that ranges between 76 and 85 in sinus rhythm, respiratory rate of 18-22 without the use of accessory muscles. She is 95-100% saturated on 4 liters nasal cannula. Blood pressure ranges between 136/74 to 154/70. Her intake and output the past 24 hours has been recorded as 1140 in and 1750 out for a negativity of 600 mL. Weight is 67.1 kg compared to 66.1 kg yesterday and 63.6 kg on the day of admission. On physical examination she has equal breath sounds on either side. There are a few scattered coarse rhonchi particularly on the left side but they are much better than yesterday. Percussion is full through the diaphragm. Cardiac exam is without murmurs, clicks, gallops, or rubs. I cannot feel her PMI. S1, S2 are normal. Abdomen is soft, nontender. Bowel sounds are positive. There is no hepatomegaly. No CVA tenderness. Extremities: No pretibial edema, no calf tenderness, no differential swelling of the upper extremities. Skin is warm and dry and perfused without cyanosis or mottling including that of nailbeds and knees. Neck is supple. There is no jugular venous distention, no subcutaneous emphysema. Trachea is midline. Mouth shows her mucous membranes to be pink and moist. Lips, gums, tongue show no thrush. Eyes show her pupils to be equal and reactive. Extraocular movements are intact. Sclerae nonicteric. Neuro: CN II-XII intact with gross motor, gross sensation intact. Gait is not tested. Psychiatric: Awake and alert and oriented times three with appropriate mood and affect and conversational. Her white count today is 4.1 with a hemoglobin and hematocrit of 12.2 and 38.0, unchanged from yesterday. Platelet count is 150, stable. Differential shows 39% neutrophils, 44% lymphocytes, and 10% monocytes. There are no immature forms, no toxic granulations. Her electrolytes are normal with a BUN and creatinine of 12 and 0.80 compared to 19 and 1.38 yesterday and 13 and 1.65 on the day of admission. Magnesium is 1.6 with a calcium of 9.4 and a glucose of 91. Her chest x-ray today still shows a very small apical pneumothorax. Costophrenic angles are sharp. The plate atelectasis in the left lower lobe is improving. There are no signs of a hemothorax or pleural effusion. Lateral chest x-ray shows maybe some pleural thickening posteriorly. IMPRESSION: 1. Rib fractures seven and eight with seven slightly displaced. 2. Pneumothorax 5% on the left, improving. 3. Old rib fractures on the right. 4. History of two falls, one two days prior to admission and one about a month ago. 5. Renal insufficiency, improving and hopefully resolved. 6. Probable dehydration, resolved. 7. Osteoporosis. 8. Prior alcohol abuse. 9. Current tobacco abuse. PLAN AND DISCUSSION: Her pain control is much better and her atelectasis is improving. We should stay the same course. She has had a history of two falls in the last month and I would recommend that we consider her for rehab at [facility]. She has already been over there once after her hip surgery, and she is very interested in returning for more rehab with localization. I have spoken to Dr. Cardona of the hospitalist service and they are going to arrange that intervention. GAGANDEEP
--- NOTE | 2020-06-08 10:30 | IPNPDOC ---
Text Note Date of Service The patient was seen on 06/08/20. NOTE S: Patient seen and examined at bedside. No acute overnight events reported. No new medical complaints. O: General: NAD, lying comfortably in bed HEENT: NC/AT, edentulous Lungs: CTA B/L Heart: +S1S2, RRR Abd: soft, NT, +BS Ext: no edema A/P: Patient is a 64 year old female with history of left hip fracture and osteoporosis here for left rib fracture and pneumothorax. She was here in March 25, 2020 for left hip fracture and eventually sent to [facility] for continued rehabilitation. She was discharged from [facility] to home on May 04, 2020. While at home, she maneuvered with the walker, but the walker does not fit through the door frame of the bathroom. She ziegler her walker outside and holds onto the larson to get across. She was walking back towards the walker when she slipped and crashed into the side of the door frame on the left. Denied lightheadedness/dizziness or headache. Denied loss of consciousness. Denies head trauma. She eventually got to the walker. She had pleuritic chest pain. When she took a deep breath, pain was a sharp 10/10 on the left side. In the ED, CXR and CT chest was obtained which demonstrated rib fractures of ribs 7 and 8 as well has a small to moderate pneumothorax. ED contacted thoracic surgery, Dr. Deras, who recommended conservative management, pain control, and repeat imaging. Patient is a 64 year old female with history of left hip fracture s/p repair and osteoporosis s/p fall, and alcohol abuse, admitted for left rib fractures and pneumothorax. #Pneumothorax - Patient is currently stable and doing well at room air. - Imaging show a small to moderate pneumothorax. Thoracic surgery following, recommendations appreciated. # Left 7th and 8th rib fracture - IS, pain controlled #History of alcohol abuse - states she quit one month ago. On acamprosate, folic acid, thiamine, and magnesium - no s/s of withdrawal #DANUTA - resolved #Osteoporosis - Continue calcium and vitamin D #DVT ppx - Heparin SubQ Dispo: continue with PT/OT, pain control, supplemental oxygen (baseline is room air) VS,Fishbone, I+O VS, Fishbone, I+O Laboratory Tests 06/08/20 04:41 Vital Signs Date Time Temp Pulse Resp B/P (MAP) Pulse Ox O2 Delivery O2 Flow Rate FiO2 06/08/20 08:00 96.6 66 17 142/82 (102) 98 Nasal Cannula 4.0 I&O- Last 24 Hours up to 6 AM 06/08/20 06:00 Intake Total 709 ml Output Total 1350 ml Balance -641 ml YUAN DUFF MD Jun 08, 2020 10:30
[2020-06-08] MEDS: traZODone 50 MG TAB PO SCH ×2 (20:15→21:20)
[2020-06-09] MEDS: HEPARIN SOD (PORCINE) 5000UNITS/ML 1ML VIAL/SYRINGE SC SCH ×4 (05:09→19:56)
[2020-06-09] MEDS: SLF 3 ML SYR IV SCH ×3 (05:40→19:56)
[2020-06-09 06:00] VITALS: BP 137/73
[2020-06-09 06:43] LABS: BASO % 0.6 % (0.0-1.0); EOS # 0.1 10^3/uL (0.0-0.5); EOS % 2.4 % (0.0-3.0); HEMATOCRIT 38.6 % (36.0-47.0); HEMOGLOBIN 12.3 g/dl (12.0-15.5); LYMPH # 2.3 10^3/uL (1.5-5.0); LYMPH % 45.4 % (24.0-44.0); MEAN CORPUSCULAR HEMOGLOBIN 32.3 pg (27.0-33.0); MEAN CORPUSCULAR HGB CONC 31.9 g/dl (32.0-36.5); MEAN CORPUSCULAR VOLUME 101.3 fl (80.0-96.0); MONO # 0.7 10^3/uL (0.0-0.8); MONO % 13.1 % (0.0-5.0); NEUTROPHILS # 1.9 10^3/uL (1.5-8.5); NEUTROPHILS % 38.3 % (36.0-66.0); PLATELET COUNT, AUTOMATED 143 10^3/uL (150-450); RED BLOOD COUNT 3.81 10^6/uL (4.00-5.40)
[2020-06-09 07:08] LABS: BLOOD UREA NITROGEN 14 MG/DL (7-18); CALCIUM LEVEL 9.1 MG/DL (8.8-10.2); CARBON DIOXIDE LEVEL 30 MEQ/L (21-32); CHLORIDE LEVEL 105 MEQ/L (98-107); CREATININE FOR GFR 0.81 MG/DL (0.55-1.30); GLOMERULAR FILTRATION RATE > 60.0 (>45); GLUCOSE, FASTING 92 MG/DL (70-100); POTASSIUM SERUM 4.3 MEQ/L (3.5-5.1); SODIUM LEVEL 139 MEQ/L (136-145)
[2020-06-09] MEDS: ACAMPROSATE CALCIUM 333 MG TABLET (CAMPRAL) PO SCH ×3 (09:36→19:54)
[2020-06-09] MEDS: THIAMINE 100 MG TAB PO SCH (09:36)
[2020-06-09] MEDS: VITAMIN D (CHOLECALCIFEROL) 400 INTERNATIONAL UNITS TAB PO SCH (09:36)
[2020-06-09] MEDS: OYSTER SHELL CALCIUM 500 MG TAB PO SCH ×3 (09:36→19:53)
[2020-06-09] MEDS: FOLIC ACID 1 MG TAB PO SCH (09:36)
[2020-06-09] MEDS: ACETAMINOPHEN 500 MG TAB PO SCH ×3 (09:37→19:53)
[2020-06-09] MEDS: MAGNESIUM CHLORIDE 64 MG TABCR (SLO MAG) PO SCH (09:38)
[2020-06-09] MEDS: oxyCODONE 5MG TAB PO PRN ×2 (11:31→19:54)
--- NOTE | 2020-06-09 12:33 | IPNPDOC ---
Text Note Date of Service The patient was seen on 06/09/20. NOTE S: Patient seen and examined at bedside. No acute overnight events reported. No new medical complaints. O: General: NAD, lying comfortably in bed HEENT: NC/AT, edentulous Lungs: CTA B/L Heart: +S1S2, RRR Abd: soft, NT, +BS Ext: no edema A/P: Patient is a 64 year old female with history of left hip fracture and osteoporosis here for left rib fracture and pneumothorax. She was here in March 25, 2020 for left hip fracture and eventually sent to [facility] for continued rehabilitation. She was discharged from [facility] to home on May 04, 2020. While at home, she maneuvered with the walker, but the walker does not fit through the door frame of the bathroom. She ziegler her walker outside and holds onto the larson to get across. She was walking back towards the walker when she slipped and crashed into the side of the door frame on the left. Denied lightheadedness/dizziness or headache. Denied loss of consciousness. Denies head trauma. She eventually got to the walker. She had pleuritic chest pain. When she took a deep breath, pain was a sharp 10/10 on the left side. In the ED, CXR and CT chest was obtained which demonstrated rib fractures of ribs 7 and 8 as well has a small to moderate pneumothorax. ED contacted thoracic surgery, Dr. Deras, who recommended conservative management, pain control, and repeat imaging. Patient is a 64 year old female with history of left hip fracture s/p repair and osteoporosis s/p fall, and alcohol abuse, admitted for left rib fractures and pneumothorax. #Pneumothorax - Patient is currently stable and doing well at room air. - Imaging show a small to moderate pneumothorax. Thoracic surgery following, recommendations appreciated. # Left 7th and 8th rib fracture - IS, pain controlled #History of alcohol abuse - states she quit one month ago. On acamprosate, folic acid, thiamine, and magnesium - no s/s of withdrawal #DANUTA - resolved #Osteoporosis - Continue calcium and vitamin D #DVT ppx - Heparin SubQ Dispo: supplemental O2, pending placement VS,Fishbone, I+O VS, Fishbone, I+O Laboratory Tests 06/09/20 05:45 Vital Signs Date Time Temp Pulse Resp B/P (MAP) Pulse Ox O2 Delivery O2 Flow Rate FiO2 06/09/20 12:01 20 06/09/20 06:00 98.7 74 137/73 (94) 98 Nasal Cannula 4.0 I&O- Last 24 Hours up to 6 AM 06/09/20 05:59 Intake Total 780 ml Output Total 2675 ml Balance -1895 ml YUAN DUFF MD Jun 09, 2020 12:33
[2020-06-09 12:53] LABS: MAGNESIUM LEVEL 1.6 MG/DL (1.8-2.4)
[2020-06-09 14:00] VITALS: BP 130/74
[2020-06-09] MEDS: FENTANYL REMOVAL DOCUMENTATION MISC XX SCH (15:48)
[2020-06-09] MEDS: fentaNYL 25 MCG/HR PATCH TOP SCH (15:48)
[2020-06-09] MEDS: traZODone 50 MG TAB PO SCH (21:56)
[2020-06-09 22:00] VITALS: BP 132/74
[2020-06-10] MEDS: SLF 3 ML SYR IV SCH ×3 (05:00→22:04)
[2020-06-10] MEDS: oxyCODONE 5MG TAB PO PRN ×2 (05:54→21:20)
[2020-06-10 06:00] VITALS: BP 129/81
[2020-06-10 08:31] LABS: BASO % 0.8 % (0.0-1.0); EOS # 0.1 10^3/uL (0.0-0.5); EOS % 1.9 % (0.0-3.0); HEMATOCRIT 42.2 % (36.0-47.0); HEMOGLOBIN 13.1 g/dl (12.0-15.5); LYMPH # 2.3 10^3/uL (1.5-5.0); LYMPH % 43.9 % (24.0-44.0); MEAN CORPUSCULAR VOLUME 102.9 fl (80.0-96.0); MONO # 0.7 10^3/uL (0.0-0.8); MONO % 13.4 % (0.0-5.0); NEUTROPHILS # 2.1 10^3/uL (1.5-8.5); NEUTROPHILS % 39.6 % (36.0-66.0); PLATELET COUNT, AUTOMATED 166 10^3/uL (150-450); WHITE BLOOD COUNT 5.2 10^3/uL (4.0-10.0)
[2020-06-10 08:40] LABS: BLOOD UREA NITROGEN 15 MG/DL (7-18); CALCIUM LEVEL 9.6 MG/DL (8.8-10.2); CARBON DIOXIDE LEVEL 33 MEQ/L (21-32); CHLORIDE LEVEL 105 MEQ/L (98-107); CREATININE FOR GFR 0.86 MG/DL (0.55-1.30); GLOMERULAR FILTRATION RATE > 60.0 (>45); GLUCOSE, FASTING 85 MG/DL (70-100); MAGNESIUM LEVEL 1.6 MG/DL (1.8-2.4); POTASSIUM SERUM 4.7 MEQ/L (3.5-5.1); SODIUM LEVEL 143 MEQ/L (136-145)
[2020-06-10] MEDS: OYSTER SHELL CALCIUM 500 MG TAB PO SCH ×3 (09:03→20:22)
[2020-06-10] MEDS: MAGNESIUM CHLORIDE 64 MG TABCR (SLO MAG) PO SCH (09:03)
[2020-06-10] MEDS: ACETAMINOPHEN 500 MG TAB PO SCH ×3 (09:04→20:22)
[2020-06-10] MEDS: FOLIC ACID 1 MG TAB PO SCH (09:04)
[2020-06-10] MEDS: THIAMINE 100 MG TAB PO SCH (09:05)
[2020-06-10] MEDS: ACAMPROSATE CALCIUM 333 MG TABLET (CAMPRAL) PO SCH ×3 (09:05→20:21)
[2020-06-10] MEDS: VITAMIN D (CHOLECALCIFEROL) 400 INTERNATIONAL UNITS TAB PO SCH (09:05)
[2020-06-10] MEDS: MAG SULF 1GM/100ML (MAG RUN) 1 GM in IV 1 EA IV SCH ×2 (10:24→12:45)
[2020-06-10 14:00] VITALS: BP 149/90
[2020-06-10] MEDS: HEPARIN SOD (PORCINE) 5000UNITS/ML 1ML VIAL/SYRINGE SC SCH ×2 (14:00→20:18)
[2020-06-10 22:00] VITALS: BP 133/75
[2020-06-10] MEDS: traZODone 50 MG TAB PO SCH (22:04)
[2020-06-11] MEDS: oxyCODONE 5MG TAB PO PRN ×4 (03:29→22:01)
[2020-06-11] MEDS: HEPARIN SOD (PORCINE) 5000UNITS/ML 1ML VIAL/SYRINGE SC SCH ×3 (05:02→21:04)
[2020-06-11] MEDS: SLF 3 ML SYR IV SCH ×3 (05:03→21:55)
[2020-06-11 06:00] VITALS: BP 136/74
[2020-06-11 07:55] LABS: BASO # 0.1 10^3/uL (0.0-0.2); BASO % 0.9 % (0.0-1.0); EOS # 0.1 10^3/uL (0.0-0.5); EOS % 2.1 % (0.0-3.0); HEMATOCRIT 43.2 % (36.0-47.0); HEMOGLOBIN 13.3 g/dl (12.0-15.5); LYMPH # 3.1 10^3/uL (1.5-5.0); LYMPH % 52.3 % (24.0-44.0); MEAN CORPUSCULAR HEMOGLOBIN 31.8 pg (27.0-33.0); MEAN CORPUSCULAR HGB CONC 30.8 g/dl (32.0-36.5); MEAN CORPUSCULAR VOLUME 103.3 fl (80.0-96.0); MONO # 0.8 10^3/uL (0.0-0.8); MONO % 13.3 % (0.0-5.0); NEUTROPHILS # 1.8 10^3/uL (1.5-8.5); NEUTROPHILS % 30.9 % (36.0-66.0); PLATELET COUNT, AUTOMATED 188 10^3/uL (150-450); RED BLOOD COUNT 4.18 10^6/uL (4.00-5.40); WHITE BLOOD COUNT 5.9 10^3/uL (4.0-10.0)
[2020-06-11 08:09] LABS: BLOOD UREA NITROGEN 16 MG/DL (7-18); CALCIUM LEVEL 8.9 MG/DL (8.8-10.2); CARBON DIOXIDE LEVEL 28 MEQ/L (21-32); CHLORIDE LEVEL 108 MEQ/L (98-107); CREATININE FOR GFR 0.84 MG/DL (0.55-1.30); GLOMERULAR FILTRATION RATE > 60.0 (>45); GLUCOSE, FASTING 89 MG/DL (70-100); MAGNESIUM LEVEL 1.8 MG/DL (1.8-2.4); POTASSIUM SERUM 4.8 MEQ/L (3.5-5.1); SODIUM LEVEL 141 MEQ/L (136-145)
[2020-06-11] MEDS: ACAMPROSATE CALCIUM 333 MG TABLET (CAMPRAL) PO SCH ×3 (09:46→21:55)
[2020-06-11] MEDS: VITAMIN D (CHOLECALCIFEROL) 400 INTERNATIONAL UNITS TAB PO SCH (09:46)
[2020-06-11] MEDS: THIAMINE 100 MG TAB PO SCH (09:48)
[2020-06-11] MEDS: ACETAMINOPHEN 500 MG TAB PO SCH ×3 (09:48→21:00)
[2020-06-11] MEDS: FOLIC ACID 1 MG TAB PO SCH (09:48)
[2020-06-11] MEDS: OYSTER SHELL CALCIUM 500 MG TAB PO SCH ×3 (09:48→21:55)
[2020-06-11] MEDS: MAGNESIUM CHLORIDE 64 MG TABCR (SLO MAG) PO SCH (09:49)
--- NOTE | 2020-06-11 10:20 | IPNPDOC ---
Text Note Date of Service The patient was seen on 06/10/20. NOTE S: Patient seen and examined at bedside. No acute overnight events reported. No new medical complaints. O: General: NAD, sitting comfortably in chair HEENT: NC/AT, edentulous Lungs: CTA B/L Heart: +S1S2, RRR Abd: soft, NT, +BS Ext: no edema A/P: Patient is a 64 year old female with history of left hip fracture and osteoporosis here for left rib fracture and pneumothorax. She was here in March 25, 2020 for left hip fracture and eventually sent to [facility] for c ontinued rehabilitation. She was discharged from [facility] to home on May 04, 2020. While at home, she maneuvered with the walker, but the walker does not fit through the door frame of the bathroom. She ziegler her walker outside and holds onto the larson to get across. She was walking back towards the walker when she slipped and crashed into the side of the door frame on the left. Denied lightheadedness/dizziness or headache. Denied loss of consciousness. Denies head trauma. She eventually got to the walker. She had pleuritic chest pain. When she took a deep breath, pain was a sharp 10/10 on the left side. In the ED, CXR and CT chest was obtained which demonstrated rib fractures of ribs 7 and 8 as well has a small to moderate pneumothorax. ED contacted thoracic surgery, Dr. Deras, who recommended conservative management, pain control, and repeat imaging. Patient is a 64 year old female with history of left hip fracture s/p repair and osteoporosis s/p fall, and alcohol abuse, admitted for left rib fractures and pneumothorax. #Pneumothorax - Patient is currently stable and doing well at room air. - Imaging show a small to moderate pneumothorax. Thoracic surgery following, recommendations appreciated. # Left 7th and 8th rib fracture - IS, pain controlled #History of alcohol abuse - states she quit one month ago. On acamprosate, folic acid, thiamine, and magnesium - no s/s of withdrawal #DANUTA - resolved #Osteoporosis - Continue calcium and vitamin D #DVT ppx - Heparin SubQ Dispo: continue PT, pending placement for rehab - prefers [facility] VS,Fishbone, I+O VS, Fishbone, I+O Laboratory Tests 06/11/20 06:31 Vital Signs Date Time Temp Pulse Resp B/P (MAP) Pulse Ox O2 Delivery O2 Flow Rate FiO2 06/11/20 09:47 20 06/11/20 06:00 98.0 75 136/74 (94) 94 Room Air 06/09/20 09:00 4.0 I&O- Last 24 Hours up to 6 AM 06/11/20 06:00 Intake Total 1120 ml Output Total 2950 ml Balance -1830 ml YUAN DUFF MD Jun 11, 2020 10:20
--- NOTE | 2020-06-11 10:21 | IPNPDOC ---
Text Note Date of Service The patient was seen on 06/11/20. NOTE S: Patient seen and examined at bedside. No acute overnight events reported. No new medical complaints. O: General: NAD, sitting comfortably in chair eating breakfast HEENT: NC/AT, edentulous Lungs: CTA B/L Heart: +S1S2, RRR Abd: soft, NT, +BS Ext: no edema A/P: Patient is a 64 year old female with history of left hip fracture and osteoporosis here for left rib fracture and pneumothorax. She was here in March 25, 2020 for left hip fracture and eventually sent to [facility] for continued rehabilitation. She was discharged from [facility] to home on May 04, 2020. While at home, she maneuvered with the walker, but the walker does not fit through the door frame of the bathroom. She ziegler her walker outside and holds onto the larson to get across. She was walking back towards the walker when she slipped and crashed into the side of the door frame on the left. Denied lightheadedness/dizziness or headache. Denied loss of consciousness. Denies head trauma. She eventually got to the walker. She had pleuritic chest pain. When she took a deep breath, pain was a sharp 10/10 on the left side. In the ED, CXR and CT chest was obtained which demonstrated rib fractures of ribs 7 and 8 as well has a small to moderate pneumothorax. ED contacted thoracic surgery, Dr. Jeramie pope, who recommended conservative management, pain control, and repeat imaging. Patient is a 64 year old female with history of left hip fracture s/p repair and osteoporosis s/p fall, and alcohol abuse, admitted for left rib fractures and pneumothorax. #Pneumothorax - Patient is currently stable and doing well at room air. - Imaging show a small to moderate pneumothorax. Thoracic surgery following, recommendations appreciated. # Left 7th and 8th rib fracture - IS, pain controlled #History of alcohol abuse - states she quit one month ago. On acamprosate, folic acid, thiamine, and magnesium - no s/s of withdrawal #DANUTA - resolved #Osteoporosis - Continue calcium and vitamin D #DVT ppx - Heparin SubQ Dispo: pending placement VS,Fishbone, I+O VS, Fishbone, I+O Laboratory Tests 06/11/20 06:31 Vital Signs Date Time Temp Pulse Resp B/P (MAP) Pulse Ox O2 Delivery O2 Flow Rate FiO2 06/11/20 09:47 20 06/11/20 06:00 98.0 75 136/74 (94) 94 Room Air 06/09/20 09:00 4.0 I&O- Last 24 Hours up to 6 AM 06/11/20 06:00 Intake Total 1120 ml Output Total 2950 ml Balance -1830 ml YUAN DUFF MD Jun 11, 2020 10:21
[2020-06-11 14:00] VITALS: BP 144/75
[2020-06-11] MEDS: traZODone 50 MG TAB PO SCH (21:54)
[2020-06-11 22:00] VITALS: BP 145/77
[2020-06-12] MEDS: SLF 3 ML SYR IV SCH ×3 (05:00→23:25)
[2020-06-12] MEDS: HEPARIN SOD (PORCINE) 5000UNITS/ML 1ML VIAL/SYRINGE SC SCH ×3 (05:00→22:00)
[2020-06-12 06:00] VITALS: BP 128/60
[2020-06-12] MEDS: MAGNESIUM CHLORIDE 64 MG TABCR (SLO MAG) PO SCH (09:05)
[2020-06-12] MEDS: VITAMIN D (CHOLECALCIFEROL) 400 INTERNATIONAL UNITS TAB PO SCH (09:06)
[2020-06-12] MEDS: ACETAMINOPHEN 500 MG TAB PO SCH ×4 (09:06→22:44)
[2020-06-12] MEDS: THIAMINE 100 MG TAB PO SCH (09:07)
[2020-06-12] MEDS: ACAMPROSATE CALCIUM 333 MG TABLET (CAMPRAL) PO SCH ×3 (09:07→22:42)
[2020-06-12] MEDS: OYSTER SHELL CALCIUM 500 MG TAB PO SCH ×3 (09:07→22:42)
[2020-06-12] MEDS: FOLIC ACID 1 MG TAB PO SCH (09:07)
[2020-06-12] MEDS: oxyCODONE 5MG TAB PO PRN ×3 (09:08→22:44)
[2020-06-12 14:00] VITALS: BP 146/79
[2020-06-12] MEDS: FENTANYL REMOVAL DOCUMENTATION MISC XX SCH (15:41)
[2020-06-12] MEDS: fentaNYL 25 MCG/HR PATCH TOP SCH (15:42)
[2020-06-12] MEDS: CALCIUM CARBONATE 500 MG CHEW U/D PO SCH (18:00)
[2020-06-12 22:00] VITALS: BP 145/80
[2020-06-12] MEDS: traZODone 50 MG TAB PO SCH (22:43)
[2020-06-13] MEDS: HEPARIN SOD (PORCINE) 5000UNITS/ML 1ML VIAL/SYRINGE SC SCH ×3 (05:35→20:12)
[2020-06-13] MEDS: SLF 3 ML SYR IV SCH ×3 (05:36→22:00)
[2020-06-13 06:00] VITALS: BP 138/72
[2020-06-13 08:18] LABS: BASO # 0.1 10^3/uL (0.0-0.2); BASO % 1.2 % (0.0-1.0); EOS # 0.2 10^3/uL (0.0-0.5); EOS % 2.6 % (0.0-3.0); HEMATOCRIT 41.8 % (36.0-47.0); HEMOGLOBIN 13.2 g/dl (12.0-15.5); LYMPH # 2.5 10^3/uL (1.5-5.0); LYMPH % 43.6 % (24.0-44.0); MEAN CORPUSCULAR HGB CONC 31.6 g/dl (32.0-36.5); MEAN CORPUSCULAR VOLUME 101.5 fl (80.0-96.0); MONO # 1.1 10^3/uL (0.0-0.8); MONO % 18.3 % (0.0-5.0); NEUTROPHILS # 1.9 10^3/uL (1.5-8.5); PLATELET COUNT, AUTOMATED 239 10^3/uL (150-450); RED BLOOD COUNT 4.12 10^6/uL (4.00-5.40); WHITE BLOOD COUNT 5.7 10^3/uL (4.0-10.0)
[2020-06-13 08:40] LABS: BLOOD UREA NITROGEN 14 MG/DL (7-18); CALCIUM LEVEL 9.4 MG/DL (8.8-10.2); CARBON DIOXIDE LEVEL 29 MEQ/L (21-32); CHLORIDE LEVEL 107 MEQ/L (98-107); CREATININE FOR GFR 0.85 MG/DL (0.55-1.30); GLOMERULAR FILTRATION RATE > 60.0 (>45); GLUCOSE, FASTING 95 MG/DL (70-100); MAGNESIUM LEVEL 1.8 MG/DL (1.8-2.4); POTASSIUM SERUM 4.7 MEQ/L (3.5-5.1); SODIUM LEVEL 142 MEQ/L (136-145)
[2020-06-13] MEDS: ACETAMINOPHEN 500 MG TAB PO SCH ×3 (09:00→21:00)
[2020-06-13] MEDS: ACAMPROSATE CALCIUM 333 MG TABLET (CAMPRAL) PO SCH ×3 (09:11→22:04)
[2020-06-13] MEDS: THIAMINE 100 MG TAB PO SCH (09:11)
[2020-06-13] MEDS: MAGNESIUM CHLORIDE 64 MG TABCR (SLO MAG) PO SCH (09:11)
[2020-06-13] MEDS: FOLIC ACID 1 MG TAB PO SCH (09:11)
[2020-06-13] MEDS: OYSTER SHELL CALCIUM 500 MG TAB PO SCH ×3 (09:11→22:04)
[2020-06-13] MEDS: oxyCODONE 5MG TAB PO PRN ×3 (09:12→22:05)
[2020-06-13] MEDS: CALCIUM CARBONATE 500 MG CHEW U/D PO SCH ×3 (09:13→18:00)
[2020-06-13] MEDS: VITAMIN D (CHOLECALCIFEROL) 400 INTERNATIONAL UNITS TAB PO SCH (11:40)
--- NOTE | 2020-06-13 13:49 | IPNPDOC ---
Text Note Date of Service The patient was seen on 06/13/20. NOTE Subjective: Patient is a 64-year-old female with a PMHx of L hip fracture, Vitamin D deficiency / Osteoporosis, Degenerative disk disease, Depression / Anxiety, who was presented to the hospital after she had slipped and fell on the door frame. Patient w was here in March 25, 2020 for left hip fracture and eventually sent to [facility] for continued rehabilitation. She was discharged from [facility] to home on May 04, 2020. While at home, she maneuvered with the walker, but the walker does not fit through the door frame of the bathroom. She ziegler her walker outside and holds onto the larson to get across. She was walking back towards the walker when she slipped and crashed into the side of the door frame on the left. Patient was found to have imaging dialysis consistent with right 7th and 8th rib fractures and small / moderate pneumothorax. Cardiothoracic surgery, Dr. Deras was called on consultation - recommend conservative therapy. She was admitted to the hospital service for further evaluation and treatment. Patient was seen and examined at the bedside. Patient reports that she has been progressing with physical therapy reports that she does experience some pain, but is tolerable. Denies any nausea, vomiting, chest pain, shortness breath, palpitations, abdominal pain, constipation, diarrhea, or urinary discomfort. Objective: Vitals (See below) General: Lying in bed, appears comfortable, AAOx3 HEENT: NC, AT CVS: RRR, +S1S2 Lungs: Fair air entry b/l, -w/r/r Abdomen: Soft, ND, NT Extremities: - Edema, - Calf tenderness Assessment and plan: Pneumothorax - Currently is stable - Saturating well on room air - Imaging reviewed by CTS - CTS on consultation; appreciate their input Left 7th and 8th rib fracture - c/w incentive spirometry - c/w Pain control with Fentanyl patch and Oxycodone History of alcohol abuse - c/w acamprosate, folic acid, thiamine, and magnesium s/p DANUTA Vitamin D deficiency / Osteoporosis - c/w Vitamin D and Calcium DVT prophylaxis - c/w Heparin Disposition: - Awaiting PT clearance VS,Fishbone, I+O VS, Fishbone, I+O Laboratory Tests 06/13/20 08:07 Vital Signs Date Time Temp Pulse Resp B/P (MAP) Pulse Ox O2 Delivery O2 Flow Rate FiO2 06/13/20 09:42 18 06/13/20 09:12 Room Air 06/13/20 06:00 99.1 76 138/72 (94) 99 06/09/20 09:00 4.0 I&O- Last 24 Hours up to 6 AM 06/13/20 06:00 Intake Total 2120 ml Output Total 2875 ml Balance -755 ml JEREMY JACKSON MD Jun 13, 2020 13:49
[2020-06-13] MEDS: traZODone 50 MG TAB PO SCH (22:04)
[2020-06-14 06:00] VITALS: BP 115/69
[2020-06-14] MEDS: SLF 3 ML SYR IV SCH ×2 (06:00→14:00)
[2020-06-14] MEDS: HEPARIN SOD (PORCINE) 5000UNITS/ML 1ML VIAL/SYRINGE SC SCH ×2 (06:00→14:00)
[2020-06-14] MEDS: THIAMINE 100 MG TAB PO SCH (08:30)
[2020-06-14] MEDS: FOLIC ACID 1 MG TAB PO SCH (08:30)
[2020-06-14] MEDS: ACAMPROSATE CALCIUM 333 MG TABLET (CAMPRAL) PO SCH (08:30)
[2020-06-14] MEDS: CALCIUM CARBONATE 500 MG CHEW U/D PO SCH ×2 (08:30→12:30)
[2020-06-14] MEDS: MAGNESIUM CHLORIDE 64 MG TABCR (SLO MAG) PO SCH (08:31)
[2020-06-14] MEDS: OYSTER SHELL CALCIUM 500 MG TAB PO SCH (08:31)
[2020-06-14] MEDS: ACETAMINOPHEN 500 MG TAB PO SCH (08:31)
[2020-06-14] MEDS: VITAMIN D (CHOLECALCIFEROL) 400 INTERNATIONAL UNITS TAB PO SCH (08:31)
[2020-06-14] MEDS: oxyCODONE 5MG TAB PO PRN (08:36)
[2020-06-14] MEDS ORDERED: DURA25DI3 TOP (11:53)
[2020-06-14] MEDS ORDERED: VITAD400CA PO (11:53)
[2020-06-14] MEDS ORDERED: OXYC-517 PO (11:53)
--- NOTE | 2020-06-14 12:53 | DS.PDOC ---
Discharge Summary General Date of Admission Jun 05, 2020 at 11:18 Date of Discharge 06/14/2020 Discharge Summary PROCEDURES PERFORMED DURING STAY: [None]. ADMITTING DIAGNOSES / DISCHARGE DIAGNOSES: Pneumothorax Left 7th and 8th rib fracture History of alcohol abuse s/p DANUTA Vitamin D deficiency / Osteoporosis DVT prophylaxis COMPLICATIONS/CHIEF COMPLAINT: Shortness of breath / Pain HISTORY OF PRESENT ILLNESS: Patient is a 64-year-old female with a PMHx of L hip fracture, Vitamin D deficiency / Osteoporosis, Degenerative disk disease, Depression / Anxiety, who was presented to the hospital after she had slipped and fell on the door frame. Patient w was here in March 25, 2020 for left hip fracture and eventually sent to [facility] for continued rehabilitation. She was discharged from [facility] to home on May 04, 2020. While at home, she maneuvered with the walker, but the walker does not fit through the door frame of the bathroom. She zieglre her walker outside and holds onto the larson to get across. She was walking back towards the walker when she slipped and crashed into the side of the door frame on the left. Patient was found to have imaging dialysis consistent with right 7th and 8th rib fractures and small / moderate pneumothorax. Cardiothoracic surgery, Dr. Deras was called on consultation - recommend conservative therapy. She was admitted to the hospital service for further evaluation and treatment. HOSPITAL COURSE: Pneumothorax - Sitting up in bed, does not appear to be in any acute distress. Reports her pain is controlled with her current regimen - Saturating well on room air - Imaging reviewed by CTS - CTS on consultation; appreciate their input - Patient is cleared physical therapy for discharge home - Will have outpatient follow-up with primary care provider, and cardiothoracic surgery within 7 days Left 7th and 8th rib fracture - c/w incentive spirometry - c/w Pain control with Fentanyl patch and Oxycodone - Will have outpatient follow-up with cardiothoracic surgery History of alcohol abuse - c/w acamprosate, folic acid, thiamine, and magnesium s/p DANUTA Vitamin D deficiency / Osteoporosis - c/w Vitamin D and Calcium DVT prophylaxis - c/w Heparin DISCHARGE MEDICATIONS: Please see below. ALLERGIES: Please see below. PHYSICAL EXAMINATION ON DISCHARGE: Vitals (See below) General: Sitting up in bed, does not appear to be any acute distress, remains comfortable, AAOx3 HEENT: NC, AT CVS: RRR, +S1S2 Lungs: Fair air entry b/l, auscultation is free of rhonchi crackles or wheezing Abdomen: Soft, nondistended, without tenderness Extremities: No evidence of edema, - Calf tenderness LABORATORY DATA: Please see below. ACTIVITY: [As tolerated]. DISCHARGE PLAN: Follow up with PCP and Dr. Deras within 7 days Remain compliant with treatment plan and medications Return to the ER if you experience any problems DISPOSITION: Home with services DISCHARGE CONDITION: [Stable]. TIME SPENT ON DISCHARGE: 35 minutes. Vital Signs/I&Os Vital Signs Date Time Temp Pulse Resp B/P (MAP) Pulse Ox O2 Delivery O2 Flow Rate FiO2 06/14/20 09:06 18 06/14/20 06:00 98.0 80 115/69 (84) 97 06/13/20 22:35 Room Air 06/09/20 09:00 4.0 I&O- Last 24 Hours up to 6 AM 06/14/20 06:00 Intake Total 1135 ml Output Total 550 ml Balance 585 ml Discharge Medications Scheduled Acamprosate Calcium (Acamprosate Calcium) 333 Mg Tablet.dr, 666 MG PO TID, (Reported) Alendronate Sodium (Fosamax) 70 Mg Tablet, 70 MG PO QWEEK, (Reported) WEDNESDAYS Calcium Carbonate/Vitamin D3 (Oyster Shell 500-Vit D3 200 Tb) 1 Each Tablet, 1 TAB PO TID, (Reported) Ergocalciferol (Vitamin D2) (Vitamin D2) 50,000 Units Cap, 50,000 UNIT PO QWEEK, (Reported) WEDNESDAYS Fentanyl (Duragesic) 25 Mcg Patch.td72, 25 MCG TOP Q72H Folic Acid (Folic Acid) 1 Mg Tablet, 1 TAB PO DAILY, (Reported) Magnesium Chloride (Mag64) 64 Mg Tablet.dr, 64 MG PO DAILY, (Reported) Thiamine HCl (Thiamine HCl) 100 Mg Tablet, 100 MG PO DAILY, (Reported) Trazodone HCl (Trazodone HCl) 50 Mg Tablet, 50 MG PO QHS, (Reported) Vitamin D (Vitamin D3) 10 Mcg Tablet, 600 UNITS PO DAILY Scheduled PRN Docusate Sodium (Docusate Sodium) 100 Mg Capsule, 100 MG PO BID PRN for CONSTIPATION, (Reported) Oxycodone HCl (Oxycodone HCl) 5 Mg Tablet, 5 MG PO TIDP PRN for pain Allergies Coded Allergies: No Known Allergies (Verified , 03/25/20) JEREMY JACKSON MD Jun 14, 2020 12:53
--- NOTE | 2020-06-18 14:16 | IPN ---
DATE: 06/08/2020 SUBJECTIVE: Ms. Garg states that she can breathe a bit better although she still has a considerable amount of pain. She did walk today. When I examined her today she can also take deep breaths much better than she could yesterday. PHYSICAL EXAMINATION: Her vital signs show a maximum temperature (T-max) of 97.7 with a heart rate that ranges between 99-66 in sinus rhythm, respiratory rate of 17-20 without use accessory muscles who is 98-100% saturated on 4 liters nasal cannula, with a blood pressure ranging between 138/82 to 172/90. Her intake and output the past 24 hours has been recorded as 1009 in, 700 out for a positivity of 309 mL. She weighs 68.1 kg today compared to 67.1 kg yesterday. On physical examination Her breath sounds are equal on either side. Percussion is full through the diaphragm on either side. She has some coarse rhonchi which clear with coughing. Cardiac exam is without murmurs, clicks, gallops, or rubs. I cannot feel her PMI. S1, S2 are normal. Abdomen is soft, nontender. Bowel sounds are positive. There is no hepatomegaly. No CVA tenderness. Extremities show no pretibial edema, no calf tenderness, no differential swelling of the upper extremities. Skin is warm and dry and perfused without cyanosis or mottling including that of nailbeds and knees. Neck is supple. There is no jugular venous distention, no subcutaneous emphysema. Trachea is midline. Mouth shows her mucous membranes to be pink and moist. Lips, gums, tongue show no thrush. Eyes show her pupils to be equal and reactive. Extraocular movements are intact. Sclerae nonicteric. Neuro: CN II-XII intact with gross motor, gross sensation intact. Gait is not tested. Psychiatric: Awake and alert and oriented times three with appropriate mood and affect and conversational. Her white count today is 4.9 with a hemoglobin and hematocrit of 12.5 and 39.0 and stable. Platelet count is 146 and stable and differential shows 40% neutrophils, 43% lymphocytes, and 10% monocytes. There are no immature forms, toxic granulosis. Her electrolytes today are normal with a BUN and creatinine of 13 and 0.74, a glucose of 98 and a calcium 9.4. Magnesium is 1.4. Her chest x-ray today shows her lungs fully expand to the chest wall. There is no more pneumothorax. Costophrenic angles are sharp. The plate atelectasis is improving in the left lower lobe. IMPRESSION: 1. Rib fractures seven and eight with seven slightly displaced. 2. Pneumothorax 5% on the left, now resolved. 3. Old rib fractures on the right. 4. History of two falls, one two days prior to admission and one about a month ago. 5. Renal insufficiency, now resolved. 6. Probable dehydration, resolved. 7. Osteoporosis. 8. Prior alcohol abuse. 9. Current tobacco abuse. PLAN/DISCUSSION: As the pneumothorax has now resolved and she is breathing better, I will withdraw from the case. She should remain on her incentive spirometer and PAP therapy. I have no objection if she is transferred to a medical/surgical unit today or tomorrow. We certainly should arrange for intermediate term rehab to recondition her. GAGANDEEP
--- NOTE | 2020-06-18 14:22 | REP ---
CHEST X-RAY: 06/07/20 CLINICAL: Follow-up pneumothorax. COMPARISON: 06/06/20. TECHNIQUE: PA and lateral. FINDINGS: A very small residual left apical pneumothorax is again noted along with small left pleural reaction, best identified on lateral radiograph. Linear atelectasis at the left lung base is unchanged. No further acute process is appreciated. Right hemithorax is relatively clear. Old healed rib fractures again noted. Mediastinum and cardiac silhouette are normal. IMPRESSION: 1. Very small residual left apical pneumothorax and small pleural reaction. 2. Linear atelectasis at the left base, unchanged. MTDD
== END 2020-06-14 14:46 | disposition home health service (06) | DRG 200 ==
LOC: M ED 08:33 → EDBD 08:33 → M ED INP 11:18 → M PCU 12:56 → M MSPAV 06-08 15:02
PROVIDERS: ADMIT Internal Medicine; ATTEND Internal Medicine
DX: S27.0XXA Traumatic pneumothorax, initial encounter (principal); N17.9 Acute kidney failure, unspecified; S22.42XA Multiple fractures of ribs, left side, initial encounter for closed fracture; M81.0 Age-related osteoporosis without current pathological fracture; F41.9 Anxiety disorder, unspecified; F32.9 Major depressive disorder, single episode, unspecified; Z79.899 Other long term (current) drug therapy; F17.200 Nicotine dependence, unspecified, uncomplicated; R29.6 Repeated falls; W18.30XA Fall on same level, unspecified, initial encounter; Y92.009 Unspecified place in unspecified non-institutional (private) residence as the place of occurrence of the external cause

== ENCOUNTER 2020-07-01 00:04 | Emergency (ER) | payer MEDICARE, MEDICAID ==
[~2020-07-01] VITALS: Ht 160 cm; Wt 68.2 kg
[~2020-07-01 00:04] MED LIST changes: +ACAM0.05 PO; +DURA25DI3 TOP; +FOSA70TA PO; +IBUP200T45 PO; +OYST500T12 PO; +VITAD400CA PO; +advil PO
[2020-07-01] MEDS ORDERED: MORPHINE 2 MG/ML 1ML VIAL (J2270) IV ONE (01:30)
[2020-07-01 02:12] LABS: BASO % 0.3 % (0.0-1.0); EOS # 0.2 10^3/uL (0.0-0.5); HEMATOCRIT 43.2 % (36.0-47.0); LYMPH # 2.8 10^3/uL (1.5-5.0); LYMPH % 39.7 % (24.0-44.0); MEAN CORPUSCULAR HEMOGLOBIN 31.1 pg (27.0-33.0); MEAN CORPUSCULAR HGB CONC 32.4 g/dl (32.0-36.5); MONO # 0.7 10^3/uL (0.0-0.8); NEUTROPHILS # 3.3 10^3/uL (1.5-8.5); NEUTROPHILS % 46.7 % (36.0-66.0); PLATELET COUNT, AUTOMATED 187 10^3/uL (150-450)
[2020-07-01] MEDS ORDERED: MORPHINE 4 MG/ML 1ML VIAL/SYRINGE (J2270) IV ONE (02:30)
[2020-07-01 02:41] LABS: BLOOD UREA NITROGEN 8 MG/DL (7-18); CALCIUM LEVEL 9.2 MG/DL (8.8-10.2); CARBON DIOXIDE LEVEL 26 MEQ/L (21-32); CHLORIDE LEVEL 104 MEQ/L (98-107); CREATININE FOR GFR 0.83 MG/DL (0.55-1.30); GLOMERULAR FILTRATION RATE > 60.0 (>45); GLUCOSE, FASTING 96 MG/DL (70-100); POTASSIUM SERUM 3.4 MEQ/L (3.5-5.1); SODIUM LEVEL 142 MEQ/L (136-145)
--- NOTE | 2020-07-01 03:08 | REPVR ---
PROCEDURE INFORMATION: Exam: XR Left Ribs with PA Chest, 3 Views Exam date and time: 07/01/2020 2:28 AM Age: 64 years old Clinical indication: Other: Rib pain; Additional info: Left rib pain TECHNIQUE: Imaging protocol: XR Left ribs 3 views with PA chest. COMPARISON: CR Chest, 2 view PA, Lat 06/08/2020 8:44 AM FINDINGS: Lungs: Unremarkable. No consolidation. Pleural space: Unremarkable. No pleural effusion. No pneumothorax. Heart/Mediastinum: Unremarkable. No cardiomegaly. Bones/joints: Metallic hardware in the proximal left humerus. Old fracture of the left 2nd rib anteriorly. Displaced fracture of the left 7th rib anterolaterally and slightly displaced fracture of the left 8th rib laterally. Old fractures of the right 6th-8th ribs posterolaterally which are similar to the prior study. IMPRESSION: 1. Displaced fracture of the left 7th rib anterolaterally and slightly displaced fracture of the left 8th rib laterally. 2. Otherwise stable chest since 06/08/2020 with old right rib fractures posterolaterally and probably the left 2nd rib anteriorly. No pneumothorax. Electronically signed by: Aguila Montano On 07/01/2020 03:07:57 AM
[2020-07-01] MEDS ORDERED: POTASSIUM CHLORIDE 10 MEQ SR TABLET As Ordered ONE (03:15)
[2020-07-01] MEDS ORDERED: POTASSIUM CHLORIDE 10 MEQ SR TABLET PO ONE (03:15)
[2020-07-01 04:15] VITALS: BP 119/62
[2020-07-02] MEDS ORDERED: OXYC-517 PO (04:39)
== END 2020-07-01 04:32 | disposition home or self-care (01) ==
LOC: M ED 00:04
DX: S22.42XG Multiple fractures of ribs, left side, subsequent encounter for fracture with delayed healing (principal); W22.09XD Striking against other stationary object, subsequent encounter; Y92.009 Unspecified place in unspecified non-institutional (private) residence as the place of occurrence of the external cause; Y93.9 Activity, unspecified; Y99.9 Unspecified external cause status; M81.0 Age-related osteoporosis without current pathological fracture; F41.9 Anxiety disorder, unspecified; F33.9 Major depressive disorder, recurrent, unspecified; F17.200 Nicotine dependence, unspecified, uncomplicated; Z79.899 Other long term (current) drug therapy
CPT/HCPCS: 71101; 80048; 85025; 96374; 96376; 99284; J2270

== ENCOUNTER 2020-07-02 03:38 | Emergency (ER) | payer MEDICARE, MEDICAID ==
[~2020-07-02] VITALS: Ht 157.5 cm; Wt 63.6 kg
[2020-07-02] MEDS ORDERED: OXYC-517 PO (04:39)
--- NOTE | 2020-07-02 05:08 | REPVR ---
PROCEDURE INFORMATION: Exam: CT Abdomen And Pelvis Without Contrast Exam date and time: 07/02/2020 4:25 AM Age: 64 years old Clinical indication: Abdominal pain; Additional info: Left lower quadrant abdominal pain TECHNIQUE: Imaging protocol: Computed tomography of the abdomen and pelvis without contrast. Radiation optimization: All CT scans at this facility use at least one of these dose optimization techniques: automated exposure control; mA and/or kV adjustment per patient size (includes targeted exams where dose is matched to clinical indication); or iterative reconstruction. COMPARISON: 1. CR - Ribs uni W-PA CHEST ONLY LEFT 07/01/2020 2:20:[address] ABD PELVIS W/O CONTRAST 07/01/2018 3:05 PM FINDINGS: Limitations: There is artifact in the pelvis related to the hip prosthesis. Lungs: There is minimal, nonspecific dependent density in the lung bases, likely mild atelectasis. Mediastinal space: A small hiatal hernia is present. Liver: There is a heterogeneous decrease in hepatic parenchymal density, consistent with fatty infiltration. Gallbladder and bile ducts: The gallbladder is normal with no stones or biliary ductal dilation. Pancreas: The pancreas appears unremarkable. No pancreatic ductal dilation identified. Spleen: The unenhanced spleen appears unremarkable. Adrenals: The adrenal glands are normal. Kidneys and ureters: The unenhanced kidneys appear unremarkable. There is fullness of the right ureter throughout its length to the bladder. No ureteral stones are identified. There is no significant hydronephrosis at the level of the right kidney. The left ureter appears normal with no stones or hydronephrosis. Assessment of the distal left ureter is somewhat limited by artifact in the pelvis. Stomach and bowel: The small bowel appears unremarkable. There is no dilation or thickening of the colon. Appendix: A normal appendix is identified. Intraperitoneal space: There is no evidence of free intraperitoneal or pelvic fluid. There is no free intraperitoneal air. Vasculature: Atherosclerotic changes are present in the abdominal aorta and the iliac arteries. No aortic aneurysm. Lymph nodes: No lymphadenopathy is seen. Urinary bladder: The bladder appears unremarkable. No stones identified. Assessment is slightly limited by artifact in the pelvis. Reproductive: The uterus is unremarkable. Bones/joints: There is a left hip prosthesis. The left hip is flexed and adducted. Degenerative endplate changes are seen at multiple levels in the visualized spine. There are fractures of the left 7th and 8th ribs anterolaterally which appear subacute, with associated early callus formation. The 7th rib fracture was visualized on the prior rib series x-ray. There is a wedge-shaped configuration of the T12 vertebral body which is unchanged from the prior exam. Soft tissues: Calcifications and a band of opacity in the subcutaneous tissues of the left hip laterally are most consistent with an incision scar from prior hip surgery. IMPRESSION: 1. No definite abnormality is seen to explain the patient's symptoms of left lower quadrant pain. No significant diverticular disease and no evidence of acute diverticulitis. 2. Subacute fractures with early callus formation at the left 7th and 8th ribs. 3. Fatty liver. 4. Fullness of the right ureter but no ureteral stones identified. 5. Small hiatal hernia. Electronically signed by: Christi Winston On 07/02/2020 05:07:38 AM
[2020-07-02 05:46] VITALS: BP 167/112
--- NOTE | 2020-07-02 15:42 | ED PDOC ---
Post-Departure Follow-Up radiology report faxed to Nneka Parham MD Jul 02, 2020 15:42
== END 2020-07-02 05:55 | disposition home or self-care (01) ==
LOC: M ED 03:38
DX: R07.82 Intercostal pain (principal); K76.0 Fatty (change of) liver, not elsewhere classified; M19.90 Unspecified osteoarthritis, unspecified site; Z79.899 Other long term (current) drug therapy

== ENCOUNTER 2021-03-02 19:16 | Emergency (ER) | payer MEDICARE, MEDICAID ==
[~2021-03-02 19:16] MED LIST changes: +ACET1TAB55 PO; +ALEV220T22 PO; +CHOL25TA2 PO; +LIDO5TD TD; -LISI-538 PO; +LISI10TA22 PO; -LISI10TA4 PO; +LISI20TA33 PO; +PHEN1TAB73 PO
[2021-03-02] MEDS: LIDOCAINE W/EPINEPHRINE 1% 20ML VIAL SC ONE (20:50)
--- NOTE | 2021-03-02 21:19 | REPVR ---
PROCEDURE INFORMATION: Exam: CT Head Without Contrast Exam date and time: 03/02/2021 8:59 PM Age: 65 years old Clinical indication: Injury or trauma; Fall; Blunt trauma (contusions or hematomas); Consciousness not specified; Additional info: Fall with head injury TECHNIQUE: Imaging protocol: Computed tomography of the head without contrast. Radiation optimization: All CT scans at this facility use at least one of these dose optimization techniques: automated exposure control; mA and/or kV adjustment per patient size (includes targeted exams where dose is matched to clinical indication); or iterative reconstruction. COMPARISON: CT Head without contrast 11/30/2018 8:48 PM FINDINGS: Brain: There is minimal patchy low attenuation of deep white matter. There is mild prominence of the peripheral sulci. Cerebral ventricles: There is slight prominence of the central ventricular system. Paranasal sinuses: Visualized sinuses are unremarkable. No fluid levels. Mastoid air cells: Visualized mastoid air cells are well aerated. Bones/joints: Offset of right nasal bones consistent with old injury. Soft tissues: Left frontal scalp soft tissue swelling and question of laceration. IMPRESSION: 1. Minimal chronic ischemic white matter change and mild atrophy which is similar to 11/30/2018. 2. Probable old right nasal bone fracture. 3. Left frontal scalp soft tissue swelling and question of laceration. 4. Otherwise negative noncontrast head CT. Electronically signed by: Aguila Montano On 03/02/2021 21:18:18 PM
--- NOTE | 2021-03-02 21:24 | REPVR ---
PROCEDURE INFORMATION: Exam: CT Cervical Spine Without Contrast Exam date and time: 03/02/2021 8:59 PM Age: 65 years old Clinical indication: Injury or trauma; Fall; Blunt trauma; Additional info: Fall with head injury TECHNIQUE: Imaging protocol: Computed tomography images of the cervical spine without contrast. Radiation optimization: All CT scans at this facility use at least one of these dose optimization techniques: automated exposure control; mA and/or kV adjustment per patient size (includes targeted exams where dose is matched to clinical indication); or iterative reconstruction. COMPARISON: CT Spine,cervical w/o contrast 03/29/2018 4:37 PM FINDINGS: Vertebrae: No acute fracture. Normal alignment. C2-C3: Mild interspace narrowing early degenerative changes of apophyseal joints with no significant spinal or foraminal stenosis. C3-C4: Moderate interspace narrowing with slight retrolisthesis and minimal posterior osteophytes. There are bilateral degenerative changes uncovertebral and apophyseal joints with borderline spinal stenosis and moderate bilateral neural foraminal stenosis. C4-C5: Mild interspace narrowing with slight retrolisthesis and posterior paracentral osteophytes, right greater than left. There are hypertrophic changes of uncovertebral and to a lesser degree apophyseal joints. No significant spinal stenosis is low but moderate right and mild left neural foraminal stenosis. C5-C6: Mild interspace narrowing with posterior paracentral osteophytes and degenerative changes of uncovertebral and to a lesser degree apophyseal joints. There is moderate left and mild right neural foraminal stenosis. C6-C7: Mild interspace narrowing with posterior paracentral osteophytes and hypertrophic change of uncovertebral joints particularly on the right with moderate right neural foraminal stenosis. C7-T1: No significant disc protrusion. No severe spinal canal stenosis. No significant neural foraminal narrowing. Soft tissues: Unremarkable. Lungs: Lung apices are normal. Other findings: There is some motion artifact with image degradation. IMPRESSION: 1. Multilevel degenerative disc and uncovertebral joint changes with borderline spinal stenosis at C3-C4 and varying degrees of multilevel neural foraminal stenosis from C3-C7. There has been slight progression from 03/29/2018. 2. Otherwise negative CT cervical spine. No acute fracture or subluxation Electronically signed by: Aguila Montano On 03/02/2021 21:24:24 PM
--- NOTE | 2021-03-03 00:09 | REPVR ---
PROCEDURE INFORMATION: Exam: XR Right Ribs with PA Chest Exam date and time: 03/02/2021 11:51 PM Age: 65 years old Clinical indication: Other: Fall injury TECHNIQUE: Imaging protocol: XR Right ribs with PA chest. Views: 3 views COMPARISON: CR Chest, 2 view PA, Lat 06/08/2020 8:44 AM FINDINGS: Lungs: Unremarkable. No consolidation. Pleural spaces: Unremarkable. No pleural effusion. No pneumothorax. Heart/Mediastinum: Unremarkable. No cardiomegaly. Bones/joints: The metallic plate and screws along the proximal left humerus. Old fractures of the right 6th-8th ribs laterally which are similar to the prior study. There appears to be an old fracture of the anterior right 9th rib anteriorly. No acute fracture. IMPRESSION: 1. Stable chest since 06/08/2020. 2. Old right rib fractures. 3. Otherwise negative right ribs. No acute fracture is seen. Electronically signed by: Aguila Montano On 03/03/2021 00:08:23 AM
--- NOTE | 2021-03-03 00:10 | REPVR ---
PROCEDURE INFORMATION: Exam: XR Left Hip Exam date and time: 03/02/2021 11:51 PM Age: 65 years old Clinical indication: Other: Fall injury TECHNIQUE: Imaging protocol: XR Left hip. Views: 2 or 3 views hip with pelvis when performed. COMPARISON: CT-Hip WITHOUT CONTRAST 08/24/2020 6:48 PM FINDINGS: Bones/joints: Left hip hemiprosthesis in position. The femoral head component lies within the acetabulum and the femoral stem is well seated. No acute fractures. The pelvic ring is intact with no fracture. Soft tissues: Unremarkable. IMPRESSION: 1. Left hip hemiprosthesis in satisfactory position. 2. Otherwise negative left hip and pelvis. No acute fracture. Electronically signed by: Aguila Montano On 03/03/2021 00:09:49 AM
[2021-03-03 01:00] VITALS: BP 140/68
--- NOTE | 2021-03-04 08:35 | ED PDOC ---
Post-Departure Follow-Up radiology report faxed to barrie mosley Sarah MD Mar 04, 2021 08:35
== END 2021-03-03 01:16 | disposition home or self-care (01) ==
LOC: M ED 19:16
DX: S01.01XA Laceration without foreign body of scalp, initial encounter (principal); S70.02XA Contusion of left hip, initial encounter; S20.211A Contusion of right front wall of thorax, initial encounter; W01.198A Fall on same level from slipping, tripping and stumbling with subsequent striking against other object, initial encounter; Y92.009 Unspecified place in unspecified non-institutional (private) residence as the place of occurrence of the external cause; Y93.89 Activity, other specified; Y99.8 Other external cause status; K21.9 Gastro-esophageal reflux disease without esophagitis; F41.9 Anxiety disorder, unspecified; F10.11 Alcohol abuse, in remission; Z79.899 Other long term (current) drug therapy; Z98.890 Other specified postprocedural states

== ENCOUNTER 2021-08-24 15:19 | Inpatient (IN) | payer MEDICARE, MEDICAID ==
[~2021-08-24] VITALS: Ht 157.5 cm; Wt 63.6 kg
[~2021-08-24 15:19] MED LIST changes: +ERGO500029 PO; -IBUP200T45 PO; +IBUP200T46 PO; +OMEP40CA4 PO; -OMEP40CA97 PO; -VITA50005 PO
[2021-08-24] MEDS ORDERED: MORPHINE 2 MG/ML 1ML VIAL (J2270) IV ONE (17:00)
[2021-08-24 18:47] LABS: BASO # 0.1 10^3/uL (0.0-0.2); BASO % 0.5 % (0.0-1.0); EOS % 0.1 % (0.0-3.0); HEMATOCRIT 37.1 % (36.0-47.0); HEMOGLOBIN 11.9 g/dl (12.0-15.5); LYMPH # 1.7 10^3/uL (1.5-5.0); LYMPH % 17.4 % (24.0-44.0); MEAN CORPUSCULAR HEMOGLOBIN 35.2 pg (27.0-33.0); MEAN CORPUSCULAR HGB CONC 32.1 g/dl (32.0-36.5); MEAN CORPUSCULAR VOLUME 109.8 fl (80.0-96.0); MONO # 0.6 10^3/uL (0.0-0.8); MONO % 6.7 % (2.0-8.0); NEUTROPHILS # 7.1 10^3/uL (1.5-8.5); NEUTROPHILS % 74.9 % (36.0-66.0); PLATELET COUNT, AUTOMATED 172 10^3/uL (150-450); RED BLOOD COUNT 3.38 10^6/uL (4.00-5.40); WHITE BLOOD COUNT 9.5 10^3/uL (4.0-10.0)
[2021-08-24 19:10] LABS: BLOOD UREA NITROGEN 14 MG/DL (7-18); CARBON DIOXIDE LEVEL 27 MEQ/L (21-32); CHLORIDE LEVEL 112 MEQ/L (98-107); CREATININE FOR GFR 0.74 MG/DL (0.55-1.30); GLOMERULAR FILTRATION RATE > 60.0 (>45); GLUCOSE, FASTING 106 MG/DL (70-100); POTASSIUM SERUM 4.1 MEQ/L (3.5-5.1); SODIUM LEVEL 149 MEQ/L (136-145)
[2021-08-24 19:14] LABS: ALBUMIN 3.4 GM/DL (3.2-5.2); BILIRUBIN,DIRECT 0.2 MG/DL (0.0-0.2); BILIRUBIN,TOTAL 0.3 MG/DL (0.2-1.0); CK-MB VALUE MASS 1.2 NG/ML (<3.6); MB/CK RELATIVE INDEX 1.24 (< OR =4); TOTAL PROTEIN 6.8 GM/DL (6.4-8.2)
[2021-08-24] MEDS ORDERED: MOM 30ML SUSPENSION UDC PO PRN (20:35)
[2021-08-24] MEDS ORDERED: LORazepam 2 MG TAB PO PRN (20:55)
[2021-08-24 22:49] LABS: RSV AMPLIFICATION NEGATIVE (NEGATIVE)
[2021-08-24] MEDS ORDERED: PILL CUTTER 1 EACH XX ONE (23:02)
[2021-08-24] MEDS: DOCUSATE SODIUM 100MG CAPSULE PO SCH (23:15)
[2021-08-24] MEDS: traZODone 50 MG TAB PO SCH (23:16)
[2021-08-24] MEDS: THIAMINE 100 MG TAB PO SCH (23:16)
[2021-08-25] VITALS (7 sets, daily range): BP systolic 135–172; BP diastolic 75–95
[2021-08-25] MEDS: MORPHINE 2 MG/ML 1ML VIAL (J2270) IV PRN ×2 (00:20→12:31)
[2021-08-25] MEDS: ACETAMINOPHEN TAB 650MG DOSE (2X325MG) PO PRN ×2 (02:25→08:59)
[2021-08-25] MEDS ORDERED: LR 1,000 ML IV SCH (02:30)
[2021-08-25 03:02] LABS: HEMATOCRIT 36.2 % (36.0-47.0); HEMOGLOBIN 11.2 g/dl (12.0-15.5); MEAN CORPUSCULAR HEMOGLOBIN 35.3 pg (27.0-33.0); MEAN CORPUSCULAR HGB CONC 30.9 g/dl (32.0-36.5); MEAN CORPUSCULAR VOLUME 114.2 fl (80.0-96.0); PLATELET COUNT, AUTOMATED 162 10^3/uL (150-450); RED BLOOD COUNT 3.17 10^6/uL (4.00-5.40); WHITE BLOOD COUNT 12.6 10^3/uL (4.0-10.0)
[2021-08-25 03:32] LABS: ALBUMIN 3.6 GM/DL (3.2-5.2); BILIRUBIN,TOTAL 0.9 MG/DL (0.2-1.0); CALCIUM LEVEL 8.9 MG/DL (8.8-10.2); CREATININE FOR GFR 1.15 MG/DL (0.55-1.30); GLOMERULAR FILTRATION RATE 50.1 (>45); MAGNESIUM LEVEL 1.5 MG/DL (1.8-2.4); POTASSIUM SERUM 3.9 MEQ/L (3.5-5.1)
[2021-08-25] MEDS: HEPARIN SOD (PORCINE) 5000UNITS/ML 1ML VIAL/SYRINGE SC SCH ×3 (08:56→21:00)
[2021-08-25] MEDS: MULTIVITAMINS/MINERALS THERAP 1 TAB PO SCH (08:57)
[2021-08-25] MEDS: DOCUSATE SODIUM 100MG CAPSULE PO SCH ×2 (08:57→21:35)
[2021-08-25] MEDS: VITAMIN D 1,000 INTERNATIONAL UNITS TABLET PO SCH (08:58)
[2021-08-25] MEDS: THIAMINE 100 MG TAB PO SCH ×2 (08:59→21:36)
[2021-08-25] MEDS: FOLIC ACID 1 MG TAB PO SCH (08:59)
[2021-08-25] MEDS ORDERED: FLUBLOK(EGG FREE)(QUAD)INFLUENZA VACC 0.5ML SYRINGE 18YRS & OLDER IM ONE (09:00)
[2021-08-25] MEDS: MOM 30ML SUSPENSION UDC PO SCH (09:00)
[2021-08-25] MEDS: traZODone 50 MG TAB PO SCH (21:36)
[2021-08-25] MEDS: PERCOCET 5MG/325MG TAB PO PRN (21:36)
[2021-08-26] MEDS: PERCOCET 5MG/325MG TAB PO PRN ×3 (04:03→20:16)
[2021-08-26 06:00] VITALS: BP 143/73
[2021-08-26 07:54] LABS: BASO % 0.3 % (0.0-1.0); EOS % 0.2 % (0.0-3.0); HEMATOCRIT 26.5 % (36.0-47.0); LYMPH # 1.3 10^3/uL (1.5-5.0); LYMPH % 20.2 % (24.0-44.0); MEAN CORPUSCULAR HEMOGLOBIN 35.5 pg (27.0-33.0); MEAN CORPUSCULAR HGB CONC 32.8 g/dl (32.0-36.5); MEAN CORPUSCULAR VOLUME 108.2 fl (80.0-96.0); MONO # 1.1 10^3/uL (0.0-0.8); NEUTROPHILS # 4.1 10^3/uL (1.5-8.5); NEUTROPHILS % 62.8 % (36.0-66.0); PLATELET COUNT, AUTOMATED 105 10^3/uL (150-450); RED BLOOD COUNT 2.45 10^6/uL (4.00-5.40); WHITE BLOOD COUNT 6.6 10^3/uL (4.0-10.0)
[2021-08-26 07:56] LABS: HEMOGLOBIN 8.7 g/dl (12.0-15.5)
[2021-08-26 08:26] LABS: BLOOD UREA NITROGEN 12 MG/DL (7-18); CALCIUM LEVEL 8.6 MG/DL (8.8-10.2); CARBON DIOXIDE LEVEL 29 MEQ/L (21-32); CHLORIDE LEVEL 103 MEQ/L (98-107); GLOMERULAR FILTRATION RATE > 60.0 (>45); GLUCOSE, FASTING 106 MG/DL (70-100); POTASSIUM SERUM 3.9 MEQ/L (3.5-5.1); SODIUM LEVEL 140 MEQ/L (136-145)
[2021-08-26] MEDS: HEPARIN SOD (PORCINE) 5000UNITS/ML 1ML VIAL/SYRINGE SC SCH ×2 (09:00→21:00)
[2021-08-26] MEDS: MOM 30ML SUSPENSION UDC PO SCH (09:29)
[2021-08-26] MEDS: MULTIVITAMINS/MINERALS THERAP 1 TAB PO SCH (09:30)
[2021-08-26] MEDS: DOCUSATE SODIUM 100MG CAPSULE PO SCH ×2 (09:30→21:00)
[2021-08-26] MEDS: NORCO, ANEXSIA 5/325MG TABLET (HYDROcodone/ACETAMINOPHEN) PO PRN ×3 (09:31→21:52)
[2021-08-26] MEDS: FOLIC ACID 1 MG TAB PO SCH (09:31)
[2021-08-26] MEDS: VITAMIN D 1,000 INTERNATIONAL UNITS TABLET PO SCH (09:32)
[2021-08-26] MEDS: THIAMINE 100 MG TAB PO SCH ×2 (09:32→20:15)
[2021-08-26] MEDS: traZODone 50 MG TAB PO SCH (20:16)
[2021-08-26 22:00] VITALS: BP 110/54
[2021-08-27] MEDS: PERCOCET 5MG/325MG TAB PO PRN ×3 (05:31→21:34)
[2021-08-27 06:00] VITALS: BP 123/78
[2021-08-27 07:01] LABS: HEMATOCRIT 24.8 % (36.0-47.0); MEAN CORPUSCULAR HEMOGLOBIN 35.4 pg (27.0-33.0); MEAN CORPUSCULAR HGB CONC 32.3 g/dl (32.0-36.5); MEAN CORPUSCULAR VOLUME 109.7 fl (80.0-96.0); PLATELET COUNT, AUTOMATED 100 10^3/uL (150-450); RED BLOOD COUNT 2.26 10^6/uL (4.00-5.40); WHITE BLOOD COUNT 5.4 10^3/uL (4.0-10.0)
[2021-08-27 07:28] LABS: ATYPICAL LYMPH 2 % (0-5); BASOPHILS 1 % (0-1); LYMPHOCYTES 27 % (16-44); MONOCYTES 8 % (0-5); NEUTROPHILS 59 % (28-66); PLATELET ESTIMATE DECREASED (NORMAL); PROMYELOCYTES 1 % (0-0)
[2021-08-27 07:32] LABS: BLOOD UREA NITROGEN 9 MG/DL (7-18); CALCIUM LEVEL 8.5 MG/DL (8.8-10.2); CARBON DIOXIDE LEVEL 29 MEQ/L (21-32); CHLORIDE LEVEL 106 MEQ/L (98-107); CREATININE FOR GFR 0.63 MG/DL (0.55-1.30); GLOMERULAR FILTRATION RATE > 60.0 (>45); GLUCOSE, FASTING 102 MG/DL (70-100); POTASSIUM SERUM 3.9 MEQ/L (3.5-5.1); SODIUM LEVEL 139 MEQ/L (136-145)
[2021-08-27] MEDS: DOCUSATE SODIUM 100MG CAPSULE PO SCH ×2 (07:49→21:00)
[2021-08-27] MEDS: MOM 30ML SUSPENSION UDC PO SCH (09:00)
[2021-08-27] MEDS: HEPARIN SOD (PORCINE) 5000UNITS/ML 1ML VIAL/SYRINGE SC SCH ×2 (09:00→21:00)
[2021-08-27] MEDS: FOLIC ACID 1 MG TAB PO SCH (09:06)
[2021-08-27] MEDS: THIAMINE 100 MG TAB PO SCH (09:06)
[2021-08-27] MEDS: VITAMIN D 1,000 INTERNATIONAL UNITS TABLET PO SCH (09:07)
[2021-08-27] MEDS: NORCO, ANEXSIA 5/325MG TABLET (HYDROcodone/ACETAMINOPHEN) PO PRN ×2 (09:07→18:48)
[2021-08-27] MEDS: MULTIVITAMINS/MINERALS THERAP 1 TAB PO SCH (09:07)
[2021-08-27 12:35] LABS: HEMATOCRIT 26.4 % (36.0-47.0); HEMOGLOBIN 8.5 g/dl (12.0-15.5); MEAN CORPUSCULAR HEMOGLOBIN 35.4 pg (27.0-33.0); MEAN CORPUSCULAR HGB CONC 32.2 g/dl (32.0-36.5); PLATELET COUNT, AUTOMATED 121 10^3/uL (150-450); WHITE BLOOD COUNT 7.2 10^3/uL (4.0-10.0)
[2021-08-27 13:03] LABS: FERRITIN 172 NG/ML (8-252); IRON (FE) 28 UG/DL (50-170); PERCENT SATURATION 12.1 % (13.2-45.0); TOTAL IRON BINDING CAPACITY 232 UG/DL (250-450)
[2021-08-27 13:11] LABS: FOLATE > 24.0 NG/ML (>5.4); VITAMIN B12 LEVEL 516 PG/ML (247-911)
[2021-08-27 21:02] VITALS: BP 122/79
[2021-08-27] MEDS: traZODone 50 MG TAB PO SCH (21:35)
[2021-08-28 06:00] VITALS: BP 123/73
[2021-08-28] MEDS: MOM 30ML SUSPENSION UDC PO SCH (07:35)
[2021-08-28] MEDS: DOCUSATE SODIUM 100MG CAPSULE PO SCH ×2 (07:35→21:23)
[2021-08-28] MEDS: HEPARIN SOD (PORCINE) 5000UNITS/ML 1ML VIAL/SYRINGE SC SCH ×2 (07:35→21:00)
[2021-08-28] MEDS: VITAMIN D 1,000 INTERNATIONAL UNITS TABLET PO SCH (08:19)
[2021-08-28] MEDS: NORCO, ANEXSIA 5/325MG TABLET (HYDROcodone/ACETAMINOPHEN) PO PRN ×2 (08:19→18:36)
[2021-08-28] MEDS: MULTIVITAMINS/MINERALS THERAP 1 TAB PO SCH (08:20)
[2021-08-28] MEDS: FOLIC ACID 1 MG TAB PO SCH (08:20)
[2021-08-28 09:43] LABS: BASO % 0.5 % (0.0-1.0); EOS % 0.5 % (0.0-3.0); HEMATOCRIT 25.9 % (36.0-47.0); HEMOGLOBIN 8.3 g/dl (12.0-15.5); LYMPH # 1.2 10^3/uL (1.5-5.0); LYMPH % 20.3 % (24.0-44.0); MEAN CORPUSCULAR HEMOGLOBIN 35.6 pg (27.0-33.0); MEAN CORPUSCULAR VOLUME 111.2 fl (80.0-96.0); MONO # 0.9 10^3/uL (0.0-0.8); MONO % 16.2 % (2.0-8.0); NEUTROPHILS # 3.6 10^3/uL (1.5-8.5); NEUTROPHILS % 61.8 % (36.0-66.0); PLATELET COUNT, AUTOMATED 135 10^3/uL (150-450); RED BLOOD COUNT 2.33 10^6/uL (4.00-5.40); WHITE BLOOD COUNT 5.8 10^3/uL (4.0-10.0)
[2021-08-28 10:11] LABS: BLOOD UREA NITROGEN 8 MG/DL (7-18); CALCIUM LEVEL 8.6 MG/DL (8.8-10.2); CARBON DIOXIDE LEVEL 28 MEQ/L (21-32); CHLORIDE LEVEL 104 MEQ/L (98-107); CREATININE FOR GFR 0.63 MG/DL (0.55-1.30); GLOMERULAR FILTRATION RATE > 60.0 (>45); GLUCOSE, FASTING 99 MG/DL (70-100); POTASSIUM SERUM 3.9 MEQ/L (3.5-5.1); SODIUM LEVEL 139 MEQ/L (136-145)
[2021-08-28] MEDS: FERROUS SULFATE 325MG TAB PO SCH (10:53)
[2021-08-28] MEDS: THIAMINE 100 MG TAB PO SCH (10:53)
[2021-08-28 14:00] VITALS: BP 135/66
[2021-08-28] MEDS: PERCOCET 5MG/325MG TAB PO PRN ×2 (15:00→21:23)
[2021-08-28] MEDS: traZODone 50 MG TAB PO SCH (21:24)
[2021-08-28 22:00] VITALS: BP 133/65
[2021-08-29 06:00] VITALS: BP 145/74
[2021-08-29] MEDS: THIAMINE 100 MG TAB PO SCH (07:35)
[2021-08-29] MEDS: NORCO, ANEXSIA 5/325MG TABLET (HYDROcodone/ACETAMINOPHEN) PO PRN ×2 (07:35→15:33)
[2021-08-29] MEDS: FOLIC ACID 1 MG TAB PO SCH (07:35)
[2021-08-29] MEDS: VITAMIN D 1,000 INTERNATIONAL UNITS TABLET PO SCH (07:35)
[2021-08-29] MEDS: MOM 30ML SUSPENSION UDC PO SCH (07:36)
[2021-08-29] MEDS: FERROUS SULFATE 325MG TAB PO SCH (07:36)
[2021-08-29] MEDS: DOCUSATE SODIUM 100MG CAPSULE PO SCH ×2 (07:36→21:00)
[2021-08-29] MEDS: MULTIVITAMINS/MINERALS THERAP 1 TAB PO SCH (07:36)
[2021-08-29] MEDS: HEPARIN SOD (PORCINE) 5000UNITS/ML 1ML VIAL/SYRINGE SC SCH ×2 (07:39→21:00)
[2021-08-29] MEDS ORDERED: FUROSEMIDE 40MG/4ML VIAL (J1940) IV ONE (08:00)
[2021-08-29 08:44] LABS: BASO % 0.4 % (0.0-1.0); EOS # 0.1 10^3/uL (0.0-0.5); EOS % 0.9 % (0.0-3.0); HEMATOCRIT 27.2 % (36.0-47.0); HEMOGLOBIN 8.6 g/dl (12.0-15.5); LYMPH # 1.4 10^3/uL (1.5-5.0); LYMPH % 24.6 % (24.0-44.0); MEAN CORPUSCULAR HEMOGLOBIN 35.5 pg (27.0-33.0); MEAN CORPUSCULAR HGB CONC 31.6 g/dl (32.0-36.5); MEAN CORPUSCULAR VOLUME 112.4 fl (80.0-96.0); MONO # 1.1 10^3/uL (0.0-0.8); MONO % 18.5 % (2.0-8.0); NEUTROPHILS # 3.1 10^3/uL (1.5-8.5); NEUTROPHILS % 54.7 % (36.0-66.0); PLATELET COUNT, AUTOMATED 173 10^3/uL (150-450); RED BLOOD COUNT 2.42 10^6/uL (4.00-5.40); WHITE BLOOD COUNT 5.7 10^3/uL (4.0-10.0)
[2021-08-29 09:00] LABS: BLOOD UREA NITROGEN 7 MG/DL (7-18); CALCIUM LEVEL 8.7 MG/DL (8.8-10.2); CARBON DIOXIDE LEVEL 27 MEQ/L (21-32); CHLORIDE LEVEL 106 MEQ/L (98-107); GLOMERULAR FILTRATION RATE > 60.0 (>45); GLUCOSE, FASTING 112 MG/DL (70-100); POTASSIUM SERUM 3.9 MEQ/L (3.5-5.1); SODIUM LEVEL 141 MEQ/L (136-145)
[2021-08-29 12:25] VITALS: BP 141/71
[2021-08-29] MEDS: PERCOCET 5MG/325MG TAB PO PRN ×2 (12:41→21:30)
[2021-08-29 12:44] VITALS: BP 142/74
[2021-08-29 13:29] VITALS: BP 146/78
[2021-08-29 14:30] VITALS: BP 150/80
[2021-08-29] MEDS: traZODone 50 MG TAB PO SCH (21:29)
[2021-08-30 06:00] VITALS: BP 158/89
[2021-08-30 07:35] LABS: BASO # 0.1 10^3/uL (0.0-0.2); BASO % 0.8 % (0.0-1.0); EOS # 0.1 10^3/uL (0.0-0.5); EOS % 1.1 % (0.0-3.0); HEMATOCRIT 34.3 % (36.0-47.0); LYMPH # 1.6 10^3/uL (1.5-5.0); LYMPH % 25.1 % (24.0-44.0); MEAN CORPUSCULAR HEMOGLOBIN 34.7 pg (27.0-33.0); MEAN CORPUSCULAR HGB CONC 32.9 g/dl (32.0-36.5); MEAN CORPUSCULAR VOLUME 105.2 fl (80.0-96.0); MONO # 1.2 10^3/uL (0.0-0.8); MONO % 18.4 % (2.0-8.0); NEUTROPHILS # 3.4 10^3/uL (1.5-8.5); NEUTROPHILS % 53.6 % (36.0-66.0); PLATELET COUNT, AUTOMATED 212 10^3/uL (150-450); RED BLOOD COUNT 3.26 10^6/uL (4.00-5.40); WHITE BLOOD COUNT 6.3 10^3/uL (4.0-10.0)
[2021-08-30 07:40] LABS: HEMOGLOBIN 11.3 g/dl (12.0-15.5)
[2021-08-30 07:55] VITALS: BP 170/82
[2021-08-30 07:56] LABS: BLOOD UREA NITROGEN 10 MG/DL (7-18); CALCIUM LEVEL 8.9 MG/DL (8.8-10.2); CARBON DIOXIDE LEVEL 28 MEQ/L (21-32); CHLORIDE LEVEL 106 MEQ/L (98-107); CREATININE FOR GFR 0.61 MG/DL (0.55-1.30); GLOMERULAR FILTRATION RATE > 60.0 (>45); GLUCOSE, FASTING 104 MG/DL (70-100); POTASSIUM SERUM 3.7 MEQ/L (3.5-5.1); SODIUM LEVEL 141 MEQ/L (136-145)
[2021-08-30] MEDS: PERCOCET 5MG/325MG TAB PO PRN ×2 (08:27→17:18)
[2021-08-30] MEDS: FOLIC ACID 1 MG TAB PO SCH (08:28)
[2021-08-30] MEDS: VITAMIN D 1,000 INTERNATIONAL UNITS TABLET PO SCH (08:28)
[2021-08-30] MEDS: FERROUS SULFATE 325MG TAB PO SCH (08:28)
[2021-08-30] MEDS: MOM 30ML SUSPENSION UDC PO SCH (08:28)
[2021-08-30] MEDS: HEPARIN SOD (PORCINE) 5000UNITS/ML 1ML VIAL/SYRINGE SC SCH ×2 (08:34→20:12)
[2021-08-30] MEDS: MULTIVITAMINS/MINERALS THERAP 1 TAB PO SCH (08:36)
[2021-08-30] MEDS: DOCUSATE SODIUM 100MG CAPSULE PO SCH ×2 (08:37→20:12)
[2021-08-30] MEDS: THIAMINE 100 MG TAB PO SCH (08:37)
[2021-08-30 10:30] VITALS: BP 138/77
[2021-08-30 14:00] VITALS: BP 132/72
[2021-08-30] MEDS: NORCO, ANEXSIA 5/325MG TABLET (HYDROcodone/ACETAMINOPHEN) PO PRN ×2 (14:29→21:39)
[2021-08-30] MEDS: traZODone 50 MG TAB PO SCH (21:39)
[2021-08-31] MEDS: PERCOCET 5MG/325MG TAB PO PRN ×3 (04:08→20:59)
[2021-08-31 05:35] LABS: BASO % 0.6 % (0.0-1.0); EOS # 0.1 10^3/uL (0.0-0.5); EOS % 1.8 % (0.0-3.0); HEMATOCRIT 35.3 % (36.0-47.0); HEMOGLOBIN 11.4 g/dl (12.0-15.5); LYMPH # 1.6 10^3/uL (1.5-5.0); LYMPH % 25.2 % (24.0-44.0); MEAN CORPUSCULAR HEMOGLOBIN 34.3 pg (27.0-33.0); MEAN CORPUSCULAR HGB CONC 32.3 g/dl (32.0-36.5); MEAN CORPUSCULAR VOLUME 106.3 fl (80.0-96.0); MONO # 1.1 10^3/uL (0.0-0.8); MONO % 18.1 % (2.0-8.0); NEUTROPHILS # 3.3 10^3/uL (1.5-8.5); NEUTROPHILS % 53.2 % (36.0-66.0); PLATELET COUNT, AUTOMATED 137 10^3/uL (150-450); RED BLOOD COUNT 3.32 10^6/uL (4.00-5.40); WHITE BLOOD COUNT 6.2 10^3/uL (4.0-10.0)
[2021-08-31 05:41] VITALS: BP 173/94
[2021-08-31 05:59] LABS: BLOOD UREA NITROGEN 16 MG/DL (7-18); CALCIUM LEVEL 8.6 MG/DL (8.8-10.2); CARBON DIOXIDE LEVEL 26 MEQ/L (21-32); CHLORIDE LEVEL 108 MEQ/L (98-107); CREATININE FOR GFR 0.65 MG/DL (0.55-1.30); GLOMERULAR FILTRATION RATE > 60.0 (>45); GLUCOSE, FASTING 104 MG/DL (70-100); POTASSIUM SERUM 4.3 MEQ/L (3.5-5.1); SODIUM LEVEL 140 MEQ/L (136-145)
[2021-08-31] MEDS: HEPARIN SOD (PORCINE) 5000UNITS/ML 1ML VIAL/SYRINGE SC SCH ×3 (09:00→21:00)
[2021-08-31] MEDS: DOCUSATE SODIUM 100MG CAPSULE PO SCH ×3 (09:00→21:00)
[2021-08-31] MEDS: MOM 30ML SUSPENSION UDC PO SCH (09:00)
[2021-08-31] MEDS: VITAMIN D 1,000 INTERNATIONAL UNITS TABLET PO SCH (09:04)
[2021-08-31] MEDS: FOLIC ACID 1 MG TAB PO SCH (09:04)
[2021-08-31] MEDS: FERROUS SULFATE 325MG TAB PO SCH (09:04)
[2021-08-31] MEDS: THIAMINE 100 MG TAB PO SCH (09:04)
[2021-08-31] MEDS: MULTIVITAMINS/MINERALS THERAP 1 TAB PO SCH (09:04)
[2021-08-31] MEDS: NORCO, ANEXSIA 5/325MG TABLET (HYDROcodone/ACETAMINOPHEN) PO PRN ×2 (09:20→17:21)
[2021-08-31 14:24] VITALS: BP 154/80
[2021-08-31] MEDS ORDERED: IBUPROFEN 400MG TAB PO PRN (16:00)
[2021-08-31] MEDS: traZODone 50 MG TAB PO SCH (20:59)
[2021-08-31 22:30] VITALS: BP 136/65
[2021-09-01] MEDS: NORCO, ANEXSIA 5/325MG TABLET (HYDROcodone/ACETAMINOPHEN) PO PRN ×2 (05:16→21:18)
[2021-09-01 06:09] VITALS: BP 133/66
[2021-09-01] MEDS: MULTIVITAMINS/MINERALS THERAP 1 TAB PO SCH (08:22)
[2021-09-01] MEDS: VITAMIN D 1,000 INTERNATIONAL UNITS TABLET PO SCH (08:22)
[2021-09-01] MEDS: DOCUSATE SODIUM 100MG CAPSULE PO SCH ×2 (08:22→21:00)
[2021-09-01] MEDS: THIAMINE 100 MG TAB PO SCH (08:22)
[2021-09-01] MEDS: FERROUS SULFATE 325MG TAB PO SCH (08:22)
[2021-09-01] MEDS: FOLIC ACID 1 MG TAB PO SCH (08:22)
[2021-09-01] MEDS: HEPARIN SOD (PORCINE) 5000UNITS/ML 1ML VIAL/SYRINGE SC SCH ×3 (08:23→21:00)
[2021-09-01] MEDS: MOM 30ML SUSPENSION UDC PO SCH (08:23)
[2021-09-01] MEDS: PERCOCET 5MG/325MG TAB PO PRN ×2 (08:37→14:42)
[2021-09-01] MEDS ORDERED: MORPHINE 2 MG/ML 1ML VIAL (J2270) IV ONE (11:00)
[2021-09-01] MEDS ORDERED: KETOROLAC 30 MG/ML 1ML VIAL IV ONE (11:00)
[2021-09-01 16:00] VITALS: BP 130/68
[2021-09-01] MEDS: traZODone 50 MG TAB PO SCH (21:17)
[2021-09-02 06:00] VITALS: BP 142/76
[2021-09-02] MEDS: THIAMINE 100 MG TAB PO SCH (08:03)
[2021-09-02] MEDS: HEPARIN SOD (PORCINE) 5000UNITS/ML 1ML VIAL/SYRINGE SC SCH ×3 (08:03→20:32)
[2021-09-02] MEDS: DOCUSATE SODIUM 100MG CAPSULE PO SCH ×2 (08:03→20:32)
[2021-09-02] MEDS: FERROUS SULFATE 325MG TAB PO SCH (08:04)
[2021-09-02] MEDS: VITAMIN D 1,000 INTERNATIONAL UNITS TABLET PO SCH (08:04)
[2021-09-02] MEDS: MULTIVITAMINS/MINERALS THERAP 1 TAB PO SCH (08:04)
[2021-09-02] MEDS: FOLIC ACID 1 MG TAB PO SCH (08:04)
[2021-09-02] MEDS: MOM 30ML SUSPENSION UDC PO SCH (08:04)
[2021-09-02] MEDS: PERCOCET 5MG/325MG TAB PO PRN ×2 (08:04→14:32)
[2021-09-02] MEDS: NORCO, ANEXSIA 5/325MG TABLET (HYDROcodone/ACETAMINOPHEN) PO PRN ×2 (11:50→20:32)
[2021-09-02] MEDS: traZODone 50 MG TAB PO SCH (20:31)
[2021-09-03] MEDS: PERCOCET 5MG/325MG TAB PO PRN ×3 (04:54→18:58)
[2021-09-03 06:00] VITALS: BP 143/73
[2021-09-03] MEDS: NORCO, ANEXSIA 5/325MG TABLET (HYDROcodone/ACETAMINOPHEN) PO PRN ×3 (08:49→22:57)
[2021-09-03] MEDS: THIAMINE 100 MG TAB PO SCH (08:49)
[2021-09-03] MEDS: FOLIC ACID 1 MG TAB PO SCH (08:49)
[2021-09-03] MEDS: VITAMIN D 1,000 INTERNATIONAL UNITS TABLET PO SCH (08:50)
[2021-09-03] MEDS: HEPARIN SOD (PORCINE) 5000UNITS/ML 1ML VIAL/SYRINGE SC SCH ×2 (08:50→20:55)
[2021-09-03] MEDS: FERROUS SULFATE 325MG TAB PO SCH (08:50)
[2021-09-03] MEDS: MOM 30ML SUSPENSION UDC PO SCH (08:50)
[2021-09-03] MEDS: DOCUSATE SODIUM 100MG CAPSULE PO SCH ×2 (08:50→20:53)
[2021-09-03] MEDS: MULTIVITAMINS/MINERALS THERAP 1 TAB PO SCH (08:50)
[2021-09-03] MEDS: traZODone 50 MG TAB PO SCH (20:53)
[2021-09-04] MEDS: PERCOCET 5MG/325MG TAB PO PRN ×3 (01:16→17:27)
[2021-09-04] MEDS: NORCO, ANEXSIA 5/325MG TABLET (HYDROcodone/ACETAMINOPHEN) PO PRN ×3 (05:04→21:30)
[2021-09-04 05:32] VITALS: BP 145/73
[2021-09-04] MEDS: MULTIVITAMINS/MINERALS THERAP 1 TAB PO SCH (08:51)
[2021-09-04] MEDS: DOCUSATE SODIUM 100MG CAPSULE PO SCH ×2 (08:51→21:00)
[2021-09-04] MEDS: FERROUS SULFATE 325MG TAB PO SCH (08:52)
[2021-09-04] MEDS: VITAMIN D 1,000 INTERNATIONAL UNITS TABLET PO SCH (08:52)
[2021-09-04] MEDS: FOLIC ACID 1 MG TAB PO SCH (08:53)
[2021-09-04] MEDS: THIAMINE 100 MG TAB PO SCH (08:53)
[2021-09-04] MEDS: HEPARIN SOD (PORCINE) 5000UNITS/ML 1ML VIAL/SYRINGE SC SCH ×2 (09:00→21:00)
[2021-09-04] MEDS: MOM 30ML SUSPENSION UDC PO SCH (09:00)
[2021-09-04] MEDS: traZODone 50 MG TAB PO SCH (21:30)
[2021-09-05 06:00] VITALS: BP 150/71
[2021-09-05] MEDS: HEPARIN SOD (PORCINE) 5000UNITS/ML 1ML VIAL/SYRINGE SC SCH ×2 (08:48→23:49)
[2021-09-05] MEDS: DOCUSATE SODIUM 100MG CAPSULE PO SCH ×2 (08:49→23:56)
[2021-09-05] MEDS: FERROUS SULFATE 325MG TAB PO SCH (08:49)
[2021-09-05] MEDS: FOLIC ACID 1 MG TAB PO SCH (08:50)
[2021-09-05] MEDS: THIAMINE 100 MG TAB PO SCH (08:50)
[2021-09-05] MEDS: MOM 30ML SUSPENSION UDC PO SCH (08:50)
[2021-09-05] MEDS: VITAMIN D 1,000 INTERNATIONAL UNITS TABLET PO SCH (08:50)
[2021-09-05] MEDS: MULTIVITAMINS/MINERALS THERAP 1 TAB PO SCH (08:50)
[2021-09-05] MEDS: PERCOCET 5MG/325MG TAB PO PRN (08:59)
[2021-09-05] MEDS: NORCO, ANEXSIA 5/325MG TABLET (HYDROcodone/ACETAMINOPHEN) PO PRN (13:12)
[2021-09-05] MEDS ORDERED: KETAMINE HCL 200 MG/20 ML VIAL As Ordered ONE (16:14)
[2021-09-05] MEDS ORDERED: MIDAZOLAM INJ 2MG/2ML VIAL (J2250 PER 1MG) As Ordered ONE (16:15)
[2021-09-05] MEDS ORDERED: propofoL 200 MG/20 ML VIAL As Ordered ONE (16:21)
[2021-09-05] MEDS ORDERED: LIDOCAINE 2% 100MG/5ML SDV (FOR ANES.) As Ordered ONE (16:21)
[2021-09-05] MEDS ORDERED: ROCURONIUM BROMIDE 50 MG/5 ML VIAL As Ordered ONE ×2 (16:21→19:22)
[2021-09-05] MEDS ORDERED: fentaNYL 250 MCG/5 ML INJECTION As Ordered ONE (16:22)
[2021-09-05] MEDS ORDERED: ceFAZolin 2 GM/D5W 50 ML IV BAG (J0690 PER 500MG) As Ordered ONE ×2 (17:23→21:04)
[2021-09-05] MEDS ORDERED: TRANEXAMIC ACID 100 MG/ML 10ML VIAL As Ordered ONE ×3 (17:23→21:35)
[2021-09-05] MEDS ORDERED: HYDROmorphone HCL 2MG/ML 1ML VIAL As Ordered ONE ×2 (18:32→22:45)
[2021-09-05] MEDS ORDERED: ePHEDrine SULFATE 25 MG/5 ML(5MG/ML) SYRINGE As Ordered ONE (19:29)
[2021-09-05] MEDS ORDERED: VANCOMYCIN 1000MG/20ML VIAL As Ordered ONE (21:28)
[2021-09-05] MEDS ORDERED: dexameTHASONE 4 MG/ML 1ML VIAL (J1100 PER 1MG) As Ordered ONE (21:30)
[2021-09-05] MEDS ORDERED: ONDANSETRON 4MG/2ML VIAL As Ordered ONE (21:30)
[2021-09-05] MEDS ORDERED: METOCLOPRAMIDE INJ 10MG/2ML VIAL (J2765 PER 1) As Ordered ONE (21:30)
[2021-09-05] MEDS ORDERED: SUGAMMADEX SODIUM 500 MG/5 ML VIAL (BRIDION) As Ordered ONE (21:30)
[2021-09-05] MEDS ORDERED: ACETAMINOPHEN 1000MG 100ML IV BTL (OFIRMEV) (J0131 PER 10MG) As Ordered ONE (21:31)
[2021-09-05] MEDS ORDERED: BUPIVACAINE LIPOSOME/PF 1.3% 20ML VIAL (13.3MG/ML)(EXPAREL)(C9290 PER1MG) As Ordered ONE (21:53)
[2021-09-05] MEDS ORDERED: fentaNYL 100 MCG/2 ML INJECTION As Ordered ONE (21:57)
[2021-09-05] MEDS: HYDROMORPHONE HCL 0.5 MG/ 0.5 ML SYRINGE (J1170 PER 1) IV PRN ×4 (22:48→23:09)
[2021-09-05] MEDS ORDERED: LR 1,000 ML IV SCH (22:50)
[2021-09-05] MEDS ORDERED: ONDANSETRON 4MG/2ML VIAL IV PRN (22:50)
[2021-09-05] MEDS ORDERED: fentaNYL 100 MCG/2 ML INJECTION IV PRN (22:50)
[2021-09-05] MEDS ORDERED: oxyCODONE 5MG TAB PO PRN (22:50)
[2021-09-05] MEDS: traZODone 50 MG TAB PO SCH (23:56)
[2021-09-06] VITALS: BP 145/84
[2021-09-06 05:37] VITALS: BP 144/147
[2021-09-06] MEDS: PERCOCET 5MG/325MG TAB PO PRN (06:53)
[2021-09-06] MEDS: HEPARIN SOD (PORCINE) 5000UNITS/ML 1ML VIAL/SYRINGE SC SCH ×2 (09:00→21:00)
[2021-09-06] MEDS: MOM 30ML SUSPENSION UDC PO SCH (09:00)
[2021-09-06] MEDS: FERROUS SULFATE 325MG TAB PO SCH (09:27)
[2021-09-06] MEDS: DOCUSATE SODIUM 100MG CAPSULE PO SCH ×2 (09:27→21:00)
[2021-09-06] MEDS: FOLIC ACID 1 MG TAB PO SCH (09:28)
[2021-09-06] MEDS: VITAMIN D 1,000 INTERNATIONAL UNITS TABLET PO SCH (09:28)
[2021-09-06] MEDS: MULTIVITAMINS/MINERALS THERAP 1 TAB PO SCH (09:28)
[2021-09-06] MEDS: THIAMINE 100 MG TAB PO SCH (09:28)
[2021-09-06] MEDS ORDERED: ANEXSIA, NORCO 7.5MG/325MG TABLET(HYDROCODONE/APAP) PO ONE (09:50)
[2021-09-06] MEDS ORDERED: MORPHINE 30 MG TAB **MSIR PO PRN (09:55)
[2021-09-06] MEDS ORDERED: NALOXONE INJ 0.4MG/1ML VIAL (J2310 PER 1MG) IV PRN (09:55)
[2021-09-06 10:15] VITALS: BP 134/66
[2021-09-06 14:00] VITALS: BP 135/67
[2021-09-06] MEDS ORDERED: HYDROMORPHONE HCL 0.5 MG/ 0.5 ML SYRINGE (J1170 PER 1) IV ONE (15:40)
[2021-09-06 20:00] VITALS: BP_SYST 133
[2021-09-06] MEDS: traZODone 50 MG TAB PO SCH (21:24)
[2021-09-06] MEDS: MORPHINE 15 MG SA TAB PO SCH (21:24)
[2021-09-07] MEDS: MORPHINE 30 MG TAB **MSIR PO PRN ×2 (00:18→12:00)
[2021-09-07 02:00] VITALS: BP 129/30
[2021-09-07 06:30] VITALS: BP 144/67
[2021-09-07] MEDS: HEPARIN SOD (PORCINE) 5000UNITS/ML 1ML VIAL/SYRINGE SC SCH ×2 (08:14→21:00)
[2021-09-07] MEDS: MOM 30ML SUSPENSION UDC PO SCH (08:14)
[2021-09-07] MEDS: THIAMINE 100 MG TAB PO SCH (08:23)
[2021-09-07] MEDS: DOCUSATE SODIUM 100MG CAPSULE PO SCH ×2 (08:23→21:40)
[2021-09-07] MEDS: VITAMIN D 1,000 INTERNATIONAL UNITS TABLET PO SCH (08:23)
[2021-09-07] MEDS: FERROUS SULFATE 325MG TAB PO SCH (08:23)
[2021-09-07] MEDS: MULTIVITAMINS/MINERALS THERAP 1 TAB PO SCH (08:23)
[2021-09-07] MEDS: FOLIC ACID 1 MG TAB PO SCH (08:23)
[2021-09-07] MEDS: MORPHINE 15 MG SA TAB PO SCH (08:24)
[2021-09-07 15:56] VITALS: BP 114/62
[2021-09-07] MEDS: PERCOCET 5MG/325MG TAB PO PRN ×2 (16:06→21:40)
[2021-09-07] MEDS: traZODone 50 MG TAB PO SCH (21:40)
[2021-09-07 22:00] VITALS: BP 125/68
[2021-09-08] MEDS: PERCOCET 5MG/325MG TAB PO PRN ×4 (03:54→21:53)
[2021-09-08 06:00] VITALS: BP 126/63
[2021-09-08] MEDS: VITAMIN D 1,000 INTERNATIONAL UNITS TABLET PO SCH (08:36)
[2021-09-08] MEDS: FERROUS SULFATE 325MG TAB PO SCH (08:36)
[2021-09-08] MEDS: MULTIVITAMINS/MINERALS THERAP 1 TAB PO SCH (08:36)
[2021-09-08] MEDS: DOCUSATE SODIUM 100MG CAPSULE PO SCH ×2 (08:36→21:53)
[2021-09-08] MEDS: THIAMINE 100 MG TAB PO SCH (08:36)
[2021-09-08] MEDS: FOLIC ACID 1 MG TAB PO SCH (08:36)
[2021-09-08] MEDS: MOM 30ML SUSPENSION UDC PO SCH (08:37)
[2021-09-08] MEDS: HEPARIN SOD (PORCINE) 5000UNITS/ML 1ML VIAL/SYRINGE SC SCH ×2 (08:37→21:00)
[2021-09-08] MEDS: traZODone 50 MG TAB PO SCH (21:53)
[2021-09-09] MEDS: PERCOCET 5MG/325MG TAB PO PRN ×4 (03:56→22:20)
[2021-09-09 06:00] VITALS: BP 145/78
[2021-09-09] MEDS: HEPARIN SOD (PORCINE) 5000UNITS/ML 1ML VIAL/SYRINGE SC SCH ×2 (09:00→21:00)
[2021-09-09] MEDS: MOM 30ML SUSPENSION UDC PO SCH (09:00)
[2021-09-09] MEDS: FOLIC ACID 1 MG TAB PO SCH (09:14)
[2021-09-09] MEDS: THIAMINE 100 MG TAB PO SCH (09:14)
[2021-09-09] MEDS: MULTIVITAMINS/MINERALS THERAP 1 TAB PO SCH (09:14)
[2021-09-09] MEDS: FERROUS SULFATE 325MG TAB PO SCH (09:15)
[2021-09-09] MEDS: VITAMIN D 1,000 INTERNATIONAL UNITS TABLET PO SCH (09:15)
[2021-09-09] MEDS: DOCUSATE SODIUM 100MG CAPSULE PO SCH ×2 (09:15→21:50)
[2021-09-09] MEDS: traZODone 50 MG TAB PO SCH (21:50)
[2021-09-10 06:00] VITALS: BP 144/78
[2021-09-10] MEDS: HEPARIN SOD (PORCINE) 5000UNITS/ML 1ML VIAL/SYRINGE SC SCH ×2 (09:00→21:00)
[2021-09-10] MEDS: MOM 30ML SUSPENSION UDC PO SCH ×2 (09:00→09:32)
[2021-09-10] MEDS: VITAMIN D 1,000 INTERNATIONAL UNITS TABLET PO SCH (09:33)
[2021-09-10] MEDS: THIAMINE 100 MG TAB PO SCH (09:33)
[2021-09-10] MEDS: PERCOCET 5MG/325MG TAB PO PRN ×3 (09:33→21:47)
[2021-09-10] MEDS: DOCUSATE SODIUM 100MG CAPSULE PO SCH ×2 (09:33→21:00)
[2021-09-10] MEDS: MULTIVITAMINS/MINERALS THERAP 1 TAB PO SCH (09:33)
[2021-09-10] MEDS: FERROUS SULFATE 325MG TAB PO SCH (09:33)
[2021-09-10] MEDS: FOLIC ACID 1 MG TAB PO SCH (09:33)
[2021-09-10] MEDS: traZODone 50 MG TAB PO SCH (21:47)
[2021-09-11] MEDS: PERCOCET 5MG/325MG TAB PO PRN ×4 (04:52→23:16)
[2021-09-11 05:22] VITALS: BP 140/69
[2021-09-11] MEDS: MOM 30ML SUSPENSION UDC PO SCH (09:00)
[2021-09-11] MEDS: HEPARIN SOD (PORCINE) 5000UNITS/ML 1ML VIAL/SYRINGE SC SCH ×2 (09:00→21:00)
[2021-09-11] MEDS: DOCUSATE SODIUM 100MG CAPSULE PO SCH ×2 (09:28→22:01)
[2021-09-11] MEDS: FOLIC ACID 1 MG TAB PO SCH (09:28)
[2021-09-11] MEDS: FERROUS SULFATE 325MG TAB PO SCH (09:28)
[2021-09-11] MEDS: THIAMINE 100 MG TAB PO SCH (09:28)
[2021-09-11] MEDS: VITAMIN D 1,000 INTERNATIONAL UNITS TABLET PO SCH (09:28)
[2021-09-11] MEDS: MULTIVITAMINS/MINERALS THERAP 1 TAB PO SCH (09:28)
[2021-09-11] MEDS: traZODone 50 MG TAB PO SCH (22:00)
[2021-09-12] MEDS: PERCOCET 5MG/325MG TAB PO PRN ×3 (05:30→20:40)
[2021-09-12 05:44] VITALS: BP 143/78
[2021-09-12] MEDS: HEPARIN SOD (PORCINE) 5000UNITS/ML 1ML VIAL/SYRINGE SC SCH ×2 (09:00→20:39)
[2021-09-12] MEDS: MOM 30ML SUSPENSION UDC PO SCH (09:00)
[2021-09-12] MEDS: VITAMIN D 1,000 INTERNATIONAL UNITS TABLET PO SCH (09:07)
[2021-09-12] MEDS: FOLIC ACID 1 MG TAB PO SCH (09:08)
[2021-09-12] MEDS: DOCUSATE SODIUM 100MG CAPSULE PO SCH ×2 (09:08→20:40)
[2021-09-12] MEDS: FERROUS SULFATE 325MG TAB PO SCH (09:08)
[2021-09-12] MEDS: THIAMINE 100 MG TAB PO SCH (09:08)
[2021-09-12] MEDS: MULTIVITAMINS/MINERALS THERAP 1 TAB PO SCH (09:08)
[2021-09-12] MEDS ORDERED: FERR1TAB8 PO (17:27)
[2021-09-12] MEDS ORDERED: COLA100C5 PO (17:27)
[2021-09-12] MEDS ORDERED: VITMTA PO (17:27)
[2021-09-12] MEDS ORDERED: FOLI1TAB11 PO (17:27)
[2021-09-12] MEDS ORDERED: PERCOCET PO (17:30)
[2021-09-12 18:08] LABS: HEMATOCRIT 34.2 % (36.0-47.0); HEMOGLOBIN 10.8 g/dl (12.0-15.5)
[2021-09-12] MEDS: traZODone 50 MG TAB PO SCH (20:41)
[2021-09-12 22:00] VITALS: BP 141/77
[2021-09-13 06:00] VITALS: BP 141/75
[2021-09-13] MEDS: VITAMIN D 1,000 INTERNATIONAL UNITS TABLET PO SCH (08:00)
[2021-09-13] MEDS: THIAMINE 100 MG TAB PO SCH (08:00)
[2021-09-13] MEDS: PERCOCET 5MG/325MG TAB PO PRN (08:01)
[2021-09-13] MEDS: MULTIVITAMINS/MINERALS THERAP 1 TAB PO SCH (08:01)
[2021-09-13] MEDS: DOCUSATE SODIUM 100MG CAPSULE PO SCH (08:01)
[2021-09-13] MEDS: FERROUS SULFATE 325MG TAB PO SCH (08:01)
[2021-09-13] MEDS: FOLIC ACID 1 MG TAB PO SCH (08:01)
[2021-09-13] MEDS: HEPARIN SOD (PORCINE) 5000UNITS/ML 1ML VIAL/SYRINGE SC SCH (08:01)
== END 2021-09-13 09:20 | DRG 493 ==
LOC: EDBD 15:19 → M ED 15:19 → M ED INP 20:33 → ENRESERV 22:58 → M MS5PR 08-25 01:45
PROVIDERS: ADMIT Family Medicine; ATTEND Internal Medicine
PROC: 0PSF06Z Reposition Right Humeral Shaft with Intramedullary Internal Fixation Device, Open Approach (ICD-10-PCS; principal; 2021-09-05 15:30)
PROC: 30233N1 Transfusion of Nonautologous Red Blood Cells into Peripheral Vein, Percutaneous Approach (ICD-10-PCS; 2021-09-06)
DX: S49.001A Unspecified physeal fracture of upper end of humerus, right arm, initial encounter for closed fracture (principal); D61.818 Other pancytopenia; M81.0 Age-related osteoporosis without current pathological fracture; F41.8 Other specified anxiety disorders; K76.0 Fatty (change of) liver, not elsewhere classified; E53.8 Deficiency of other specified B group vitamins; M19.90 Unspecified osteoarthritis, unspecified site; F32.9 Major depressive disorder, single episode, unspecified; F10.10 Alcohol abuse, uncomplicated; W18.09XA Striking against other object with subsequent fall, initial encounter; Y92.009 Unspecified place in unspecified non-institutional (private) residence as the place of occurrence of the external cause; Z79.899 Other long term (current) drug therapy

== ENCOUNTER → 2021-11-20 | Outpatient (CLI) | payer MEDICARE, MEDICAID ==
[~2021-11-20] MED LIST changes: +COLA100C5 PO
== END | disposition home or self-care (01) ==
LOC: M SOG 08:22
PROVIDERS: ATTEND Orthopaedic Surgery
DX: S42.401D Unspecified fracture of lower end of right humerus, subsequent encounter for fracture with routine healing (principal)

== ENCOUNTER 2022-02-27 08:36 | Inpatient (IN) | payer MEDICARE, MEDICAID ==
[~2022-02-27] VITALS: Ht 157.5 cm; Wt 69.3 kg
[2022-02-27] VITALS (7 sets, daily range): BP systolic 122–162; BP diastolic 59–74
[2022-02-27] MEDS ORDERED: ALEN70TA82 PO (08:45)
[2022-02-27] MEDS ORDERED: CALC500T31 PO (08:45)
[2022-02-27] MEDS ORDERED: ONDANSETRON 4MG/2ML VIAL IV ONE (09:35)
[2022-02-27] MEDS: MORPHINE 2 MG/ML 1ML VIAL IV PRN ×2 (09:39→10:12)
[2022-02-27 09:56] LABS: BASO % 0.4 % (0.0-1.0); EOS % 0.2 % (0.0-3.0); HEMATOCRIT 44.3 % (36.0-47.0); HEMOGLOBIN 15.1 g/dl (12.0-15.5); LYMPH % 20.2 % (24.0-44.0); MEAN CORPUSCULAR HEMOGLOBIN 33.6 pg (27.0-33.0); MEAN CORPUSCULAR HGB CONC 34.1 g/dl (32.0-36.5); MEAN CORPUSCULAR VOLUME 98.4 fl (80.0-96.0); MONO % 10.6 % (2.0-8.0); NEUTROPHILS # 6.6 10^3/uL (1.5-8.5); NEUTROPHILS % 68.2 % (36.0-66.0); PLATELET COUNT, AUTOMATED 260 10^3/uL (150-450); WHITE BLOOD COUNT 9.7 10^3/uL (4.0-10.0)
[2022-02-27 10:22] LABS: BLOOD UREA NITROGEN 7 MG/DL (7-18); CALCIUM LEVEL 9.8 MG/DL (8.8-10.2); CARBON DIOXIDE LEVEL 26 MEQ/L (21-32); CHLORIDE LEVEL 108 MEQ/L (98-107); CREATININE FOR GFR 0.75 MG/DL (0.55-1.30); GLOMERULAR FILTRATION RATE > 60.0 (>45); GLUCOSE, FASTING 97 MG/DL (70-100); POTASSIUM SERUM 3.8 MEQ/L (3.5-5.1); SODIUM LEVEL 145 MEQ/L (136-145)
[2022-02-27 10:24] LABS: RSV AMPLIFICATION NEGATIVE (NEGATIVE)
[2022-02-27] MEDS ORDERED: HOME MED LIST COMPLETE! XX SCH (12:00)
[2022-02-27] MEDS ORDERED: ERGO500029 PO (12:00)
[2022-02-27] MEDS ORDERED: SENN-152 PO (12:00)
[2022-02-27] MEDS ORDERED: OXYC1TAB23 PO (12:00)
[2022-02-27] MEDS ORDERED: TRAZ1TAB14 PO (12:00)
[2022-02-27] MEDS: hydrALAZINE 20MG/ML 1ML VIAL (J0360 PER 20MG) IV SCH ×2 (12:59→18:31)
[2022-02-27] MEDS ORDERED: ACETAMINOPHEN TAB 650MG DOSE (2X325MG) PO PRN (13:05)
[2022-02-27 13:54] LABS: CK-MB VALUE MASS 3.8 NG/ML (<3.6); MB/CK RELATIVE INDEX 1.15 (< OR =4)
[2022-02-27 13:58] LABS: ALBUMIN 3.5 GM/DL (3.2-5.2); BILIRUBIN,DIRECT 0.2 MG/DL (0.0-0.2); BILIRUBIN,TOTAL 0.4 MG/DL (0.2-1.0); THYROID STIMULATING HORMONE 1.3 uIU/ML (0.358-3.740); TOTAL PROTEIN 6.9 GM/DL (6.4-8.2)
[2022-02-27] MEDS: MULTIVITAMINS/MINERALS THERAP 1 TAB PO SCH (14:42)
[2022-02-27] MEDS: OYSTER SHELL CALCIUM 500 MG TAB PO SCH (14:42)
[2022-02-27] MEDS: FOLIC ACID 1 MG TAB PO SCH (14:42)
[2022-02-27] MEDS: PERCOCET 5MG/325MG TAB PO PRN ×2 (15:31→21:26)
[2022-02-27] MEDS ORDERED: SENOKOT S TAB PO SCH (21:00)
[2022-02-27] MEDS: traZODone 50 MG TAB PO SCH (21:26)
[2022-02-28] VITALS (9 sets, daily range): BP systolic 119–164; BP diastolic 61–90
[2022-02-28] MEDS: hydrALAZINE 20MG/ML 1ML VIAL (J0360 PER 20MG) IV SCH ×4 (00:58→18:35)
[2022-02-28] MEDS: PERCOCET 5MG/325MG TAB PO PRN ×3 (04:02→21:43)
[2022-02-28 06:07] LABS: HEMATOCRIT 39.6 % (36.0-47.0); HEMOGLOBIN 13.2 g/dl (12.0-15.5); MEAN CORPUSCULAR HEMOGLOBIN 33.2 pg (27.0-33.0); MEAN CORPUSCULAR HGB CONC 33.3 g/dl (32.0-36.5); MEAN CORPUSCULAR VOLUME 99.7 fl (80.0-96.0); PLATELET COUNT, AUTOMATED 198 10^3/uL (150-450); RED BLOOD COUNT 3.97 10^6/uL (4.00-5.40); WHITE BLOOD COUNT 7.2 10^3/uL (4.0-10.0)
[2022-02-28 06:36] LABS: BLOOD UREA NITROGEN 7 MG/DL (7-18); CALCIUM LEVEL 8.2 MG/DL (8.8-10.2); CARBON DIOXIDE LEVEL 31 MEQ/L (21-32); CHLORIDE LEVEL 104 MEQ/L (98-107); CREATININE FOR GFR 0.73 MG/DL (0.55-1.30); GLOMERULAR FILTRATION RATE > 60.0 (>45); GLUCOSE, FASTING 99 MG/DL (70-100); SODIUM LEVEL 138 MEQ/L (136-145)
[2022-02-28] MEDS ORDERED: POTASSIUM CHLORIDE 10MEQ SR TABLET PO ONE (06:55)
[2022-02-28] MEDS: MULTIVITAMINS/MINERALS THERAP 1 TAB PO SCH (07:50)
[2022-02-28] MEDS: FOLIC ACID 1 MG TAB PO SCH (07:50)
[2022-02-28] MEDS: THIAMINE 100 MG TAB PO SCH (07:50)
[2022-02-28] MEDS: OYSTER SHELL CALCIUM 500 MG TAB PO SCH (07:50)
[2022-02-28 08:05] LABS: MAGNESIUM LEVEL 1.7 MG/DL (1.8-2.4)
[2022-02-28] MEDS: HEPARIN SOD (PORCINE) 5000UNITS/ML 1ML VIAL/SYRINGE SQ SCH ×2 (09:00→21:42)
[2022-02-28] MEDS ORDERED: MAG SULF 1GM/100ML (MAG RUN) 1 GM in IV 1 EA IV ONE (10:00)
[2022-02-28] MEDS: traZODone 50 MG TAB PO SCH (21:42)
[2022-03-01] VITALS (7 sets, daily range): BP systolic 132–173; BP diastolic 61–80
[2022-03-01] MEDS: hydrALAZINE 20MG/ML 1ML VIAL (J0360 PER 20MG) IV SCH ×2 (00:55→06:58)
[2022-03-01] MEDS: PERCOCET 5MG/325MG TAB PO PRN ×3 (07:41→21:37)
[2022-03-01 08:22] LABS: BASO % 0.6 % (0.0-1.0); EOS # 0.1 10^3/uL (0.0-0.5); EOS % 1.1 % (0.0-3.0); HEMATOCRIT 41.9 % (36.0-47.0); HEMOGLOBIN 14.2 g/dl (12.0-15.5); LYMPH # 2.2 10^3/uL (1.5-5.0); LYMPH % 31.2 % (24.0-44.0); MEAN CORPUSCULAR HEMOGLOBIN 34.4 pg (27.0-33.0); MEAN CORPUSCULAR HGB CONC 33.9 g/dl (32.0-36.5); MEAN CORPUSCULAR VOLUME 101.5 fl (80.0-96.0); MONO # 0.8 10^3/uL (0.0-0.8); NEUTROPHILS # 3.9 10^3/uL (1.5-8.5); NEUTROPHILS % 55.8 % (36.0-66.0); PLATELET COUNT, AUTOMATED 204 10^3/uL (150-450); RED BLOOD COUNT 4.13 10^6/uL (4.00-5.40)
[2022-03-01 08:51] LABS: BLOOD UREA NITROGEN 7 MG/DL (7-18); CALCIUM LEVEL 8.3 MG/DL (8.8-10.2); CARBON DIOXIDE LEVEL 28 MEQ/L (21-32); CHLORIDE LEVEL 106 MEQ/L (98-107); CREATININE FOR GFR 0.87 MG/DL (0.55-1.30); GLOMERULAR FILTRATION RATE > 60.0 (>45); GLUCOSE, FASTING 110 MG/DL (70-100); MAGNESIUM LEVEL 1.7 MG/DL (1.8-2.4); POTASSIUM SERUM 4.3 MEQ/L (3.5-5.1); SODIUM LEVEL 139 MEQ/L (136-145)
[2022-03-01] MEDS: HEPARIN SOD (PORCINE) 5000UNITS/ML 1ML VIAL/SYRINGE SQ SCH ×2 (09:00→21:00)
[2022-03-01] MEDS ORDERED: MAG SULF 1GM/100ML (MAG RUN) 1 GM in IV 1 EA IV ONE (09:35)
[2022-03-01] MEDS: OYSTER SHELL CALCIUM 500 MG TAB PO SCH (09:36)
[2022-03-01] MEDS: THIAMINE 100 MG TAB PO SCH (09:36)
[2022-03-01] MEDS: MULTIVITAMINS/MINERALS THERAP 1 TAB PO SCH (09:36)
[2022-03-01] MEDS: FOLIC ACID 1 MG TAB PO SCH (09:36)
[2022-03-01] MEDS: amLODIPine 5 MG TAB PO SCH (12:54)
[2022-03-01] MEDS: lisinopriL 5 MG TAB PO SCH (12:54)
[2022-03-01] MEDS: traZODone 50 MG TAB PO SCH (21:25)
[2022-03-02 05:41] VITALS: BP 152/79
[2022-03-02 06:20] LABS: HEMATOCRIT 39.8 % (36.0-47.0); HEMOGLOBIN 13.5 g/dl (12.0-15.5); MEAN CORPUSCULAR HEMOGLOBIN 34.4 pg (27.0-33.0); MEAN CORPUSCULAR HGB CONC 33.9 g/dl (32.0-36.5); MEAN CORPUSCULAR VOLUME 101.5 fl (80.0-96.0); PLATELET COUNT, AUTOMATED 186 10^3/uL (150-450); RED BLOOD COUNT 3.92 10^6/uL (4.00-5.40); WHITE BLOOD COUNT 6.2 10^3/uL (4.0-10.0)
[2022-03-02 06:42] LABS: BLOOD UREA NITROGEN 6 MG/DL (7-18); CALCIUM LEVEL 9.1 MG/DL (8.8-10.2); CARBON DIOXIDE LEVEL 25 MEQ/L (21-32); CHLORIDE LEVEL 110 MEQ/L (98-107); CREATININE FOR GFR 0.63 MG/DL (0.55-1.30); GLOMERULAR FILTRATION RATE > 60.0 (>45); GLUCOSE, FASTING 106 MG/DL (70-100); MAGNESIUM LEVEL 2.1 MG/DL (1.8-2.4); POTASSIUM SERUM 3.8 MEQ/L (3.5-5.1); SODIUM LEVEL 143 MEQ/L (136-145)
[2022-03-02] MEDS: HEPARIN SOD (PORCINE) 5000UNITS/ML 1ML VIAL/SYRINGE SQ SCH ×2 (09:00→22:00)
[2022-03-02] MEDS: FOLIC ACID 1 MG TAB PO SCH (09:06)
[2022-03-02] MEDS: THIAMINE 100 MG TAB PO SCH (09:06)
[2022-03-02] MEDS: OYSTER SHELL CALCIUM 500 MG TAB PO SCH (09:06)
[2022-03-02] MEDS: MULTIVITAMINS/MINERALS THERAP 1 TAB PO SCH (09:07)
[2022-03-02] MEDS: lisinopriL 5 MG TAB PO SCH (09:07)
[2022-03-02] MEDS: PERCOCET 5MG/325MG TAB PO PRN ×2 (09:07→22:05)
[2022-03-02] MEDS: amLODIPine 5 MG TAB PO SCH (09:08)
[2022-03-02 20:50] VITALS: BP 152/82
[2022-03-02] MEDS: traZODone 50 MG TAB PO SCH (22:04)
[2022-03-02] MEDS: DOCUSATE SODIUM 100MG CAPSULE PO PRN (22:04)
[2022-03-03 05:06] VITALS: BP 149/85
[2022-03-03] MEDS: HEPARIN SOD (PORCINE) 5000UNITS/ML 1ML VIAL/SYRINGE SQ SCH ×2 (09:00→22:04)
[2022-03-03] MEDS: PERCOCET 5MG/325MG TAB PO PRN ×2 (09:35→22:08)
[2022-03-03] MEDS: MULTIVITAMINS/MINERALS THERAP 1 TAB PO SCH (09:35)
[2022-03-03] MEDS: FOLIC ACID 1 MG TAB PO SCH (09:35)
[2022-03-03] MEDS: THIAMINE 100 MG TAB PO SCH (09:35)
[2022-03-03] MEDS: OYSTER SHELL CALCIUM 500 MG TAB PO SCH (09:35)
[2022-03-03] MEDS: amLODIPine 5 MG TAB PO SCH (09:37)
[2022-03-03] MEDS: lisinopriL 5 MG TAB PO SCH (09:37)
[2022-03-03] MEDS: traZODone 50 MG TAB PO SCH (22:04)
[2022-03-03] MEDS: DOCUSATE SODIUM 100MG CAPSULE PO PRN (22:08)
[2022-03-04 04:34] VITALS: BP 148/84
[2022-03-04] MEDS: HEPARIN SOD (PORCINE) 5000UNITS/ML 1ML VIAL/SYRINGE SQ SCH ×2 (09:00→21:00)
[2022-03-04] MEDS: amLODIPine 5 MG TAB PO SCH (10:13)
[2022-03-04] MEDS: THIAMINE 100 MG TAB PO SCH (10:14)
[2022-03-04] MEDS: FOLIC ACID 1 MG TAB PO SCH (10:14)
[2022-03-04] MEDS: lisinopriL 5 MG TAB PO SCH (10:14)
[2022-03-04] MEDS: MULTIVITAMINS/MINERALS THERAP 1 TAB PO SCH (10:14)
[2022-03-04] MEDS: OYSTER SHELL CALCIUM 500 MG TAB PO SCH (10:14)
[2022-03-04] MEDS: PERCOCET 5MG/325MG TAB PO PRN ×2 (10:15→22:23)
[2022-03-04] MEDS: traZODone 50 MG TAB PO SCH (22:21)
[2022-03-04] MEDS: DOCUSATE SODIUM 100MG CAPSULE PO PRN (22:21)
[2022-03-05 06:00] VITALS: BP 159/74
[2022-03-05] MEDS: FOLIC ACID 1 MG TAB PO SCH (08:25)
[2022-03-05 08:26] VITALS: BP 159/74
[2022-03-05] MEDS: lisinopriL 5 MG TAB PO SCH (08:26)
[2022-03-05] MEDS: OYSTER SHELL CALCIUM 500 MG TAB PO SCH (08:26)
[2022-03-05] MEDS: amLODIPine 5 MG TAB PO SCH (08:26)
[2022-03-05] MEDS: MULTIVITAMINS/MINERALS THERAP 1 TAB PO SCH (08:27)
[2022-03-05] MEDS: THIAMINE 100 MG TAB PO SCH (08:27)
[2022-03-05] MEDS: HEPARIN SOD (PORCINE) 5000UNITS/ML 1ML VIAL/SYRINGE SQ SCH (08:28)
[2022-03-05] MEDS ORDERED: FOLI1TAB11 PO (11:36)
[2022-03-05] MEDS ORDERED: THIA100TA PO (11:36)
[2022-03-05] MEDS ORDERED: ACET1TAB55 PO (11:38)
[2022-03-05] MEDS ORDERED: AMLO1TAB24 PO (11:38)
[2022-03-05] MEDS: PERCOCET 5MG/325MG TAB PO PRN (12:42)
== END 2022-03-05 13:30 | DRG 563 ==
LOC: EDSEX 08:36 → EDBD 08:36 → M ED 08:36 → M ED INP 12:25 → ENRESERV 12:49 → M PCU 13:54 → M MSPAV 03-01 14:15
PROVIDERS: ADMIT Internal Medicine; ATTEND Internal Medicine Nephrology
DX: S92.325A Nondisplaced fracture of second metatarsal bone, left foot, initial encounter for closed fracture (principal); I16.0 Hypertensive urgency; S92.345A Nondisplaced fracture of fourth metatarsal bone, left foot, initial encounter for closed fracture; S92.335A Nondisplaced fracture of third metatarsal bone, left foot, initial encounter for closed fracture; F10.10 Alcohol abuse, uncomplicated; E55.9 Vitamin D deficiency, unspecified; R32 Unspecified urinary incontinence; F41.8 Other specified anxiety disorders; M81.0 Age-related osteoporosis without current pathological fracture; M19.90 Unspecified osteoarthritis, unspecified site; F32.A Depression, unspecified; Z96.642 Presence of left artificial hip joint; Z79.899 Other long term (current) drug therapy; G47.00 Insomnia, unspecified; W18.09XA Striking against other object with subsequent fall, initial encounter; Y92.009 Unspecified place in unspecified non-institutional (private) residence as the place of occurrence of the external cause

== ENCOUNTER → 2022-03-26 | Outpatient (CLI) | payer MEDICARE, MEDICAID ==
[~2022-03-26] MED LIST changes: +ALEN70TA82 PO; +AMLO1TAB24 PO; +CALC500T31 PO; +SENN-152 PO; +TRAZ1TAB14 PO
== END ==
LOC: M SOG 12:06
PROVIDERS: ATTEND Orthopaedic Surgery Hand Surgery
DX: M19.072 Primary osteoarthritis, left ankle and foot (principal)

== ENCOUNTER → 2022-07-05 | Outpatient (CLI) | payer MEDICARE, MEDICAID ==
[~2022-07-05] MED LIST changes: +ALEN70TA87 PO; -FOSA70TA PO
[2022-07-05 17:12] LABS: HEMATOCRIT 48.6 % (36.0-47.0); HEMOGLOBIN 16.7 g/dl (12.0-15.5); MEAN CORPUSCULAR HEMOGLOBIN 33.7 pg (27.0-33.0); MEAN CORPUSCULAR HGB CONC 34.4 g/dl (32.0-36.5); PLATELET COUNT, AUTOMATED 221 10^3/uL (150-450); RED BLOOD COUNT 4.96 10^6/uL (4.00-5.40); WHITE BLOOD COUNT 11.6 10^3/uL (4.0-10.0)
[2022-07-05 17:58] LABS: BLOOD UREA NITROGEN 11 MG/DL (7-18); CALCIUM LEVEL 9.6 MG/DL (8.8-10.2); CARBON DIOXIDE LEVEL 27 MEQ/L (21-32); CHLORIDE LEVEL 104 MEQ/L (98-107); CHOLESTEROL LEVEL 134 MG/DL (<200); CREATININE FOR GFR 0.91 MG/DL (0.55-1.30); GLOMERULAR FILTRATION RATE > 60.0 (>45); GLUCOSE, FASTING 104 MG/DL (70-100); POTASSIUM SERUM 3.4 MEQ/L (3.5-5.1); SODIUM LEVEL 142 MEQ/L (136-145); TRIGLYCERIDES LEVEL 180 MG/DL (<150)
[2022-07-05 17:59] LABS: CHOLESTEROL RISK RATIO 2.196 (<5); HDL CHOLESTEROL 61 MG/DL (>40); LDL CHOLESTEROL 37 MG/DL (<100); NON-HDL-C 73 MG/DL
[2022-07-05 18:49] LABS: HEMOGLOBIN A1c 5.3 %
[2022-07-05 20:18] LABS: TOTAL 25(OH) VITAMIN D 70.6 NG/ML (30.0-100.0)
== END ==
LOC: M PLALAB 15:42
PROVIDERS: ATTEND Student in an Organized Health Care Education/Training Program
DX: Z13.1 Encounter for screening for diabetes mellitus (principal); E55.9 Vitamin D deficiency, unspecified; I10 Essential (primary) hypertension; Z13.220 Encounter for screening for lipoid disorders; Z13.29 Encounter for screening for other suspected endocrine disorder

== ENCOUNTER → 2023-10-17 | Outpatient (CLI) | payer MEDICARE, MEDICAID ==
[~2023-10-17] MED LIST changes: -K-TA10TA2 PO; +POTA-165 PO; +POTA-298 PO; -POTA1TAB14 PO
[2023-10-17 18:25] LABS: BASO # 0.1 10^3/uL (0.0-0.2); BASO % 0.6 % (0.0-1.0); EOS % 0.2 % (0.0-3.0); HEMATOCRIT 41.6 % (36.0-47.0); HEMOGLOBIN 13.6 g/dl (12.0-15.5); LYMPH # 1.9 10^3/uL (1.5-5.0); LYMPH % 22.3 % (24.0-44.0); MEAN CORPUSCULAR HEMOGLOBIN 36.5 pg (27.0-33.0); MEAN CORPUSCULAR HGB CONC 32.7 g/dl (32.0-36.5); MEAN CORPUSCULAR VOLUME 111.5 fl (80.0-96.0); MONO # 0.7 10^3/uL (0.0-0.8); MONO % 7.7 % (2.0-8.0); NEUTROPHILS # 5.8 10^3/uL (1.5-8.5); PLATELET COUNT, AUTOMATED 225 10^3/uL (150-450); RED BLOOD COUNT 3.73 10^6/uL (4.00-5.40); WHITE BLOOD COUNT 8.5 10^3/uL (4.0-10.0)
[2023-10-17 18:35] LABS: TOTAL 25(OH) VITAMIN D 35.2 NG/ML (20.0-100.0)
[2023-10-17 18:36] LABS: ALBUMIN 3.6 G/DL (3.2-5.2); ALKALINE PHOSPHATASE 57 U/L (46-116); ALT/SGPT < 9 U/L (7.0-40); AST/SGOT 16 U/L (<34); BILIRUBIN,TOTAL 0.5 MG/DL (0.3-1.2); BLOOD UREA NITROGEN 7 MG/DL (9-23); CALCIUM LEVEL 9.4 MG/DL (8.3-10.6); CARBON DIOXIDE LEVEL 28 MMOL/L (20-31); CHLORIDE LEVEL 108 MMOL/L (98-107); CHOLESTEROL LEVEL 153 MG/DL (<200); CHOLESTEROL RISK RATIO 4.28 (<5); CREATININE FOR GFR 0.63 MG/DL (0.55-1.30); GLOMERULAR FILTRATION RATE > 60.0 (>39); GLUCOSE, FASTING 98 MG/DL (74-106); HDL CHOLESTEROL 35.7 MG/DL (>40); LDL CHOLESTEROL 90.1 MG/DL (<100); NON-HDL-C 117.3 MG/DL; POTASSIUM SERUM 4.1 MMOL/L (3.5-5.1); SODIUM LEVEL 142 MMOL/L (136-145); TOTAL PROTEIN 6.9 G/DL (5.7-8.2); TRIGLYCERIDES LEVEL 136 MG/DL (<150)
[2023-10-17 18:42] LABS: HEMOGLOBIN A1c 4.8 % (4.0-6.0)
== END ==
LOC: M PLALAB 15:04
PROVIDERS: ATTEND Student in an Organized Health Care Education/Training Program
DX: I10 Essential (primary) hypertension (principal); Z13.220 Encounter for screening for lipoid disorders; Z13.1 Encounter for screening for diabetes mellitus; E55.9 Vitamin D deficiency, unspecified

== ENCOUNTER 2024-01-26 13:16 | Observation (INO) | payer MEDICARE, MEDICAID ==
[~2024-01-26] VITALS: Ht 157.5 cm; Wt 59.1 kg
[2024-01-26] MEDS ORDERED: HOME MED LIST COMPLETE! XX SCH (14:55)
[2024-01-26 17:09] LABS: AMPHETAMINES LEVEL URINE NEGATIVE (NEGATIVE); BARBITURATES URINE NEGATIVE (NEGATIVE); BENZODIAZEPINES URINE NEGATIVE (NEGATIVE); CANNABINOIDS URINE NEGATIVE (NEGATIVE); COCAINE METABOLITE URINE NEGATIVE (NEGATIVE); METHADONE URINE NEGATIVE (NEGATIVE); OPIATES URINE NEGATIVE (NEGATIVE); PHENCYCLIDINE URINE NEGATIVE (NEGATIVE)
[2024-01-26] MEDS: THIAMINE 100 MG TAB PO ONE (17:38)
[2024-01-26] MEDS: LR 1,000 ML IV ONE ×2 (17:38→18:52)
[2024-01-26] MEDS: MULTIVITAMINS/MINERALS THERAP 1 TAB PO ONE (17:38)
[2024-01-26] MEDS: FOLIC ACID 1MG TAB PO ONE (17:38)
[2024-01-26 17:42] LABS: HEMATOCRIT 39.1 % (36.0-47.0); HEMOGLOBIN 13.2 g/dl (12.0-15.5); MEAN CORPUSCULAR HEMOGLOBIN 37.3 pg (27.0-33.0); MEAN CORPUSCULAR HGB CONC 33.8 g/dl (32.0-36.5); MEAN CORPUSCULAR VOLUME 110.5 fl (80.0-96.0); PLATELET COUNT, AUTOMATED 259 10^3/uL (150-450); RED BLOOD COUNT 3.54 10^6/uL (4.00-5.40); WHITE BLOOD COUNT 6.6 10^3/uL (4.0-10.0)
[2024-01-26 18:06] LABS: ETHYL ALCOHOL (ETHANOL) 0.229 % (0.000-0.010)
[2024-01-26 18:08] LABS: SALICYLATE LEVEL < 3.0 MG/DL (<30)
[2024-01-26 18:12] LABS: ALBUMIN 3.3 G/DL (3.2-5.2); ALKALINE PHOSPHATASE 64 U/L (46-116); ALT/SGPT 20 U/L (7.0-40); AST/SGOT 95 U/L (<34); BILIRUBIN,DIRECT 0.2 MG/DL (<0.4); BILIRUBIN,TOTAL 0.3 MG/DL (0.3-1.2); BLOOD UREA NITROGEN 6 MG/DL (9-23); CALCIUM LEVEL 8.3 MG/DL (8.3-10.6); CARBON DIOXIDE LEVEL 27 MMOL/L (20-31); CHLORIDE LEVEL 107 MMOL/L (98-107); CREATININE FOR GFR 0.53 MG/DL (0.55-1.30); FREE T4 0.97 NG/DL (0.89-1.76); GLOMERULAR FILTRATION RATE > 60.0 (>39); GLUCOSE, FASTING 85 MG/DL (74-106); POTASSIUM SERUM 3.2 MMOL/L (3.5-5.1); SODIUM LEVEL 146 MMOL/L (136-145); THYROID STIMULATING HORMONE 0.994 uIU/ML (0.55-4.78); TOTAL PROTEIN 6.4 G/DL (5.7-8.2)
[2024-01-26] MEDS: PERCOCET 5MG/325MG TAB PO ONE (18:44)
[2024-01-26] MEDS: POTASSIUM CHLORIDE 10MEQ SR TABLET PO ONE (18:45)
[2024-01-27] MEDS: PERCOCET 5MG/325MG TAB PO ONE (02:52)
[2024-01-27] MEDS ORDERED: ONDANSETRON 4MG 2ML VIAL IV PRN (03:20)
[2024-01-27] MEDS: POTASSIUM CHLORIDE 10MEQ SR TABLET PO ONE (03:20)
[2024-01-27] MEDS: hydrALAZINE 20MG/ML 1ML VIAL IV STA (03:55)
[2024-01-27] MEDS ORDERED: PILL CUTTER 1 EACH XX PRN (04:10)
[2024-01-27] MEDS: NS 1,000 ML IV SCH (05:14)
[2024-01-27] MEDS: traZODone 50 MG TAB PO ONE (05:14)
[2024-01-27] MEDS: hydrALAZINE 20MG/ML 1ML VIAL IV PRN (06:03)
[2024-01-27] MEDS: FOLIC ACID 1MG TAB PO SCH (07:23)
[2024-01-27] MEDS: THIAMINE 100 MG TAB PO SCH (07:24)
[2024-01-27] MEDS: MULTIVITAMINS/MINERALS THERAP 1 TAB PO SCH (07:24)
[2024-01-27] MEDS: KCL 10MEQ/100ML SWI (KRUN) 10 MEQ in IV 1 EA IV SCH (07:24)
[2024-01-27] MEDS: DOCUSATE SODIUM 100MG CAPSULE PO SCH (07:24)
[2024-01-27 07:54] LABS: BASO # 0.1 10^3/uL (0.0-0.2); EOS % 0.2 % (0.0-3.0); HEMATOCRIT 41.3 % (36.0-47.0); HEMOGLOBIN 13.9 g/dl (12.0-15.5); LYMPH # 2.1 10^3/uL (1.5-5.0); LYMPH % 33.8 % (24.0-44.0); MEAN CORPUSCULAR HEMOGLOBIN 37.7 pg (27.0-33.0); MEAN CORPUSCULAR HGB CONC 33.7 g/dl (32.0-36.5); MEAN CORPUSCULAR VOLUME 111.9 fl (80.0-96.0); MONO # 1.1 10^3/uL (0.0-0.8); MONO % 17.2 % (2.0-8.0); NEUTROPHILS % 47.6 % (36.0-66.0); PLATELET COUNT, AUTOMATED 263 10^3/uL (150-450); RED BLOOD COUNT 3.69 10^6/uL (4.00-5.40); WHITE BLOOD COUNT 6.2 10^3/uL (4.0-10.0)
[2024-01-27] MEDS ORDERED: KCL 20MEQ IN 0.45NS 1000ML 1,000 ML IV SCH (08:00)
[2024-01-27] MEDS: LIDOCAINE 5% (LIDODERM) PATCH TD SCH (09:00)
[2024-01-27 09:05] LABS: ALBUMIN 3.2 G/DL (3.2-5.2); ALKALINE PHOSPHATASE 72 U/L (46-116); ALT/SGPT 16 U/L (7.0-40); AST/SGOT 65 U/L (<34); BLOOD UREA NITROGEN 7 MG/DL (9-23); CALCIUM LEVEL 8.3 MG/DL (8.3-10.6); CARBON DIOXIDE LEVEL 30 MMOL/L (20-31); CHLORIDE LEVEL 103 MMOL/L (98-107); CREATININE FOR GFR 0.56 MG/DL (0.55-1.30); GLOMERULAR FILTRATION RATE > 60.0 (>39); GLUCOSE, FASTING 97 MG/DL (74-106); MAGNESIUM LEVEL 1.1 MG/DL (1.8-2.4); POTASSIUM SERUM 3.7 MMOL/L (3.5-5.1); SODIUM LEVEL 142 MMOL/L (136-145); TOTAL PROTEIN 6.7 G/DL (5.7-8.2)
[2024-01-27] MEDS: ACETAMINOPHEN TAB 650MG DOSE (2X325MG) PO PRN (09:36)
[2024-01-27] MEDS: MAG SULF 1GM/100ML (MAG RUN) 1 GM in IV 1 EA IV SCH (09:47)
[2024-01-27 11:26] VITALS: BP 162/80; TEMP 98.8; O2SAT 98
[2024-01-27 14:00] VITALS: BP 132/60; TEMP 98.6; O2SAT 97
[2024-01-27] MEDS: HEPARIN SOD (PORCINE) 5000UNITS/ML 1ML VIAL/SYRINGE SQ SCH (14:00)
[2024-01-27] MEDS: chlordiazePOXIDE 25 MG CAP PO SCH (15:50)
[2024-01-27] MEDS: PERCOCET 5MG/325MG TAB PO PRN (17:16)
[2024-01-27 20:47] VITALS: BP 148/74; TEMP 98.2; O2SAT 97
[2024-01-27] MEDS: traZODone 50 MG TAB PO SCH (21:09)
[2024-01-28 05:10] VITALS: BP 123/63; TEMP 98.6; O2SAT 96
[2024-01-28 07:37] LABS: HEMATOCRIT 34.4 % (36.0-47.0); MEAN CORPUSCULAR HEMOGLOBIN 37.4 pg (27.0-33.0); MEAN CORPUSCULAR HGB CONC 33.7 g/dl (32.0-36.5); PLATELET COUNT, AUTOMATED 254 10^3/uL (150-450); WHITE BLOOD COUNT 5.2 10^3/uL (4.0-10.0)
[2024-01-28 07:45] LABS: HEMOGLOBIN 11.6 g/dl (12.0-15.5)
[2024-01-28 07:56] LABS: ALBUMIN 2.7 G/DL (3.2-5.2); ALKALINE PHOSPHATASE 63 U/L (46-116); ALT/SGPT 13 U/L (7.0-40); AST/SGOT 30 U/L (<34); BILIRUBIN,TOTAL 0.6 MG/DL (0.3-1.2); BLOOD UREA NITROGEN 5 MG/DL (9-23); CARBON DIOXIDE LEVEL 27 MMOL/L (20-31); CHLORIDE LEVEL 107 MMOL/L (98-107); GLOMERULAR FILTRATION RATE > 60.0 (>39); GLUCOSE, FASTING 106 MG/DL (74-106); POTASSIUM SERUM 3.3 MMOL/L (3.5-5.1); SODIUM LEVEL 140 MMOL/L (136-145); TOTAL PROTEIN 5.3 G/DL (5.7-8.2)
[2024-01-28] MEDS: POTASSIUM CHLORIDE 10MEQ SR TABLET PO ONE (09:33)
[2024-01-28] MEDS ORDERED: THIA100TA PO (09:53)
[2024-01-28] MEDS ORDERED: FOLI1TAB11 PO (09:53)
[2024-01-28] MEDS ORDERED: MULT-40 PO (09:53)
[2024-01-28] MEDS ORDERED: VANICREAM MOISTURIZING SKIN CREAM 113GM TUBE TOP PRN (11:05)
[2024-01-28] MEDS: CALCIUM CARBONATE 500 MG CHEW U/D PO ONE (13:02)
[2024-01-28 14:00] VITALS: BP_SYST 130; BP_SYST 150; BP_DIAS 65; BP_DIAS 80; TEMP 98.1; O2SAT 96
[2024-01-28 21:02] VITALS: BP 132/74; TEMP 98.6; O2SAT 95
[2024-01-28 21:05] VITALS: BP 132/74
[2024-01-28] MEDS: MAALOX 30 ML SUSP *UDC PO PRN (23:21)
[2024-01-29 05:40] VITALS: BP 140/70; TEMP 98.2; O2SAT 96
[2024-01-29 06:54] LABS: BASO # 0.1 10^3/uL (0.0-0.2); EOS # 0.1 10^3/uL (0.0-0.5); EOS % 1.1 % (0.0-3.0); HEMOGLOBIN 12.3 g/dl (12.0-15.5); LYMPH # 1.8 10^3/uL (1.5-5.0); LYMPH % 28.1 % (24.0-44.0); MEAN CORPUSCULAR HEMOGLOBIN 37.5 pg (27.0-33.0); MEAN CORPUSCULAR HGB CONC 33.2 g/dl (32.0-36.5); MEAN CORPUSCULAR VOLUME 112.8 fl (80.0-96.0); MONO # 0.8 10^3/uL (0.0-0.8); MONO % 12.5 % (2.0-8.0); NEUTROPHILS # 3.6 10^3/uL (1.5-8.5); PLATELET COUNT, AUTOMATED 263 10^3/uL (150-450); RED BLOOD COUNT 3.28 10^6/uL (4.00-5.40); WHITE BLOOD COUNT 6.3 10^3/uL (4.0-10.0)
[2024-01-29 07:29] LABS: BLOOD UREA NITROGEN 12 MG/DL (9-23); CALCIUM LEVEL 8.9 MG/DL (8.3-10.6); CARBON DIOXIDE LEVEL 32 MMOL/L (20-31); CHLORIDE LEVEL 107 MMOL/L (98-107); GLOMERULAR FILTRATION RATE > 60.0 (>39); GLUCOSE, FASTING 107 MG/DL (74-106); MAGNESIUM LEVEL 1.6 MG/DL (1.8-2.4); POTASSIUM SERUM 4.4 MMOL/L (3.5-5.1); SODIUM LEVEL 143 MMOL/L (136-145)
[2024-01-29] MEDS: MAG SULF 1GM/100ML (MAG RUN) 1 GM in IV 1 EA IV SCH (10:27)
[2024-01-29 14:00] VITALS: BP 152/78; TEMP 98.1; O2SAT 98
[2024-01-29 20:00] VITALS: BP 120/70; TEMP 97.3; O2SAT 97
[2024-01-29] MEDS ORDERED: chlordiazePOXIDE 25 MG CAP PO SCH ×2 (21:00)
[2024-01-29] MEDS: chlordiazePOXIDE 25 MG CAP PO SCH (22:10)
[2024-01-29 22:13] VITALS: BP 172/88
[2024-01-29 22:31] VITALS: BP 172/88
[2024-01-29] MEDS: LORazepam 2 MG TAB PO PRN (22:41)
[2024-01-30] VITALS (8 sets, daily range): BP systolic 128–172; BP diastolic 71–90; TEMP 97.9–98.1; O2SAT 94–98
[2024-01-30] MEDS ORDERED: amLODIPine 5 MG TAB PO SCH (09:00)
[2024-01-30 09:03] LABS: BLOOD UREA NITROGEN 8 MG/DL (9-23); CALCIUM LEVEL 8.9 MG/DL (8.3-10.6); CARBON DIOXIDE LEVEL 26 MMOL/L (20-31); CHLORIDE LEVEL 111 MMOL/L (98-107); CREATININE FOR GFR 0.64 MG/DL (0.55-1.30); GLOMERULAR FILTRATION RATE > 60.0 (>39); GLUCOSE, FASTING 90 MG/DL (74-106); MAGNESIUM LEVEL 1.8 MG/DL (1.8-2.4); POTASSIUM SERUM 4.6 MMOL/L (3.5-5.1); SODIUM LEVEL 143 MMOL/L (136-145)
[2024-01-31 02:00] VITALS: BP 138/83
[2024-01-31 04:52] VITALS: BP 132/84; TEMP 97.9; O2SAT 94
[2024-01-31 14:00] VITALS: BP 126/81; TEMP 97.7; O2SAT 99
[2024-01-31] MEDS: NALOXONE INJ 0.4MG/1ML VIAL IV STA (16:00)
[2024-01-31] MEDS: RIVAROXABAN 10MG TAB (XARELTO) PO SCH (17:14)
[2024-01-31 20:33] VITALS: BP 124/86; TEMP 98.6; O2SAT 95
[2024-02-01 06:00] VITALS: BP_SYST 143; BP_SYST 179; BP_DIAS 78; BP_DIAS 81; TEMP 97.9; O2SAT 95
[2024-02-01 08:57] LABS: HEMATOCRIT 36.3 % (36.0-47.0); HEMOGLOBIN 11.8 g/dl (12.0-15.5); MEAN CORPUSCULAR HEMOGLOBIN 36.8 pg (27.0-33.0); MEAN CORPUSCULAR HGB CONC 32.5 g/dl (32.0-36.5); MEAN CORPUSCULAR VOLUME 113.1 fl (80.0-96.0); PLATELET COUNT, AUTOMATED 242 10^3/uL (150-450); RED BLOOD COUNT 3.21 10^6/uL (4.00-5.40); WHITE BLOOD COUNT 7.2 10^3/uL (4.0-10.0)
[2024-02-01 14:00] VITALS: BP 131/73; TEMP 98.4; O2SAT 94
[2024-02-01] MEDS: traZODone 25MG PER 1/2 TABLET PO SCH (20:06)
[2024-02-01] MEDS: PERCOCET 5MG/325MG TAB PO PRN (20:09)
[2024-02-01 22:00] VITALS: BP 161/96; TEMP 98.8; O2SAT 96
[2024-02-02 01:18] VITALS: BP 133/74
[2024-02-02 06:00] VITALS: BP 123/79; TEMP 98.1; O2SAT 96
[2024-02-02 14:00] VITALS: BP 128/84; TEMP 97.9; O2SAT 95
[2024-02-02 20:00] VITALS: BP 142/76; TEMP 97.2; O2SAT 96
[2024-02-03 06:00] VITALS: BP 134/60; TEMP 98.2; O2SAT 93
[2024-02-03 08:12] VITALS: BP 130/70
[2024-02-03 09:55] LABS: BASO # 0.1 10^3/uL (0.0-0.2); BASO % 1.1 % (0.0-1.0); EOS # 0.1 10^3/uL (0.0-0.5); HEMATOCRIT 39.2 % (36.0-47.0); HEMOGLOBIN 12.8 g/dl (12.0-15.5); LYMPH # 2.1 10^3/uL (1.5-5.0); LYMPH % 25.9 % (24.0-44.0); MEAN CORPUSCULAR HEMOGLOBIN 37.1 pg (27.0-33.0); MEAN CORPUSCULAR HGB CONC 32.7 g/dl (32.0-36.5); MEAN CORPUSCULAR VOLUME 113.6 fl (80.0-96.0); MONO # 0.9 10^3/uL (0.0-0.8); MONO % 11.2 % (2.0-8.0); NEUTROPHILS # 4.8 10^3/uL (1.5-8.5); NEUTROPHILS % 60.3 % (36.0-66.0); PLATELET COUNT, AUTOMATED 276 10^3/uL (150-450); RED BLOOD COUNT 3.45 10^6/uL (4.00-5.40)
[2024-02-03 10:19] LABS: BLOOD UREA NITROGEN 11 MG/DL (9-23); CALCIUM LEVEL 9.4 MG/DL (8.3-10.6); CARBON DIOXIDE LEVEL 28 MMOL/L (20-31); CHLORIDE LEVEL 104 MMOL/L (98-107); CREATININE FOR GFR 0.67 MG/DL (0.55-1.30); GLOMERULAR FILTRATION RATE > 60.0 (>39); GLUCOSE, FASTING 91 MG/DL (74-106); MAGNESIUM LEVEL 1.7 MG/DL (1.8-2.4); POTASSIUM SERUM 4.9 MMOL/L (3.5-5.1); SODIUM LEVEL 138 MMOL/L (136-145)
[2024-02-03] MEDS: MAGNESIUM OXIDE 400MG TAB (MAG-OX) PO ONE (11:08)
[2024-02-03] MEDS ORDERED: AMLO25TA PO (11:59)
[2024-02-03] MEDS ORDERED: TRAZ-252 PO (11:59)
[2024-02-03] MEDS ORDERED: PERCOCET PO (11:59)
== END 2024-02-03 14:25 ==
LOC: M ED 13:16 → EDBD 13:16 → M ED INP 01-27 03:18 → M MSPAV 01-27 11:27
PROVIDERS: ADMIT Preventive Medicine Undersea and Hyperbaric Medicine; ATTEND Internal Medicine
DX: F10.929 Alcohol use, unspecified with intoxication, unspecified (principal); S09.90XA Unspecified injury of head, initial encounter; W19.XXXA Unspecified fall, initial encounter; S02.2XXA Fracture of nasal bones, initial encounter for closed fracture; I10 Essential (primary) hypertension; E87.21 Acute metabolic acidosis; M51.36 Other intervertebral disc degeneration, lumbar region; F41.9 Anxiety disorder, unspecified; F32.A Depression, unspecified; M81.0 Age-related osteoporosis without current pathological fracture; Z79.899 Other long term (current) drug therapy; Y92.89 Other specified places as the place of occurrence of the external cause; Y99.9 Unspecified external cause status; Y93.9 Activity, unspecified; Y90.7 Blood alcohol level of 200-239 mg/100 ml
CPT/HCPCS: 36415; 70450; 70486; 71045; 73030; 73060; 80048; 80053; 80076; 80143; 80307; 81001; 82077; 82140; 83605; 83735; 84439; 84443; 85025; 85027; 93005; 96361; 96374; 96375; 96376; 97116; 97161; 97530; 99285; G0378; J0360; J2310; J3475

== ENCOUNTER 2024-06-29 20:52 | Inpatient (IN) | payer MEDICARE, MEDICAID ==
[~2024-06-29] VITALS: Ht 157.5 cm; Wt 57.7 kg
[~2024-06-29 20:52] MED LIST changes: +AMLO25TA PO; -CALC500T31 PO; +MULT-40 PO; +OYST500T16 PO
[2024-06-29 21:40] LABS: BASO # 0.1 10^3/uL (0.0-0.2); BASO % 0.7 % (0.0-1.0); EOS % 0.1 % (0.0-3.0); HEMATOCRIT 37.6 % (36.0-47.0); HEMOGLOBIN 12.4 g/dl (12.0-15.5); LYMPH # 2.4 10^3/uL (1.5-5.0); LYMPH % 21.3 % (24.0-44.0); MEAN CORPUSCULAR HEMOGLOBIN 32.3 pg (27.0-33.0); MEAN CORPUSCULAR VOLUME 97.9 fl (80.0-96.0); MONO # 1.4 10^3/uL (0.0-0.8); MONO % 12.2 % (2.0-8.0); NEUTROPHILS # 7.4 10^3/uL (1.5-8.5); NEUTROPHILS % 65.3 % (36.0-66.0); PLATELET COUNT, AUTOMATED 374 10^3/uL (150-450); RED BLOOD COUNT 3.84 10^6/uL (4.00-5.40); WHITE BLOOD COUNT 11.4 10^3/uL (4.0-10.0)
[2024-06-29] MEDS: PERCOCET 5MG/325MG TAB PO ONE (21:44)
[2024-06-29] MEDS: fentaNYL 100 MCG/2 ML INJECTION IV PRN (21:44)
[2024-06-29 22:00] LABS: INR 1.04; PARTIAL THROMBOPLASTIN TIME 33.9 SECONDS (24.8-34.2); PROTHROMBIN TIME 13.3 SECONDS (12.5-14.5)
[2024-06-29 22:11] LABS: ALBUMIN 3.3 G/DL (3.2-5.2); ALKALINE PHOSPHATASE 72 U/L (46-116); ALT/SGPT 38 U/L (7.0-40); AST/SGOT 256 U/L (<34); BILIRUBIN,DIRECT 0.2 MG/DL (<0.4); BILIRUBIN,TOTAL 0.6 MG/DL (0.3-1.2); BLOOD UREA NITROGEN 14 MG/DL (9-23); CALCIUM LEVEL 8.4 MG/DL (8.3-10.6); CARBON DIOXIDE LEVEL 30 MMOL/L (20-31); CHLORIDE LEVEL 106 MMOL/L (98-107); CREATININE FOR GFR 0.65 MG/DL (0.55-1.30); GLOMERULAR FILTRATION RATE > 60.0 (>39); GLUCOSE, FASTING 109 MG/DL (74-106); POTASSIUM SERUM 3.2 MMOL/L (3.5-5.1); SODIUM LEVEL 146 MMOL/L (136-145); TOTAL PROTEIN 6.7 G/DL (5.7-8.2)
[2024-06-29] MEDS ORDERED: ISOVUE-370 76% 100ML VIAL As Ordered ONE (22:31)
[2024-06-30 01:12] LABS: AMPHETAMINES LEVEL URINE NEGATIVE (NEGATIVE); BARBITURATES URINE NEGATIVE (NEGATIVE); BENZODIAZEPINES URINE NEGATIVE (NEGATIVE); COCAINE METABOLITE URINE NEGATIVE (NEGATIVE); METHADONE URINE NEGATIVE (NEGATIVE); OPIATES URINE NEGATIVE (NEGATIVE); PHENCYCLIDINE URINE NEGATIVE (NEGATIVE)
[2024-06-30 01:18] LABS: CANNABINOIDS URINE POSITIVE (NEGATIVE)
[2024-06-30] MEDS: POTASSIUM CHLORIDE 10% LIQ 20MEQ/15ML UDC PO ONE (02:45)
[2024-06-30] MEDS: PERCOCET 5MG/325MG TAB PO ONE (02:46)
[2024-06-30] MEDS: LORazepam 2 MG TAB PO PRN (06:36)
[2024-06-30] MEDS ORDERED: HOME MED LIST COMPLETE! XX SCH (08:10)
[2024-06-30] MEDS ORDERED: OXAZEPAM 10MG CAP PO SCH (09:00)
[2024-06-30] MEDS: MULTIVITAMINS/MINERALS THERAP 1 TAB PO SCH (09:59)
[2024-06-30] MEDS: FOLIC ACID 1MG TAB PO SCH (09:59)
[2024-06-30] MEDS: THIAMINE 100 MG TAB PO SCH ×2 (09:59→21:58)
[2024-06-30 10:55] LABS: BLOOD UREA NITROGEN 9 MG/DL (9-23); CALCIUM LEVEL 7.8 MG/DL (8.3-10.6); CARBON DIOXIDE LEVEL 30 MMOL/L (20-31); CHLORIDE LEVEL 105 MMOL/L (98-107); CREATININE FOR GFR 0.57 MG/DL (0.55-1.30); GLOMERULAR FILTRATION RATE > 60.0 (>39); GLUCOSE, FASTING 83 MG/DL (74-106); MAGNESIUM LEVEL 1.3 MG/DL (1.8-2.4); POTASSIUM SERUM 3.5 MMOL/L (3.5-5.1); SODIUM LEVEL 142 MMOL/L (136-145)
[2024-06-30] MEDS: MAG SULF 1GM/100ML (MAG RUN) 1 GM in IV 1 EA IV ONE (11:47)
[2024-06-30] MEDS ORDERED: MAALOX 30 ML SUSP *UDC PO PRN (13:20)
[2024-06-30] MEDS ORDERED: MOM 30ML SUSPENSION UDC PO PRN (13:20)
[2024-06-30] MEDS ORDERED: ACETAMINOPHEN 325 MG TAB PO PRN (13:20)
[2024-06-30] MEDS ORDERED: LORazepam 2 MG TAB PO PRN (13:20)
[2024-06-30] MEDS: POTASSIUM CHLORIDE 10MEQ SR TABLET PO SCH (15:20)
[2024-06-30] MEDS: MAG SULF 1GM/100ML (MAG RUN) 1 GM in IV 1 EA IV SCH (15:20)
[2024-06-30] MEDS: PERCOCET 5MG/325MG TAB PO PRN (15:29)
[2024-06-30] MEDS: OXAZEPAM 10MG CAP PO SCH (21:58)
[2024-06-30 22:45] VITALS: BP 164/74; TEMP 98.6; O2SAT 96
[2024-06-30] MEDS ORDERED: PILL CUTTER 1 EACH XX PRN (23:40)
[2024-06-30] MEDS: traZODone 50 MG TAB PO SCH (23:51)
[2024-07-01 05:48] VITALS: BP 139/64; TEMP 98.4; O2SAT 96
[2024-07-01 07:06] LABS: BLOOD UREA NITROGEN 6 MG/DL (9-23); CALCIUM LEVEL 8.1 MG/DL (8.3-10.6); CARBON DIOXIDE LEVEL 32 MMOL/L (20-31); CHLORIDE LEVEL 104 MMOL/L (98-107); GLOMERULAR FILTRATION RATE > 60.0 (>39); GLUCOSE, FASTING 96 MG/DL (74-106); MAGNESIUM LEVEL 1.9 MG/DL (1.8-2.4); SODIUM LEVEL 140 MMOL/L (136-145)
[2024-07-01] MEDS: MULTIVITAMINS/MINERALS THERAP 1 TAB PO SCH (07:50)
[2024-07-01] MEDS: FOLIC ACID 1MG TAB PO SCH (07:50)
[2024-07-01] MEDS: MAGNESIUM OXIDE 400MG TAB (MAG-OX) PO SCH (07:51)
[2024-07-01] MEDS: ENOXAPARIN 40MG/0.4ML SYRINGE (J1650 PER 10MG) SC SCH (07:53)
[2024-07-01] MEDS: POTASSIUM CHLORIDE 10MEQ SR TABLET PO ONE (10:59)
[2024-07-01] MEDS: KCL 10MEQ/100ML SWI (KRUN) 10 MEQ in IV 1 EA IV ONE (11:00)
[2024-07-01 12:00] VITALS: BP 144/72; TEMP 98.3; O2SAT 98
[2024-07-01 14:00] VITALS: BP 123/63
[2024-07-01 16:19] LABS: BLOOD UREA NITROGEN 8 MG/DL (9-23); CARBON DIOXIDE LEVEL 32 MMOL/L (20-31); CHLORIDE LEVEL 101 MMOL/L (98-107); CREATININE FOR GFR 0.57 MG/DL (0.55-1.30); GLOMERULAR FILTRATION RATE > 60.0 (>39); GLUCOSE, FASTING 117 MG/DL (74-106); POTASSIUM SERUM 4.1 MMOL/L (3.5-5.1); SODIUM LEVEL 139 MMOL/L (136-145)
[2024-07-01 20:10] VITALS: BP 119/56; TEMP 98.5; O2SAT 97
[2024-07-01 21:43] VITALS: BP 119/56
[2024-07-02 03:30] VITALS: BP 129/60; TEMP 97.9; O2SAT 96
[2024-07-02] MEDS: POTASSIUM CHLORIDE 10MEQ SR TABLET PO SCH (08:30)
[2024-07-02 09:32] VITALS: BP 129/60
[2024-07-02 11:54] VITALS: BP 117/56; TEMP 98.2; O2SAT 97
[2024-07-02 17:39] VITALS: BP 117/56
[2024-07-03 03:50] VITALS: BP 161/84; TEMP 98.4; O2SAT 98
[2024-07-03 12:00] VITALS: BP 105/58; TEMP 97.5; O2SAT 98
[2024-07-04 03:52] VITALS: BP 123/67; TEMP 97.7; O2SAT 97
[2024-07-04] MEDS ORDERED: ACETAMINOPHEN TAB 650MG DOSE (2X325MG) PO PRN (12:38)
[2024-07-05 03:48] VITALS: BP 122/59; TEMP 97.9; O2SAT 96
[2024-07-05 19:47] VITALS: BP 130/68; TEMP 98.3; O2SAT 97
[2024-07-06 03:51] VITALS: BP 129/62; TEMP 97.9; O2SAT 96
[2024-07-07 05:24] VITALS: BP 130/78; TEMP 97.9; O2SAT 96
[2024-07-07] MEDS: ACETAMINOPHEN 325 MG TAB PO PRN (14:56)
== END 2024-07-07 15:20 | disposition left against medical advice (07) | DRG 641 ==
LOC: M ED 20:52 → EDBD 20:52 → M ED INP 06-30 13:20 → OBSVTOIN 06-30 14:00 → M MS4PR 06-30 22:29 → M MS5PR 07-06 16:00
PROVIDERS: ADMIT Student in an Organized Health Care Education/Training Program; ATTEND Student in an Organized Health Care Education/Training Program
DX: E87.6 Hypokalemia (principal); G47.00 Insomnia, unspecified; F10.10 Alcohol abuse, uncomplicated; F41.9 Anxiety disorder, unspecified; R29.6 Repeated falls; I10 Essential (primary) hypertension; M81.0 Age-related osteoporosis without current pathological fracture; F32.A Depression, unspecified; E83.42 Hypomagnesemia

== ENCOUNTER → 2024-08-23 | Outpatient (CLI) | payer MEDICARE, MEDICAID ==
[2024-08-23 19:57] LABS: BASO % 0.6 % (0.0-1.0); EOS % 0.2 % (0.0-3.0); HEMATOCRIT 35.4 % (36.0-47.0); HEMOGLOBIN 11.4 g/dl (12.0-15.5); LYMPH # 1.4 10^3/uL (1.5-5.0); MEAN CORPUSCULAR HEMOGLOBIN 32.5 pg (27.0-33.0); MEAN CORPUSCULAR HGB CONC 32.2 g/dl (32.0-36.5); MEAN CORPUSCULAR VOLUME 100.9 fl (80.0-96.0); MONO # 1.2 10^3/uL (0.0-0.8); MONO % 18.3 % (2.0-8.0); NEUTROPHILS # 3.8 10^3/uL (1.5-8.5); NEUTROPHILS % 58.6 % (36.0-66.0); PLATELET COUNT, AUTOMATED 294 10^3/uL (150-450); RED BLOOD COUNT 3.51 10^6/uL (4.00-5.40); WHITE BLOOD COUNT 6.5 10^3/uL (4.0-10.0)
[2024-08-23 20:02] LABS: HEMOGLOBIN A1c 4.4 % (4.0-6.0)
[2024-08-23 20:18] LABS: ALBUMIN 3.1 G/DL (3.2-5.2); ALKALINE PHOSPHATASE 56 U/L (35-104); ALT/SGPT 11 U/L (7.0-40); AST/SGOT 16 U/L (<34); BILIRUBIN,DIRECT 0.2 MG/DL (<0.4); BILIRUBIN,TOTAL 0.4 MG/DL (0.3-1.2); BLOOD UREA NITROGEN 6 MG/DL (9-23); CALCIUM LEVEL 9.1 MG/DL (8.3-10.6); CARBON DIOXIDE LEVEL 27 MMOL/L (20-31); CHLORIDE LEVEL 107 MMOL/L (98-107); CHOLESTEROL LEVEL 138 MG/DL (<200); CHOLESTEROL RISK RATIO 2.97 (<5); CREATININE FOR GFR 0.63 MG/DL (0.55-1.30); GLOMERULAR FILTRATION RATE > 60.0 (>39); GLUCOSE, FASTING 96 MG/DL (74-106); HDL CHOLESTEROL 46.4 MG/DL (>40); LDL CHOLESTEROL 72.4 MG/DL (<100); NON-HDL-C 91.6 MG/DL; PHOSPHORUS LEVEL 3.5 MG/DL (2.4-5.1); POTASSIUM SERUM 3.8 MMOL/L (3.5-5.1); SODIUM LEVEL 142 MMOL/L (136-145); TOTAL PROTEIN 6.5 G/DL (5.7-8.2); TRIGLYCERIDES LEVEL 96 MG/DL (<150)
[2024-08-23 20:19] LABS: THYROID STIMULATING HORMONE 1.523 uIU/ML (0.55-4.78)
== END ==
LOC: M PLALAB 14:34
PROVIDERS: ATTEND Student in an Organized Health Care Education/Training Program
DX: R29.6 Repeated falls (principal); Z13.1 Encounter for screening for diabetes mellitus; Z13.29 Encounter for screening for other suspected endocrine disorder; Z13.220 Encounter for screening for lipoid disorders; Z79.899 Other long term (current) drug therapy

== ENCOUNTER → 2024-11-01 | Outpatient (CLI) | payer MEDICARE, MEDICAID ==
[2024-11-01 19:32] LABS: PERCENT SATURATION 6.1 % (13.2-45.0)
[2024-11-01 19:34] LABS: FERRITIN 9.7 NG/ML (7.3-270.7); FOLATE 15.89 NG/ML (>5.4)
== END ==
LOC: M PLALAB 14:20
PROVIDERS: ATTEND Student in an Organized Health Care Education/Training Program
DX: D64.9 Anemia, unspecified (principal)

== ENCOUNTER 2024-12-11 23:27 | Inpatient (IN) | payer MEDICARE, MEDICAID ==
[~2024-12-11] VITALS: Ht 157.5 cm; Wt 56.8 kg
[2024-12-12] MEDS: NS (Normal Saline) 0.9% 1,000 ML IV ONE (06:26)
[2024-12-12] MEDS: ONDANSETRON 4MG 2ML VIAL IV ONE (06:26)
[2024-12-12 07:03] LABS: BASO # 0.1 10^3/uL (0.0-0.2); BASO % 1.1 % (0.0-1.0); EOS % 0.4 % (0.0-3.0); HEMATOCRIT 27.6 % (36.0-47.0); HEMOGLOBIN 8.5 g/dl (12.0-15.5); LYMPH # 1.9 10^3/uL (1.5-5.0); LYMPH % 33.5 % (24.0-44.0); MEAN CORPUSCULAR HGB CONC 30.8 g/dl (32.0-36.5); MEAN CORPUSCULAR VOLUME 81.2 fl (80.0-96.0); MONO # 0.6 10^3/uL (0.0-0.8); MONO % 11.5 % (2.0-8.0); NEUTROPHILS % 53.1 % (36.0-66.0); PLATELET COUNT, AUTOMATED 302 10^3/uL (150-450); WHITE BLOOD COUNT 5.6 10^3/uL (4.0-10.0)
[2024-12-12 07:13] LABS: ALBUMIN 3.6 G/DL (3.2-5.2); ALKALINE PHOSPHATASE 76 U/L (35-104); ALT/SGPT 12 U/L (7.0-40); AST/SGOT 58 U/L (<34); BILIRUBIN,DIRECT 0.1 MG/DL (<0.4); BILIRUBIN,TOTAL 0.5 MG/DL (0.3-1.2); BLOOD UREA NITROGEN 12 MG/DL (9-23); CALCIUM LEVEL 8.4 MG/DL (8.3-10.6); CARBON DIOXIDE LEVEL 21 MMOL/L (20-31); CHLORIDE LEVEL 107 MMOL/L (98-107); CK-MB VALUE MASS 6.9 NG/ML (<3.6); CPK CREATINE PHOSPHOKINASE 454 U/L (34-145); CREATININE FOR GFR 0.65 MG/DL (0.55-1.30); GLOMERULAR FILTRATION RATE > 60.0 (>39); GLUCOSE, FASTING 81 MG/DL (74-106); LIPASE 32 U/L (12-53); MB/CK RELATIVE INDEX 1.51 (< OR =4); POTASSIUM SERUM 4.4 MMOL/L (3.5-5.1); SODIUM LEVEL 144 MMOL/L (136-145); THYROID STIMULATING HORMONE 1.388 uIU/ML (0.55-4.78); TOTAL PROTEIN 7.4 G/DL (5.7-8.2)
[2024-12-12] MEDS ORDERED: FERR325T19 PO (09:41)
[2024-12-12] MEDS ORDERED: CYMB1CAP5 PO (09:41)
[2024-12-12] MEDS ORDERED: ALEN10TA5 PO (09:41)
[2024-12-12] MEDS ORDERED: HOME MED LIST COMPLETE! XX SCH (09:45)
[2024-12-12 10:11] LABS: KETONE, URINE AUTO RFX 1+ mg/dL (NEGATIVE); LEUKOCYTE ESTERASE UR AUTO RFX NEGATIVE (NEGATIVE); MUCUS, URINE RFX SMALL (NEGATIVE); NITRITE, URINE AUTO RFX NEGATIVE (NEGATIVE); RBC, URINE AUTO RFX 2 /HPF (0-3); SQUAM EPITHELIAL CELL UR AURFX 0 /HPF (0-6); WBC, URINE AUTO RFX 0 /HPF (0-3)
[2024-12-12] MEDS ORDERED: ISOVUE-370 76% 100ML VIAL As Ordered ONE (12:07)
[2024-12-12] MEDS: MULTIVITAMIN -ADULT INJECTION 10 ML, THIAMINE INJection 100 MG, FOLIC ACID 1 MG in NS (... IV ONE (13:33)
[2024-12-12 15:20] LABS: HEMATOCRIT 27.1 % (36.0-47.0); HEMOGLOBIN 8.3 g/dl (12.0-15.5); MEAN CORPUSCULAR HEMOGLOBIN 25.2 pg (27.0-33.0); MEAN CORPUSCULAR HGB CONC 30.6 g/dl (32.0-36.5); MEAN CORPUSCULAR VOLUME 82.1 fl (80.0-96.0); PLATELET COUNT, AUTOMATED 263 10^3/uL (150-450)
[2024-12-12] MEDS: ONDANSETRON 4MG 2ML VIAL IV PRN (15:57)
[2024-12-12 16:11] VITALS: BP 155/72; TEMP 98.5; O2SAT 98
[2024-12-12 16:33] VITALS: BP 162/77; TEMP 97.8; O2SAT 99
[2024-12-12 17:18] VITALS: BP 162/74; TEMP 98.6; O2SAT 99
[2024-12-12] MEDS: PERCOCET 5MG/325MG TAB PO PRN (17:21)
[2024-12-12 18:18] VITALS: BP 165/72; TEMP 98.4; O2SAT 97
[2024-12-12] MEDS: LR 1,000 ML IV ONE (20:07)
[2024-12-12] MEDS: traZODone 50 MG TAB PO SCH (20:07)
[2024-12-12] MEDS: ACETAMINOPHEN 325 MG TAB PO PRN (20:08)
[2024-12-13 06:46] LABS: BLOOD UREA NITROGEN < 5 MG/DL (9-23); CALCIUM LEVEL 8.3 MG/DL (8.3-10.6); CARBON DIOXIDE LEVEL 19 MMOL/L (20-31); CHLORIDE LEVEL 101 MMOL/L (98-107); CREATININE FOR GFR 0.64 MG/DL (0.55-1.30); GLOMERULAR FILTRATION RATE > 60.0 (>39); GLUCOSE, FASTING 69 MG/DL (74-106); HEMATOCRIT 33.6 % (36.0-47.0); MEAN CORPUSCULAR HEMOGLOBIN 25.5 pg (27.0-33.0); MEAN CORPUSCULAR HGB CONC 31.3 g/dl (32.0-36.5); MEAN CORPUSCULAR VOLUME 81.6 fl (80.0-96.0); PLATELET COUNT, AUTOMATED 254 10^3/uL (150-450); POTASSIUM SERUM 3.4 MMOL/L (3.5-5.1); RED BLOOD COUNT 4.12 10^6/uL (4.00-5.40); SODIUM LEVEL 139 MMOL/L (136-145); WHITE BLOOD COUNT 7.7 10^3/uL (4.0-10.0)
[2024-12-13 06:48] LABS: HEMOGLOBIN 10.5 g/dl (12.0-15.5)
[2024-12-13] MEDS: MULTIVITAMINS/MINERALS THERAP 1 TAB PO SCH (08:22)
[2024-12-13] MEDS: FOLIC ACID 1MG TAB PO SCH (08:22)
[2024-12-13] MEDS: FERROUS SULFATE 325MG TAB PO SCH (08:23)
[2024-12-13] MEDS: DULoxetine 30MG CAPSULE (CYMBALTA) PO SCH (08:23)
[2024-12-13 08:40] LABS: HEMATOCRIT 35.1 % (36.0-47.0); HEMOGLOBIN 11.1 g/dl (12.0-15.5); MEAN CORPUSCULAR HEMOGLOBIN 25.8 pg (27.0-33.0); MEAN CORPUSCULAR HGB CONC 31.6 g/dl (32.0-36.5); MEAN CORPUSCULAR VOLUME 81.6 fl (80.0-96.0); PLATELET COUNT, AUTOMATED 242 10^3/uL (150-450); WHITE BLOOD COUNT 7.1 10^3/uL (4.0-10.0)
[2024-12-13] MEDS ORDERED: THIAMINE 100 MG TAB PO SCH (09:00)
[2024-12-13] MEDS: LR 1,000 ML IV SCH (10:06)
[2024-12-13] MEDS: THIAMINE INJection 500 MG in NS 100 ML IV SCH (11:42)
[2024-12-13 14:30] VITALS: BP 112/64; TEMP 97.6; O2SAT 95
[2024-12-13 15:00] VITALS: BP 126/69
[2024-12-13 16:00] VITALS: BP 110/64; TEMP 97.5; O2SAT 95
[2024-12-13 16:20] LABS: HEMATOCRIT 33.5 % (36.0-47.0); HEMOGLOBIN 10.4 g/dl (12.0-15.5); MEAN CORPUSCULAR HEMOGLOBIN 25.6 pg (27.0-33.0); MEAN CORPUSCULAR VOLUME 82.3 fl (80.0-96.0); PLATELET COUNT, AUTOMATED 227 10^3/uL (150-450); RED BLOOD COUNT 4.07 10^6/uL (4.00-5.40); WHITE BLOOD COUNT 5.3 10^3/uL (4.0-10.0)
[2024-12-13 19:46] VITALS: BP 143/92; TEMP 97.3; O2SAT 97
[2024-12-13 22:15] VITALS: BP 122/64
[2024-12-14] VITALS (10 sets, daily range): BP systolic 106–170; BP diastolic 68–99; TEMP 97–97.7; O2SAT 94–98
[2024-12-14 08:47] LABS: BLOOD UREA NITROGEN 7 MG/DL (9-23); CALCIUM LEVEL 9.3 MG/DL (8.3-10.6); CARBON DIOXIDE LEVEL 30 MMOL/L (20-31); CHLORIDE LEVEL 103 MMOL/L (98-107); CREATININE FOR GFR 0.68 MG/DL (0.55-1.30); GLOMERULAR FILTRATION RATE > 60.0 (>39); GLUCOSE, FASTING 100 MG/DL (74-106); POTASSIUM SERUM 3.7 MMOL/L (3.5-5.1); SODIUM LEVEL 143 MMOL/L (136-145)
[2024-12-14] MEDS: LORazepam 2 MG TAB PO PRN (13:11)
[2024-12-15] VITALS (10 sets, daily range): BP systolic 136–161; BP diastolic 64–85; TEMP 97–97.7; O2SAT 96–98
[2024-12-15 06:16] LABS: HEMATOCRIT 32.4 % (36.0-47.0)
[2024-12-15 09:54] LABS: HEMATOCRIT 33.1 % (36.0-47.0); HEMOGLOBIN 10.2 g/dl (12.0-15.5)
[2024-12-15] MEDS: NS 500 ML IV ONE (15:55)
[2024-12-15] MEDS: PANTOPRAZOLE 40MG TAB (PROTONIX) PO SCH (22:06)
[2024-12-15] MEDS: MAALOX 30 ML SUSP *UDC PO PRN (22:07)
[2024-12-16] VITALS (8 sets, daily range): BP systolic 132–180; BP diastolic 76–100; TEMP 97.2–97.8; O2SAT 98–100
[2024-12-16] MEDS: ENOXAPARIN 40MG/0.4ML SYRINGE (J1650 PER 10MG) SC SCH (09:00)
[2024-12-16] MEDS: **hydrALAZINE HCL** 25 MG TAB PO STA (09:40)
[2024-12-16] MEDS: OXAZEPAM 15MG CAP PO SCH (14:32)
[2024-12-16] MEDS: **hydrALAZINE** 10 MG TAB PO SCH (17:21)
[2024-12-16] MEDS ORDERED: PILL CUTTER 1 EACH XX ONE (20:33)
[2024-12-17 04:00] VITALS: BP 142/75; TEMP 97.3; O2SAT 97
[2024-12-17 05:58] VITALS: BP 142/75
[2024-12-17 08:35] VITALS: BP 135/77
[2024-12-17 16:01] VITALS: BP 137/77
[2024-12-17 20:59] VITALS: BP 145/81
[2024-12-17] MEDS: THIAMINE INJection 500 MG in NS 100 ML IV SCH (20:59)
[2024-12-18 04:00] VITALS: BP 146/80; TEMP 98.1; O2SAT 96
[2024-12-18 08:00] VITALS: BP_SYST 134; BP_SYST 144; BP_SYST 163; BP_DIAS 78; BP_DIAS 84; BP_DIAS 90; TEMP 97.5; TEMP 97.6; O2SAT 96; O2SAT 98
[2024-12-18 12:00] VITALS: BP 146/80; TEMP 97.5; O2SAT 98
[2024-12-18 14:00] VITALS: BP 148/60
[2024-12-18 19:37] VITALS: BP 160/85; TEMP 97.3; O2SAT 97
[2024-12-18 21:04] VITALS: BP 160/85
[2024-12-19 03:05] VITALS: BP 134/80; TEMP 97.2; O2SAT 96
[2024-12-19 09:03] VITALS: BP 134/81
[2024-12-19 21:26] VITALS: BP 137/79; TEMP 97.3; O2SAT 96
[2024-12-20 04:03] VITALS: BP 139/77; TEMP 97.2; O2SAT 96
[2024-12-20 08:00] VITALS: BP 139/77
[2024-12-20 16:28] VITALS: BP 115/66
[2024-12-20] MEDS ORDERED: MOM 30ML SUSPENSION UDC PO PRN (17:20)
[2024-12-20] MEDS: SENOKOT S TAB PO SCH (21:00)
[2024-12-20 21:35] VITALS: BP 130/73
[2024-12-21 04:05] VITALS: BP 129/74; TEMP 97.2; O2SAT 98
[2024-12-21] MEDS: OXAZEPAM 15MG CAP PO SCH (08:52)
[2024-12-21 09:00] VITALS: BP 145/97
[2024-12-22 03:54] VITALS: BP 135/69; TEMP 97.2; O2SAT 95
[2024-12-22 08:22] VITALS: BP 156/87
[2024-12-22] MEDS ORDERED: THIAMINE 100 MG TAB PO SCH (09:00)
[2024-12-23 04:24] VITALS: BP 132/70; TEMP 97.5; O2SAT 95
[2024-12-23 08:53] VITALS: BP 174/57
[2024-12-23 14:00] VITALS: BP 100/57
[2024-12-23] MEDS ORDERED: THERTAB19 PO (17:54)
[2024-12-23] MEDS ORDERED: SENN-52 PO (17:54)
[2024-12-23] MEDS ORDERED: HYDR-161 PO (17:54)
[2024-12-23] MEDS ORDERED: PANT40TA29 PO (17:54)
[2024-12-24 04:01] VITALS: BP 130/69; TEMP 97.2; O2SAT 96
[2024-12-24 09:31] VITALS: BP 146/80
[2024-12-24 10:12] VITALS: BP 146/80
== END 2024-12-24 14:30 | disposition home or self-care (01) | DRG 605 ==
LOC: EDBD 23:27 → M ED 23:27 → M ED INP 12-12 14:27 → M MS5PR 12-13 14:35
PROVIDERS: ADMIT Student in an Organized Health Care Education/Training Program; ATTEND Internal Medicine
PROC: 30233N1 Transfusion of Nonautologous Red Blood Cells into Peripheral Vein, Percutaneous Approach (ICD-10-PCS; principal; 2024-12-12)
DX: S70.01XA Contusion of right hip, initial encounter (principal); D62 Acute posthemorrhagic anemia; E87.20 Acidosis, unspecified; I10 Essential (primary) hypertension; M81.0 Age-related osteoporosis without current pathological fracture; E59 Dietary selenium deficiency; F41.9 Anxiety disorder, unspecified; F32.A Depression, unspecified; R29.6 Repeated falls; W19.XXXA Unspecified fall, initial encounter; Y92.9 Unspecified place or not applicable; M19.90 Unspecified osteoarthritis, unspecified site; Z96.643 Presence of artificial hip joint, bilateral; F10.90 Alcohol use, unspecified, uncomplicated; G89.29 Other chronic pain; G47.00 Insomnia, unspecified; Z66 Do not resuscitate; Z79.899 Other long term (current) drug therapy

== ENCOUNTER 2025-04-22 13:03 | Emergency (ER) | payer MEDICARE, MEDICAID ==
[~2025-04-22] VITALS: Ht 157.5 cm; Wt 58.2 kg
[~2025-04-22 13:03] MED LIST changes: -ACE65ERTAB PO; +ACET-1593 PO; +ALEN10TA5 PO; +CYMB1CAP5 PO; +FERR325T19 PO; +HYDR-161 PO; +LIDO1ADH93 TD; -LIDO5DIS41 TD; +ONDA-282 PO; +PANT40TA29 PO; +SENN-52 PO; -SUCR1ORA2 PO; +SUCR1ORA20 PO; +THERTAB19 PO
[2025-04-22 13:19] VITALS: TEMP 98.1
[2025-04-22 15:30] VITALS: BP 168/83
[2025-04-22 15:33] VITALS: O2SAT 97
== END 2025-04-22 15:53 | disposition home or self-care (01) ==
LOC: M ED 13:03
DX: F41.9 Anxiety disorder, unspecified (principal); R06.02 Shortness of breath; F10.10 Alcohol abuse, uncomplicated; Z79.83 Long term (current) use of bisphosphonates; Z79.899 Other long term (current) drug therapy

== ENCOUNTER 2025-05-03 03:43 | Emergency (ER) | payer MEDICARE, MEDICAID ==
[2025-05-03 03:53] VITALS: TEMP 97.6
[2025-05-03] MEDS: ACETAMINOPHEN 500 MG TAB PO ONE (09:20)
[2025-05-03 09:45] VITALS: BP 117/64; O2SAT 96
== END 2025-05-03 12:30 | disposition home or self-care (01) ==
LOC: M ED 03:43
DX: S70.02XA Contusion of left hip, initial encounter (principal); W01.198A Fall on same level from slipping, tripping and stumbling with subsequent striking against other object, initial encounter; Z96.642 Presence of left artificial hip joint; I10 Essential (primary) hypertension; F41.9 Anxiety disorder, unspecified; F32.A Depression, unspecified; F10.10 Alcohol abuse, uncomplicated; Z79.899 Other long term (current) drug therapy; Z79.83 Long term (current) use of bisphosphonates; Y92.009 Unspecified place in unspecified non-institutional (private) residence as the place of occurrence of the external cause; Y93.89 Activity, other specified; Y99.9 Unspecified external cause status

== ENCOUNTER 2025-05-06 06:38 | Observation (INO) | payer MEDICARE, MEDICAID ==
[~2025-05-06] VITALS: Ht 157.5 cm; Wt 56.8 kg
[2025-05-06] MEDS: ONDANSETRON 4MG 2ML VIAL IV ONE (07:39)
[2025-05-06] MEDS: MORPHINE 2 MG/ML 1 ML VIAL IV ONE (07:40)
[2025-05-06 07:53] LABS: BASO # 0.1 10^3/uL (0.0-0.2); BASO % 1.0 % (0.0-1.0); EOS # 0.1 10^3/uL (0.0-0.5); EOS % 1.0 % (0.0-3.0); LYMPH # 1.4 10^3/uL (1.5-5.0); LYMPH % 24.5 % (24.0-44.0); MONO # 0.6 10^3/uL (0.0-0.8); MONO % 10.6 % (2.0-8.0); NEUTROPHILS # 3.7 10^3/uL (1.5-8.5); NEUTROPHILS % 62.6 % (36.0-66.0); PLATELET COUNT, AUTOMATED 276 10^3/uL (150-450)
[2025-05-06 08:07] LABS: INR 0.92
[2025-05-06 08:16] LABS: CK-MB VALUE MASS 2.3 NG/ML (<3.6)
[2025-05-06 08:18] LABS: ALT/SGPT 10 U/L (7.0-40); AST/SGOT 25 U/L (<34); CALCIUM LEVEL 8.4 MG/DL (8.3-10.6); CARBON DIOXIDE LEVEL 24 MMOL/L (20-31); CHLORIDE LEVEL 113 MMOL/L (98-107); CPK CREATINE PHOSPHOKINASE 124 U/L (34-145); CREATININE FOR GFR 0.70 MG/DL (0.55-1.30); GLOMERULAR FILTRATION RATE > 90.0 (>39); MB/CK RELATIVE INDEX 1.85 (< OR =4); POTASSIUM SERUM 3.3 MMOL/L (3.5-5.1); SODIUM LEVEL 151 MMOL/L (136-145)
[2025-05-06] MEDS: POTASSIUM CHLORIDE 10MEQ SR TABLET PO ONE ×2 (09:02→22:04)
[2025-05-06] MEDS: KETOROLAC 30 MG/ML 1 ML VIAL IV ONE (13:34)
[2025-05-06] MEDS: ACETAMINOPHEN *IV* 1,000 MG in IV 1 EA IV ONE (13:34)
[2025-05-06] MEDS: LIDOCAINE 5% PATCH TD ONE (13:45)
[2025-05-06] MEDS ORDERED: GLUCOSE 4 GM CHEW PO PRN (14:00)
[2025-05-06] MEDS ORDERED: DEXTROSE 50% 50 ML SYRINGE IV PRN (14:00)
[2025-05-06] MEDS ORDERED: GLUCAGON INJ 1 MG VIAL SC PRN (14:00)
[2025-05-06] MEDS ORDERED: HYDR-161 PO (14:33)
[2025-05-06] MEDS ORDERED: SENN-52 PO (14:33)
[2025-05-06] MEDS ORDERED: THERTAB52 PO (14:33)
[2025-05-06] MEDS ORDERED: DULO30CA9 PO (14:33)
[2025-05-06] MEDS ORDERED: PANT40TA29 PO (14:33)
[2025-05-06] MEDS ORDERED: HOME MED LIST COMPLETE! XX SCH (14:35)
[2025-05-06] MEDS ORDERED: oxyCODONE 10 MG CR TAB PO SCH (16:00)
[2025-05-06] MEDS: INSULIN LISPRO (NovoLOG) PER UNIT SC SCH ×2 (17:30→21:00)
[2025-05-06] MEDS ORDERED: PILL CUTTER 1 EACH XX PRN (21:05)
[2025-05-06] MEDS: traZODone 50 MG TAB PO SCH (22:04)
[2025-05-06] MEDS: **hydrALAZINE** 10 MG TAB PO SCH (22:05)
[2025-05-06] MEDS: SENNOSIDES/DOCUSATE SODIUM 8.6 MG/50MG TAB PO SCH (22:05)
[2025-05-06] MEDS: PANTOPRAZOLE 40MG TAB PO SCH (22:05)
[2025-05-07] MEDS ORDERED: ALENDRONATE 10 MG PO SCH (09:00)
[2025-05-07] MEDS: FERROUS SULFATE 325 MG TAB PO SCH (09:55)
[2025-05-07] MEDS: ENOXAPARIN 40 MG/0.4 ML SYRINGE (J1650 PER 10MG) SC SCH (09:56)
[2025-05-07] MEDS: LIDOCAINE 5% PATCH TD SCH (09:56)
[2025-05-07 11:35] LABS: CALCIUM LEVEL 8.0 MG/DL (8.3-10.6); CARBON DIOXIDE LEVEL 28.0 MMOL/L (20-31); CHLORIDE LEVEL 106.0 MMOL/L (98-107); CREATININE FOR GFR 0.73 MG/DL (0.55-1.30); GLOMERULAR FILTRATION RATE 87.9 (>39); MAGNESIUM LEVEL 1.3 MG/DL (1.8-2.4); POTASSIUM SERUM 4.0 MMOL/L (3.5-5.1); SODIUM LEVEL 141.0 MMOL/L (136-145)
[2025-05-08] MEDS ORDERED: MAG SULF 1GM/100ML (MAG RUN) 1 GM in IV 1 EA IV SCH (09:00)
[2025-05-08 15:36] LABS: CALCIUM LEVEL 8.4 MG/DL (8.3-10.6); CARBON DIOXIDE LEVEL 29.0 MMOL/L (20-31); CHLORIDE LEVEL 102.0 MMOL/L (98-107); CREATININE FOR GFR 0.74 MG/DL (0.55-1.30); GLOMERULAR FILTRATION RATE 86.4 (>39); MAGNESIUM LEVEL 1.3 MG/DL (1.8-2.4); POTASSIUM SERUM 4.2 MMOL/L (3.5-5.1); SODIUM LEVEL 139.0 MMOL/L (136-145)
[2025-05-08] MEDS: FOLIC ACID 1 MG TAB PO SCH (16:41)
[2025-05-08] MEDS: THIAMINE 100 MG TAB PO SCH (16:41)
[2025-05-08] MEDS: MULTIVITAMINS/MINERALS THERAP 1 TAB PO SCH (16:41)
[2025-05-08] MEDS: MAG SULF 1GM/100ML (MAG RUN) 1 GM in IV 1 EA IV SCH (19:33)
[2025-05-08] MEDS ORDERED: ACETAMINOPHEN 325 MG TAB PO PRN (19:45)
[2025-05-08] MEDS ORDERED: ACETAMINOPHEN 500 MG TAB PO PRN (19:45)
[2025-05-08] MEDS: PERMETHRIN 5% CREAM 60 GM TOP ONE (20:36)
[2025-05-08] MEDS: MAGNESIUM OXIDE 400 MG TAB PO SCH (20:38)
[2025-05-08] MEDS: PERCOCET 5MG/325MG TAB PO PRN (20:39)
[2025-05-09 06:00] VITALS: BP 142/65; TEMP 98.3; O2SAT 94
[2025-05-09 08:23] LABS: PLATELET COUNT, AUTOMATED 268 10^3/uL (150-450)
[2025-05-09 09:11] LABS: ALT/SGPT < 9 U/L (7.0-40); AST/SGOT 20 U/L (<34); CALCIUM LEVEL 8.3 MG/DL (8.3-10.6); CARBON DIOXIDE LEVEL 29 MMOL/L (20-31); CHLORIDE LEVEL 105 MMOL/L (98-107); CREATININE FOR GFR 0.66 MG/DL (0.55-1.30); GLOMERULAR FILTRATION RATE > 90.0 (>39); MAGNESIUM LEVEL 1.9 MG/DL (1.8-2.4); POTASSIUM SERUM 4.4 MMOL/L (3.5-5.1); SODIUM LEVEL 144 MMOL/L (136-145)
[2025-05-09 09:25] VITALS: BP 166/73
[2025-05-09] MEDS ORDERED: PERCOCET PO (10:57)
[2025-05-09] MEDS ORDERED: ACET32TAB PO (10:57)
== END 2025-05-09 17:38 | disposition home or self-care (01) ==
LOC: M ED 06:38 → M ED INP 06:39 → M ED 14:32
PROVIDERS: ADMIT Student in an Organized Health Care Education/Training Program; ATTEND Student in an Organized Health Care Education/Training Program
DX: M25.552 Pain in left hip (principal); E83.42 Hypomagnesemia; W19.XXXA Unspecified fall, initial encounter; W57.XXXA Bitten or stung by nonvenomous insect and other nonvenomous arthropods, initial encounter; R26.2 Difficulty in walking, not elsewhere classified; I10 Essential (primary) hypertension; F10.10 Alcohol abuse, uncomplicated; M81.0 Age-related osteoporosis without current pathological fracture; G89.29 Other chronic pain; E55.9 Vitamin D deficiency, unspecified; F41.9 Anxiety disorder, unspecified; F32.A Depression, unspecified; G47.00 Insomnia, unspecified; Z79.899 Other long term (current) drug therapy
CPT/HCPCS: 36415; 70450; 71045; 72125; 72192; 73502; 73552; 73700; 80047; 80048; 80053; 80076; 82550; 82553; 83735; 85025; 85027; 85610; 85730; 86850; 86900; 86901; 93005; 93041; 94760; 96361; 96374; 96375; 97116; 97161; 97165; 97530; 97535; 99285; G0378; J0131; J1885; J2405; J3475

== ENCOUNTER → 2025-05-16 | Outpatient (CLI) | payer MEDICARE, MEDICAID ==
[~2025-05-16] MED LIST changes: +ACET32TAB PO; +DULO30CA9 PO; +THERTAB52 PO
[2025-05-16 17:59] LABS: TOTAL 25(OH) VITAMIN D 30.9 NG/ML (20.0-100.0)
[2025-05-16 18:01] LABS: ALT/SGPT 9.0 U/L (7.0-40); AST/SGOT 21.0 U/L (<34); CALCIUM LEVEL 9.8 MG/DL (8.3-10.6); CARBON DIOXIDE LEVEL 26.0 MMOL/L (20-31); CHLORIDE LEVEL 111.0 MMOL/L (98-107); CREATININE FOR GFR 0.72 MG/DL (0.55-1.30); GLOMERULAR FILTRATION RATE 89.3 (>39); POTASSIUM SERUM 4.4 MMOL/L (3.5-5.1); SODIUM LEVEL 144.0 MMOL/L (136-145)
== END ==
LOC: M PLALAB 14:08
PROVIDERS: ATTEND Student in an Organized Health Care Education/Training Program
DX: I10 Essential (primary) hypertension (principal); M81.0 Age-related osteoporosis without current pathological fracture; E55.9 Vitamin D deficiency, unspecified

== ENCOUNTER → 2025-06-08 | Outpatient (CLI) | payer MEDICARE, MEDICAID | LOC: M WHC 11:13 | PROVIDERS: ATTEND Student in an Organized Health Care Education/Training Program | DX: M81.0 Age-related osteoporosis without current pathological fracture (principal) ==

== ENCOUNTER 2025-09-04 14:57 | Emergency (ER) | payer MEDICARE, MEDICAID ==
[~2025-09-04] VITALS: Ht 157.5 cm; Wt 63.9 kg
[~2025-09-04 14:57] MED LIST changes: +ACET-1387 PO; -ACET-1593 PO
[2025-09-04 20:15] VITALS: BP 139/83; TEMP 98.1; O2SAT 98
== END 2025-09-04 20:26 | disposition home or self-care (01) ==
LOC: M ED 14:57
DX: S70.02XA Contusion of left hip, initial encounter (principal); Y92.019 Unspecified place in single-family (private) house as the place of occurrence of the external cause; Y93.9 Activity, unspecified; Y99.9 Unspecified external cause status; W01.0XXA Fall on same level from slipping, tripping and stumbling without subsequent striking against object, initial encounter; I10 Essential (primary) hypertension; F41.9 Anxiety disorder, unspecified; F32.A Depression, unspecified; F10.10 Alcohol abuse, uncomplicated; Z79.1 Long term (current) use of non-steroidal anti-inflammatories (NSAID); Z79.899 Other long term (current) drug therapy; Z79.810 Long term (current) use of selective estrogen receptor modulators (SERMs)